=== PATIENT | male | born 1960 | race Caucasian/White ===

== ENCOUNTER 2024-01-04 16:54 | Inpatient (IN) | payer OTHER ==
--- OUTSIDE RECORDS SUMMARY | 2024-01-04 17:09 | XMS REPORT | Continuity of Care Document ---
Author Name Unknown Address [address] [place] [address] [facility] Address [address] [place] [address] Care Team Providers Care Internet Application Developer Name Role Phone Sunday Mccormick MD Primary Care Physician FRANCISCA BARROS Attending Clinician Unavailable MARTIN WYATT JR Attending Clinician UnavailMIRIAM Last Attending Clinician Unavailable ROLAND FANG Attending Clinician Unavailable SUNDAY MCCORMICK Attending Clinician ELSA Alston K.HMoris Attending Clinician UnavailRADHA Tee Attending Clinician Unavailable RADHA LOPEZ Attending Clinician Unavailable Sunday Mccormick MD Attending Clinician + [phone] Alfred Rachele Jha Attending Clinician Unavailable TRACY LOPEZ Attending Clinician Unavailable TRACY LOPEZ Attending Clinician Unavailable Elsa Corrales MD K.HMoris Attending Clinician + [phone] CAYDEN ESTRELLA Attending Clinician Unavailable CAYDEN ESTRELLA Attending Clinician Unavailable Radha Lopez DO Attending Clinician [phone] Doctor Unassigned, [place] Attending Clinician U navailable SHAINA, AFAQ Attending Clinician Unavailable Shaina SENA, Wesley Attending Clinician [phone] ALIYAH JARAMILLO Attending Clinician Unavailable Sarah SUERO, Aliyah G Attending Clinician [phone] AMANDA LOPEZ Attending Clinician Unavailable Jessica SENA, Amanda Shrestha Attending Clinician [phone] Rehab, [facility] Cardiac Attending Clinician Unavailab anastacio High MD, Oswald Attending Clinician [phone] Pob, [facility] Lab Main Attending Clinician Unavailishmael Fang MD, Roland Griffith Attending Clinician [phone] Marcelo Marte MD, Balwinder Santacruz Attending Clinicia n JENI LEVINE Attending Clinician Unavailab Jeni Curry DO Attending Clinician [phone] JOSHUA WORLEY Attending Clinician Unavailishmael Worley MD, Joshua Attending Clinician + [phone] DTOTY DENNIS Attending Clinician Unavailable DOTTY DENNIS Attending Clinician Unavailable 1, [facility] Lab Attending Clinician Unavailable Amy Cool MD Attending Clinician [phone] AMY COOL Attending Clinician UnavailYael Morocho Attending Clinician Unavaila erin POON, IMER Attending Clinician Unavailable Cleve SENA, Imer Attending Clinician [phone] Vaccine, Ang Db Cbc Fam Attending Clinician Unav layo Luu MD, Elena Shrestha Attending Clinician + [phone], [facility] Lab Attending Clinician Unavailable Zach SENA, Emmanuel Mazariegos Attendin g Clinician EMMANUEL SERRANO Attending C linician Unavailable Bernardino ALEJO, Bobbi Dubois Attending Clinician Unavailishmael Heart MD, Kiel Attending Clinician + [phone] Only, Adc Test Attending Clinician Unavailable Saurabh Marcum Attending Clinician + [phone] Papo SENA, Francisca Attending Clinician [phone] Scar SENA, Daphnie Attending Clinician [phone] Gramm BROWNFIELD PROGRAM COORDINATORIvteh Attending Clinician [phone] Nurse, [facility] Pob Immunization Attending Clinician Unavailable Raymundo Lafleur DO Attending Clinician [phone] RAYMUNDO LAFLEUR Attending Clinician Unavail able Gerard Barakat DO Attending Clinician [phone] ELENA LUU Attending Clinician Unavaila erin Parkinson RN, Zohra Jimenez Attending Clinician Unavailab le Only, Ang Db Test Attending Clinician Unavailabl e Unknown, Attending Attending Clinician Unavailab le UNKNOWN, ATTENDING Attending Clinician Unavailab anastacio Blair RNLenora Attending Clinician Unavailab RUFINA Iniguez Attending Clinician Unavailable Yane Couch MD Attending Clinician [phone] Visit, [facility] Dermatology Nurse Attending Clinician Unavailable Isaak SENA, Delmi Valencia Attending Clinician [phone] Mehul Ragsdale MD Attending Clinician [phone] MEHUL RAGSDALE Attending Clinician Unavailable Joycelyn Walker MD Attending Clinician [phone] Miriam Mayes MD Attending Clinician Unavailable JUDITH MCCARTHY Attending Clinician Unavailable Call, [facility] Phone Attending Clinician Unavail able FOUZIA LOBATO Attending Clinician Unavailable MARCIA BALDWIN Attending Clinician Unavailable Lab, [facility] Fam Pob I Attending Clinician Unavailab Krystina Pagan PA-C Attending Clinician +- [phone] KRYSTINA MARTINEZ Attending Clinician Unavailable Morales Alicia MD Attending Clinician [phone] FRANCISCA BARROS Admitting Clinician Unavailable MARTIN WYATT JR Admitting Clinician Unavaila MIRIAM Chua Admitting Clinician Unavailable RADHA LOPEZ Admitting Clinician Unavailable Radha Lopez DO Admitting Clinician [phone] ALIYAH JARAMILLO Admitting Clinician Unavailable AMANDA LOPEZ Admitting Clinician Unavailable DOTTY DENNIS Admitting Clinician Unavailable ROLAND FANG Admitting Clinician Unavailable Roland Fang MD Admitting Clinician [phone] IMER POON Admitting Clinician Unavailable Imer Poon MD Admitting Clinician [phone] Francisca Barros MD Admitting Clinician ELSA CORRALES Admitting Clinician JUDITH Mitchell Admitting Clinician Unavailable Payers Payer Name Policy Type Policy Number Effective Date Expirati on Date Source RAMBO CORRALES DIST [id number] 2021 00:00:00 2022 00:00:00 [employer]AGE [id number] 2023 00:00:00 Problems Condition Name Condition Details Condition Category Status Onset Date Resolution Date Last Treatment Date Treating Clinician Comments Source 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 Added automatic ally from request for surgery [id number] [facility] PACHECO (dyspnea on exertion) PACHECO (dyspnea on exertion) Disease Active 10-28 00:00: 00 Overview: Formattin g of this note might be different from the original. Added automatic ally from request for surgery [id number] [facility] Pulmonary hypertensi on Pulmonary hypertensi on Disease Active 10-28 00:00: 00 Overview: Formattin g of this note might be different from the original. Added automatic ally from request for surgery [id number] [facility] Chronic bilateral low back pain with right-side d sciatica Chronic bilateral low back pain with right-side d sciatica Disease Active 2020-09 0-11 00:00: 00 [facility] Obesity (BMI 30-39.9) Obesity (BMI 30-39.9) Disease Active 3- 00:00: 00 [facility] S/P CABG x 2 S/P CABG x 2 Disease Active 3-29 00:00: 00 [facility] Preop testing Preop testing Disease Active 2-11 00:00: 00 [facility] CKD (chronic kidney disease), stage III CKD (chronic kidney disease), stage III Disease Active 1-24 00:00: 00 [facility] Prediabete s Prediabete s Disease Active 10-10 00:00: 00 [facility] Hyperchole sterolemia Hyperchole sterolemia Disease Active 10-10 00:00: 00 [facility] Vitamin D deficiency Vitamin D deficiency Disease Active 10-10 00:00: 00 [facility] Renal dysfunctio n Renal dysfunctio n Disease Active 10-10 00:00: 00 [facility] Coronary artery disease involving [place] coronary artery of [place] heart with unstable angina pectoris Coronary artery disease involving [place] coronary artery of [place] heart with unstable angina pectoris Disease Active 2016-09 00:00: 00 [facility] Chronic systolic congestive heart failure Chronic systolic congestive heart failure Disease Active 2016-09 00:00: 00 [facility] Ischemic cardiomyop athy Ischemic cardiomyop athy Disease Active 2016-09 00:00: 00 [facility] History of PTCA History of PTCA Disease Active 2016-09 00:00: 00 [facility] Coronary artery disease involving [place] coronary artery of [place] heart with unstable angina pectoris Coronary artery disease involving [place] coronary artery of [place] heart with unstable angina pectoris Disease Active 2016-09 00:00: 00 [facility] Atrial fibrillati on Atrial fibrillati on Disease Active 06-24 00:00: 00 [facility] AMI (acute myocardial infarction ) AMI (acute myocardial infarction ) Disease Active 09-28 00:00: 00 [facility] History of FL (myocardia l infarction ) History of FL (myocardia l infarction ) Disease Active 09-28 00:00: 00 [facility] S/p tibial fracture S/p tibial fracture Disease Active 2010-09 00:00: 00 [facility] Knee stiffness Knee stiffness Disease Active 2010-09 00:00: 00 [facility] Gait abnormalit y Gait abnormalit y Disease Active 2010-09 00:00: 00 [facility] Knee pain Knee pain Disease Active 2010-09 00:00: 00 [facility] History of Hodgkin's lymphoma History of Hodgkin's lymphoma Disease Active 09-28 00:00: 00 Overview: Formattin g of this note might be different from the original. s/p chemother apy/radia tion, treatment @ [facility] and [facility] History of CVA (cerebrova scular accident) History of CVA (cerebrova scular accident) Disease Active [facility] History of hypothyroi dism History of hypothyroi dism Disease Active [facility] HTN (hypertens ion) HTN (hypertens ion) Disease Active [facility] Allergies, Adverse Reactions, Alerts Allergy Name Allergy Type Status Severity Reaction(s) Onset Date Inactive Date Treating Clinician Comments Source NO KNOWN ALLERGIE S Drug Class Active [facility] Social History Social Habit Start Date Stop Date Quantity Comments Source Gender identity [facility] Sexual orientation U [facility] Alcohol intake 2023-12-23 00:00:00 2023-12-23 00:00:00 Current drinker of alcohol (finding) [facility] History of Social function 2023-12-09 00:00:00 2023-12-09 00:00:00 [facility] Exposure to SARS-CoV-2 (event) 2022-12-15 00:00:00 2022-12-25 09:47:00 Not sure [facility] History SDOH Alcohol Frequency 2020-11-08 00:00:00 2020-11-08 00:00:00 3 [facility] History SDOH Alcohol Std Drinks 2020-11-08 00:00:00 2020-11-08 00:00:00 1 [facility] History SDOH Alcohol Binge 2020-11-08 00:00:00 2020-11-08 00:00:00 99 [facility] Alcohol Comment 2020-11-08 00:00:00 2020-11-08 00:00:00 occasional - maybe 2 drinks/month [facility] Tobacco use and exposure 2020-09-27 00:00:00 2020-09-27 00:00:00 Smokeless tobacco non-user [facility] Sex Assigned At 1960 00:00:00 1960 00:00:00 [facility] Smoking Status Start Date Stop Date Source Never smoked tobacco [facility] Medications Ordered Medication Name Filled Medication Name Start Date Stop Date Current Medication? Ordering Clinician Indication Dosage Frequency Signature (SIG) Comments Components Source cholecalcif jessica, vitamin D3, (VITAMIN D3 ORAL) 12-24 12:39: 38 Yes Take by mouth daily. [facility] clopidogreL (PLAVIX) 75 mg tablet 12-24 00:00: 00 Yes [id number] 75mg Take 1 tablet by mouth in the morning. [facility] evolocumab (REPATHA SURECLICK) 140 mg/mL subcutaneou s injection 12-15 00:00: 00 Yes [id number] 140mg inject 1 mL under the skin every 2 (two) weeks. [facility] atorvastati n 40 mg tablet 12-13 00:00: 00 Yes [id number] 40mg TAKE 1 TABLET BY MOUTH AT BEDTIME [facility] gabapentin 300 mg capsule 12-09 00:00: 00 Yes 300mg Take 1 capsule by mouth in the morning and 1 capsule at noon and 1 capsule in the evening. [facility] HYDROcodone -acetaminop hen (NORCO 5) 5-325 mg tablet 1 tablet 12-08 21:45: 00 12-08 22:00 :00 No 1{tbl} 1 tablet, Oral, ONCE, 1 dose, On Thu12/09/23 at 1645, Routine, PACU [facility] ondansetron (ZOFRAN (PF)) injection 4 mg 12-08 21:35: 16 12-09 00:57 :06 No 4mg 4 mg, Slow IV Push, PRN, 1 dose, Starting on Thu12/09/23 at 1635, Until Thu12/09/23 at 195, Routine, Nausea and Vomiting (N/V), N/V unresponsi ve to Rosemary baker, DSU Recovery [facility] FENTanyl PF (SUBLIMAZE (PF)) injection 25 mcg 12-08 21:35: 12 12-09 00:57 :06 No 25ug 25 mcg, Slow IV Push, Q5MIN PRN, 4 doses, Starting on Thu12/09/23 at 1635, Until Thu12/09/23 at 195, Routine, Pain (scale 4-6), PACU [facility] ondansetron (ZOFRAN (PF)) injection 4 mg 12-08 21:35: 12 12-09 00:57 :06 No 4mg 4 mg, Slow IV Push, PRN, 1 dose, Starting on Thu12/09/23 at 1635, Until Thu12/09/23 at 1956, Routine, Nausea and Vomiting (N/V), PACU [facility] cholecalcif jessica, vitamin D3, (VITAMIN D3 ORAL) 12-08 17:57: 06 Yes Take by mouth daily. [facility] omeprazole (PRILOSEC OTC) 20 mg tablet 12-08 16:35: 58 12-08 00:00 :00 No 20mg Take 1 tablet by mouth in the morning. [facility] etodolac (LODINE) 400 mg tablet 00:00: 00 12-24 00:00 :00 No [id number] 400mg Take 1 tablet by mouth in the morning and 1 tablet in the evening. [facility] HYDROcodone -acetaminop hen 5-325 mg tablet 2- 00:00: 00 12-24 04:59 :00 Yes [id number] 1{tbl} Take 1 tablet by mouth in the morning and 1 tablet at noon and 1 tablet in the evening. Do all this for 30 days. Indication s: chronic pain [facility] gabapentin 300 mg capsule 11-24 00:00: 00 12-08 00:00 :00 No [id number] 300mg Take 1 capsule by mouth in the morning and 1 capsule at noon and 1 capsule in the evening. [facility] ketorolac 10 mg tablet 11-24 00:00: 00 00:00 :00 No [id number] 10mg Take 1 tablet by mouth in the morning and 1 tablet at noon and 1 tablet in the evening. [facility] ketorolac (TORADOL) tablet 10 mg 11-20 21:00: 00 11-20 20:17 :00 No 10mg 10 mg, Oral, ONCE, 1 dose, On Thu11/20/23 at 1500, Routine [facility] ketorolac (TORADOL) injection 30 mg 11-20 19:00: 11-20 18:09 :00 No 30mg 30 mg, Slow IV Push, ONCE, 1 dose, On Thu11/20/23 at 1300, Routine [facility] iopamidol (ISOVUE 370-500 mL) injection 90 mL 11-20 18:45: 00 11-20 19:00 :00 No [id number] 90mL 90 mL, Intravenou s, ONCE, 1 dose, On Thu11/20/23 at 1300, Routine [facility] NaCl 0.9% (NS) bolus infusion 1,000 mL 11-20 18:45: 00 11-20 20:05 :00 No 1000mL at 999 mL/hr, 1,000 mL, IV Infusion, ONCE, 1 dose, On Thu11/20/23 at 1245, MARCO [facility] ketorolac 10 mg tablet 11-20 00:00: 00 11-24 00:00 :00 No [id number] 10mg Take 1 tablet by mouth every 6 (six) hours as needed for Pain (scale 1-3), Pain (scale 4-6) or Pain (scale 7-10). [facility] gabapentin 300 mg capsule 2-23 00:00: 00 11-24 00:00 :00 No [id number] 300mg Take 1 capsule by mouth 3 (three) times daily as needed for Pain (scale 4-6) or Pain (scale 7-10). [facility] lisinopriL 10 mg tablet - 00:00: 00 Yes [id number] 10mg TAKE 1 TABLET BY MOUTH IN THE MORNING [facility] HYDROcodone -acetaminop hen 5-325 mg tablet 11-16 00:00: 00 11-24 05:59 :00 Yes [id number] 1{tbl} Take 1 tablet by mouth every 6 (six) hours as needed for Pain (scale 7-10) for up to 7 days. Indication s: acute pain [facility] atorvastati n (LIPITOR) 40 mg tablet 11-12 00:00: 00 12-13 00:00 :00 No [id number] 40mg Take 1 tablet by mouth at bedtime. [facility] amoxicillin -clavulanat e 875-125 mg per tablet - 00:00: 00 11-29 00:00 :00 No [id number] 1{tbl} Take 1 tablet by mouth every 12 (twelve) hours. [facility] HYDROcodone -acetaminop hen (NORCO) 5-325 mg tablet 1-25 00:00: 00 11-07 05:59 :00 Yes [id number] 1{tbl} Take 1 tablet by mouth every 6 (six) hours as needed (lung pain) for up to 15 days. Indication s: chronic pain [facility] LISINOPRIL 10 mg tablet 1- 00:00: 00 11-16 00:00 :00 No [id number] 10mg TAKE 1 TABLET BY MOUTH IN THE MORNING [facility] iopamidol (ISOVUE 370-500 mL) injection 90 mL - 21:15: 00 10-18 21:30 :00 No [id number] 90mL 90 mL, Intravenou s, ONCE, 1 dose, On 10/18/23 at 1530, Routine [facility] HYDROcodone -acetaminop hen (NORCO 5) 5-325 mg tablet 1 tablet 10-18 18:15: 00 10-18 18:58 :00 No 1{tbl} 1 tablet, Oral, ONCE NOW, 1 dose, On Thu10/18/23 at 1215, MARCO [facility] methocarbam oL (ROBAXIN-75 0) 750 mg tablet 10-18 00:00: 00 12-08 00:00 :00 No [id number] 750mg Take 1 tablet by mouth in the morning and 1 tablet at noon and 1 tablet in the evening. [facility] HYDROcodone -acetaminop hen 5-325 mg tablet 10-18 00:00: 00 10-26 05:59 :00 Yes [id number] 1{tbl} Take 1 tablet by mouth every 4 (four) hours as needed for Pain (scale 4-6) or Pain (scale 7-10) for up to 7 days. Indication s: acute pain [facility] amoxicillin -clavulanat e 875-125 mg per tablet 10-18 00:00: 00 10-23 00:00 :00 No [id number] 1{tbl} Take 1 tablet by mouth every 12 (twelve) hours. [facility] omeprazole (PRILOSEC OTC) 20 mg tablet 2022-09 14:06: 18 Yes 20mg Take 1 tablet by mouth in the morning. [facility] isosorbide mononitrate 30 mg 24 hr tablet 2022-09 00:00: 00 09-15 00:00 :00 No [id number] 30mg Take 1 tablet by mouth in the morning. [facility] furosemide 40 mg tablet 2022-09 00:00: 00 09-15 00:00 :00 No [id number] 40mg Take 1 tablet by mouth in the morning. [facility] KCL 20 mEq tablet 2023-1 1-06 00:00: 00 09-15 00:00 :00 No [id number] 20meq Take 1 tablet by mouth every morning. [facility] atorvastati n (LIPITOR) 40 mg tablet 2022-09 1- 00:00: 00 11-12 00:00 :00 No [id number] 40mg Take 1 tablet by mouth at bedtime. [facility] cholecalcif jessica, vitamin D3, (VITAMIN D3 ORAL) 2022-09 0-25 11:31: 18 Yes Take by mouth daily. [facility] atorvastati n (LIPITOR) 80 mg tablet 2022-09 0-16 00:00: 00 07-31 00:00 :00 No [id number] 80mg Take 1 tablet by mouth at bedtime. [facility] metoprolol tartrate 100 mg tablet 2022-09 0- 00:00: 00 Yes [id number] 50mg Take 0.5 tablets by mouth in the morning and 0.5 tablets in the evening. [facility] ezetimibe 10 mg tablet 2022-09 0 00:00: 00 07-31 00:00 :00 No [id number] 10mg Take 1 tablet by mouth in the morning. [facility] cholecalcif jessica, vitamin D3, (VITAMIN D3 ORAL) 18 14:42: 00 Yes Take by mouth daily. [facility] LISINOPRIL 10 mg tablet 9-14 00:00: 00 10-19 00:00 :00 No [id number] 10mg TAKE 1 TABLET BY MOUTH IN THE MORNING [facility] silver nitrate applicator 1 Applicator -18 15:15: 00 05-15 14:24 :00 No 1{appli cator} 1 Applicator , Topical, ONCE, 1 dose, On Thu05/15/23 at 1015, Routine [facility] METOPROLOL TARTRATE 100 mg tablet -18 00:00: 00 07-09 00:00 :00 No [id number] 100mg Take 1 tablet by mouth twice daily [facility] KCL 20 mEq tablet 04-20 00:00: 00 08-03 00:00 :00 No TAKE 1 TABLET BY MOUTH IN THE MORNING [facility] LISINOPRIL 10 mg tablet 04-20 00:00: 00 06-11 00:00 :00 No [id number] 10mg TAKE 1 TABLET BY MOUTH IN THE MORNING [facility] metoprolol tartrate (LOPRESSOR) tablet 50 mg 04-05 01:00: 00 04-04 21:04 :59 No 50mg 50 mg, Oral, BID, First dose (after last modificati on) on [facility] 04/04/23 at 1999, Until Discontinu ed, Routine [facility] cholecalcif jessica, vitamin D3, (VITAMIN D3 ORAL) 04-04 14:04: 57 Yes Take by mouth daily. [facility] lisinopriL (PRINIVIL,Z ESTRIL) tablet 10 mg 04-04 14:00: 00 04-04 21:04 :59 No 10mg 10 mg, Oral, DAILY, First dose on [facility] 04/04/23 at 0900, Until Discontinu ed, Routine [facility] ezetimibe (ZETIA) tablet 10 mg 04-04 14:00: 00 04-04 21:04 :59 No 10mg 10 mg, Oral, DAILY, First dose on [facility] 04/04/23 at 0900, Until Discontinu ed, Routine [facility] aspirin chewable tablet 81 mg 04-04 14:00: 00 04-04 21:04 :59 No 81mg 81 mg, Oral, DAILY, First dose on [facility] 04/04/23 at 0900, Until Discontinu ed, Routine, CV Recovery to Floor [facility] clopidogreL (PLAVIX) 75 mg tablet 75 mg 04-04 14:00: 00 04-04 21:04 :59 No 75mg 75 mg, Oral, DAILY, First dose on [facility] 04/04/23 at 0900, Until Discontinu ed, Routine, CV Recovery to Floor
F aculty member approving Restricted medication : ROLAND FANG [facility] atorvastati n (LIPITOR) tablet 80 mg 04-04 02:00: 00 04-04 21:04 :59 No 80mg 80 mg, Oral, QHS, First dose on Thu04/03/23 at 2100, Until Discontinu ed, Routine [facility] metoprolol tartrate (LOPRESSOR) tablet 50 mg 04-04 01:00: 00 04-04 14:07 :17 No 50mg 50 mg, Oral, BID, First dose on Thu04/03/23 at 1999, Until Discontinu ed, Routine [facility] apixaban (ELIQUIS) tablet 5 mg 04-04 01:00: 00 04-04 21:04 :59 No [id number] 5mg 5 mg, Oral, BID, First dose on Thu04/03/23 at 1999, Until Discontinu ed, Routine
Indicatio ns: Non-Valvul ar Atrial Fibrillati on [facility] apixaban 5 mg tablet 04-04 00:00: 00 Yes [id number] 5mg Take 1 tablet by mouth in the morning and 1 tablet in the evening. Indication s: atrial fibrillati on [facility] clopidogreL (PLAVIX) 75 mg tablet 04-04 00:00: 00 12-24 21:16 :58 No [id number] 75mg Take 1 tablet by mouth in the morning. [facility] pantoprazol e 40 mg EC tablet 04-04 00:00: 00 09-07 00:00 :00 No [id number] 40mg Take 1 tablet by mouth in the morning. [facility] atorvastati n (LIPITOR) 80 mg tablet 04-04 00:00: 00 07-13 00:00 :00 No [id number] 80mg Take 1 tablet by mouth at bedtime. [facility] aspirin 81 mg EC tablet 04-04 00:00: 00 06-15 00:00 :00 No [id number] 81mg Take 1 tablet by mouth in the morning. [facility] metoprolol tartrate 100 mg tablet 04-04 00:00: 00 05-15 00:00 :00 No [id number] 50mg Take 0.5 tablets by mouth in the morning and 0.5 tablets in the evening. [facility] acetaminoph en (TYLENOL) tablet 650 mg 04-03 21:56: 53 04-04 21:04 :59 No 650mg 650 mg, Oral, Q6HPRN, Starting on Thu04/03/23 at 1656, Until Thu04/04/23 at 1604, Routine, Pain (scale 1-3) [facility] clopidogreL (PLAVIX) 300 mg tablet 04-03 17:04: 23 04-03 17:30 :51 No ONCE INTRA PROCEDURE, Starting on Thu04/03/23 at 1204, Until Thu04/03/23 at 1230, Routine, CV Intraproce dure [facility] iodixanol (VISIPAQUE 320-100 mL) injection 04-03 16:58: 50 04-03 17:30 :51 No ONCE INTRA PROCEDURE, Starting on Thu04/03/23 at 1158, Until Thu04/03/23 at 1230, Routine, CV Intraproce dure [facility] adenosine 6 mg/1000 mL INTRACORONA RY injection for [employer] INSTRUCTOR 04-03 16:30: 40 04-03 17:30 :51 No ONCE INTRA PROCEDURE, Starting on Thu04/03/23 at 1130, Until Thu04/03/23 at 1230, Routine, CV Intraproce dure [facility] nitroglycer in (TRIDIL) 2 mg in 10 mL D5W for Cardiac Cath 04-03 16:30: 32 04-03 17:30 :51 No ONCE INTRA PROCEDURE, Starting on Thu04/03/23 at 1130, Until Thu04/03/23 at 1230, Routine, CV Intraproce dure [facility] adenosine diagnostic (ADENOSCAN) injection 04-03 15:45: 48 04-03 17:30 :51 No CONTINUOUS PRN, Starting on Thu04/03/23 at 1045, Until Thu04/03/23 at 1230, Routine, CV Intraproce dure [facility] NaCl 0.9% (NS) bolus infusion 04-03 15:40: 14 04-03 15:40 :14 No CONTINUOUS PRN, Starting on Thu04/03/23 at 1040, Until Discontinu ed, STAT, CV Intraproce dure [facility] heparin 1,000 unit/mL injection 04-03 15:30: 40 04-03 17:30 :51 No ONCE INTRA PROCEDURE, Starting on Thu04/03/23 at 1030, Until Thu04/03/23 at 1230, Routine, CV Intraproce dure [facility] lidocaine 1% (PF) (XYLOCAINE) injection 04-03 15:19: 09 04-03 17:30 :51 No ONCE INTRA PROCEDURE, Starting on Thu04/03/23 at 1019, Until Thu04/03/23 at 1230, Routine, CV Intraproce dure [facility] FENTanyl PF (SUBLIMAZE (PF)) injection 04-03 15:16: 57 04-03 17:30 :51 No ONCE INTRA PROCEDURE, Starting on Thu04/03/23 at 1016, Until Thu04/03/23 at 1230, Routine, CV Intraproce dure [facility] midazolam (VERSED) injection 04-03 15:16: 50 04-03 17:30 :51 No ONCE INTRA PROCEDURE, Starting on Thu04/03/23 at 1016, Until Thu04/03/23 at 1230, Routine, CV Intraproce dure [facility] cholecalcif jessica, vitamin D3, (VITAMIN D3 ORAL) 04-03 06:14: 47 Yes Take by mouth daily. [facility] LISINOPRIL 10 mg tablet 04-01 00:00: 00 04-20 00:00 :00 No [id number] 10mg TAKE 1 TABLET BY MOUTH IN THE MORNING [facility] KCL 20 mEq tablet 7-05 00:00: 00 04-20 00:00 :00 No TAKE 1 BY MOUTH IN THE MORNING [facility] atorvastati n (LIPITOR) 80 mg tablet 30 00:00: 00 04-04 00:00 :00 No [id number] 80mg Take 1 tablet by mouth at bedtime. [facility] cholecalcif jessica, vitamin D3, (VITAMIN D3 ORAL) 03-12 14:50: 28 Yes Take by mouth daily. [facility] clopidogreL (PLAVIX) 75 mg tablet 03-12 00:00: 00 04-04 00:00 :00 No [id number] 75mg Take 1 tablet by mouth in the morning. [facility] AMLODIPINE 5 mg tablet 5 00:00: 00 04-04 00:00 :00 No [id number] Take 1 tablet by mouth once daily [facility] evolocumab (REPATHA SURECLICK) 140 mg/mL PnIj 12-25 00:00: 00 12-15 00:00 :00 No [id number] 140mg inject 1 mL under the skin every 2 (two) weeks. [facility] tc 99m-tetrofo smin (MYOVIEW) injection 22.1 millicurie 12-09 16:15: 00 12-09 16:14 :00 No [id number] 22.1mCi 22.1 millicurie , Intravenou s, ONCE, 1 dose, On Thu12/09/22 at 1115, Routine [facility] regadenoson (LEXISCAN) injection 0.4 mg 12-09 15:45: 00 12-09 16:03 :00 No [id number] .4mg 0.4 mg, IV Push, ONCE, 1 dose, On Thu12/09/22 at 1045, Routine
bakery team member approving Restricted medication : GENEVA LOBATOJUN [facility] tc 99m-tetrofo smin (MYOVIEW) injection 7.9 millicurie 12-09 14:30: 00 12-09 14:28 :00 No [id number] 7.9mCi 7.9 millicurie , Intravenou s, ONCE, 1 dose, On Thu12/09/22 at 0930, Routine [facility] furosemide 40 mg tablet 11-26 00:00: 00 08-03 00:00 :00 No [id number] Take 1 tablet by mouth once daily [facility] lisinopriL 10 mg tablet 11-26 00:00: 00 04-01 00:00 :00 No [id number] 10mg TAKE 1 TABLET BY MOUTH IN THE MORNING [facility] cholecalcif jessica, vitamin D3, (VITAMIN D3 ORAL) 11-19 15:15: 16 Yes Take by mouth daily. [facility] iopamidol (ISOVUE 300-500 mL) injection 11-19 15:07: 37 11-19 15:19 :43 No ONCE INTRA PROCEDURE, Starting on Thu11/19/22 at 0907, Until Thu11/19/22 at 0919, Routine, CV Intraproce dure [facility] aspirin chewable tablet 81 mg 11-19 15:00: 00 11-19 23:15 :19 No [id number] 81mg 81 mg, Oral, DAILY, First dose on Thu11/19/22 at 0900, Until Discontinu ed, Routine [facility] lidocaine 1% (PF) (XYLOCAINE) injection 11-19 14:13: 44 11-19 15:19 :43 No ONCE INTRA PROCEDURE, Starting on Thu11/19/22 at 0813, Until Thu11/19/22 at 09, Routine, CV Intraproce dure [facility] midazolam (VERSED) injection 11-19 14:05: 24 11-19 15:19 :43 No ONCE INTRA PROCEDURE, Starting on Thu11/19/22 at 0805, Until Thu11/19/22 at 09, Routine, CV Intraproce dure [facility] FENTanyl PF (SUBLIMAZE (PF)) injection 11-19 14:05: 09 11-19 15:19 :43 No ONCE INTRA PROCEDURE, Starting on Thu11/19/22 at 0805, Until Thu11/19/22 at 09, Routine, CV Intraproce dure [facility] KCL 20 mEq tablet 11-17 00:00: 00 04-01 00:00 :00 No TAKE 1 BY MOUTH IN THE MORNING [facility] ezetimibe 10 mg tablet 11-13 00:00: 00 07-09 00:00 :00 No [id number] 10mg Take 1 tablet by mouth in the morning. [facility] apixaban 5 mg tablet 11-13 00:00: 00 04-04 00:00 :00 No [id number] 5mg Take 1 tablet by mouth in the morning and 1 tablet in the evening. Indication s: atrial fibrillati on [facility] FUROSEMIDE 40 mg tablet 10-14 00:00: 00 11-26 00:00 :00 No Take 1 tablet by mouth once daily [facility] LISINOPRIL 10 mg tablet 10-14 00:00: 00 11-26 00:00 :00 No [id number] 10mg TAKE 1 TABLET BY MOUTH IN THE MORNING [facility] KCL 20 mEq tablet 10-14 00:00: 00 11-17 00:00 :00 No 20meq TAKE 1 TABLET BY MOUTH IN THE MORNING [facility] FUROSEMIDE 40 mg tablet 2021-09 00:00: 00 10-14 00:00 :00 No Take 1 tablet by mouth once daily [facility] metoprolol tartrate 100 mg tablet 2021-09- 00:00: 00 04-04 00:00 :00 No Take 1 tablet by mouth twice daily [facility] apixaban 5 mg tablet 2021-09 1-07 00:00: 00 11-13 00:00 :00 No [id number] 5mg Take 1 tablet by mouth in the morning and 1 tablet in the evening. Indication s: atrial fibrillati on [facility] lisinopriL 10 mg tablet 06-06 00:00: 00 10-14 00:00 :00 No [id number] 10mg Take 1 tablet by mouth in the morning. [facility] KCL 20 mEq tablet 06-06 00:00: 00 10-14 00:00 :00 No 20meq Take 1 tablet by mouth in the morning. [facility] cholecalcif jessica, vitamin D3, (VITAMIN D3 ORAL) 05-19 10:58: 19 Yes Take by mouth daily. [facility] atorvastati n (LIPITOR) 80 mg tablet 6-28 00:00: 00 03-27 00:00 :00 No [id number] 80mg Take 1 tablet by mouth at bedtime. [facility] LISINOPRIL 10 mg tablet 5-31 00:00: 00 06-06 00:00 :00 No [id number] Take 1 tablet by mouth once daily [facility] atorvastati n (LIPITOR) 80 mg tablet 427 13:24: 55 01-22 00:00 :00 No 80mg Take 80 mg by mouth at bedtime. [facility] furosemide 40 mg tablet 4-27 00:00: 00 09-08 00:00 :00 No 40mg Take 1 tablet by mouth daily. [facility] KCL 20 mEq tablet 4-27 00:00: 00 06-06 00:00 :00 No 20meq Take 1 tablet by mouth daily. [facility] ezetimibe (ZETIA) 10 mg tablet 4-24 16:51: 56 01-19 00:00 :00 No 10mg Take 10 mg by mouth daily. [facility] ezetimibe 10 mg tablet 4-24 00:00: 00 11-13 00:00 :00 No [id number] 10mg Take 1 tablet by mouth daily. [facility] amLODIPine 5 mg tablet 4-21 00:00: 00 01-26 00:00 :00 No [id number] 5mg Take 1 tablet by mouth daily. [facility] metoprolol tartrate 100 mg tablet 4-06 00:00: 00 08-04 00:00 :00 No 100mg Take 100 mg by mouth 2 (two) times daily. [facility] amiodarone 100 mg tablet 3-21 00:00: 00 10-16 00:00 :00 No [id number] 100mg Take 1 tablet by mouth daily. [facility] apixaban (ELIQUIS) 2.5 mg tablet 2-15 11:15: 25 11-12 00:00 :00 No 2.5mg Take 2.5 mg by mouth 2 (two) times daily. [facility] apixaban 5 mg tablet 2-15 00:00: 00 08-04 00:00 :00 No [id number] 5mg Take 1 tablet by mouth 2 (two) times daily. Indication s: atrial fibrillati on [facility] lisinopriL 10 mg tablet 1-18 00:00: 00 02-25 00:00 :00 No [id number] 10mg Take 1 tablet by mouth daily. [facility] metoprolol tartrate 100 mg tablet 2020-09 2-16 00:00: 00 12-12 04:59 :00 No [id number] 100mg Take 1 tablet by mouth 2 (two) times daily for 90 days. [facility] methylPREDN ISolone (MEDROL, MARIO,) 4 mg tablets 2020-09 0-04 00:00: 00 11-19 00:00 :00 No [id number] Take by mouth SEE-INSTRU CTIONS. follow package directions [facility] hydrocortis one 1 % cream 9-03 00:00: 00 11-19 00:00 :00 No Apply to affected area(s) 2 (two) times daily. [facility] apixaban (ELIQUIS) 5 mg tablet 7-15 00:00: 00 07-19 00:00 :00 No 5mg Take 1 tablet by mouth 2 (two) times daily. Indication s: PAF [facility] LISINOPRIL 10 mg tablet 7-14 00:00: 00 06-13 00:00 :00 No [id number] TAKE 1 TABLET BY MOUTH EVERY DAY [facility] metoprolol tartrate 100 mg tablet 6-24 00:00: 00 07-19 00:00 :00 No [id number] 100mg Take 1 tablet by mouth 2 (two) times daily. [facility] amLODIPine 5 mg tablet 4-26 00:00: 00 01-16 00:00 :00 No [id number] 5mg Take 1 tablet by mouth daily. [facility] metoprolol tartrate 50 mg tablet 4-02 00:00: 00 03-21 00:00 :00 No [id number] 75mg Take 1.5 tablets by mouth 2 (two) times daily. [facility] atorvastati n 80 mg tablet 3-03 00:00: 00 02-27 04:59 :00 No [id number] 80mg Take 1 tablet by mouth every evening for 90 days. [facility] ezetimibe 10 mg tablet 2-23 00:00: 00 02-19 04:59 :00 No [id number] 9100 10mg Take 1 tablet by mouth daily for 90 days. [facility] apixaban (ELIQUIS) 5 mg tablet 2-23 00:00: 00 01-22 00:00 :00 No 5mg Take 1 tablet by mouth 2 (two) times daily for 90 days. Indication s: afib [facility] amLODIPine 5 mg tablet 2-12 00:00: 00 12-28 00:00 :00 No [id number] 5mg Take 1 tablet by mouth daily. [facility] metoprolol tartrate 50 mg tablet 2-12 00:00: 00 12-28 00:00 :00 No [id number] 50mg Take 1 tablet by mouth 2 (two) times daily. [facility] atorvastati n 80 mg tablet 2- 00:00: 00 11-28 00:00 :00 No [id number] 80mg Take 1 tablet by mouth every evening. [facility] lisinopriL 10 mg tablet - 00:00: 00 04-10 00:00 :00 No [id number] 10mg Take 1 tablet by mouth daily. [facility] aspirin 81 mg EC tablet 30 00:00: 00 04-04 00:00 :00 No [id number] 81mg Take 1 Tab by mouth daily. [facility] Immunizations Ordered Immunization Name Filled Immunization Name Date Status Comments Source Influenza Virus Vaccine Quad IM, Preserv and ABX Free 6 MO-64 YRS 2022-10-16 00:00:00 Completed [facility] Influenza Virus Vaccine Quad IM, Preserv and ABX Free 6 MO-64 YRS 2022-10-16 00:00:00 Completed [facility] Influenza Virus Vaccine Quad IM, Preserv and ABX Free 6 MO-64 YRS 2022-10-16 00:00:00 Completed [facility] Influenza Virus Vaccine Quad IM, Preserv and ABX Free 6 MO-64 YRS 2022-10-16 00:00:00 Completed [facility] Influenza Virus Vaccine Quad IM, Preserv and ABX Free 6 MO-64 YRS 2022-10-16 00:00:00 Completed [facility] Influenza Virus Vaccine Quad IM, Preserv and ABX Free 6 MO-64 YRS 2022-10-16 00:00:00 Completed [facility] Influenza Virus Vaccine Quad IM, Preserv and ABX Free 6 MO-64 YRS 2022-10-16 00:00:00 Completed [facility] Influenza Virus Vaccine Quad IM, Preserv and ABX Free 6 MO-64 YRS 2022-10-16 00:00:00 Completed [facility] Influenza Virus Vaccine Quad IM, Preserv and ABX Free 6 MO-64 YRS 2022-10-16 00:00:00 Completed [facility] Influenza Virus Vaccine Quad IM, Preserv and ABX Free 6 MO-64 YRS 2022-10-16 00:00:00 Completed [facility] Influenza Virus Vaccine Quad IM, Preserv and ABX Free 6 MO-64 YRS 2022-10-16 00:00:00 Completed [facility] Influenza Virus Vaccine Quad IM, Preserv and ABX Free 6 MO-64 YRS 2022-10-16 00:00:00 Completed [facility] Influenza Virus Vaccine Quad IM, Preserv and ABX Free 6 MO-64 YRS 2022-10-16 00:00:00 Completed [facility] Influenza Virus Vaccine Quad IM, Preserv and ABX Free 6 MO-64 YRS 2022-10-16 00:00:00 Completed [facility] Influenza Virus Vaccine Quad IM, Preserv and ABX Free 6 MO-64 YRS 2022-10-16 00:00:00 Completed [facility] Influenza Virus Vaccine Quad IM, Preserv and ABX Free 6 MO-64 YRS 2022-10-16 00:00:00 Completed [facility] Influenza Virus Vaccine Quad IM, Preserv and ABX Free 6 MO-64 YRS 2022-10-16 00:00:00 Completed [facility] Influenza Virus Vaccine Quad IM, Preserv and ABX Free 6 MO-64 YRS 2022-10-16 00:00:00 Completed [facility] Influenza Virus Vaccine Quad IM, Preserv and ABX Free 6 MO-64 YRS 2022-10-16 00:00:00 Completed [facility] Influenza Virus Vaccine Quad IM, Preserv and ABX Free 6 MO-64 YRS 2022-10-16 00:00:00 Completed [facility] Influenza Virus Vaccine Quad IM, Preserv and ABX Free 6 MO-64 YRS 2022-10-16 00:00:00 Completed [facility] Influenza Virus Vaccine Quad IM, Preserv and ABX Free 6 MO-64 YRS 2022-10-16 00:00:00 Completed [facility] Influenza Virus Vaccine Quad IM, Preserv and ABX Free 6 MO-64 YRS 2022-10-16 00:00:00 Completed [facility] Influenza Virus Vaccine Quad IM, Preserv and ABX Free 6 MO-64 YRS 2022-10-16 00:00:00 Completed [facility] Influenza Virus Vaccine Quad IM, Preserv and ABX Free 6 MO-64 YRS 2022-10-16 00:00:00 Completed [facility] Influenza Virus Vaccine Quad IM, Preserv and ABX Free 6 MO-64 YRS 2022-10-16 00:00:00 Completed [facility] Influenza Virus Vaccine Quad IM, Preserv and ABX Free 6 MO-64 YRS 2022-10-16 00:00:00 Completed [facility] Influenza Virus Vaccine Quad IM, Preserv and ABX Free 6 MO-64 YRS 2022-10-16 00:00:00 Completed [facility] Influenza Virus Vaccine Quad IM, Preserv and ABX Free 6 MO-64 YRS 2022-10-16 00:00:00 Completed [facility] Influenza Virus Vaccine Quad IM, Preserv and ABX Free 6 MO-64 YRS 2022-10-16 00:00:00 Completed [facility] Influenza Virus Vaccine Quad IM, Preserv and ABX Free 6 MO-64 YRS 2022-10-16 00:00:00 Completed [facility] Influenza Virus Vaccine Quad IM, Preserv and ABX Free 6 MO-64 YRS 2022-10-16 00:00:00 Completed [facility] Influenza Virus Vaccine Quad IM, Preserv and ABX Free 6 MO-64 YRS 2022-10-16 00:00:00 Completed [facility] Influenza Virus Vaccine Quad IM, Preserv and ABX Free 6 MO-64 YRS 2022-10-16 00:00:00 Completed [facility] Influenza Virus Vaccine Quad IM, Preserv and ABX Free 6 MO-64 YRS 2022-10-16 00:00:00 Completed [facility] Influenza Virus Vaccine Quad IM, Preserv and ABX Free 6 MO-64 YRS 2022-10-16 00:00:00 Completed [facility] Influenza Virus Vaccine Quad IM, Preserv and ABX Free 6 MO-64 YRS 2022-10-16 00:00:00 Completed [facility] Influenza Virus Vaccine Quad IM, Preserv and ABX Free 6 MO-64 YRS 2022-10-16 00:00:00 Completed [facility] Influenza Virus Vaccine Quad IM, Preserv and ABX Free 6 MO-64 YRS 2022-10-16 00:00:00 Completed [facility] Influenza Virus Vaccine Quad IM, Preserv and ABX Free 6 MO-64 YRS 2022-10-16 00:00:00 Completed [facility] Influenza Virus Vaccine Quad IM, Preserv and ABX Free 6 MO-64 YRS 2022-10-16 00:00:00 Completed [facility] Influenza Virus Vaccine Quad IM, Preserv and ABX Free 6 MO-64 YRS 2022-10-16 00:00:00 Completed [facility] Influenza Virus Vaccine Quad IM, Preserv and ABX Free 6 MO-64 YRS 2022-10-16 00:00:00 Completed [facility] Influenza Virus Vaccine Quad IM, Preserv and ABX Free 6 MO-64 YRS 2022-10-16 00:00:00 Completed [facility] Influenza Virus Vaccine Quad IM, Preserv and ABX Free 6 MO-64 YRS 2022-10-16 00:00:00 Completed [facility] Influenza Virus Vaccine Quad IM, Preserv and ABX Free 6 MO-64 YRS 2022-10-16 00:00:00 Completed [facility] Influenza Virus Vaccine Quad IM, Preserv and ABX Free 6 MO-64 YRS 2022-10-16 00:00:00 Completed [facility] Influenza Virus Vaccine Quad IM, Preserv and ABX Free 6 MO-64 YRS (FLUCELVAX) 2022-10-16 00:00:00 Completed [facility] Influenza Virus Vaccine Quad IM, Preserv and ABX Free 6 MO-64 YRS (FLUCELVAX) 2022-10-16 00:00:00 Completed [facility] Influenza Virus Vaccine Quad IM, Preserv and ABX Free 6 MO-64 YRS (FLUCELVAX) 2022-10-16 00:00:00 Completed [facility] Influenza Virus Vaccine Quad IM, Preserv and ABX Free 6 MO-64 YRS (FLUCELVAX) 2022-10-16 00:00:00 Completed [facility] Influenza Virus Vaccine Quad IM, Preserv and ABX Free 6 MO-64 YRS (FLUCELVAX) 2022-10-16 00:00:00 Completed [facility] Influenza Virus Vaccine Quad IM, Preserv and ABX Free 6 MO-64 YRS (FLUCELVAX) 2022-10-16 00:00:00 Completed [facility] Influenza Virus Vaccine Quad IM, Preserv and ABX Free 6 MO-64 YRS (FLUCELVAX) 2022-10-16 00:00:00 Completed [facility] SARS-COV-2 COVID-19 MODERNA 0.25ML BOOSTER VACCINE 2022-04-28 00:00:00 Completed [facility] SARS-COV-2 COVID-19 MODERNA 0.25ML BOOSTER VACCINE 2022-04-28 00:00:00 Completed [facility] SARS-COV-2 COVID-19 MODERNA 0.25ML BOOSTER VACCINE 2022-04-28 00:00:00 Completed [facility] SARS-COV-2 COVID-19 MODERNA 0.25ML BOOSTER VACCINE 2022-04-28 00:00:00 Completed [facility] SARS-COV-2 COVID-19 MODERNA 0.25ML BOOSTER VACCINE 2022-04-28 00:00:00 Completed [facility] SARS-COV-2 COVID-19 MODERNA 0.25ML BOOSTER VACCINE 2022-04-28 00:00:00 Completed [facility] SARS-COV-2 COVID-19 MODERNA 0.25ML BOOSTER VACCINE 2022-04-28 00:00:00 Completed [facility] SARS-COV-2 COVID-19 MODERNA 0.25ML BOOSTER VACCINE 2022-04-28 00:00:00 Completed [facility] SARS-COV-2 COVID-19 MODERNA 0.25ML BOOSTER VACCINE 2022-04-28 00:00:00 Completed [facility] SARS-COV-2 COVID-19 MODERNA 0.25ML BOOSTER VACCINE 2022-04-28 00:00:00 Completed [facility] SARS-COV-2 COVID-19 MODERNA 0.25ML BOOSTER VACCINE 2022-04-28 00:00:00 Completed [facility] SARS-COV-2 COVID-19 MODERNA 0.25ML BOOSTER VACCINE 2022-04-28 00:00:00 Completed [facility] SARS-COV-2 COVID-19 MODERNA 0.25ML BOOSTER VACCINE 2022-04-28 00:00:00 Completed [facility] SARS-COV-2 COVID-19 MODERNA 0.25ML BOOSTER VACCINE 2022-04-28 00:00:00 Completed [facility] SARS-COV-2 COVID-19 MODERNA 0.25ML BOOSTER VACCINE 2022-04-28 00:00:00 Completed [facility] SARS-COV-2 COVID-19 MODERNA 0.25ML BOOSTER VACCINE 2022-04-28 00:00:00 Completed [facility] SARS-COV-2 COVID-19 MODERNA 0.25ML BOOSTER VACCINE 2022-04-28 00:00:00 Completed [facility] SARS-COV-2 COVID-19 MODERNA 0.25ML BOOSTER VACCINE 2022-04-28 00:00:00 Completed [facility] SARS-COV-2 COVID-19 MODERNA 0.25ML BOOSTER VACCINE 2022-04-28 00:00:00 Completed [facility] SARS-COV-2 COVID-19 MODERNA 0.25ML BOOSTER VACCINE 2022-04-28 00:00:00 Completed [facility] SARS-COV-2 COVID-19 MODERNA 0.25ML BOOSTER VACCINE 2022-04-28 00:00:00 Completed [facility] SARS-COV-2 COVID-19 MODERNA 0.25ML BOOSTER VACCINE 2022-04-28 00:00:00 Completed [facility] SARS-COV-2 COVID-19 MODERNA 0.25ML BOOSTER VACCINE 2022-04-28 00:00:00 Completed [facility] SARS-COV-2 COVID-19 MODERNA 0.25ML BOOSTER VACCINE 2022-04-28 00:00:00 Completed [facility] SARS-COV-2 COVID-19 MODERNA 0.25ML BOOSTER VACCINE 2022-04-28 00:00:00 Completed [facility] SARS-COV-2 COVID-19 MODERNA 0.25ML BOOSTER VACCINE 2022-04-28 00:00:00 Completed [facility] SARS-COV-2 COVID-19 MODERNA 0.25ML BOOSTER VACCINE 2022-04-28 00:00:00 Completed [facility] SARS-COV-2 COVID-19 MODERNA 0.25ML BOOSTER VACCINE 2022-04-28 00:00:00 Completed [facility] SARS-COV-2 COVID-19 MODERNA 0.25ML BOOSTER VACCINE 2022-04-28 00:00:00 Completed [facility] SARS-COV-2 COVID-19 MODERNA 0.25ML BOOSTER VACCINE 2022-04-28 00:00:00 Completed [facility] SARS-COV-2 COVID-19 MODERNA 0.25ML BOOSTER VACCINE 2022-04-28 00:00:00 Completed [facility] SARS-COV-2 COVID-19 MODERNA 0.25ML BOOSTER VACCINE 2022-04-28 00:00:00 Completed [facility] SARS-COV-2 COVID-19 MODERNA 0.25ML BOOSTER VACCINE 2022-04-28 00:00:00 Completed [facility] SARS-COV-2 COVID-19 MODERNA 0.25ML BOOSTER VACCINE 2022-04-28 00:00:00 Completed [facility] SARS-COV-2 COVID-19 MODERNA 0.25ML BOOSTER VACCINE 2022-04-28 00:00:00 Completed [facility] SARS-COV-2 COVID-19 MODERNA 0.25ML BOOSTER VACCINE 2022-04-28 00:00:00 Completed [facility] SARS-COV-2 COVID-19 MODERNA 0.25ML BOOSTER VACCINE 2022-04-28 00:00:00 Completed [facility] SARS-COV-2 COVID-19 MODERNA 0.25ML BOOSTER VACCINE 2022-04-28 00:00:00 Completed [facility] SARS-COV-2 COVID-19 MODERNA 0.25ML BOOSTER VACCINE 2022-04-28 00:00:00 Completed [facility] SARS-COV-2 COVID-19 MODERNA 0.25ML BOOSTER VACCINE 2022-04-28 00:00:00 Completed [facility] SARS-COV-2 COVID-19 MODERNA 0.25ML BOOSTER VACCINE 2022-04-28 00:00:00 Completed [facility] SARS-COV-2 COVID-19 MODERNA 0.25ML BOOSTER VACCINE 2022-04-28 00:00:00 Completed [facility] SARS-COV-2 COVID-19 MODERNA 0.25ML BOOSTER VACCINE 2022-04-28 00:00:00 Completed [facility] SARS-COV-2 COVID-19 MODERNA 0.25ML BOOSTER VACCINE 2022-04-28 00:00:00 Completed [facility] SARS-COV-2 COVID-19 MODERNA 0.25ML BOOSTER VACCINE 2022-04-28 00:00:00 Completed [facility] SARS-COV-2 COVID-19 MODERNA 0.25ML BOOSTER VACCINE 2022-04-28 00:00:00 Completed [facility] SARS-COV-2 COVID-19 MODERNA 0.25ML BOOSTER VACCINE 2022-04-28 00:00:00 Completed [facility] SARS-COV-2 COVID-19 MODERNA 0.25ML BOOSTER VACCINE 2022-04-28 00:00:00 Completed [facility] SARS-COV-2 COVID-19 MODERNA 0.25ML BOOSTER VACCINE 2022-04-28 00:00:00 Completed [facility] SARS-COV-2 COVID-19 MODERNA 0.25ML BOOSTER VACCINE 2022-04-28 00:00:00 Completed [facility] SARS-COV-2 COVID-19 MODERNA 0.25ML BOOSTER VACCINE 2022-04-28 00:00:00 Completed [facility] SARS-COV-2 COVID-19 MODERNA 0.25ML BOOSTER VACCINE 2022-04-28 00:00:00 Completed [facility] SARS-COV-2 COVID-19 MODERNA 0.25ML BOOSTER VACCINE 2022-04-28 00:00:00 Completed [facility] SARS-COV-2 COVID-19 MODERNA 0.25ML BOOSTER VACCINE 2022-04-28 00:00:00 Completed [facility] SARS-COV-2 COVID-19 MODERNA 0.25ML BOOSTER VACCINE 2022-04-28 00:00:00 Completed [facility] SARS-COV-2 COVID-19 MODERNA 0.25ML BOOSTER VACCINE 2022-04-28 00:00:00 Completed [facility] SARS-COV-2 COVID-19 MODERNA 0.25ML BOOSTER VACCINE 2022-04-28 00:00:00 Completed [facility] SARS-COV-2 COVID-19 MODERNA 0.25ML BOOSTER VACCINE 2022-04-28 00:00:00 Completed [facility] SARS-COV-2 COVID-19 MODERNA 0.25ML BOOSTER VACCINE 2022-04-28 00:00:00 Completed [facility] SARS-COV-2 COVID-19 MODERNA 0.25ML BOOSTER VACCINE 2022-04-28 00:00:00 Completed [facility] SARS-COV-2 COVID-19 MODERNA 0.25ML BOOSTER VACCINE 2022-04-28 00:00:00 Completed [facility] SARS-COV-2 COVID-19 MODERNA 0.25ML BOOSTER VACCINE 2022-04-28 00:00:00 Completed [facility] SARS-COV-2 COVID-19 MODERNA 0.25ML BOOSTER VACCINE 2022-04-28 00:00:00 Completed [facility] Pneumococcal Polysaccharide, PPSV23 (PNEUMOVAX) 2021-11-19 00:00:00 Completed [facility] Pneumococcal Polysaccharide, PPSV23 (PNEUMOVAX) 2021-11-19 00:00:00 Completed [facility] Pneumococcal Polysaccharide, PPSV23 (PNEUMOVAX) 2021-11-19 00:00:00 Completed [facility] Pneumococcal Polysaccharide, PPSV23 (PNEUMOVAX) 2021-11-19 00:00:00 Completed [facility] Pneumococcal Polysaccharide, PPSV23 (PNEUMOVAX) 2021-11-19 00:00:00 Completed [facility] Pneumococcal Polysaccharide, PPSV23 (PNEUMOVAX) 2021-11-19 00:00:00 Completed [facility] Pneumococcal Polysaccharide, PPSV23 (PNEUMOVAX) 2021-11-19 00:00:00 Completed [facility] Pneumococcal Polysaccharide, PPSV23 (PNEUMOVAX) 2021-11-19 00:00:00 Completed [facility] Pneumococcal Polysaccharide, PPSV23 (PNEUMOVAX) 2021-11-19 00:00:00 Completed [facility] Pneumococcal Polysaccharide, PPSV23 (PNEUMOVAX) 2021-11-19 00:00:00 Completed [facility] Pneumococcal Polysaccharide, PPSV23 (PNEUMOVAX) 2021-11-19 00:00:00 Completed [facility] Pneumococcal Polysaccharide, PPSV23 (PNEUMOVAX) 2021-11-19 00:00:00 Completed [facility] Pneumococcal Polysaccharide, PPSV23 (PNEUMOVAX) 2021-11-19 00:00:00 Completed [facility] Pneumococcal Polysaccharide, PPSV23 (PNEUMOVAX) 2021-11-19 00:00:00 Completed [facility] Pneumococcal Polysaccharide, PPSV23 (PNEUMOVAX) 2021-11-19 00:00:00 Completed [facility] Pneumococcal Polysaccharide, PPSV23 (PNEUMOVAX) 2021-11-19 00:00:00 Completed [facility] Pneumococcal Polysaccharide, PPSV23 (PNEUMOVAX) 2021-11-19 00:00:00 Completed [facility] Pneumococcal Polysaccharide, PPSV23 (PNEUMOVAX) 2021-11-19 00:00:00 Completed [facility] Pneumococcal Polysaccharide, PPSV23 (PNEUMOVAX) 2021-11-19 00:00:00 Completed [facility] Pneumococcal Polysaccharide, PPSV23 (PNEUMOVAX) 2021-11-19 00:00:00 Completed [facility] Pneumococcal Polysaccharide, PPSV23 (PNEUMOVAX) 2021-11-19 00:00:00 Completed [facility] Pneumococcal Polysaccharide, PPSV23 (PNEUMOVAX) 2021-11-19 00:00:00 Completed [facility] Pneumococcal Polysaccharide, PPSV23 (PNEUMOVAX) 2021-11-19 00:00:00 Completed [facility] Pneumococcal Polysaccharide, PPSV23 (PNEUMOVAX) 2021-11-19 00:00:00 Completed [facility] Pneumococcal Polysaccharide, PPSV23 (PNEUMOVAX) 2021-11-19 00:00:00 Completed [facility] Pneumococcal Polysaccharide, PPSV23 (PNEUMOVAX) 2021-11-19 00:00:00 Completed [facility] Pneumococcal Polysaccharide, PPSV23 (PNEUMOVAX) 2021-11-19 00:00:00 Completed [facility] Pneumococcal Polysaccharide, PPSV23 (PNEUMOVAX) 2021-11-19 00:00:00 Completed [facility] Pneumococcal Polysaccharide, PPSV23 (PNEUMOVAX) 2021-11-19 00:00:00 Completed [facility] Pneumococcal Polysaccharide, PPSV23 (PNEUMOVAX) 2021-11-19 00:00:00 Completed [facility] Pneumococcal Polysaccharide, PPSV23 (PNEUMOVAX) 2021-11-19 00:00:00 Completed [facility] Pneumococcal Polysaccharide, PPSV23 (PNEUMOVAX) 2021-11-19 00:00:00 Completed [facility] Pneumococcal Polysaccharide, PPSV23 (PNEUMOVAX) 2021-11-19 00:00:00 Completed [facility] Pneumococcal Polysaccharide, PPSV23 (PNEUMOVAX) 2021-11-19 00:00:00 Completed [facility] Pneumococcal Polysaccharide, PPSV23 (PNEUMOVAX) 2021-11-19 00:00:00 Completed [facility] Pneumococcal Polysaccharide, PPSV23 (PNEUMOVAX) 2021-11-19 00:00:00 Completed [facility] Pneumococcal Polysaccharide, PPSV23 (PNEUMOVAX) 2021-11-19 00:00:00 Completed [facility] Pneumococcal Polysaccharide, PPSV23 (PNEUMOVAX) 2021-11-19 00:00:00 Completed [facility] Pneumococcal Polysaccharide, PPSV23 (PNEUMOVAX) 2021-11-19 00:00:00 Completed [facility] Pneumococcal Polysaccharide, PPSV23 (PNEUMOVAX) 2021-11-19 00:00:00 Completed [facility] Pneumococcal Polysaccharide, PPSV23 (PNEUMOVAX) 2021-11-19 00:00:00 Completed [facility] Pneumococcal Polysaccharide, PPSV23 (PNEUMOVAX) 2021-11-19 00:00:00 Completed [facility] Pneumococcal Polysaccharide, PPSV23 (PNEUMOVAX) 2021-11-19 00:00:00 Completed [facility] Pneumococcal Polysaccharide, PPSV23 (PNEUMOVAX) 2021-11-19 00:00:00 Completed [facility] Pneumococcal Polysaccharide, PPSV23 (PNEUMOVAX) 2021-11-19 00:00:00 Completed [facility] Pneumococcal Polysaccharide, PPSV23 (PNEUMOVAX) 2021-11-19 00:00:00 Completed [facility] Pneumococcal Polysaccharide, PPSV23 (PNEUMOVAX) 2021-11-19 00:00:00 Completed [facility] Pneumococcal Polysaccharide, PPSV23 (PNEUMOVAX) 2021-11-19 00:00:00 Completed [facility] Pneumococcal Polysaccharide, PPSV23 (PNEUMOVAX) 2021-11-19 00:00:00 Completed [facility] Pneumococcal Polysaccharide, PPSV23 (PNEUMOVAX) 2021-11-19 00:00:00 Completed [facility] Pneumococcal Polysaccharide, PPSV23 (PNEUMOVAX) 2021-11-19 00:00:00 Completed [facility] Pneumococcal Polysaccharide, PPSV23 (PNEUMOVAX) 2021-11-19 00:00:00 Completed [facility] Pneumococcal Polysaccharide, PPSV23 (PNEUMOVAX) 2021-11-19 00:00:00 Completed [facility] Pneumococcal Polysaccharide, PPSV23 (PNEUMOVAX) 2021-11-19 00:00:00 Completed [facility] Pneumococcal Polysaccharide, PPSV23 (PNEUMOVAX) 2021-11-19 00:00:00 Completed [facility] Pneumococcal Polysaccharide, PPSV23 (PNEUMOVAX) 2021-11-19 00:00:00 Completed [facility] Pneumococcal Polysaccharide, PPSV23 (PNEUMOVAX) 2021-11-19 00:00:00 Completed [facility] Pneumococcal Polysaccharide, PPSV23 (PNEUMOVAX) 2021-11-19 00:00:00 Completed [facility] Pneumococcal Polysaccharide, PPSV23 (PNEUMOVAX) 2021-11-19 00:00:00 Completed [facility] Pneumococcal Polysaccharide, PPSV23 (PNEUMOVAX) 2021-11-19 00:00:00 Completed [facility] Pneumococcal Polysaccharide, PPSV23 (PNEUMOVAX) 2021-11-19 00:00:00 Completed [facility] Pneumococcal Polysaccharide, PPSV23 (PNEUMOVAX) 2021-11-19 00:00:00 Completed [facility] Pneumococcal Polysaccharide, PPSV23 (PNEUMOVAX) 2021-11-19 00:00:00 Completed [facility] SARS-COV-2 COVID-19 MODERNA 0.25ML BOOSTER VACCINE 2021-09-10 00:00:00 Completed [facility] SARS-COV-2 COVID-19 MODERNA 0.25ML BOOSTER VACCINE 2021-09-10 00:00:00 Completed [facility] SARS-COV-2 COVID-19 MODERNA 0.25ML BOOSTER VACCINE 2021-09-10 00:00:00 Completed [facility] SARS-COV-2 COVID-19 MODERNA 0.25ML BOOSTER VACCINE 2021-09-10 00:00:00 Completed [facility] SARS-COV-2 COVID-19 MODERNA 0.25ML BOOSTER VACCINE 2021-09-10 00:00:00 Completed [facility] SARS-COV-2 COVID-19 MODERNA 0.25ML BOOSTER VACCINE 2021-09-10 00:00:00 Completed [facility] SARS-COV-2 COVID-19 MODERNA 0.25ML BOOSTER VACCINE 2021-09-10 00:00:00 Completed [facility] SARS-COV-2 COVID-19 MODERNA 0.25ML BOOSTER VACCINE 2021-09-10 00:00:00 Completed [facility] SARS-COV-2 COVID-19 MODERNA 0.25ML BOOSTER VACCINE 2021-09-10 00:00:00 Completed [facility] SARS-COV-2 COVID-19 MODERNA 0.25ML BOOSTER VACCINE 2021-09-10 00:00:00 Completed [facility] SARS-COV-2 COVID-19 MODERNA 0.25ML BOOSTER VACCINE 2021-09-10 00:00:00 Completed [facility] SARS-COV-2 COVID-19 MODERNA 0.25ML BOOSTER VACCINE 2021-09-10 00:00:00 Completed [facility] SARS-COV-2 COVID-19 MODERNA 0.25ML BOOSTER VACCINE 2021-09-10 00:00:00 Completed [facility] SARS-COV-2 COVID-19 MODERNA 0.25ML BOOSTER VACCINE 2021-09-10 00:00:00 Completed [facility] SARS-COV-2 COVID-19 MODERNA 0.25ML BOOSTER VACCINE 2021-09-10 00:00:00 Completed [facility] SARS-COV-2 COVID-19 MODERNA 0.25ML BOOSTER VACCINE 2021-09-10 00:00:00 Completed [facility] SARS-COV-2 COVID-19 MODERNA 0.25ML BOOSTER VACCINE 2021-09-10 00:00:00 Completed [facility] SARS-COV-2 COVID-19 MODERNA 0.25ML BOOSTER VACCINE 2021-09-10 00:00:00 Completed [facility] SARS-COV-2 COVID-19 MODERNA 0.25ML BOOSTER VACCINE 2021-09-10 00:00:00 Completed [facility] SARS-COV-2 COVID-19 MODERNA 0.25ML BOOSTER VACCINE 2021-09-10 00:00:00 Completed [facility] SARS-COV-2 COVID-19 MODERNA 0.25ML BOOSTER VACCINE 2021-09-10 00:00:00 Completed [facility] SARS-COV-2 COVID-19 MODERNA 0.25ML BOOSTER VACCINE 2021-09-10 00:00:00 Completed [facility] SARS-COV-2 COVID-19 MODERNA 0.25ML BOOSTER VACCINE 2021-09-10 00:00:00 Completed [facility] SARS-COV-2 COVID-19 MODERNA 0.25ML BOOSTER VACCINE 2021-09-10 00:00:00 Completed [facility] SARS-COV-2 COVID-19 MODERNA 0.25ML BOOSTER VACCINE 2021-09-10 00:00:00 Completed [facility] SARS-COV-2 COVID-19 MODERNA 0.25ML BOOSTER VACCINE 2021-09-10 00:00:00 Completed [facility] SARS-COV-2 COVID-19 MODERNA 0.25ML BOOSTER VACCINE 2021-09-10 00:00:00 Completed [facility] SARS-COV-2 COVID-19 MODERNA 0.25ML BOOSTER VACCINE 2021-09-10 00:00:00 Completed [facility] SARS-COV-2 COVID-19 MODERNA 0.25ML BOOSTER VACCINE 2021-09-10 00:00:00 Completed [facility] SARS-COV-2 COVID-19 MODERNA 0.25ML BOOSTER VACCINE 2021-09-10 00:00:00 Completed [facility] SARS-COV-2 COVID-19 MODERNA 0.25ML BOOSTER VACCINE 2021-09-10 00:00:00 Completed [facility] SARS-COV-2 COVID-19 MODERNA 0.25ML BOOSTER VACCINE 2021-09-10 00:00:00 Completed [facility] SARS-COV-2 COVID-19 MODERNA 0.25ML BOOSTER VACCINE 2021-09-10 00:00:00 Completed [facility] SARS-COV-2 COVID-19 MODERNA 0.25ML BOOSTER VACCINE 2021-09-10 00:00:00 Completed [facility] SARS-COV-2 COVID-19 MODERNA 0.25ML BOOSTER VACCINE 2021-09-10 00:00:00 Completed [facility] SARS-COV-2 COVID-19 MODERNA 0.25ML BOOSTER VACCINE 2021-09-10 00:00:00 Completed [facility] SARS-COV-2 COVID-19 MODERNA 0.25ML BOOSTER VACCINE 2021-09-10 00:00:00 Completed [facility] SARS-COV-2 COVID-19 MODERNA 0.25ML BOOSTER VACCINE 2021-09-10 00:00:00 Completed [facility] SARS-COV-2 COVID-19 MODERNA 0.25ML BOOSTER VACCINE 2021-09-10 00:00:00 Completed [facility] SARS-COV-2 COVID-19 MODERNA 0.25ML BOOSTER VACCINE 2021-09-10 00:00:00 Completed [facility] SARS-COV-2 COVID-19 MODERNA 0.25ML BOOSTER VACCINE 2021-09-10 00:00:00 Completed [facility] SARS-COV-2 COVID-19 MODERNA 0.25ML BOOSTER VACCINE 2021-09-10 00:00:00 Completed [facility] SARS-COV-2 COVID-19 MODERNA 0.25ML BOOSTER VACCINE 2021-09-10 00:00:00 Completed [facility] SARS-COV-2 COVID-19 MODERNA 0.25ML BOOSTER VACCINE 2021-09-10 00:00:00 Completed [facility] SARS-COV-2 COVID-19 MODERNA 0.25ML BOOSTER VACCINE 2021-09-10 00:00:00 Completed [facility] SARS-COV-2 COVID-19 MODERNA 0.25ML BOOSTER VACCINE 2021-09-10 00:00:00 Completed [facility] SARS-COV-2 COVID-19 MODERNA 0.25ML BOOSTER VACCINE 2021-09-10 00:00:00 Completed [facility] SARS-COV-2 COVID-19 MODERNA 0.25ML BOOSTER VACCINE 2021-09-10 00:00:00 Completed [facility] SARS-COV-2 COVID-19 MODERNA 0.25ML BOOSTER VACCINE 2021-09-10 00:00:00 Completed [facility] SARS-COV-2 COVID-19 MODERNA 0.25ML BOOSTER VACCINE 2021-09-10 00:00:00 Completed [facility] SARS-COV-2 COVID-19 MODERNA 0.25ML BOOSTER VACCINE 2021-09-10 00:00:00 Completed [facility] SARS-COV-2 COVID-19 MODERNA 0.25ML BOOSTER VACCINE 2021-09-10 00:00:00 Completed [facility] SARS-COV-2 COVID-19 MODERNA 0.25ML BOOSTER VACCINE 2021-09-10 00:00:00 Completed [facility] SARS-COV-2 COVID-19 MODERNA 0.25ML BOOSTER VACCINE 2021-09-10 00:00:00 Completed [facility] SARS-COV-2 COVID-19 MODERNA 0.25ML BOOSTER VACCINE 2021-09-10 00:00:00 Completed [facility] SARS-COV-2 COVID-19 MODERNA 0.25ML BOOSTER VACCINE 2021-09-10 00:00:00 Completed [facility] SARS-COV-2 COVID-19 MODERNA 0.25ML BOOSTER VACCINE 2021-09-10 00:00:00 Completed [facility] SARS-COV-2 COVID-19 MODERNA 0.25ML BOOSTER VACCINE 2021-09-10 00:00:00 Completed [facility] SARS-COV-2 COVID-19 MODERNA 0.25ML BOOSTER VACCINE 2021-09-10 00:00:00 Completed [facility] SARS-COV-2 COVID-19 MODERNA 0.25ML BOOSTER VACCINE 2021-09-10 00:00:00 Completed [facility] SARS-COV-2 COVID-19 MODERNA 0.25ML BOOSTER VACCINE 2021-09-10 00:00:00 Completed [facility] SARS-COV-2 COVID-19 MODERNA 0.25ML BOOSTER VACCINE 2021-09-10 00:00:00 Completed [facility] SARS-COV-2 COVID-19 MODERNA 0.25ML BOOSTER VACCINE 2021-09-10 00:00:00 Completed [facility] Influenza Virus Vaccine Quad .5 mL IM 6+ MO 2020-12-28 00:00:00 Completed [facility] Influenza Virus Vaccine Quad .5 mL IM 6+ MO 2020-12-28 00:00:00 Completed [facility] Influenza Virus Vaccine Quad .5 mL IM 6+ MO 2020-12-28 00:00:00 Completed [facility] Influenza Virus Vaccine Quad .5 mL IM 6+ MO 2020-12-28 00:00:00 Completed [facility] Influenza Virus Vaccine Quad .5 mL IM 6+ MO 2020-12-28 00:00:00 Completed [facility] Influenza Virus Vaccine Quad .5 mL IM 6+ MO 2020-12-28 00:00:00 Completed [facility] Influenza Virus Vaccine Quad .5 mL IM 6+ MO 2020-12-28 00:00:00 Completed [facility] Influenza Virus Vaccine Quad .5 mL IM 6+ MO 2020-12-28 00:00:00 Completed [facility] Influenza Virus Vaccine Quad .5 mL IM 6+ MO 2020-12-28 00:00:00 Completed [facility] Influenza Virus Vaccine Quad .5 mL IM 6+ MO 2020-12-28 00:00:00 Completed [facility] Influenza Virus Vaccine Quad .5 mL IM 6+ MO 2020-12-28 00:00:00 Completed [facility] Influenza Virus Vaccine Quad .5 mL IM 6+ MO 2020-12-28 00:00:00 Completed [facility] Influenza Virus Vaccine Quad .5 mL IM 6+ MO 2020-12-28 00:00:00 Completed [facility] Influenza Virus Vaccine Quad .5 mL IM 6+ MO 2020-12-28 00:00:00 Completed [facility] Influenza Virus Vaccine Quad .5 mL IM 6+ MO 2020-12-28 00:00:00 Completed [facility] Influenza Virus Vaccine Quad .5 mL IM 6+ MO 2020-12-28 00:00:00 Completed [facility] Influenza Virus Vaccine Quad .5 mL IM 6+ MO 2020-12-28 00:00:00 Completed [facility] Influenza Virus Vaccine Quad .5 mL IM 6+ MO 2020-12-28 00:00:00 Completed [facility] Influenza Virus Vaccine Quad .5 mL IM 6+ MO 2020-12-28 00:00:00 Completed [facility] Influenza Virus Vaccine Quad .5 mL IM 6+ MO 2020-12-28 00:00:00 Completed [facility] Influenza Virus Vaccine Quad .5 mL IM 6+ MO 2020-12-28 00:00:00 Completed [facility] Influenza Virus Vaccine Quad .5 mL IM 6+ MO 2020-12-28 00:00:00 Completed [facility] Influenza Virus Vaccine Quad .5 mL IM 6+ MO 2020-12-28 00:00:00 Completed [facility] Influenza Virus Vaccine Quad .5 mL IM 6+ MO 2020-12-28 00:00:00 Completed [facility] Influenza Virus Vaccine Quad .5 mL IM 6+ MO 2020-12-28 00:00:00 Completed [facility] Influenza Virus Vaccine Quad .5 mL IM 6+ MO 2020-12-28 00:00:00 Completed [facility] Influenza Virus Vaccine Quad .5 mL IM 6+ MO 2020-12-28 00:00:00 Completed [facility] Influenza Virus Vaccine Quad .5 mL IM 6+ MO 2020-12-28 00:00:00 Completed [facility] Influenza Virus Vaccine Quad .5 mL IM 6+ MO 2020-12-28 00:00:00 Completed [facility] Influenza Virus Vaccine Quad .5 mL IM 6+ MO 2020-12-28 00:00:00 Completed [facility] Influenza Virus Vaccine Quad .5 mL IM 6+ MO 2020-12-28 00:00:00 Completed [facility] Influenza Virus Vaccine Quad .5 mL IM 6+ MO 2020-12-28 00:00:00 Completed [facility] Influenza Virus Vaccine Quad .5 mL IM 6+ MO 2020-12-28 00:00:00 Completed [facility] Influenza Virus Vaccine Quad .5 mL IM 6+ MO 2020-12-28 00:00:00 Completed [facility] Influenza Virus Vaccine Quad .5 mL IM 6+ MO 2020-12-28 00:00:00 Completed [facility] Influenza Virus Vaccine Quad .5 mL IM 6+ MO 2020-12-28 00:00:00 Completed [facility] Influenza Virus Vaccine Quad .5 mL IM 6+ MO 2020-12-28 00:00:00 Completed [facility] Influenza Virus Vaccine Quad .5 mL IM 6+ MO 2020-12-28 00:00:00 Completed [facility] Influenza Virus Vaccine Quad .5 mL IM 6+ MO 2020-12-28 00:00:00 Completed [facility] Influenza Virus Vaccine Quad .5 mL IM 6+ MO 2020-12-28 00:00:00 Completed [facility] Influenza Virus Vaccine Quad .5 mL IM 6+ MO 2020-12-28 00:00:00 Completed [facility] Influenza Virus Vaccine Quad .5 mL IM 6+ MO 2020-12-28 00:00:00 Completed [facility] Influenza Virus Vaccine Quad .5 mL IM 6+ MO 2020-12-28 00:00:00 Completed [facility] Influenza Virus Vaccine Quad .5 mL IM 6+ MO 2020-12-28 00:00:00 Completed [facility] Influenza Virus Vaccine Quad .5 mL IM 6+ MO 2020-12-28 00:00:00 Completed [facility] Influenza Virus Vaccine Quad .5 mL IM 6+ MO 2020-12-28 00:00:00 Completed [facility] Influenza Virus Vaccine Quad .5 mL IM 6+ MO 2020-12-28 00:00:00 Completed [facility] Influenza Virus Vaccine Quad .5 mL IM 6+ MO 2020-12-28 00:00:00 Completed [facility] Influenza Virus Vaccine Quad .5 mL IM 6+ MO 2020-12-28 00:00:00 Completed [facility] Influenza Virus Vaccine Quad .5 mL IM 6+ MO 2020-12-28 00:00:00 Completed [facility] Influenza Virus Vaccine Quad .5 mL IM 6+ MO 2020-12-28 00:00:00 Completed [facility] Influenza Virus Vaccine Quad .5 mL IM 6+ MO 2020-12-28 00:00:00 Completed [facility] Influenza Virus Vaccine Quad .5 mL IM 6+ MO 2020-12-28 00:00:00 Completed [facility] Influenza Virus Vaccine Quad .5 mL IM 6+ MO 2020-12-28 00:00:00 Completed [facility] Influenza Virus Vaccine Quad .5 mL IM 6+ MO 2020-12-28 00:00:00 Completed [facility] Influenza Virus Vaccine Quad .5 mL IM 6+ MO 2020-12-28 00:00:00 Completed [facility] Influenza Virus Vaccine Quad .5 mL IM 6+ MO (FLUZONE/FLULAVAL/F LUARIX) 2020-12-28 00:00:00 Completed [facility] Influenza Virus Vaccine Quad .5 mL IM 6+ MO (FLUZONE/FLULAVAL/F LUARIX) 2020-12-28 00:00:00 Completed [facility] Influenza Virus Vaccine Quad .5 mL IM 6+ MO (FLUZONE/FLULAVAL/F LUARIX) 2020-12-28 00:00:00 Completed [facility] Influenza Virus Vaccine Quad .5 mL IM 6+ MO (FLUZONE/FLULAVAL/F LUARIX) 2020-12-28 00:00:00 Completed [facility] Influenza Virus Vaccine Quad .5 mL IM 6+ MO (FLUZONE/FLULAVAL/F LUARIX) 2020-12-28 00:00:00 Completed [facility] Influenza Virus Vaccine Quad .5 mL IM 6+ MO (FLUZONE/FLULAVAL/F LUARIX) 2020-12-28 00:00:00 Completed [facility] Influenza Virus Vaccine Quad .5 mL IM 6+ MO (FLUZONE/FLULAVAL/F LUARIX) 2020-12-28 00:00:00 Completed [facility] SARS-COV-2 COVID-19 MODERNA VACCINE 2020-11-06 00:00:00 Completed [facility] SARS-COV-2 COVID-19 MODERNA VACCINE 2020-11-06 00:00:00 Completed [facility] SARS-COV-2 COVID-19 MODERNA 12+ YRS VACCINE 2020-11-06 00:00:00 Completed [facility] SARS-COV-2 COVID-19 MODERNA 12+ YRS VACCINE 2020-11-06 00:00:00 Completed [facility] SARS-COV-2 COVID-19 MODERNA 12+ YRS VACCINE 2020-11-06 00:00:00 Completed [facility] SARS-COV-2 COVID-19 MODERNA 12+ YRS VACCINE 2020-11-06 00:00:00 Completed [facility] SARS-COV-2 COVID-19 MODERNA 12+ YRS VACCINE 2020-11-06 00:00:00 Completed [facility] SARS-COV-2 COVID-19 MODERNA 12+ YRS VACCINE 2020-11-06 00:00:00 Completed [facility] SARS-COV-2 COVID-19 MODERNA 12+ YRS VACCINE 2020-11-06 00:00:00 Completed [facility] SARS-COV-2 COVID-19 MODERNA 12+ YRS VACCINE 2020-11-06 00:00:00 Completed [facility] SARS-COV-2 COVID-19 MODERNA 12+ YRS VACCINE 2020-11-06 00:00:00 Completed [facility] SARS-COV-2 COVID-19 MODERNA 12+ YRS VACCINE 2020-11-06 00:00:00 Completed [facility] SARS-COV-2 COVID-19 MODERNA 12+ YRS VACCINE 2020-11-06 00:00:00 Completed [facility] SARS-COV-2 COVID-19 MODERNA 12+ YRS VACCINE 2020-11-06 00:00:00 Completed [facility] SARS-COV-2 COVID-19 MODERNA 12+ YRS VACCINE 2020-11-06 00:00:00 Completed [facility] SARS-COV-2 COVID-19 MODERNA 12+ YRS VACCINE 2020-11-06 00:00:00 Completed [facility] SARS-COV-2 COVID-19 MODERNA 12+ YRS VACCINE 2020-11-06 00:00:00 Completed [facility] SARS-COV-2 COVID-19 MODERNA 12+ YRS VACCINE 2020-11-06 00:00:00 Completed [facility] SARS-COV-2 COVID-19 MODERNA 12+ YRS VACCINE 2020-11-06 00:00:00 Completed [facility] SARS-COV-2 COVID-19 MODERNA 12+ YRS VACCINE 2020-11-06 00:00:00 Completed [facility] SARS-COV-2 COVID-19 MODERNA 12+ YRS VACCINE 2020-11-06 00:00:00 Completed [facility] SARS-COV-2 COVID-19 MODERNA 12+ YRS VACCINE 2020-11-06 00:00:00 Completed [facility] SARS-COV-2 COVID-19 MODERNA 12+ YRS VACCINE 2020-11-06 00:00:00 Completed [facility] SARS-COV-2 COVID-19 MODERNA 12+ YRS VACCINE 2020-11-06 00:00:00 Completed [facility] SARS-COV-2 COVID-19 MODERNA 12+ YRS VACCINE 2020-11-06 00:00:00 Completed [facility] SARS-COV-2 COVID-19 MODERNA 12+ YRS VACCINE 2020-11-06 00:00:00 Completed [facility] SARS-COV-2 COVID-19 MODERNA 12+ YRS VACCINE 2020-11-06 00:00:00 Completed [facility] SARS-COV-2 COVID-19 MODERNA 12+ YRS VACCINE 2020-11-06 00:00:00 Completed [facility] SARS-COV-2 COVID-19 MODERNA 12+ YRS VACCINE 2020-11-06 00:00:00 Completed [facility] SARS-COV-2 COVID-19 MODERNA 12+ YRS VACCINE 2020-11-06 00:00:00 Completed [facility] SARS-COV-2 COVID-19 MODERNA 12+ YRS VACCINE 2020-11-06 00:00:00 Completed [facility] SARS-COV-2 COVID-19 MODERNA 12+ YRS VACCINE 2020-11-06 00:00:00 Completed [facility] SARS-COV-2 COVID-19 MODERNA 12+ YRS VACCINE 2020-11-06 00:00:00 Completed [facility] SARS-COV-2 COVID-19 MODERNA 12+ YRS VACCINE 2020-11-06 00:00:00 Completed [facility] SARS-COV-2 COVID-19 MODERNA 12+ YRS VACCINE 2020-11-06 00:00:00 Completed [facility] SARS-COV-2 COVID-19 MODERNA 12+ YRS VACCINE 2020-11-06 00:00:00 Completed [facility] SARS-COV-2 COVID-19 MODERNA 12+ YRS VACCINE 2020-11-06 00:00:00 Completed [facility] SARS-COV-2 COVID-19 MODERNA 12+ YRS VACCINE 2020-11-06 00:00:00 Completed [facility] SARS-COV-2 COVID-19 MODERNA 12+ YRS VACCINE 2020-11-06 00:00:00 Completed [facility] SARS-COV-2 COVID-19 MODERNA 12+ YRS VACCINE 2020-11-06 00:00:00 Completed [facility] SARS-COV-2 COVID-19 MODERNA 12+ YRS VACCINE 2020-11-06 00:00:00 Completed [facility] SARS-COV-2 COVID-19 MODERNA 12+ YRS VACCINE 2020-11-06 00:00:00 Completed [facility] SARS-COV-2 COVID-19 MODERNA 12+ YRS VACCINE 2020-11-06 00:00:00 Completed [facility] SARS-COV-2 COVID-19 MODERNA 12+ YRS VACCINE 2020-11-06 00:00:00 Completed [facility] SARS-COV-2 COVID-19 MODERNA 12+ YRS VACCINE 2020-11-06 00:00:00 Completed [facility] SARS-COV-2 COVID-19 MODERNA 12+ YRS VACCINE 2020-11-06 00:00:00 Completed [facility] SARS-COV-2 COVID-19 MODERNA 12+ YRS VACCINE 2020-11-06 00:00:00 Completed [facility] SARS-COV-2 COVID-19 MODERNA 12+ YRS VACCINE 2020-11-06 00:00:00 Completed [facility] SARS-COV-2 COVID-19 MODERNA 12+ YRS VACCINE 2020-11-06 00:00:00 Completed [facility] SARS-COV-2 COVID-19 MODERNA 12+ YRS VACCINE 2020-11-06 00:00:00 Completed [facility] SARS-COV-2 COVID-19 MODERNA 12+ YRS VACCINE 2020-11-06 00:00:00 Completed [facility] SARS-COV-2 COVID-19 MODERNA 12+ YRS VACCINE 2020-11-06 00:00:00 Completed [facility] SARS-COV-2 COVID-19 MODERNA 12+ YRS VACCINE 2020-11-06 00:00:00 Completed [facility] SARS-COV-2 COVID-19 MODERNA 12+ YRS VACCINE 2020-11-06 00:00:00 Completed [facility] SARS-COV-2 COVID-19 MODERNA 12+ YRS VACCINE 2020-11-06 00:00:00 Completed [facility] SARS-COV-2 COVID-19 MODERNA 12+ YRS VACCINE 2020-11-06 00:00:00 Completed [facility] SARS-COV-2 COVID-19 MODERNA 12+ YRS VACCINE 2020-11-06 00:00:00 Completed [facility] SARS-COV-2 COVID-19 MODERNA 12+ YRS VACCINE 2020-11-06 00:00:00 Completed [facility] SARS-COV-2 COVID-19 MODERNA 12+ YRS VACCINE 2020-11-06 00:00:00 Completed [facility] SARS-COV-2 COVID-19 MODERNA 12+ YRS VACCINE 2020-11-06 00:00:00 Completed [facility] SARS-COV-2 COVID-19 MODERNA 12+ YRS VACCINE 2020-11-06 00:00:00 Completed [facility] SARS-COV-2 COVID-19 MODERNA 12+ YRS VACCINE 2020-11-06 00:00:00 Completed [facility] SARS-COV-2 COVID-19 MODERNA 12+ YRS VACCINE 2020-11-06 00:00:00 Completed [facility] SARS-COV-2 COVID-19 MODERNA 12+ YRS VACCINE 2020-11-06 00:00:00 Completed [facility] SARS-COV-2 COVID-19 MODERNA 12+ YRS VACCINE 2020-11-06 00:00:00 Completed [facility] SARS-COV-2 COVID-19 MODERNA VACCINE 2020-10-09 00:00:00 Completed [facility] SARS-COV-2 COVID-19 MODERNA VACCINE 2020-10-09 00:00:00 Completed [facility] SARS-COV-2 COVID-19 MODERNA 12+ YRS VACCINE 2020-10-09 00:00:00 Completed [facility] SARS-COV-2 COVID-19 MODERNA 12+ YRS VACCINE 2020-10-09 00:00:00 Completed [facility] SARS-COV-2 COVID-19 MODERNA 12+ YRS VACCINE 2020-10-09 00:00:00 Completed [facility] SARS-COV-2 COVID-19 MODERNA 12+ YRS VACCINE 2020-10-09 00:00:00 Completed [facility] SARS-COV-2 COVID-19 MODERNA 12+ YRS VACCINE 2020-10-09 00:00:00 Completed [facility] SARS-COV-2 COVID-19 MODERNA 12+ YRS VACCINE 2020-10-09 00:00:00 Completed [facility] SARS-COV-2 COVID-19 MODERNA 12+ YRS VACCINE 2020-10-09 00:00:00 Completed [facility] SARS-COV-2 COVID-19 MODERNA 12+ YRS VACCINE 2020-10-09 00:00:00 Completed [facility] SARS-COV-2 COVID-19 MODERNA 12+ YRS VACCINE 2020-10-09 00:00:00 Completed [facility] SARS-COV-2 COVID-19 MODERNA 12+ YRS VACCINE 2020-10-09 00:00:00 Completed [facility] SARS-COV-2 COVID-19 MODERNA 12+ YRS VACCINE 2020-10-09 00:00:00 Completed [facility] SARS-COV-2 COVID-19 MODERNA 12+ YRS VACCINE 2020-10-09 00:00:00 Completed [facility] SARS-COV-2 COVID-19 MODERNA 12+ YRS VACCINE 2020-10-09 00:00:00 Completed [facility] SARS-COV-2 COVID-19 MODERNA 12+ YRS VACCINE 2020-10-09 00:00:00 Completed [facility] SARS-COV-2 COVID-19 MODERNA 12+ YRS VACCINE 2020-10-09 00:00:00 Completed [facility] SARS-COV-2 COVID-19 MODERNA 12+ YRS VACCINE 2020-10-09 00:00:00 Completed [facility] SARS-COV-2 COVID-19 MODERNA 12+ YRS VACCINE 2020-10-09 00:00:00 Completed [facility] SARS-COV-2 COVID-19 MODERNA 12+ YRS VACCINE 2020-10-09 00:00:00 Completed [facility] SARS-COV-2 COVID-19 MODERNA 12+ YRS VACCINE 2020-10-09 00:00:00 Completed [facility] SARS-COV-2 COVID-19 MODERNA 12+ YRS VACCINE 2020-10-09 00:00:00 Completed [facility] SARS-COV-2 COVID-19 MODERNA 12+ YRS VACCINE 2020-10-09 00:00:00 Completed [facility] SARS-COV-2 COVID-19 MODERNA 12+ YRS VACCINE 2020-10-09 00:00:00 Completed [facility] SARS-COV-2 COVID-19 MODERNA 12+ YRS VACCINE 2020-10-09 00:00:00 Completed [facility] SARS-COV-2 COVID-19 MODERNA 12+ YRS VACCINE 2020-10-09 00:00:00 Completed [facility] SARS-COV-2 COVID-19 MODERNA 12+ YRS VACCINE 2020-10-09 00:00:00 Completed [facility] SARS-COV-2 COVID-19 MODERNA 12+ YRS VACCINE 2020-10-09 00:00:00 Completed [facility] SARS-COV-2 COVID-19 MODERNA 12+ YRS VACCINE 2020-10-09 00:00:00 Completed [facility] SARS-COV-2 COVID-19 MODERNA 12+ YRS VACCINE 2020-10-09 00:00:00 Completed [facility] SARS-COV-2 COVID-19 MODERNA 12+ YRS VACCINE 2020-10-09 00:00:00 Completed [facility] SARS-COV-2 COVID-19 MODERNA 12+ YRS VACCINE 2020-10-09 00:00:00 Completed [facility] SARS-COV-2 COVID-19 MODERNA 12+ YRS VACCINE 2020-10-09 00:00:00 Completed [facility] SARS-COV-2 COVID-19 MODERNA 12+ YRS VACCINE 2020-10-09 00:00:00 Completed [facility] SARS-COV-2 COVID-19 MODERNA 12+ YRS VACCINE 2020-10-09 00:00:00 Completed [facility] SARS-COV-2 COVID-19 MODERNA 12+ YRS VACCINE 2020-10-09 00:00:00 Completed [facility] SARS-COV-2 COVID-19 MODERNA 12+ YRS VACCINE 2020-10-09 00:00:00 Completed [facility] SARS-COV-2 COVID-19 MODERNA 12+ YRS VACCINE 2020-10-09 00:00:00 Completed [facility] SARS-COV-2 COVID-19 MODERNA 12+ YRS VACCINE 2020-10-09 00:00:00 Completed [facility] SARS-COV-2 COVID-19 MODERNA 12+ YRS VACCINE 2020-10-09 00:00:00 Completed [facility] SARS-COV-2 COVID-19 MODERNA 12+ YRS VACCINE 2020-10-09 00:00:00 Completed [facility] SARS-COV-2 COVID-19 MODERNA 12+ YRS VACCINE 2020-10-09 00:00:00 Completed [facility] SARS-COV-2 COVID-19 MODERNA 12+ YRS VACCINE 2020-10-09 00:00:00 Completed [facility] SARS-COV-2 COVID-19 MODERNA 12+ YRS VACCINE 2020-10-09 00:00:00 Completed [facility] SARS-COV-2 COVID-19 MODERNA 12+ YRS VACCINE 2020-10-09 00:00:00 Completed [facility] SARS-COV-2 COVID-19 MODERNA 12+ YRS VACCINE 2020-10-09 00:00:00 Completed [facility] SARS-COV-2 COVID-19 MODERNA 12+ YRS VACCINE 2020-10-09 00:00:00 Completed [facility] SARS-COV-2 COVID-19 MODERNA 12+ YRS VACCINE 2020-10-09 00:00:00 Completed [facility] SARS-COV-2 COVID-19 MODERNA 12+ YRS VACCINE 2020-10-09 00:00:00 Completed [facility] SARS-COV-2 COVID-19 MODERNA 12+ YRS VACCINE 2020-10-09 00:00:00 Completed [facility] SARS-COV-2 COVID-19 MODERNA 12+ YRS VACCINE 2020-10-09 00:00:00 Completed [facility] SARS-COV-2 COVID-19 MODERNA 12+ YRS VACCINE 2020-10-09 00:00:00 Completed [facility] SARS-COV-2 COVID-19 MODERNA 12+ YRS VACCINE 2020-10-09 00:00:00 Completed [facility] SARS-COV-2 COVID-19 MODERNA 12+ YRS VACCINE 2020-10-09 00:00:00 Completed [facility] SARS-COV-2 COVID-19 MODERNA 12+ YRS VACCINE 2020-10-09 00:00:00 Completed [facility] SARS-COV-2 COVID-19 MODERNA 12+ YRS VACCINE 2020-10-09 00:00:00 Completed [facility] SARS-COV-2 COVID-19 MODERNA 12+ YRS VACCINE 2020-10-09 00:00:00 Completed [facility] SARS-COV-2 COVID-19 MODERNA 12+ YRS VACCINE 2020-10-09 00:00:00 Completed [facility] SARS-COV-2 COVID-19 MODERNA 12+ YRS VACCINE 2020-10-09 00:00:00 Completed [facility] SARS-COV-2 COVID-19 MODERNA 12+ YRS VACCINE 2020-10-09 00:00:00 Completed [facility] SARS-COV-2 COVID-19 MODERNA 12+ YRS VACCINE 2020-10-09 00:00:00 Completed [facility] SARS-COV-2 COVID-19 MODERNA 12+ YRS VACCINE 2020-10-09 00:00:00 Completed [facility] SARS-COV-2 COVID-19 MODERNA 12+ YRS VACCINE 2020-10-09 00:00:00 Completed [facility] SARS-COV-2 COVID-19 MODERNA 12+ YRS VACCINE 2020-10-09 00:00:00 Completed [facility] SARS-COV-2 COVID-19 MODERNA 12+ YRS VACCINE 2020-10-09 00:00:00 Completed [facility] SARS-COV-2 COVID-19 MODERNA 12+ YRS VACCINE Unknown Completed [facility] SARS-COV-2 COVID-19 MODERNA 12+ YRS VACCINE Unknown Completed [facility] Influenza Virus Vaccine Quad .5 mL IM 6+ MO (FLUZONE/FLULAVAL/F LUARIX) Unknown Completed [facility] SARS-COV-2 COVID-19 MODERNA 0.25ML BOOSTER VACCINE Unknown Completed [facility] Pneumococcal Polysaccharide, PPSV23 (PNEUMOVAX) Unknown Completed [facility] SARS-COV-2 COVID-19 MODERNA 0.25ML BOOSTER VACCINE Unknown Completed [facility] Influenza Virus Vaccine Quad IM, Preserv and ABX Free 6 MO-64 YRS (FLUCELVAX) Unknown Completed [facility] SARS-COV-2 COVID-19 MODERNA 12+ YRS VACCINE Unknown Completed [facility] SARS-COV-2 COVID-19 MODERNA 12+ YRS VACCINE Unknown Completed [facility] Influenza Virus Vaccine Quad .5 mL IM 6+ MO (FLUZONE/FLULAVAL/F LUARIX) Unknown Completed [facility] SARS-COV-2 COVID-19 MODERNA 0.25ML BOOSTER VACCINE Unknown Completed [facility] Pneumococcal Polysaccharide, PPSV23 (PNEUMOVAX) Unknown Completed [facility] SARS-COV-2 COVID-19 MODERNA 0.25ML BOOSTER VACCINE Unknown Completed [facility] Influenza Virus Vaccine Quad IM, Preserv and ABX Free 6 MO-64 YRS (FLUCELVAX) Unknown Completed [facility] SARS-COV-2 COVID-19 MODERNA 12+ YRS VACCINE Unknown Completed [facility] SARS-COV-2 COVID-19 MODERNA 12+ YRS VACCINE Unknown Completed [facility] Influenza Virus Vaccine Quad .5 mL IM 6+ MO (FLUZONE/FLULAVAL/F LUARIX) Unknown Completed [facility] SARS-COV-2 COVID-19 MODERNA 0.25ML BOOSTER VACCINE Unknown Completed [facility] Pneumococcal Polysaccharide, PPSV23 (PNEUMOVAX) Unknown Completed [facility] SARS-COV-2 COVID-19 MODERNA 0.25ML BOOSTER VACCINE Unknown Completed [facility] Influenza Virus Vaccine Quad IM, Preserv and ABX Free 6 MO-64 YRS (FLUCELVAX) Unknown Completed [facility] SARS-COV-2 COVID-19 MODERNA 12+ YRS VACCINE Unknown Completed [facility] SARS-COV-2 COVID-19 MODERNA 12+ YRS VACCINE Unknown Completed [facility] Influenza Virus Vaccine Quad .5 mL IM 6+ MO (FLUZONE/FLULAVAL/F LUARIX) Unknown Completed [facility] SARS-COV-2 COVID-19 MODERNA 0.25ML BOOSTER VACCINE Unknown Completed [facility] Pneumococcal Polysaccharide, PPSV23 (PNEUMOVAX) Unknown Completed [facility] SARS-COV-2 COVID-19 MODERNA 0.25ML BOOSTER VACCINE Unknown Completed [facility] Influenza Virus Vaccine Quad IM, Preserv and ABX Free 6 MO-64 YRS (FLUCELVAX) Unknown Completed [facility] SARS-COV-2 COVID-19 MODERNA 12+ YRS VACCINE Unknown Completed [facility] SARS-COV-2 COVID-19 MODERNA 12+ YRS VACCINE Unknown Completed [facility] Influenza Virus Vaccine Quad .5 mL IM 6+ MO (FLUZONE/FLULAVAL/F LUARIX) Unknown Completed [facility] SARS-COV-2 COVID-19 MODERNA 0.25ML BOOSTER VACCINE Unknown Completed [facility] Pneumococcal Polysaccharide, PPSV23 (PNEUMOVAX) Unknown Completed [facility] SARS-COV-2 COVID-19 MODERNA 0.25ML BOOSTER VACCINE Unknown Completed [facility] Influenza Virus Vaccine Quad IM, Preserv and ABX Free 6 MO-64 YRS (FLUCELVAX) Unknown Completed [facility] SARS-COV-2 COVID-19 MODERNA 12+ YRS VACCINE Unknown Completed [facility] SARS-COV-2 COVID-19 MODERNA 12+ YRS VACCINE Unknown Completed [facility] Influenza Virus Vaccine Quad .5 mL IM 6+ MO (FLUZONE/FLULAVAL/F LUARIX) Unknown Completed [facility] SARS-COV-2 COVID-19 MODERNA 0.25ML BOOSTER VACCINE Unknown Completed [facility] Pneumococcal Polysaccharide, PPSV23 (PNEUMOVAX) Unknown Completed [facility] SARS-COV-2 COVID-19 MODERNA 0.25ML BOOSTER VACCINE Unknown Completed [facility] Influenza Virus Vaccine Quad IM, Preserv and ABX Free 6 MO-64 YRS (FLUCELVAX) Unknown Completed [facility] SARS-COV-2 COVID-19 MODERNA 12+ YRS VACCINE Unknown Completed [facility] SARS-COV-2 COVID-19 MODERNA 12+ YRS VACCINE Unknown Completed [facility] Influenza Virus Vaccine Quad .5 mL IM 6+ MO (FLUZONE/FLULAVAL/F LUARIX) Unknown Completed [facility] SARS-COV-2 COVID-19 MODERNA 0.25ML BOOSTER VACCINE Unknown Completed [facility] Pneumococcal Polysaccharide, PPSV23 (PNEUMOVAX) Unknown Completed [facility] SARS-COV-2 COVID-19 MODERNA 0.25ML BOOSTER VACCINE Unknown Completed [facility] Influenza Virus Vaccine Quad IM, Preserv and ABX Free 6 MO-64 YRS (FLUCELVAX) Unknown Completed [facility] SARS-COV-2 COVID-19 MODERNA 12+ YRS VACCINE Unknown Completed [facility] SARS-COV-2 COVID-19 MODERNA 12+ YRS VACCINE Unknown Completed [facility] Influenza Virus Vaccine Quad .5 mL IM 6+ MO (FLUZONE/FLULAVAL/F LUARIX) Unknown Completed [facility] SARS-COV-2 COVID-19 MODERNA 0.25ML BOOSTER VACCINE Unknown Completed [facility] Pneumococcal Polysaccharide, PPSV23 (PNEUMOVAX) Unknown Completed [facility] SARS-COV-2 COVID-19 MODERNA 0.25ML BOOSTER VACCINE Unknown Completed [facility] Influenza Virus Vaccine Quad IM, Preserv and ABX Free 6 MO-64 YRS (FLUCELVAX) Unknown Completed [facility] SARS-COV-2 COVID-19 MODERNA 12+ YRS VACCINE Unknown Completed [facility] SARS-COV-2 COVID-19 MODERNA 12+ YRS VACCINE Unknown Completed [facility] Influenza Virus Vaccine Quad .5 mL IM 6+ MO (FLUZONE/FLULAVAL/F LUARIX) Unknown Completed [facility] SARS-COV-2 COVID-19 MODERNA 0.25ML BOOSTER VACCINE Unknown Completed [facility] Pneumococcal Polysaccharide, PPSV23 (PNEUMOVAX) Unknown Completed [facility] SARS-COV-2 COVID-19 MODERNA 0.25ML BOOSTER VACCINE Unknown Completed [facility] Influenza Virus Vaccine Quad IM, Preserv and ABX Free 6 MO-64 YRS (FLUCELVAX) Unknown Completed [facility] SARS-COV-2 COVID-19 MODERNA 12+ YRS VACCINE Unknown Completed [facility] SARS-COV-2 COVID-19 MODERNA 12+ YRS VACCINE Unknown Completed [facility] Influenza Virus Vaccine Quad .5 mL IM 6+ MO (FLUZONE/FLULAVAL/F LUARIX) Unknown Completed [facility] SARS-COV-2 COVID-19 MODERNA 0.25ML BOOSTER VACCINE Unknown Completed [facility] Pneumococcal Polysaccharide, PPSV23 (PNEUMOVAX) Unknown Completed [facility] SARS-COV-2 COVID-19 MODERNA 0.25ML BOOSTER VACCINE Unknown Completed [facility] Influenza Virus Vaccine Quad IM, Preserv and ABX Free 6 MO-64 YRS (FLUCELVAX) Unknown Completed [facility] SARS-COV-2 COVID-19 MODERNA 12+ YRS VACCINE Unknown Completed [facility] SARS-COV-2 COVID-19 MODERNA 12+ YRS VACCINE Unknown Completed [facility] Influenza Virus Vaccine Quad .5 mL IM 6+ MO (FLUZONE/FLULAVAL/F LUARIX) Unknown Completed [facility] SARS-COV-2 COVID-19 MODERNA 0.25ML BOOSTER VACCINE Unknown Completed [facility] Pneumococcal Polysaccharide, PPSV23 (PNEUMOVAX) Unknown Completed [facility] SARS-COV-2 COVID-19 MODERNA 0.25ML BOOSTER VACCINE Unknown Completed [facility] Influenza Virus Vaccine Quad IM, Preserv and ABX Free 6 MO-64 YRS (FLUCELVAX) Unknown Completed [facility] SARS-COV-2 COVID-19 MODERNA 12+ YRS VACCINE Unknown Completed [facility] SARS-COV-2 COVID-19 MODERNA 12+ YRS VACCINE Unknown Completed [facility] Influenza Virus Vaccine Quad .5 mL IM 6+ MO (FLUZONE/FLULAVAL/F LUARIX) Unknown Completed [facility] SARS-COV-2 COVID-19 MODERNA 0.25ML BOOSTER VACCINE Unknown Completed [facility] Pneumococcal Polysaccharide, PPSV23 (PNEUMOVAX) Unknown Completed [facility] SARS-COV-2 COVID-19 MODERNA 0.25ML BOOSTER VACCINE Unknown Completed [facility] Influenza Virus Vaccine Quad IM, Preserv and ABX Free 6 MO-64 YRS (FLUCELVAX) Unknown Completed [facility] SARS-COV-2 COVID-19 MODERNA 12+ YRS VACCINE Unknown Completed [facility] SARS-COV-2 COVID-19 MODERNA 12+ YRS VACCINE Unknown Completed [facility] Influenza Virus Vaccine Quad .5 mL IM 6+ MO (FLUZONE/FLULAVAL/F LUARIX) Unknown Completed [facility] SARS-COV-2 COVID-19 MODERNA 0.25ML BOOSTER VACCINE Unknown Completed [facility] Pneumococcal Polysaccharide, PPSV23 (PNEUMOVAX) Unknown Completed [facility] SARS-COV-2 COVID-19 MODERNA 0.25ML BOOSTER VACCINE Unknown Completed [facility] Influenza Virus Vaccine Quad IM, Preserv and ABX Free 6 MO-64 YRS (FLUCELVAX) Unknown Completed [facility] SARS-COV-2 COVID-19 MODERNA 12+ YRS VACCINE Unknown Completed [facility] SARS-COV-2 COVID-19 MODERNA 12+ YRS VACCINE Unknown Completed [facility] Influenza Virus Vaccine Quad .5 mL IM 6+ MO (FLUZONE/FLULAVAL/F LUARIX) Unknown Completed [facility] SARS-COV-2 COVID-19 MODERNA 0.25ML BOOSTER VACCINE Unknown Completed [facility] Pneumococcal Polysaccharide, PPSV23 (PNEUMOVAX) Unknown Completed [facility] SARS-COV-2 COVID-19 MODERNA 12+ YRS VACCINE Unknown Completed [facility] SARS-COV-2 COVID-19 MODERNA 12+ YRS VACCINE Unknown Completed [facility] Influenza Virus Vaccine Quad .5 mL IM 6+ MO (FLUZONE/FLULAVAL/F LUARIX) Unknown Completed [facility] SARS-COV-2 COVID-19 MODERNA 0.25ML BOOSTER VACCINE Unknown Completed [facility] SARS-COV-2 COVID-19 MODERNA 12+ YRS VACCINE Unknown Completed [facility] SARS-COV-2 COVID-19 MODERNA 12+ YRS VACCINE Unknown Completed [facility] Influenza Virus Vaccine Quad .5 mL IM 6+ MO (FLUZONE/FLULAVAL/F LUARIX) Unknown Completed [facility] SARS-COV-2 COVID-19 MODERNA 12+ YRS VACCINE Unknown Completed [facility] SARS-COV-2 COVID-19 MODERNA 12+ YRS VACCINE Unknown Completed [facility] Influenza Virus Vaccine Quad .5 mL IM 6+ MO (FLUZONE/FLULAVAL/F LUARIX) Unknown Completed [facility] SARS-COV-2 COVID-19 MODERNA 12+ YRS VACCINE Unknown Completed [facility] SARS-COV-2 COVID-19 MODERNA 12+ YRS VACCINE Unknown Completed [facility] Influenza Virus Vaccine Quad .5 mL IM 6+ MO (FLUZONE/FLULAVAL/F LUARIX) Unknown Completed [facility] SARS-COV-2 COVID-19 MODERNA 12+ YRS VACCINE Unknown Completed [facility] SARS-COV-2 COVID-19 MODERNA 12+ YRS VACCINE Unknown Completed [facility] Influenza Virus Vaccine Quad .5 mL IM 6+ MO (FLUZONE/FLULAVAL/F LUARIX) Unknown Completed [facility] SARS-COV-2 COVID-19 MODERNA 12+ YRS VACCINE Unknown Completed [facility] SARS-COV-2 COVID-19 MODERNA 12+ YRS VACCINE Unknown Completed [facility] SARS-COV-2 COVID-19 MODERNA 12+ YRS VACCINE Unknown Completed [facility] SARS-COV-2 COVID-19 MODERNA 12+ YRS VACCINE Unknown Completed [facility] SARS-COV-2 COVID-19 MODERNA 12+ YRS VACCINE Unknown Completed [facility] SARS-COV-2 COVID-19 MODERNA 12+ YRS VACCINE Unknown Completed [facility] SARS-COV-2 COVID-19 MODERNA 12+ YRS VACCINE Unknown Completed [facility] SARS-COV-2 COVID-19 MODERNA 12+ YRS VACCINE Unknown Completed [facility] Influenza Virus Vaccine Quad .5 mL IM 6+ MO (FLUZONE/FLULAVAL/F LUARIX) Unknown Completed [facility] SARS-COV-2 COVID-19 MODERNA 0.25ML BOOSTER VACCINE Unknown Completed [facility] Pneumococcal Polysaccharide, PPSV23 (PNEUMOVAX) Unknown Completed [facility] SARS-COV-2 COVID-19 MODERNA 0.25ML BOOSTER VACCINE Unknown Completed [facility] Influenza Virus Vaccine Quad IM, Preserv and ABX Free 6 MO-64 YRS (FLUCELVAX) Unknown Completed [facility] SARS-COV-2 COVID-19 MODERNA 12+ YRS VACCINE Unknown Completed [facility] SARS-COV-2 COVID-19 MODERNA 12+ YRS VACCINE Unknown Completed [facility] Influenza Virus Vaccine Quad .5 mL IM 6+ MO (FLUZONE/FLULAVAL/F LUARIX) Unknown Completed [facility] SARS-COV-2 COVID-19 MODERNA 0.25ML BOOSTER VACCINE Unknown Completed [facility] Pneumococcal Polysaccharide, PPSV23 (PNEUMOVAX) Unknown Completed [facility] SARS-COV-2 COVID-19 MODERNA 0.25ML BOOSTER VACCINE Unknown Completed [facility] Influenza Virus Vaccine Quad IM, Preserv and ABX Free 6 MO-64 YRS (FLUCELVAX) Unknown Completed [facility] SARS-COV-2 COVID-19 MODERNA 12+ YRS VACCINE Unknown Completed [facility] SARS-COV-2 COVID-19 MODERNA 12+ YRS VACCINE Unknown Completed [facility] Influenza Virus Vaccine Quad .5 mL IM 6+ MO (FLUZONE/FLULAVAL/F LUARIX) Unknown Completed [facility] SARS-COV-2 COVID-19 MODERNA 0.25ML BOOSTER VACCINE Unknown Completed [facility] Pneumococcal Polysaccharide, PPSV23 (PNEUMOVAX) Unknown Completed [facility] SARS-COV-2 COVID-19 MODERNA 0.25ML BOOSTER VACCINE Unknown Completed [facility] Influenza Virus Vaccine Quad IM, Preserv and ABX Free 6 MO-64 YRS (FLUCELVAX) Unknown Completed [facility] SARS-COV-2 COVID-19 MODERNA 12+ YRS VACCINE Unknown Completed [facility] SARS-COV-2 COVID-19 MODERNA 12+ YRS VACCINE Unknown Completed [facility] Influenza Virus Vaccine Quad .5 mL IM 6+ MO (FLUZONE/FLULAVAL/F LUARIX) Unknown Completed [facility] SARS-COV-2 COVID-19 MODERNA 0.25ML BOOSTER VACCINE Unknown Completed [facility] Pneumococcal Polysaccharide, PPSV23 (PNEUMOVAX) Unknown Completed [facility] SARS-COV-2 COVID-19 MODERNA 0.25ML BOOSTER VACCINE Unknown Completed [facility] Influenza Virus Vaccine Quad IM, Preserv and ABX Free 6 MO-64 YRS (FLUCELVAX) Unknown Completed [facility] SARS-COV-2 COVID-19 MODERNA 12+ YRS VACCINE Unknown Completed [facility] SARS-COV-2 COVID-19 MODERNA 12+ YRS VACCINE Unknown Completed [facility] Influenza Virus Vaccine Quad .5 mL IM 6+ MO (FLUZONE/FLULAVAL/F LUARIX) Unknown Completed [facility] SARS-COV-2 COVID-19 MODERNA 0.25ML BOOSTER VACCINE Unknown Completed [facility] Pneumococcal Polysaccharide, PPSV23 (PNEUMOVAX) Unknown Completed [facility] SARS-COV-2 COVID-19 MODERNA 0.25ML BOOSTER VACCINE Unknown Completed [facility] Influenza Virus Vaccine Quad IM, Preserv and ABX Free 6 MO-64 YRS (FLUCELVAX) Unknown Completed [facility] SARS-COV-2 COVID-19 MODERNA 12+ YRS VACCINE Unknown Completed [facility] SARS-COV-2 COVID-19 MODERNA 12+ YRS VACCINE Unknown Completed [facility] Influenza Virus Vaccine Quad .5 mL IM 6+ MO (FLUZONE/FLULAVAL/F LUARIX) Unknown Completed [facility] SARS-COV-2 COVID-19 MODERNA 0.25ML BOOSTER VACCINE Unknown Completed [facility] Pneumococcal Polysaccharide, PPSV23 (PNEUMOVAX) Unknown Completed [facility] SARS-COV-2 COVID-19 MODERNA 0.25ML BOOSTER VACCINE Unknown Completed [facility] Influenza Virus Vaccine Quad IM, Preserv and ABX Free 6 MO-64 YRS (FLUCELVAX) Unknown Completed [facility] SARS-COV-2 COVID-19 MODERNA 12+ YRS VACCINE Unknown Completed [facility] SARS-COV-2 COVID-19 MODERNA 12+ YRS VACCINE Unknown Completed [facility] Influenza Virus Vaccine Quad .5 mL IM 6+ MO (FLUZONE/FLULAVAL/F LUARIX) Unknown Completed [facility] SARS-COV-2 COVID-19 MODERNA 0.25ML BOOSTER VACCINE Unknown Completed [facility] Pneumococcal Polysaccharide, PPSV23 (PNEUMOVAX) Unknown Completed [facility] SARS-COV-2 COVID-19 MODERNA 0.25ML BOOSTER VACCINE Unknown Completed [facility] Influenza Virus Vaccine Quad IM, Preserv and ABX Free 6 MO-64 YRS (FLUCELVAX) Unknown Completed [facility] SARS-COV-2 COVID-19 MODERNA 12+ YRS VACCINE Unknown Completed [facility] SARS-COV-2 COVID-19 MODERNA 12+ YRS VACCINE Unknown Completed [facility] Influenza Virus Vaccine Quad .5 mL IM 6+ MO (FLUZONE/FLULAVAL/F LUARIX) Unknown Completed [facility] SARS-COV-2 COVID-19 MODERNA 0.25ML BOOSTER VACCINE Unknown Completed [facility] Pneumococcal Polysaccharide, PPSV23 (PNEUMOVAX) Unknown Completed [facility] SARS-COV-2 COVID-19 MODERNA 0.25ML BOOSTER VACCINE Unknown Completed [facility] Influenza Virus Vaccine Quad IM, Preserv and ABX Free 6 MO-64 YRS (FLUCELVAX) Unknown Completed [facility] SARS-COV-2 COVID-19 MODERNA 12+ YRS VACCINE Unknown Completed [facility] SARS-COV-2 COVID-19 MODERNA 12+ YRS VACCINE Unknown Completed [facility] Influenza Virus Vaccine Quad .5 mL IM 6+ MO (FLUZONE/FLULAVAL/F LUARIX) Unknown Completed [facility] SARS-COV-2 COVID-19 MODERNA 0.25ML BOOSTER VACCINE Unknown Completed [facility] Pneumococcal Polysaccharide, PPSV23 (PNEUMOVAX) Unknown Completed [facility] SARS-COV-2 COVID-19 MODERNA 0.25ML BOOSTER VACCINE Unknown Completed [facility] Influenza Virus Vaccine Quad IM, Preserv and ABX Free 6 MO-64 YRS (FLUCELVAX) Unknown Completed [facility] SARS-COV-2 COVID-19 MODERNA 12+ YRS VACCINE Unknown Completed [facility] SARS-COV-2 COVID-19 MODERNA 12+ YRS VACCINE Unknown Completed [facility] Influenza Virus Vaccine Quad .5 mL IM 6+ MO (FLUZONE/FLULAVAL/F LUARIX) Unknown Completed [facility] SARS-COV-2 COVID-19 MODERNA 0.25ML BOOSTER VACCINE Unknown Completed [facility] Pneumococcal Polysaccharide, PPSV23 (PNEUMOVAX) Unknown Completed [facility] SARS-COV-2 COVID-19 MODERNA 0.25ML BOOSTER VACCINE Unknown Completed [facility] Influenza Virus Vaccine Quad IM, Preserv and ABX Free 6 MO-64 YRS (FLUCELVAX) Unknown Completed [facility] SARS-COV-2 COVID-19 MODERNA 12+ YRS VACCINE Unknown Completed [facility] SARS-COV-2 COVID-19 MODERNA 12+ YRS VACCINE Unknown Completed [facility] Influenza Virus Vaccine Quad .5 mL IM 6+ MO (FLUZONE/FLULAVAL/F LUARIX) Unknown Completed [facility] SARS-COV-2 COVID-19 MODERNA 0.25ML BOOSTER VACCINE Unknown Completed [facility] Pneumococcal Polysaccharide, PPSV23 (PNEUMOVAX) Unknown Completed [facility] SARS-COV-2 COVID-19 MODERNA 0.25ML BOOSTER VACCINE Unknown Completed [facility] Influenza Virus Vaccine Quad IM, Preserv and ABX Free 6 MO-64 YRS (FLUCELVAX) Unknown Completed [facility] SARS-COV-2 COVID-19 MODERNA 12+ YRS VACCINE Unknown Completed [facility] SARS-COV-2 COVID-19 MODERNA 12+ YRS VACCINE Unknown Completed [facility] Influenza Virus Vaccine Quad .5 mL IM 6+ MO (FLUZONE/FLULAVAL/F LUARIX) Unknown Completed [facility] SARS-COV-2 COVID-19 MODERNA 0.25ML BOOSTER VACCINE Unknown Completed [facility] Pneumococcal Polysaccharide, PPSV23 (PNEUMOVAX) Unknown Completed [facility] SARS-COV-2 COVID-19 MODERNA 0.25ML BOOSTER VACCINE Unknown Completed [facility] Influenza Virus Vaccine Quad IM, Preserv and ABX Free 6 MO-64 YRS (FLUCELVAX) Unknown Completed [facility] SARS-COV-2 COVID-19 MODERNA 12+ YRS VACCINE Unknown Completed [facility] SARS-COV-2 COVID-19 MODERNA 12+ YRS VACCINE Unknown Completed [facility] Influenza Virus Vaccine Quad .5 mL IM 6+ MO (FLUZONE/FLULAVAL/F LUARIX) Unknown Completed [facility] SARS-COV-2 COVID-19 MODERNA 0.25ML BOOSTER VACCINE Unknown Completed [facility] Pneumococcal Polysaccharide, PPSV23 (PNEUMOVAX) Unknown Completed [facility] SARS-COV-2 COVID-19 MODERNA 0.25ML BOOSTER VACCINE Unknown Completed [facility] Influenza Virus Vaccine Quad IM, Preserv and ABX Free 6 MO-64 YRS (FLUCELVAX) Unknown Completed [facility] SARS-COV-2 COVID-19 MODERNA 12+ YRS VACCINE Unknown Completed [facility] SARS-COV-2 COVID-19 MODERNA 12+ YRS VACCINE Unknown Completed [facility] Influenza Virus Vaccine Quad .5 mL IM 6+ MO (FLUZONE/FLULAVAL/F LUARIX) Unknown Completed [facility] SARS-COV-2 COVID-19 MODERNA 0.25ML BOOSTER VACCINE Unknown Completed [facility] Pneumococcal Polysaccharide, PPSV23 (PNEUMOVAX) Unknown Completed [facility] SARS-COV-2 COVID-19 MODERNA 0.25ML BOOSTER VACCINE Unknown Completed [facility] Influenza Virus Vaccine Quad IM, Preserv and ABX Free 6 MO-64 YRS (FLUCELVAX) Unknown Completed [facility] SARS-COV-2 COVID-19 MODERNA 12+ YRS VACCINE Unknown Completed [facility] SARS-COV-2 COVID-19 MODERNA 12+ YRS VACCINE Unknown Completed [facility] Influenza Virus Vaccine Quad .5 mL IM 6+ MO (FLUZONE/FLULAVAL/F LUARIX) Unknown Completed [facility] SARS-COV-2 COVID-19 MODERNA 0.25ML BOOSTER VACCINE Unknown Completed [facility] Pneumococcal Polysaccharide, PPSV23 (PNEUMOVAX) Unknown Completed [facility] SARS-COV-2 COVID-19 MODERNA 0.25ML BOOSTER VACCINE Unknown Completed [facility] Influenza Virus Vaccine Quad IM, Preserv and ABX Free 6 MO-64 YRS (FLUCELVAX) Unknown Completed [facility] SARS-COV-2 COVID-19 MODERNA 12+ YRS VACCINE Unknown Completed [facility] SARS-COV-2 COVID-19 MODERNA 12+ YRS VACCINE Unknown Completed [facility] Influenza Virus Vaccine Quad .5 mL IM 6+ MO (FLUZONE/FLULAVAL/F LUARIX) Unknown Completed [facility] SARS-COV-2 COVID-19 MODERNA 0.25ML BOOSTER VACCINE Unknown Completed [facility] Pneumococcal Polysaccharide, PPSV23 (PNEUMOVAX) Unknown Completed [facility] SARS-COV-2 COVID-19 MODERNA 0.25ML BOOSTER VACCINE Unknown Completed [facility] Influenza Virus Vaccine Quad IM, Preserv and ABX Free 6 MO-64 YRS (FLUCELVAX) Unknown Completed [facility] SARS-COV-2 COVID-19 MODERNA 12+ YRS VACCINE Unknown Completed [facility] SARS-COV-2 COVID-19 MODERNA 12+ YRS VACCINE Unknown Completed [facility] Influenza Virus Vaccine Quad .5 mL IM 6+ MO (FLUZONE/FLULAVAL/F LUARIX) Unknown Completed [facility] SARS-COV-2 COVID-19 MODERNA 0.25ML BOOSTER VACCINE Unknown Completed [facility] Pneumococcal Polysaccharide, PPSV23 (PNEUMOVAX) Unknown Completed [facility] SARS-COV-2 COVID-19 MODERNA 0.25ML BOOSTER VACCINE Unknown Completed [facility] Influenza Virus Vaccine Quad IM, Preserv and ABX Free 6 MO-64 YRS (FLUCELVAX) Unknown Completed [facility] SARS-COV-2 COVID-19 MODERNA 12+ YRS VACCINE Unknown Completed [facility] SARS-COV-2 COVID-19 MODERNA 12+ YRS VACCINE Unknown Completed [facility] Influenza Virus Vaccine Quad .5 mL IM 6+ MO (FLUZONE/FLULAVAL/F LUARIX) Unknown Completed [facility] SARS-COV-2 COVID-19 MODERNA 0.25ML BOOSTER VACCINE Unknown Completed [facility] Pneumococcal Polysaccharide, PPSV23 (PNEUMOVAX) Unknown Completed [facility] SARS-COV-2 COVID-19 MODERNA 0.25ML BOOSTER VACCINE Unknown Completed [facility] Influenza Virus Vaccine Quad IM, Preserv and ABX Free 6 MO-64 YRS (FLUCELVAX) Unknown Completed [facility] SARS-COV-2 COVID-19 MODERNA 12+ YRS VACCINE Unknown Completed [facility] SARS-COV-2 COVID-19 MODERNA 12+ YRS VACCINE Unknown Completed [facility] Influenza Virus Vaccine Quad .5 mL IM 6+ MO (FLUZONE/FLULAVAL/F LUARIX) Unknown Completed [facility] SARS-COV-2 COVID-19 MODERNA 0.25ML BOOSTER VACCINE Unknown Completed [facility] Pneumococcal Polysaccharide, PPSV23 (PNEUMOVAX) Unknown Completed [facility] SARS-COV-2 COVID-19 MODERNA 0.25ML BOOSTER VACCINE Unknown Completed [facility] Influenza Virus Vaccine Quad IM, Preserv and ABX Free 6 MO-64 YRS (FLUCELVAX) Unknown Completed [facility] SARS-COV-2 COVID-19 MODERNA 12+ YRS VACCINE Unknown Completed [facility] SARS-COV-2 COVID-19 MODERNA 12+ YRS VACCINE Unknown Completed [facility] Influenza Virus Vaccine Quad .5 mL IM 6+ MO (FLUZONE/FLULAVAL/F LUARIX) Unknown Completed [facility] SARS-COV-2 COVID-19 MODERNA 0.25ML BOOSTER VACCINE Unknown Completed [facility] Pneumococcal Polysaccharide, PPSV23 (PNEUMOVAX) Unknown Completed [facility] SARS-COV-2 COVID-19 MODERNA 0.25ML BOOSTER VACCINE Unknown Completed [facility] Influenza Virus Vaccine Quad IM, Preserv and ABX Free 6 MO-64 YRS (FLUCELVAX) Unknown Completed [facility] SARS-COV-2 COVID-19 MODERNA 12+ YRS VACCINE Unknown Completed [facility] SARS-COV-2 COVID-19 MODERNA 12+ YRS VACCINE Unknown Completed [facility] Influenza Virus Vaccine Quad .5 mL IM 6+ MO (FLUZONE/FLULAVAL/F LUARIX) Unknown Completed [facility] SARS-COV-2 COVID-19 MODERNA 0.25ML BOOSTER VACCINE Unknown Completed [facility] Pneumococcal Polysaccharide, PPSV23 (PNEUMOVAX) Unknown Completed [facility] SARS-COV-2 COVID-19 MODERNA 0.25ML BOOSTER VACCINE Unknown Completed [facility] Influenza Virus Vaccine Quad IM, Preserv and ABX Free 6 MO-64 YRS (FLUCELVAX) Unknown Completed [facility] SARS-COV-2 COVID-19 MODERNA 12+ YRS VACCINE Unknown Completed [facility] SARS-COV-2 COVID-19 MODERNA 12+ YRS VACCINE Unknown Completed [facility] Influenza Virus Vaccine Quad .5 mL IM 6+ MO (FLUZONE/FLULAVAL/F LUARIX) Unknown Completed [facility] SARS-COV-2 COVID-19 MODERNA 0.25ML BOOSTER VACCINE Unknown Completed [facility] Pneumococcal Polysaccharide, PPSV23 (PNEUMOVAX) Unknown [facility] [facility] SARS[facility]OV[facility]2 COVID-19 MODERNA 0.25ML BOOSTER VACCINE Unknown Completed [facility] Influenza Virus Vaccine Quad IM, Preserv and ABX Free 6 MO-64 YRS (FLUCELVAX) Unknown Completed [facility] SARS-COV-2 COVID-19 MODERNA 12+ YRS VACCINE Unknown Completed [facility] SARS-COV-2 COVID-19 MODERNA 12+ YRS VACCINE Unknown Completed [facility] Influenza Virus Vaccine Quad .5 mL IM 6+ MO (FLUZONE/FLULAVAL/F LUARIX) Unknown Completed [facility] SARS-COV-2 COVID-19 MODERNA 0.25ML BOOSTER VACCINE Unknown Completed [facility] Pneumococcal Polysaccharide, PPSV23 (PNEUMOVAX) Unknown Completed [facility] SARS-COV-2 COVID-19 MODERNA 0.25ML BOOSTER VACCINE Unknown Completed [facility] Influenza Virus Vaccine Quad IM, Preserv and ABX Free 6 MO-64 YRS (FLUCELVAX) Unknown Completed [facility] SARS-COV-2 COVID-19 MODERNA 12+ YRS VACCINE Unknown Completed [facility] SARS-COV-2 COVID-19 MODERNA 12+ YRS VACCINE Unknown Completed [facility] Influenza Virus Vaccine Quad .5 mL IM 6+ MO (FLUZONE/FLULAVAL/F LUARIX) Unknown Completed [facility] SARS-COV-2 COVID-19 MODERNA 0.25ML BOOSTER VACCINE Unknown Completed [facility] Pneumococcal Polysaccharide, PPSV23 (PNEUMOVAX) Unknown Completed [facility] SARS-COV-2 COVID-19 MODERNA 0.25ML BOOSTER VACCINE Unknown Completed [facility] Influenza Virus Vaccine Quad IM, Preserv and ABX Free 6 MO-64 YRS (FLUCELVAX) Unknown Completed [facility] SARS-COV-2 COVID-19 MODERNA 12+ YRS VACCINE Unknown Completed [facility] SARS-COV-2 COVID-19 MODERNA 12+ YRS VACCINE Unknown Completed [facility] Influenza Virus Vaccine Quad .5 mL IM 6+ MO (FLUZONE/FLULAVAL/F LUARIX) Unknown Completed [facility] SARS-COV-2 COVID-19 MODERNA 0.25ML BOOSTER VACCINE Unknown Completed [facility] Pneumococcal Polysaccharide, PPSV23 (PNEUMOVAX) Unknown Completed [facility] SARS-COV-2 COVID-19 MODERNA 0.25ML BOOSTER VACCINE Unknown Completed [facility] Influenza Virus Vaccine Quad IM, Preserv and ABX Free 6 MO-64 YRS (FLUCELVAX) Unknown Completed [facility] SARS-COV-2 COVID-19 MODERNA 12+ YRS VACCINE Unknown Completed [facility] SARS-COV-2 COVID-19 MODERNA 12+ YRS VACCINE Unknown Completed [facility] Influenza Virus Vaccine Quad .5 mL IM 6+ MO (FLUZONE/FLULAVAL/F LUARIX) Unknown Completed [facility] SARS-COV-2 COVID-19 MODERNA 0.25ML BOOSTER VACCINE Unknown Completed [facility] Pneumococcal Polysaccharide, PPSV23 (PNEUMOVAX) Unknown Completed [facility] SARS-COV-2 COVID-19 MODERNA 0.25ML BOOSTER VACCINE Unknown Completed [facility] Influenza Virus Vaccine Quad IM, Preserv and ABX Free 6 MO-64 YRS (FLUCELVAX) Unknown Completed [facility] SARS-COV-2 COVID-19 MODERNA 12+ YRS VACCINE Unknown Completed [facility] SARS-COV-2 COVID-19 MODERNA 12+ YRS VACCINE Unknown Completed [facility] Influenza Virus Vaccine Quad .5 mL IM 6+ MO (FLUZONE/FLULAVAL/F LUARIX) Unknown Completed [facility] SARS-COV-2 COVID-19 MODERNA 0.25ML BOOSTER VACCINE Unknown Completed [facility] Pneumococcal Polysaccharide, PPSV23 (PNEUMOVAX) Unknown Completed [facility] SARS-COV-2 COVID-19 MODERNA 0.25ML BOOSTER VACCINE Unknown Completed [facility] Influenza Virus Vaccine Quad IM, Preserv and ABX Free 6 MO-64 YRS (FLUCELVAX) Unknown Completed [facility] SARS-COV-2 COVID-19 MODERNA 12+ YRS VACCINE Unknown Completed [facility] SARS-COV-2 COVID-19 MODERNA 12+ YRS VACCINE Unknown Completed [facility] Influenza Virus Vaccine Quad .5 mL IM 6+ MO (FLUZONE/FLULAVAL/F LUARIX) Unknown Completed [facility] SARS-COV-2 COVID-19 MODERNA 0.25ML BOOSTER VACCINE Unknown Completed [facility] Pneumococcal Polysaccharide, PPSV23 (PNEUMOVAX) Unknown Completed [facility] SARS-COV-2 COVID-19 MODERNA 0.25ML BOOSTER VACCINE Unknown Completed [facility] Influenza Virus Vaccine Quad IM, Preserv and ABX Free 6 MO-64 YRS (FLUCELVAX) Unknown Completed [facility] SARS-COV-2 COVID-19 MODERNA 12+ YRS VACCINE Unknown Completed [facility] SARS-COV-2 COVID-19 MODERNA 12+ YRS VACCINE Unknown Completed [facility] Influenza Virus Vaccine Quad .5 mL IM 6+ MO (FLUZONE/FLULAVAL/F LUARIX) Unknown Completed [facility] SARS-COV-2 COVID-19 MODERNA 0.25ML BOOSTER VACCINE Unknown Completed [facility] Pneumococcal Polysaccharide, PPSV23 (PNEUMOVAX) Unknown Completed [facility] SARS-COV-2 COVID-19 MODERNA 0.25ML BOOSTER VACCINE Unknown Completed [facility] Influenza Virus Vaccine Quad IM, Preserv and ABX Free 6 MO-64 YRS (FLUCELVAX) Unknown Completed [facility] SARS-COV-2 COVID-19 MODERNA 12+ YRS VACCINE Unknown Completed [facility] SARS-COV-2 COVID-19 MODERNA 12+ YRS VACCINE Unknown Completed [facility] Influenza Virus Vaccine Quad .5 mL IM 6+ MO (FLUZONE/FLULAVAL/F LUARIX) Unknown Completed [facility] SARS-COV-2 COVID-19 MODERNA 0.25ML BOOSTER VACCINE Unknown Completed [facility] Pneumococcal Polysaccharide, PPSV23 (PNEUMOVAX) Unknown Completed [facility] SARS-COV-2 COVID-19 MODERNA 0.25ML BOOSTER VACCINE Unknown Completed [facility] Influenza Virus Vaccine Quad IM, Preserv and ABX Free 6 MO-64 YRS (FLUCELVAX) Unknown Completed [facility] Influenza Virus Vaccine Unknown Completed [facility] SARS-COV-2 COVID-19 MODERNA 12+ YRS VACCINE Unknown Completed [facility] SARS-COV-2 COVID-19 MODERNA 12+ YRS VACCINE Unknown Completed [facility] SARS-COV-2 COVID-19 MODERNA 12+ YRS VACCINE Unknown Completed [facility] Influenza Virus Vaccine Quad .5 mL IM 6+ MO (FLUZONE/FLULAVAL/F LUARIX) Unknown Completed [facility] SARS-COV-2 COVID-19 MODERNA 0.25ML BOOSTER VACCINE Unknown Completed [facility] Pneumococcal Polysaccharide, PPSV23 (PNEUMOVAX) Unknown Completed [facility] SARS-COV-2 COVID-19 MODERNA 0.25ML BOOSTER VACCINE Unknown Completed [facility] Influenza Virus Vaccine Quad IM, Preserv and ABX Free 6 MO-64 YRS (FLUCELVAX) Unknown Completed [facility] Influenza Virus Vaccine Unknown Completed [facility] SARS-COV-2 COVID-19 MODERNA 12+ YRS VACCINE Unknown Completed [facility] SARS-COV-2 COVID-19 MODERNA 12+ YRS VACCINE Unknown Completed [facility] SARS-COV-2 COVID-19 MODERNA 12+ YRS VACCINE Unknown Completed [facility] Influenza Virus Vaccine Quad .5 mL IM 6+ MO (FLUZONE/FLULAVAL/F LUARIX) Unknown Completed [facility] SARS-COV-2 COVID-19 MODERNA 0.25ML BOOSTER VACCINE Unknown Completed [facility] Pneumococcal Polysaccharide, PPSV23 (PNEUMOVAX) Unknown Completed [facility] SARS-COV-2 COVID-19 MODERNA 0.25ML BOOSTER VACCINE Unknown Completed [facility] Influenza Virus Vaccine Quad IM, Preserv and ABX Free 6 MO-64 YRS (FLUCELVAX) Unknown Completed [facility] Influenza Virus Vaccine Unknown Completed [facility] SARS-COV-2 COVID-19 MODERNA 12+ YRS VACCINE Unknown Completed [facility] SARS-COV-2 COVID-19 MODERNA 12+ YRS VACCINE Unknown Completed [facility] SARS-COV-2 COVID-19 MODERNA 12+ YRS VACCINE Unknown Completed [facility] Influenza Virus Vaccine Quad .5 mL IM 6+ MO (FLUZONE/FLULAVAL/F LUARIX) Unknown Completed [facility] SARS-COV-2 COVID-19 MODERNA 0.25ML BOOSTER VACCINE Unknown Completed [facility] Pneumococcal Polysaccharide, PPSV23 (PNEUMOVAX) Unknown Completed [facility] SARS-COV-2 COVID-19 MODERNA 0.25ML BOOSTER VACCINE Unknown Completed [facility] Influenza Virus Vaccine Quad IM, Preserv and ABX Free 6 MO-64 YRS (FLUCELVAX) Unknown Completed [facility] Influenza Virus Vaccine Unknown Completed [facility] SARS-COV-2 COVID-19 MODERNA 12+ YRS VACCINE Unknown Completed [facility] SARS-COV-2 COVID-19 MODERNA 12+ YRS VACCINE Unknown Completed [facility] SARS-COV-2 COVID-19 MODERNA 12+ YRS VACCINE Unknown Completed [facility] Influenza Virus Vaccine Quad .5 mL IM 6+ MO (FLUZONE/FLULAVAL/F LUARIX) Unknown Completed [facility] SARS-COV-2 COVID-19 MODERNA 0.25ML BOOSTER VACCINE Unknown Completed [facility] Pneumococcal Polysaccharide, PPSV23 (PNEUMOVAX) Unknown Completed [facility] SARS-COV-2 COVID-19 MODERNA 0.25ML BOOSTER VACCINE Unknown Completed [facility] Influenza Virus Vaccine Quad IM, Preserv and ABX Free 6 MO-64 YRS (FLUCELVAX) Unknown Completed [facility] Influenza Virus Vaccine Unknown Completed [facility] SARS-COV-2 COVID-19 MODERNA 12+ YRS VACCINE Unknown Completed [facility] SARS-COV-2 COVID-19 MODERNA 12+ YRS VACCINE Unknown Completed [facility] SARS-COV-2 COVID-19 MODERNA 12+ YRS VACCINE Unknown Completed [facility] Influenza Virus Vaccine Quad .5 mL IM 6+ MO (FLUZONE/FLULAVAL/F LUARIX) Unknown Completed [facility] SARS-COV-2 COVID-19 MODERNA 0.25ML BOOSTER VACCINE Unknown Completed [facility] Pneumococcal Polysaccharide, PPSV23 (PNEUMOVAX) Unknown Completed [facility] SARS-COV-2 COVID-19 MODERNA 0.25ML BOOSTER VACCINE Unknown Completed [facility] Influenza Virus Vaccine Quad IM, Preserv and ABX Free 6 MO-64 YRS (FLUCELVAX) Unknown Completed [facility] Influenza Virus Vaccine Unknown Completed [facility] SARS-COV-2 COVID-19 MODERNA 12+ YRS VACCINE Unknown Completed [facility] SARS-COV-2 COVID-19 MODERNA 12+ YRS VACCINE Unknown Completed [facility] SARS-COV-2 COVID-19 MODERNA 12+ YRS VACCINE Unknown Completed [facility] Influenza Virus Vaccine Quad .5 mL IM 6+ MO (FLUZONE/FLULAVAL/F LUARIX) Unknown Completed [facility] SARS-COV-2 COVID-19 MODERNA 0.25ML BOOSTER VACCINE Unknown Completed [facility] Pneumococcal Polysaccharide, PPSV23 (PNEUMOVAX) Unknown Completed [facility] SARS-COV-2 COVID-19 MODERNA 0.25ML BOOSTER VACCINE Unknown Completed [facility] Influenza Virus Vaccine Quad IM, Preserv and ABX Free 6 MO-64 YRS (FLUCELVAX) Unknown Completed [facility] Influenza Virus Vaccine Unknown Completed [facility] SARS-COV-2 COVID-19 MODERNA 12+ YRS VACCINE Unknown Completed [facility] SARS-COV-2 COVID-19 MODERNA 12+ YRS VACCINE Unknown Completed [facility] SARS-COV-2 COVID-19 MODERNA 12+ YRS VACCINE Unknown Completed [facility] Influenza Virus Vaccine Quad .5 mL IM 6+ MO (FLUZONE/FLULAVAL/F LUARIX) Unknown Completed [facility] SARS-COV-2 COVID-19 MODERNA 0.25ML BOOSTER VACCINE Unknown Completed [facility] Pneumococcal Polysaccharide, PPSV23 (PNEUMOVAX) Unknown Completed [facility] SARS-COV-2 COVID-19 MODERNA 0.25ML BOOSTER VACCINE Unknown Completed [facility] Influenza Virus Vaccine Quad IM, Preserv and ABX Free 6 MO-64 YRS (FLUCELVAX) Unknown Completed [facility] Influenza Virus Vaccine Unknown Completed [facility] SARS-COV-2 COVID-19 MODERNA 12+ YRS VACCINE Unknown Completed [facility] SARS-COV-2 COVID-19 MODERNA 12+ YRS VACCINE Unknown Completed [facility] SARS-COV-2 COVID-19 MODERNA 12+ YRS VACCINE Unknown Completed [facility] Influenza Virus Vaccine Quad .5 mL IM 6+ MO (FLUZONE/FLULAVAL/F LUARIX) Unknown Completed [facility] SARS-COV-2 COVID-19 MODERNA 0.25ML BOOSTER VACCINE Unknown Completed [facility] Pneumococcal Polysaccharide, PPSV23 (PNEUMOVAX) Unknown Completed [facility] SARS-COV-2 COVID-19 MODERNA 0.25ML BOOSTER VACCINE Unknown Completed [facility] Influenza Virus Vaccine Quad IM, Preserv and ABX Free 6 MO-64 YRS (FLUCELVAX) Unknown Completed [facility] Influenza Virus Vaccine Unknown Completed [facility] SARS-COV-2 COVID-19 MODERNA 12+ YRS VACCINE Unknown Completed [facility] SARS-COV-2 COVID-19 MODERNA 12+ YRS VACCINE Unknown Completed [facility] SARS-COV-2 COVID-19 MODERNA 12+ YRS VACCINE Unknown Completed [facility] Influenza Virus Vaccine Quad .5 mL IM 6+ MO (FLUZONE/FLULAVAL/F LUARIX) Unknown Completed [facility] SARS-COV-2 COVID-19 MODERNA 0.25ML BOOSTER VACCINE Unknown Completed [facility] Pneumococcal Polysaccharide, PPSV23 (PNEUMOVAX) Unknown Completed [facility] SARS-COV-2 COVID-19 MODERNA 0.25ML BOOSTER VACCINE Unknown Completed [facility] Influenza Virus Vaccine Quad IM, Preserv and ABX Free 6 MO-64 YRS (FLUCELVAX) Unknown Completed [facility] Influenza Virus Vaccine Unknown Completed [facility] SARS-COV-2 COVID-19 MODERNA 12+ YRS VACCINE Unknown Completed [facility] SARS-COV-2 COVID-19 MODERNA 12+ YRS VACCINE Unknown Completed [facility] SARS-COV-2 COVID-19 MODERNA 12+ YRS VACCINE Unknown Completed [facility] Influenza Virus Vaccine Quad .5 mL IM 6+ MO (FLUZONE/FLULAVAL/F LUARIX) Unknown Completed [facility] SARS-COV-2 COVID-19 MODERNA 0.25ML BOOSTER VACCINE Unknown Completed [facility] Pneumococcal Polysaccharide, PPSV23 (PNEUMOVAX) Unknown Completed [facility] SARS-COV-2 COVID-19 MODERNA 0.25ML BOOSTER VACCINE Unknown Completed [facility] Influenza Virus Vaccine Quad IM, Preserv and ABX Free 6 MO-64 YRS (FLUCELVAX) Unknown Completed [facility] Influenza Virus Vaccine Unknown Completed [facility] SARS-COV-2 COVID-19 MODERNA 12+ YRS VACCINE Unknown Completed [facility] SARS-COV-2 COVID-19 MODERNA 12+ YRS VACCINE Unknown Completed [facility] SARS-COV-2 COVID-19 MODERNA 12+ YRS VACCINE Unknown Completed [facility] Influenza Virus Vaccine Quad .5 mL IM 6+ MO (FLUZONE/FLULAVAL/F LUARIX) Unknown Completed [facility] SARS-COV-2 COVID-19 MODERNA 0.25ML BOOSTER VACCINE Unknown Completed [facility] Pneumococcal Polysaccharide, PPSV23 (PNEUMOVAX) Unknown Completed [facility] SARS-COV-2 COVID-19 MODERNA 0.25ML BOOSTER VACCINE Unknown Completed [facility] Influenza Virus Vaccine Quad IM, Preserv and ABX Free 6 MO-64 YRS (FLUCELVAX) Unknown Completed [facility] Influenza Virus Vaccine Unknown Completed [facility] SARS-COV-2 COVID-19 MODERNA 12+ YRS VACCINE Unknown Completed [facility] SARS-COV-2 COVID-19 MODERNA 12+ YRS VACCINE Unknown Completed [facility] SARS-COV-2 COVID-19 MODERNA 12+ YRS VACCINE Unknown Completed [facility] Influenza Virus Vaccine Quad .5 mL IM 6+ MO (FLUZONE/FLULAVAL/F LUARIX) Unknown Completed [facility] SARS-COV-2 COVID-19 MODERNA 0.25ML BOOSTER VACCINE Unknown Completed [facility] Pneumococcal Polysaccharide, PPSV23 (PNEUMOVAX) Unknown Completed [facility] SARS-COV-2 COVID-19 MODERNA 0.25ML BOOSTER VACCINE Unknown Completed [facility] Influenza Virus Vaccine Quad IM, Preserv and ABX Free 6 MO-64 YRS (FLUCELVAX) Unknown Completed [facility] Influenza Virus Vaccine Unknown Completed [facility] SARS-COV-2 COVID-19 MODERNA 12+ YRS VACCINE Unknown Completed [facility] SARS-COV-2 COVID-19 MODERNA 12+ YRS VACCINE Unknown Completed [facility] SARS-COV-2 COVID-19 MODERNA 12+ YRS VACCINE Unknown Completed [facility] Influenza Virus Vaccine Quad .5 mL IM 6+ MO (FLUZONE/FLULAVAL/F LUARIX) Unknown Completed [facility] SARS-COV-2 COVID-19 MODERNA 0.25ML BOOSTER VACCINE Unknown Completed [facility] Pneumococcal Polysaccharide, PPSV23 (PNEUMOVAX) Unknown Completed [facility] SARS-COV-2 COVID-19 MODERNA 0.25ML BOOSTER VACCINE Unknown Completed [facility] Influenza Virus Vaccine Quad IM, Preserv and ABX Free 6 MO-64 YRS (FLUCELVAX) Unknown Completed [facility] Influenza Virus Vaccine Unknown Completed [facility] SARS-COV-2 COVID-19 MODERNA 12+ YRS VACCINE Unknown Completed [facility] SARS-COV-2 COVID-19 MODERNA 12+ YRS VACCINE Unknown Completed [facility] SARS-COV-2 COVID-19 MODERNA 12+ YRS VACCINE Unknown Completed [facility] Influenza Virus Vaccine Quad .5 mL IM 6+ MO (FLUZONE/FLULAVAL/F LUARIX) Unknown Completed [facility] SARS-COV-2 COVID-19 MODERNA 0.25ML BOOSTER VACCINE Unknown Completed [facility] Pneumococcal Polysaccharide, PPSV23 (PNEUMOVAX) Unknown Completed [facility] SARS-COV-2 COVID-19 MODERNA 0.25ML BOOSTER VACCINE Unknown Completed [facility] Influenza Virus Vaccine Quad IM, Preserv and ABX Free 6 MO-64 YRS (FLUCELVAX) Unknown Completed [facility] Influenza Virus Vaccine Unknown Completed [facility] SARS-COV-2 COVID-19 MODERNA 12+ YRS VACCINE Unknown Completed [facility] SARS-COV-2 COVID-19 MODERNA 12+ YRS VACCINE Unknown Completed [facility] SARS-COV-2 COVID-19 MODERNA 12+ YRS VACCINE Unknown Completed [facility] Influenza Virus Vaccine Quad .5 mL IM 6+ MO (FLUZONE/FLULAVAL/F LUARIX) Unknown Completed [facility] SARS-COV-2 COVID-19 MODERNA 0.25ML BOOSTER VACCINE Unknown Completed [facility] Pneumococcal Polysaccharide, PPSV23 (PNEUMOVAX) Unknown Completed [facility] SARS-COV-2 COVID-19 MODERNA 0.25ML BOOSTER VACCINE Unknown Completed [facility] Influenza Virus Vaccine Quad IM, Preserv and ABX Free 6 MO-64 YRS (FLUCELVAX) Unknown Completed [facility] SARS-COV-2 COVID-19 MODERNA 12+ YRS VACCINE Unknown Completed [facility] SARS-COV-2 COVID-19 MODERNA 12+ YRS VACCINE Unknown Completed [facility] Influenza Virus Vaccine Quad .5 mL IM 6+ MO (FLUZONE/FLULAVAL/F LUARIX) Unknown Completed [facility] SARS-COV-2 COVID-19 MODERNA 0.25ML BOOSTER VACCINE Unknown Completed [facility] Pneumococcal Polysaccharide, PPSV23 (PNEUMOVAX) Unknown Completed [facility] SARS-COV-2 COVID-19 MODERNA 0.25ML BOOSTER VACCINE Unknown Completed [facility] Influenza Virus Vaccine Quad IM, Preserv and ABX Free 6 MO-64 YRS (FLUCELVAX) Unknown Completed [facility] Influenza Virus Vaccine Unknown Completed [facility] SARS-COV-2 COVID-19 MODERNA 12+ YRS VACCINE Unknown Completed [facility] SARS-COV-2 COVID-19 MODERNA 12+ YRS VACCINE Unknown Completed [facility] SARS-COV-2 COVID-19 MODERNA 12+ YRS VACCINE Unknown Completed [facility] Influenza Virus Vaccine Quad .5 mL IM 6+ MO (FLUZONE/FLULAVAL/F LUARIX) Unknown Completed [facility] SARS-COV-2 COVID-19 MODERNA 0.25ML BOOSTER VACCINE Unknown Completed [facility] Pneumococcal Polysaccharide, PPSV23 (PNEUMOVAX) Unknown Completed [facility] SARS-COV-2 COVID-19 MODERNA 0.25ML BOOSTER VACCINE Unknown Completed [facility] Influenza Virus Vaccine Quad IM, Preserv and ABX Free 6 MO-64 YRS (FLUCELVAX) Unknown Completed [facility] Influenza Virus Vaccine Unknown Completed [facility] SARS-COV-2 COVID-19 MODERNA 12+ YRS VACCINE Unknown Completed [facility] SARS-COV-2 COVID-19 MODERNA 12+ YRS VACCINE Unknown Completed [facility] SARS-COV-2 COVID-19 MODERNA 12+ YRS VACCINE Unknown Completed [facility] Influenza Virus Vaccine Quad .5 mL IM 6+ MO (FLUZONE/FLULAVAL/F LUARIX) Unknown Completed [facility] SARS-COV-2 COVID-19 MODERNA 0.25ML BOOSTER VACCINE Unknown Completed [facility] Pneumococcal Polysaccharide, PPSV23 (PNEUMOVAX) Unknown Completed [facility] SARS-COV-2 COVID-19 MODERNA 0.25ML BOOSTER VACCINE Unknown Completed [facility] Influenza Virus Vaccine Quad IM, Preserv and ABX Free 6 MO-64 YRS (FLUCELVAX) Unknown Completed [facility] Influenza Virus Vaccine Unknown Completed [facility] SARS-COV-2 COVID-19 MODERNA 12+ YRS VACCINE Unknown Completed [facility] SARS-COV-2 COVID-19 MODERNA 12+ YRS VACCINE Unknown [facility] [facility] SARS-COV-2 COVID-19 MODERNA 12+ YRS VACCINE Unknown Completed [facility] Influenza Virus Vaccine Quad .5 mL IM 6+ MO (FLUZONE/FLULAVAL/F LUARIX) Unknown Completed [facility] SARS-COV-2 COVID-19 MODERNA 0.25ML BOOSTER VACCINE Unknown Completed [facility] Pneumococcal Polysaccharide, PPSV23 (PNEUMOVAX) Unknown Completed [facility] SARS-COV-2 COVID-19 MODERNA 0.25ML BOOSTER VACCINE Unknown Completed [facility] Influenza Virus Vaccine Quad IM, Preserv and ABX Free 6 MO-64 YRS (FLUCELVAX) Unknown Completed [facility] Influenza Virus Vaccine Unknown Completed [facility] SARS-COV-2 COVID-19 MODERNA 12+ YRS VACCINE Unknown Completed [facility] SARS-COV-2 COVID-19 MODERNA 12+ YRS VACCINE Unknown Completed [facility] SARS-COV-2 COVID-19 MODERNA 12+ YRS VACCINE Unknown Completed [facility] Influenza Virus Vaccine Quad .5 mL IM 6+ MO (FLUZONE/FLULAVAL/F LUARIX) Unknown Completed [facility] SARS-COV-2 COVID-19 MODERNA 0.25ML BOOSTER VACCINE Unknown Completed [facility] Pneumococcal Polysaccharide, PPSV23 (PNEUMOVAX) Unknown Completed [facility] SARS-COV-2 COVID-19 MODERNA 0.25ML BOOSTER VACCINE Unknown Completed [facility] Influenza Virus Vaccine Quad IM, Preserv and ABX Free 6 MO-64 YRS (FLUCELVAX) Unknown Completed [facility] Influenza Virus Vaccine Unknown Completed [facility] SARS-COV-2 COVID-19 MODERNA 12+ YRS VACCINE Unknown Completed [facility] SARS-COV-2 COVID-19 MODERNA 12+ YRS VACCINE Unknown Completed [facility] SARS-COV-2 COVID-19 MODERNA 12+ YRS VACCINE Unknown Completed [facility] Influenza Virus Vaccine Quad .5 mL IM 6+ MO (FLUZONE/FLULAVAL/F LUARIX) Unknown Completed [facility] SARS-COV-2 COVID-19 MODERNA 0.25ML BOOSTER VACCINE Unknown Completed [facility] Pneumococcal Polysaccharide, PPSV23 (PNEUMOVAX) Unknown Completed [facility] SARS-COV-2 COVID-19 MODERNA 0.25ML BOOSTER VACCINE Unknown Completed [facility] Influenza Virus Vaccine Quad IM, Preserv and ABX Free 6 MO-64 YRS (FLUCELVAX) Unknown Completed [facility] Influenza Virus Vaccine Unknown Completed [facility] SARS-COV-2 COVID-19 MODERNA 12+ YRS VACCINE Unknown Completed [facility] SARS-COV-2 COVID-19 MODERNA 12+ YRS VACCINE Unknown Completed [facility] SARS-COV-2 COVID-19 MODERNA 12+ YRS VACCINE Unknown Completed [facility] Influenza Virus Vaccine Quad .5 mL IM 6+ MO (FLUZONE/FLULAVAL/F LUARIX) Unknown Completed [facility] SARS-COV-2 COVID-19 MODERNA 0.25ML BOOSTER VACCINE Unknown Completed [facility] Pneumococcal Polysaccharide, PPSV23 (PNEUMOVAX) Unknown Completed [facility] SARS-COV-2 COVID-19 MODERNA 0.25ML BOOSTER VACCINE Unknown Completed [facility] Influenza Virus Vaccine Quad IM, Preserv and ABX Free 6 MO-64 YRS (FLUCELVAX) Unknown Completed [facility] Influenza Virus Vaccine Unknown Completed [facility] SARS-COV-2 COVID-19 MODERNA 12+ YRS VACCINE Unknown Completed [facility] SARS-COV-2 COVID-19 MODERNA 12+ YRS VACCINE Unknown Completed [facility] SARS-COV-2 COVID-19 MODERNA 12+ YRS VACCINE Unknown Completed [facility] Influenza Virus Vaccine Quad .5 mL IM 6+ MO (FLUZONE/FLULAVAL/F LUARIX) Unknown Completed [facility] SARS-COV-2 COVID-19 MODERNA 0.25ML BOOSTER VACCINE Unknown Completed [facility] Pneumococcal Polysaccharide, PPSV23 (PNEUMOVAX) Unknown Completed [facility] SARS-COV-2 COVID-19 MODERNA 0.25ML BOOSTER VACCINE Unknown Completed [facility] Influenza Virus Vaccine Quad IM, Preserv and ABX Free 6 MO-64 YRS (FLUCELVAX) Unknown Completed [facility] Influenza Virus Vaccine Unknown Completed [facility] SARS-COV-2 COVID-19 MODERNA 12+ YRS VACCINE Unknown Completed [facility] SARS-COV-2 COVID-19 MODERNA 12+ YRS VACCINE Unknown Completed [facility] SARS-COV-2 COVID-19 MODERNA 12+ YRS VACCINE Unknown Completed [facility] Influenza Virus Vaccine Quad .5 mL IM 6+ MO (FLUZONE/FLULAVAL/F LUARIX) Unknown Completed [facility] SARS-COV-2 COVID-19 MODERNA 0.25ML BOOSTER VACCINE Unknown Completed [facility] Pneumococcal Polysaccharide, PPSV23 (PNEUMOVAX) Unknown Completed [facility] SARS-COV-2 COVID-19 MODERNA 0.25ML BOOSTER VACCINE Unknown Completed [facility] Influenza Virus Vaccine Quad IM, Preserv and ABX Free 6 MO-64 YRS (FLUCELVAX) Unknown Completed [facility] Influenza Virus Vaccine Unknown Completed [facility] SARS-COV-2 COVID-19 MODERNA 12+ YRS VACCINE Unknown Completed [facility] SARS-COV-2 COVID-19 MODERNA 12+ YRS VACCINE Unknown Completed [facility] SARS-COV-2 COVID-19 MODERNA 12+ YRS VACCINE Unknown Completed [facility] Influenza Virus Vaccine Quad .5 mL IM 6+ MO (FLUZONE/FLULAVAL/F LUARIX) Unknown Completed [facility] SARS-COV-2 COVID-19 MODERNA 0.25ML BOOSTER VACCINE Unknown Completed [facility] Pneumococcal Polysaccharide, PPSV23 (PNEUMOVAX) Unknown Completed [facility] SARS-COV-2 COVID-19 MODERNA 0.25ML BOOSTER VACCINE Unknown Completed [facility] Influenza Virus Vaccine Quad IM, Preserv and ABX Free 6 MO-64 YRS (FLUCELVAX) Unknown Completed [facility] Influenza Virus Vaccine Unknown Completed [facility] SARS-COV-2 COVID-19 MODERNA 12+ YRS VACCINE Unknown Completed [facility] SARS-COV-2 COVID-19 MODERNA 12+ YRS VACCINE Unknown Completed [facility] SARS-COV-2 COVID-19 MODERNA 12+ YRS VACCINE Unknown Completed [facility] Influenza Virus Vaccine Quad .5 mL IM 6+ MO (FLUZONE/FLULAVAL/F LUARIX) Unknown Completed [facility] SARS-COV-2 COVID-19 MODERNA 0.25ML BOOSTER VACCINE Unknown Completed [facility] Pneumococcal Polysaccharide, PPSV23 (PNEUMOVAX) Unknown Completed [facility] SARS-COV-2 COVID-19 MODERNA 0.25ML BOOSTER VACCINE Unknown Completed [facility] Influenza Virus Vaccine Quad IM, Preserv and ABX Free 6 MO-64 YRS (FLUCELVAX) Unknown Completed [facility] Influenza Virus Vaccine Unknown Completed [facility] SARS-COV-2 COVID-19 MODERNA 12+ YRS VACCINE Unknown Completed [facility] SARS-COV-2 COVID-19 MODERNA 12+ YRS VACCINE Unknown Completed [facility] SARS-COV-2 COVID-19 MODERNA 12+ YRS VACCINE Unknown Completed [facility] Influenza Virus Vaccine Quad .5 mL IM 6+ MO (FLUZONE/FLULAVAL/F LUARIX) Unknown Completed [facility] SARS-COV-2 COVID-19 MODERNA 0.25ML BOOSTER VACCINE Unknown Completed [facility] Pneumococcal Polysaccharide, PPSV23 (PNEUMOVAX) Unknown Completed [facility] SARS-COV-2 COVID-19 MODERNA 0.25ML BOOSTER VACCINE Unknown Completed [facility] Influenza Virus Vaccine Quad IM, Preserv and ABX Free 6 MO-64 YRS (FLUCELVAX) Unknown Completed [facility] Influenza Virus Vaccine Unknown Completed [facility] SARS-COV-2 COVID-19 MODERNA 12+ YRS VACCINE Unknown Completed [facility] SARS-COV-2 COVID-19 MODERNA 12+ YRS VACCINE Unknown Completed [facility] SARS-COV-2 COVID-19 MODERNA 12+ YRS VACCINE Unknown Completed [facility] Influenza Virus Vaccine Quad .5 mL IM 6+ MO (FLUZONE/FLULAVAL/F LUARIX) Unknown Completed [facility] SARS-COV-2 COVID-19 MODERNA 0.25ML BOOSTER VACCINE Unknown Completed [facility] Pneumococcal Polysaccharide, PPSV23 (PNEUMOVAX) Unknown Completed [facility] SARS-COV-2 COVID-19 MODERNA 0.25ML BOOSTER VACCINE Unknown Completed [facility] Influenza Virus Vaccine Quad IM, Preserv and ABX Free 6 MO-64 YRS (FLUCELVAX) Unknown Completed [facility] Influenza Virus Vaccine Unknown Completed [facility] SARS-COV-2 COVID-19 MODERNA 12+ YRS VACCINE Unknown Completed [facility] SARS-COV-2 COVID-19 MODERNA 12+ YRS VACCINE Unknown Completed [facility] SARS-COV-2 COVID-19 MODERNA 12+ YRS VACCINE Unknown Completed [facility] Influenza Virus Vaccine Quad .5 mL IM 6+ MO (FLUZONE/FLULAVAL/F LUARIX) Unknown Completed [facility] SARS-COV-2 COVID-19 MODERNA 0.25ML BOOSTER VACCINE Unknown Completed [facility] Pneumococcal Polysaccharide, PPSV23 (PNEUMOVAX) Unknown Completed [facility] SARS-COV-2 COVID-19 MODERNA 0.25ML BOOSTER VACCINE Unknown Completed [facility] Influenza Virus Vaccine Quad IM, Preserv and ABX Free 6 MO-64 YRS (FLUCELVAX) Unknown Completed [facility] Influenza Virus Vaccine Unknown Completed [facility] SARS-COV-2 COVID-19 MODERNA 12+ YRS VACCINE Unknown Completed [facility] SARS-COV-2 COVID-19 MODERNA 12+ YRS VACCINE Unknown Completed [facility] SARS-COV-2 COVID-19 MODERNA 12+ YRS VACCINE Unknown Completed [facility] Influenza Virus Vaccine Quad .5 mL IM 6+ MO (FLUZONE/FLULAVAL/F LUARIX) Unknown Completed [facility] SARS-COV-2 COVID-19 MODERNA 0.25ML BOOSTER VACCINE Unknown Completed [facility] Pneumococcal Polysaccharide, PPSV23 (PNEUMOVAX) Unknown Completed [facility] SARS-COV-2 COVID-19 MODERNA 0.25ML BOOSTER VACCINE Unknown Completed [facility] Influenza Virus Vaccine Quad IM, Preserv and ABX Free 6 MO-64 YRS (FLUCELVAX) Unknown Completed [facility] Influenza Virus Vaccine Unknown Completed [facility] SARS-COV-2 COVID-19 MODERNA 12+ YRS VACCINE Unknown Completed [facility] SARS-COV-2 COVID-19 MODERNA 12+ YRS VACCINE Unknown Completed [facility] SARS-COV-2 COVID-19 MODERNA 12+ YRS VACCINE Unknown Completed [facility] Influenza Virus Vaccine Quad .5 mL IM 6+ MO (FLUZONE/FLULAVAL/F LUARIX) Unknown Completed [facility] SARS-COV-2 COVID-19 MODERNA 0.25ML BOOSTER VACCINE Unknown Completed [facility] Pneumococcal Polysaccharide, PPSV23 (PNEUMOVAX) Unknown Completed [facility] SARS-COV-2 COVID-19 MODERNA 0.25ML BOOSTER VACCINE Unknown Completed [facility] Influenza Virus Vaccine Quad IM, Preserv and ABX Free 6 MO-64 YRS (FLUCELVAX) Unknown Completed [facility] Influenza Virus Vaccine Unknown Completed [facility] SARS-COV-2 COVID-19 MODERNA 12+ YRS VACCINE Unknown Completed [facility] SARS-COV-2 COVID-19 MODERNA 12+ YRS VACCINE Unknown Completed [facility] SARS-COV-2 COVID-19 MODERNA 12+ YRS VACCINE Unknown Completed [facility] Influenza Virus Vaccine Quad .5 mL IM 6+ MO (FLUZONE/FLULAVAL/F LUARIX) Unknown Completed [facility] SARS-COV-2 COVID-19 MODERNA 0.25ML BOOSTER VACCINE Unknown Completed [facility] Pneumococcal Polysaccharide, PPSV23 (PNEUMOVAX) Unknown Completed [facility] SARS-COV-2 COVID-19 MODERNA 0.25ML BOOSTER VACCINE Unknown Completed [facility] Influenza Virus Vaccine Quad IM, Preserv and ABX Free 6 MO-64 YRS (FLUCELVAX) Unknown Completed [facility] Influenza Virus Vaccine Unknown Completed [facility] SARS-COV-2 COVID-19 MODERNA 12+ YRS VACCINE Unknown Completed [facility] SARS-COV-2 COVID-19 MODERNA 12+ YRS VACCINE Unknown Completed [facility] SARS-COV-2 COVID-19 MODERNA 12+ YRS VACCINE Unknown Completed [facility] Influenza Virus Vaccine Quad .5 mL IM 6+ MO (FLUZONE/FLULAVAL/F LUARIX) Unknown Completed [facility] SARS-COV-2 COVID-19 MODERNA 0.25ML BOOSTER VACCINE Unknown Completed [facility] Pneumococcal Polysaccharide, PPSV23 (PNEUMOVAX) Unknown Completed [facility] SARS-COV-2 COVID-19 MODERNA 0.25ML BOOSTER VACCINE Unknown Completed [facility] Influenza Virus Vaccine Quad IM, Preserv and ABX Free 6 MO-64 YRS (FLUCELVAX) Unknown Completed [facility] Influenza Virus Vaccine Unknown Completed [facility] SARS-COV-2 COVID-19 MODERNA 12+ YRS VACCINE Unknown Completed [facility] SARS-COV-2 COVID-19 MODERNA 12+ YRS VACCINE Unknown Completed [facility] SARS-COV-2 COVID-19 MODERNA 12+ YRS VACCINE Unknown Completed [facility] Influenza Virus Vaccine Quad .5 mL IM 6+ MO (FLUZONE/FLULAVAL/F LUARIX) Unknown Completed [facility] SARS-COV-2 COVID-19 MODERNA 0.25ML BOOSTER VACCINE Unknown Completed [facility] Pneumococcal Polysaccharide, PPSV23 (PNEUMOVAX) Unknown Completed [facility] SARS-COV-2 COVID-19 MODERNA 0.25ML BOOSTER VACCINE Unknown Completed [facility] Influenza Virus Vaccine Quad IM, Preserv and ABX Free 6 MO-64 YRS (FLUCELVAX) Unknown Completed [facility] Influenza Virus Vaccine Unknown Completed [facility] SARS-COV-2 COVID-19 MODERNA 12+ YRS VACCINE Unknown Completed [facility] SARS-COV-2 COVID-19 MODERNA 12+ YRS VACCINE Unknown Completed [facility] SARS-COV-2 COVID-19 MODERNA 12+ YRS VACCINE Unknown Completed [facility] Influenza Virus Vaccine Quad .5 mL IM 6+ MO (FLUZONE/FLULAVAL/F LUARIX) Unknown Completed [facility] SARS-COV-2 COVID-19 MODERNA 0.25ML BOOSTER VACCINE Unknown Completed [facility] Pneumococcal Polysaccharide, PPSV23 (PNEUMOVAX) Unknown Completed [facility] SARS-COV-2 COVID-19 MODERNA 0.25ML BOOSTER VACCINE Unknown Completed [facility] Influenza Virus Vaccine Quad IM, Preserv and ABX Free 6 MO-64 YRS (FLUCELVAX) Unknown Completed [facility] Influenza Virus Vaccine Unknown Completed [facility] SARS-COV-2 COVID-19 MODERNA 12+ YRS VACCINE Unknown Completed [facility] SARS-COV-2 COVID-19 MODERNA 12+ YRS VACCINE Unknown Completed [facility] SARS-COV-2 COVID-19 MODERNA 12+ YRS VACCINE Unknown Completed [facility] Influenza Virus Vaccine Quad .5 mL IM 6+ MO (FLUZONE/FLULAVAL/F LUARIX) Unknown Completed [facility] SARS-COV-2 COVID-19 MODERNA 0.25ML BOOSTER VACCINE Unknown Completed [facility] Pneumococcal Polysaccharide, PPSV23 (PNEUMOVAX) Unknown Completed [facility] SARS-COV-2 COVID-19 MODERNA 0.25ML BOOSTER VACCINE Unknown Completed [facility] Influenza Virus Vaccine Quad IM, Preserv and ABX Free 6 MO-64 YRS (FLUCELVAX) Unknown Completed [facility] Influenza Virus Vaccine Unknown Completed [facility] SARS-COV-2 COVID-19 MODERNA 12+ YRS VACCINE Unknown Completed [facility] SARS-COV-2 COVID-19 MODERNA 12+ YRS VACCINE Unknown Completed [facility] SARS-COV-2 COVID-19 MODERNA 12+ YRS VACCINE Unknown Completed [facility] Influenza Virus Vaccine Quad .5 mL IM 6+ MO (FLUZONE/FLULAVAL/F LUARIX) Unknown Completed [facility] SARS-COV-2 COVID-19 MODERNA 0.25ML BOOSTER VACCINE Unknown Completed [facility] Pneumococcal Polysaccharide, PPSV23 (PNEUMOVAX) Unknown Completed [facility] SARS-COV-2 COVID-19 MODERNA 0.25ML BOOSTER VACCINE Unknown Completed [facility] Influenza Virus Vaccine Quad IM, Preserv and ABX Free 6 MO-64 YRS (FLUCELVAX) Unknown Completed [facility] Influenza Virus Vaccine Unknown Completed [facility] SARS-COV-2 COVID-19 MODERNA 12+ YRS VACCINE Unknown Completed [facility] SARS-COV-2 COVID-19 MODERNA 12+ YRS VACCINE Unknown Completed [facility] SARS-COV-2 COVID-19 MODERNA 12+ YRS VACCINE Unknown Completed [facility] Influenza Virus Vaccine Quad .5 mL IM 6+ MO (FLUZONE/FLULAVAL/F LUARIX) Unknown Completed [facility] SARS-COV-2 COVID-19 MODERNA 0.25ML BOOSTER VACCINE Unknown Completed [facility] Pneumococcal Polysaccharide, PPSV23 (PNEUMOVAX) Unknown Completed [facility] SARS-COV-2 COVID-19 MODERNA 0.25ML BOOSTER VACCINE Unknown Completed [facility] Influenza Virus Vaccine Quad IM, Preserv and ABX Free 6 MO-64 YRS (FLUCELVAX) Unknown Completed [facility] Influenza Virus Vaccine Unknown Completed [facility] SARS-COV-2 COVID-19 MODERNA 12+ YRS VACCINE Unknown Completed [facility] SARS-COV-2 COVID-19 MODERNA 12+ YRS VACCINE Unknown Completed [facility] SARS-COV-2 COVID-19 MODERNA 12+ YRS VACCINE Unknown Completed [facility] Influenza Virus Vaccine Quad .5 mL IM 6+ MO (FLUZONE/FLULAVAL/F LUARIX) Unknown Completed [facility] SARS-COV-2 COVID-19 MODERNA 0.25ML BOOSTER VACCINE Unknown Completed [facility] Pneumococcal Polysaccharide, PPSV23 (PNEUMOVAX) Unknown Completed [facility] SARS-COV-2 COVID-19 MODERNA 0.25ML BOOSTER VACCINE Unknown Completed [facility] Influenza Virus Vaccine Quad IM, Preserv and ABX Free 6 MO-64 YRS (FLUCELVAX) Unknown Completed [facility] Influenza Virus Vaccine Unknown Completed [facility] SARS-COV-2 COVID-19 MODERNA 12+ YRS VACCINE Unknown Completed [facility] SARS-COV-2 COVID-19 MODERNA 12+ YRS VACCINE Unknown Completed [facility] SARS-COV-2 COVID-19 MODERNA 12+ YRS VACCINE Unknown Completed [facility] Influenza Virus Vaccine Quad .5 mL IM 6+ MO (FLUZONE/FLULAVAL/F LUARIX) Unknown Completed [facility] SARS-COV-2 COVID-19 MODERNA 0.25ML BOOSTER VACCINE Unknown Completed [facility] Pneumococcal Polysaccharide, PPSV23 (PNEUMOVAX) Unknown Completed [facility] SARS-COV-2 COVID-19 MODERNA 0.25ML BOOSTER VACCINE Unknown Completed [facility] Influenza Virus Vaccine Quad IM, Preserv and ABX Free 6 MO-64 YRS (FLUCELVAX) Unknown Completed [facility] Influenza Virus Vaccine Unknown Completed [facility] SARS-COV-2 COVID-19 MODERNA 12+ YRS VACCINE Unknown Completed [facility] SARS-COV-2 COVID-19 MODERNA 12+ YRS VACCINE Unknown Completed [facility] SARS-COV-2 COVID-19 MODERNA 12+ YRS VACCINE Unknown Completed [facility] Influenza Virus Vaccine Quad .5 mL IM 6+ MO (FLUZONE/FLULAVAL/F LUARIX) Unknown Completed [facility] SARS-COV-2 COVID-19 MODERNA 0.25ML BOOSTER VACCINE Unknown Completed [facility] Pneumococcal Polysaccharide, PPSV23 (PNEUMOVAX) Unknown Completed [facility] SARS-COV-2 COVID-19 MODERNA 0.25ML BOOSTER VACCINE Unknown Completed [facility] Influenza Virus Vaccine Quad IM, Preserv and ABX Free 6 MO-64 YRS (FLUCELVAX) Unknown Completed [facility] Influenza Virus Vaccine Unknown Completed [facility] SARS-COV-2 COVID-19 MODERNA 12+ YRS VACCINE Unknown Completed [facility] SARS-COV-2 COVID-19 MODERNA 12+ YRS VACCINE Unknown Completed [facility] SARS-COV-2 COVID-19 MODERNA 12+ YRS VACCINE Unknown Completed [facility] Influenza Virus Vaccine Quad .5 mL IM 6+ MO (FLUZONE/FLULAVAL/F LUARIX) Unknown Completed [facility] SARS-COV-2 COVID-19 MODERNA 0.25ML BOOSTER VACCINE Unknown Completed [facility] Pneumococcal Polysaccharide, PPSV23 (PNEUMOVAX) Unknown Completed [facility] SARS-COV-2 COVID-19 MODERNA 0.25ML BOOSTER VACCINE Unknown Completed [facility] Influenza Virus Vaccine Quad IM, Preserv and ABX Free 6 MO-64 YRS (FLUCELVAX) Unknown Completed [facility] Influenza Virus Vaccine Unknown Completed [facility] SARS-COV-2 COVID-19 MODERNA 12+ YRS VACCINE Unknown Completed [facility] SARS-COV-2 COVID-19 MODERNA 12+ YRS VACCINE Unknown Completed [facility] SARS-COV-2 COVID-19 MODERNA 12+ YRS VACCINE Unknown Completed [facility] Influenza Virus Vaccine Quad .5 mL IM 6+ MO (FLUZONE/FLULAVAL/F LUARIX) Unknown Completed [facility] SARS-COV-2 COVID-19 MODERNA 0.25ML BOOSTER VACCINE Unknown Completed [facility] Pneumococcal Polysaccharide, PPSV23 (PNEUMOVAX) Unknown Completed [facility] SARS-COV-2 COVID-19 MODERNA 0.25ML BOOSTER VACCINE Unknown Completed [facility] Influenza Virus Vaccine Quad IM, Preserv and ABX Free 6 MO-64 YRS (FLUCELVAX) Unknown Completed [facility] Influenza Virus Vaccine Unknown Completed [facility] SARS-COV-2 COVID-19 MODERNA 12+ YRS VACCINE Unknown Completed [facility] SARS-COV-2 COVID-19 MODERNA 12+ YRS VACCINE Unknown Completed [facility] SARS-COV-2 COVID-19 MODERNA 12+ YRS VACCINE Unknown Completed [facility] Influenza Virus Vaccine Quad .5 mL IM 6+ MO (FLUZONE/FLULAVAL/F LUARIX) Unknown Completed [facility] SARS-COV-2 COVID-19 MODERNA 0.25ML BOOSTER VACCINE Unknown Completed [facility] Pneumococcal Polysaccharide, PPSV23 (PNEUMOVAX) Unknown Completed [facility] SARS-COV-2 COVID-19 MODERNA 0.25ML BOOSTER VACCINE Unknown Completed [facility] Influenza Virus Vaccine Quad IM, Preserv and ABX Free 6 MO-64 YRS (FLUCELVAX) Unknown Completed [facility] Influenza Virus Vaccine Unknown Completed [facility] SARS-COV-2 COVID-19 MODERNA 12+ YRS VACCINE Unknown Completed [facility] SARS-COV-2 COVID-19 MODERNA 12+ YRS VACCINE Unknown Completed [facility] SARS-COV-2 COVID-19 MODERNA 12+ YRS VACCINE Unknown Completed [facility] Influenza Virus Vaccine Quad .5 mL IM 6+ MO (FLUZONE/FLULAVAL/F LUARIX) Unknown Completed [facility] SARS-COV-2 COVID-19 MODERNA 0.25ML BOOSTER VACCINE Unknown Completed [facility] Pneumococcal Polysaccharide, PPSV23 (PNEUMOVAX) Unknown Completed [facility] SARS-COV-2 COVID-19 MODERNA 0.25ML BOOSTER VACCINE Unknown Completed [facility] Influenza Virus Vaccine Quad IM, Preserv and ABX Free 6 MO-64 YRS (FLUCELVAX) Unknown Completed [facility] Influenza Virus Vaccine Unknown Completed [facility] SARS-COV-2 COVID-19 MODERNA 12+ YRS VACCINE Unknown Completed [facility] SARS-COV-2 COVID-19 MODERNA 12+ YRS VACCINE Unknown Completed [facility] SARS-COV-2 COVID-19 MODERNA 12+ YRS VACCINE Unknown Completed [facility] Influenza Virus Vaccine Quad .5 mL IM 6+ MO (FLUZONE/FLULAVAL/F LUARIX) Unknown Completed [facility] SARS-COV-2 COVID-19 MODERNA 0.25ML BOOSTER VACCINE Unknown Completed [facility] Pneumococcal Polysaccharide, PPSV23 (PNEUMOVAX) Unknown Completed [facility] SARS-COV-2 COVID-19 MODERNA 0.25ML BOOSTER VACCINE Unknown Completed [facility] Influenza Virus Vaccine Quad IM, Preserv and ABX Free 6 MO-64 YRS (FLUCELVAX) Unknown Completed [facility] Influenza Virus Vaccine Unknown Completed [facility] SARS-COV-2 COVID-19 MODERNA 12+ YRS VACCINE Unknown Completed [facility] SARS-COV-2 COVID-19 MODERNA 12+ YRS VACCINE Unknown Completed [facility] SARS-COV-2 COVID-19 MODERNA 12+ YRS VACCINE Unknown Completed [facility] Influenza Virus Vaccine Quad .5 mL IM 6+ MO (FLUZONE/FLULAVAL/F LUARIX) Unknown Completed [facility] SARS-COV-2 COVID-19 MODERNA 0.25ML BOOSTER VACCINE Unknown Completed [facility] Pneumococcal Polysaccharide, PPSV23 (PNEUMOVAX) Unknown Completed [facility] SARS-COV-2 COVID-19 MODERNA 0.25ML BOOSTER VACCINE Unknown Completed [facility] Influenza Virus Vaccine Quad IM, Preserv and ABX Free 6 MO-64 YRS (FLUCELVAX) Unknown Completed [facility] Influenza Virus Vaccine Unknown Completed [facility] SARS-COV-2 COVID-19 MODERNA 12+ YRS VACCINE Unknown Completed [facility] SARS-COV-2 COVID-19 MODERNA 12+ YRS VACCINE Unknown Completed [facility] SARS-COV-2 COVID-19 MODERNA 12+ YRS VACCINE Unknown Completed [facility] Influenza Virus Vaccine Quad .5 mL IM 6+ MO (FLUZONE/FLULAVAL/F LUARIX) Unknown Completed [facility] SARS-COV-2 COVID-19 MODERNA 0.25ML BOOSTER VACCINE Unknown Completed [facility] Pneumococcal Polysaccharide, PPSV23 (PNEUMOVAX) Unknown Completed [facility] SARS-COV-2 COVID-19 MODERNA 0.25ML BOOSTER VACCINE Unknown Completed [facility] Influenza Virus Vaccine Quad IM, Preserv and ABX Free 6 MO-64 YRS (FLUCELVAX) Unknown Completed [facility] Influenza Virus Vaccine Unknown Completed [facility] SARS-COV-2 COVID-19 MODERNA 12+ YRS VACCINE Unknown Completed [facility] SARS-COV-2 COVID-19 MODERNA 12+ YRS VACCINE Unknown Completed [facility] SARS-COV-2 COVID-19 MODERNA 12+ YRS VACCINE Unknown Completed [facility] Influenza Virus Vaccine Quad .5 mL IM 6+ MO (FLUZONE/FLULAVAL/F LUARIX) Unknown Completed [facility] SARS-COV-2 COVID-19 MODERNA 0.25ML BOOSTER VACCINE Unknown Completed [facility] Pneumococcal Polysaccharide, PPSV23 (PNEUMOVAX) Unknown Completed [facility] SARS-COV-2 COVID-19 MODERNA 0.25ML BOOSTER VACCINE Unknown Completed [facility] Influenza Virus Vaccine Quad IM, Preserv and ABX Free 6 MO-64 YRS (FLUCELVAX) Unknown Completed [facility] Influenza Virus Vaccine Unknown Completed [facility] SARS-COV-2 COVID-19 MODERNA 12+ YRS VACCINE Unknown Completed [facility] SARS-COV-2 COVID-19 MODERNA 12+ YRS VACCINE Unknown Completed [facility] SARS-COV-2 COVID-19 MODERNA 12+ YRS VACCINE Unknown Completed [facility] Influenza Virus Vaccine Quad .5 mL IM 6+ MO (FLUZONE/FLULAVAL/F LUARIX) Unknown Completed [facility] SARS-COV-2 COVID-19 MODERNA 0.25ML BOOSTER VACCINE Unknown Completed [facility] Pneumococcal Polysaccharide, PPSV23 (PNEUMOVAX) Unknown Completed [facility] SARS-COV-2 COVID-19 MODERNA 0.25ML BOOSTER VACCINE Unknown Completed [facility] Influenza Virus Vaccine Quad IM, Preserv and ABX Free 6 MO-64 YRS (FLUCELVAX) Unknown Completed [facility] Influenza Virus Vaccine Unknown Completed [facility] SARS-COV-2 COVID-19 MODERNA 12+ YRS VACCINE Unknown Completed [facility] SARS-COV-2 COVID-19 MODERNA 12+ YRS VACCINE Unknown Completed [facility] SARS-COV-2 COVID-19 MODERNA 12+ YRS VACCINE Unknown Completed [facility] Influenza Virus Vaccine Quad .5 mL IM 6+ MO (FLUZONE/FLULAVAL/F LUARIX) Unknown Completed [facility] SARS-COV-2 COVID-19 MODERNA 0.25ML BOOSTER VACCINE Unknown Completed [facility] Pneumococcal Polysaccharide, PPSV23 (PNEUMOVAX) Unknown Completed [facility] SARS-COV-2 COVID-19 MODERNA 0.25ML BOOSTER VACCINE Unknown Completed [facility] Influenza Virus Vaccine Quad IM, Preserv and ABX Free 6 MO-64 YRS (FLUCELVAX) Unknown Completed [facility] Influenza Virus Vaccine Unknown Completed [facility] SARS-COV-2 COVID-19 MODERNA 12+ YRS VACCINE Unknown Completed [facility] SARS-COV-2 COVID-19 MODERNA 12+ YRS VACCINE Unknown Completed [facility] SARS-COV-2 COVID-19 MODERNA 12+ YRS VACCINE Unknown Completed [facility] Influenza Virus Vaccine Quad .5 mL IM 6+ MO (FLUZONE/FLULAVAL/F LUARIX) Unknown Completed [facility] SARS-COV-2 COVID-19 MODERNA 0.25ML BOOSTER VACCINE Unknown Completed [facility] Pneumococcal Polysaccharide, PPSV23 (PNEUMOVAX) Unknown Completed [facility] SARS-COV-2 COVID-19 MODERNA 0.25ML BOOSTER VACCINE Unknown Completed [facility] Influenza Virus Vaccine Quad IM, Preserv and ABX Free 6 MO-64 YRS (FLUCELVAX) Unknown Completed [facility] Influenza Virus Vaccine Unknown Completed [facility] SARS-COV-2 COVID-19 MODERNA 12+ YRS VACCINE Unknown Completed [facility] SARS-COV-2 COVID-19 MODERNA 12+ YRS VACCINE Unknown Completed [facility] SARS-COV-2 COVID-19 MODERNA 12+ YRS VACCINE Unknown Completed [facility] Influenza Virus Vaccine Quad .5 mL IM 6+ MO (FLUZONE/FLULAVAL/F LUARIX) Unknown Completed [facility] SARS-COV-2 COVID-19 MODERNA 0.25ML BOOSTER VACCINE Unknown Completed [facility] Pneumococcal Polysaccharide, PPSV23 (PNEUMOVAX) Unknown Completed [facility] SARS-COV-2 COVID-19 MODERNA 0.25ML BOOSTER VACCINE Unknown Completed [facility] Influenza Virus Vaccine Quad IM, Preserv and ABX Free 6 MO-64 YRS (FLUCELVAX) Unknown Completed [facility] Influenza Virus Vaccine Unknown Completed [facility] SARS-COV-2 COVID-19 MODERNA 12+ YRS VACCINE Unknown Completed [facility] SARS-COV-2 COVID-19 MODERNA 12+ YRS VACCINE Unknown Completed [facility] SARS-COV-2 COVID-19 MODERNA 12+ YRS VACCINE Unknown Completed [facility] Influenza Virus Vaccine Quad .5 mL IM 6+ MO (FLUZONE/FLULAVAL/F LUARIX) Unknown Completed [facility] SARS-COV-2 COVID-19 MODERNA 0.25ML BOOSTER VACCINE Unknown Completed [facility] Pneumococcal Polysaccharide, PPSV23 (PNEUMOVAX) Unknown Completed [facility] SARS-COV-2 COVID-19 MODERNA 0.25ML BOOSTER VACCINE Unknown Completed [facility] Influenza Virus Vaccine Quad IM, Preserv and ABX Free 6 MO-64 YRS (FLUCELVAX) Unknown Completed [facility] Influenza Virus Vaccine Unknown Completed [facility] SARS-COV-2 COVID-19 MODERNA 12+ YRS VACCINE Unknown Completed [facility] SARS-COV-2 COVID-19 MODERNA 12+ YRS VACCINE Unknown Completed [facility] SARS-COV-2 COVID-19 MODERNA 12+ YRS VACCINE Unknown Completed [facility] Influenza Virus Vaccine Quad .5 mL IM 6+ MO (FLUZONE/FLULAVAL/F LUARIX) Unknown Completed [facility] SARS-COV-2 COVID-19 MODERNA 0.25ML BOOSTER VACCINE Unknown Completed [facility] Pneumococcal Polysaccharide, PPSV23 (PNEUMOVAX) Unknown Completed [facility] SARS-COV-2 COVID-19 MODERNA 0.25ML BOOSTER VACCINE Unknown Completed [facility] Influenza Virus Vaccine Quad IM, Preserv and ABX Free 6 MO-64 YRS (FLUCELVAX) Unknown Completed [facility] Influenza Virus Vaccine Unknown Completed [facility] SARS-COV-2 COVID-19 MODERNA 12+ YRS VACCINE Unknown Completed [facility] SARS-COV-2 COVID-19 MODERNA 12+ YRS VACCINE Unknown Completed [facility] SARS-COV-2 COVID-19 MODERNA 12+ YRS VACCINE Unknown Completed [facility] Influenza Virus Vaccine Quad .5 mL IM 6+ MO (FLUZONE/FLULAVAL/F LUARIX) Unknown Completed [facility] SARS-COV-2 COVID-19 MODERNA 0.25ML BOOSTER VACCINE Unknown Completed [facility] Pneumococcal Polysaccharide, PPSV23 (PNEUMOVAX) Unknown Completed [facility] SARS-COV-2 COVID-19 MODERNA 0.25ML BOOSTER VACCINE Unknown Completed [facility] Influenza Virus Vaccine Quad IM, Preserv and ABX Free 6 MO-64 YRS (FLUCELVAX) Unknown Completed [facility] Influenza Virus Vaccine Unknown Completed [facility] SARS-COV-2 COVID-19 MODERNA 12+ YRS VACCINE Unknown Completed [facility] SARS-COV-2 COVID-19 MODERNA 12+ YRS VACCINE Unknown Completed [facility] SARS-COV-2 COVID-19 MODERNA 12+ YRS VACCINE Unknown Completed [facility] Influenza Virus Vaccine Quad .5 mL IM 6+ MO (FLUZONE/FLULAVAL/F LUARIX) Unknown Completed [facility] SARS-COV-2 COVID-19 MODERNA 0.25ML BOOSTER VACCINE Unknown Completed [facility] Pneumococcal Polysaccharide, PPSV23 (PNEUMOVAX) Unknown Completed [facility] SARS-COV-2 COVID-19 MODERNA 0.25ML BOOSTER VACCINE Unknown Completed [facility] Influenza Virus Vaccine Quad IM, Preserv and ABX Free 6 MO-64 YRS (FLUCELVAX) Unknown Completed [facility] Influenza Virus Vaccine Unknown Completed [facility] SARS-COV-2 COVID-19 MODERNA 12+ YRS VACCINE Unknown Completed [facility] SARS-COV-2 COVID-19 MODERNA 12+ YRS VACCINE Unknown Completed [facility] SARS-COV-2 COVID-19 MODERNA 12+ YRS VACCINE Unknown Completed [facility] Influenza Virus Vaccine Quad .5 mL IM 6+ MO (FLUZONE/FLULAVAL/F LUARIX) Unknown Completed [facility] SARS-COV-2 COVID-19 MODERNA 0.25ML BOOSTER VACCINE Unknown Completed [facility] Pneumococcal Polysaccharide, PPSV23 (PNEUMOVAX) Unknown Completed [facility] SARS-COV-2 COVID-19 MODERNA 0.25ML BOOSTER VACCINE Unknown Completed [facility] Influenza Virus Vaccine Quad IM, Preserv and ABX Free 6 MO-64 YRS (FLUCELVAX) Unknown Completed [facility] Influenza Virus Vaccine Unknown Completed [facility] SARS-COV-2 COVID-19 MODERNA 12+ YRS VACCINE Unknown Completed [facility] SARS-COV-2 COVID-19 MODERNA 12+ YRS VACCINE Unknown Completed [facility] SARS-COV-2 COVID-19 MODERNA 12+ YRS VACCINE Unknown Completed [facility] Influenza Virus Vaccine Quad .5 mL IM 6+ MO (FLUZONE/FLULAVAL/F LUARIX) Unknown Completed [facility] SARS-COV-2 COVID-19 MODERNA 0.25ML BOOSTER VACCINE Unknown Completed [facility] Pneumococcal Polysaccharide, PPSV23 (PNEUMOVAX) Unknown Completed [facility] SARS-COV-2 COVID-19 MODERNA 0.25ML BOOSTER VACCINE Unknown Completed [facility] Influenza Virus Vaccine Quad IM, Preserv and ABX Free 6 MO-64 YRS (FLUCELVAX) Unknown Completed [facility] Influenza Virus Vaccine Unknown Completed [facility] SARS-COV-2 COVID-19 MODERNA 12+ YRS VACCINE Unknown Completed [facility] SARS-COV-2 COVID-19 MODERNA 12+ YRS VACCINE Unknown Completed [facility] SARS-COV-2 COVID-19 MODERNA 12+ YRS VACCINE Unknown Completed [facility] Influenza Virus Vaccine Quad .5 mL IM 6+ MO (FLUZONE/FLULAVAL/F LUARIX) Unknown Completed [facility] SARS-COV-2 COVID-19 MODERNA 0.25ML BOOSTER VACCINE Unknown Completed [facility] Pneumococcal Polysaccharide, PPSV23 (PNEUMOVAX) Unknown Completed [facility] SARS-COV-2 COVID-19 MODERNA 0.25ML BOOSTER VACCINE Unknown Completed [facility] Influenza Virus Vaccine Quad IM, Preserv and ABX Free 6 MO-64 YRS (FLUCELVAX) Unknown Completed [facility] Influenza Virus Vaccine Unknown Completed [facility] SARS-COV-2 COVID-19 MODERNA 12+ YRS VACCINE Unknown Completed [facility] SARS-COV-2 COVID-19 MODERNA 12+ YRS VACCINE Unknown Completed [facility] SARS-COV-2 COVID-19 MODERNA 12+ YRS VACCINE Unknown Completed [facility] Influenza Virus Vaccine Quad .5 mL IM 6+ MO (FLUZONE/FLULAVAL/F LUARIX) Unknown Completed [facility] SARS-COV-2 COVID-19 MODERNA 0.25ML BOOSTER VACCINE Unknown Completed [facility] Pneumococcal Polysaccharide, PPSV23 (PNEUMOVAX) Unknown Completed [facility] SARS-COV-2 COVID-19 MODERNA 0.25ML BOOSTER VACCINE Unknown Completed [facility] Influenza Virus Vaccine Quad IM, Preserv and ABX Free 6 MO-64 YRS (FLUCELVAX) Unknown Completed [facility] Influenza Virus Vaccine Unknown Completed [facility] SARS-COV-2 COVID-19 MODERNA 12+ YRS VACCINE Unknown Completed [facility] SARS-COV-2 COVID-19 MODERNA 12+ YRS VACCINE Unknown Completed [facility] SARS-COV-2 COVID-19 MODERNA 12+ YRS VACCINE Unknown Completed [facility] Influenza Virus Vaccine Quad .5 mL IM 6+ MO (FLUZONE/FLULAVAL/F LUARIX) Unknown Completed [facility] SARS-COV-2 COVID-19 MODERNA 0.25ML BOOSTER VACCINE Unknown Completed [facility] Pneumococcal Polysaccharide, PPSV23 (PNEUMOVAX) Unknown Completed [facility] SARS-COV-2 COVID-19 MODERNA 0.25ML BOOSTER VACCINE Unknown Completed [facility] Influenza Virus Vaccine Quad IM, Preserv and ABX Free 6 MO-64 YRS (FLUCELVAX) Unknown Completed [facility] Influenza Virus Vaccine Unknown Completed [facility] SARS-COV-2 COVID-19 MODERNA 12+ YRS VACCINE Unknown Completed [facility] SARS-COV-2 COVID-19 MODERNA 12+ YRS VACCINE Unknown Completed [facility] SARS-COV-2 COVID-19 MODERNA 12+ YRS VACCINE Unknown Completed [facility] Influenza Virus Vaccine Quad .5 mL IM 6+ MO (FLUZONE/FLULAVAL/F LUARIX) Unknown Completed [facility] SARS-COV-2 COVID-19 MODERNA 0.25ML BOOSTER VACCINE Unknown Completed [facility] Pneumococcal Polysaccharide, PPSV23 (PNEUMOVAX) Unknown Completed [facility] SARS-COV-2 COVID-19 MODERNA 0.25ML BOOSTER VACCINE Unknown Completed [facility] Influenza Virus Vaccine Quad IM, Preserv and ABX Free 6 MO-64 YRS (FLUCELVAX) Unknown Completed [facility] Influenza Virus Vaccine Unknown Completed [facility] SARS-COV-2 COVID-19 MODERNA 12+ YRS VACCINE Unknown Completed [facility] SARS-COV-2 COVID-19 MODERNA 12+ YRS VACCINE Unknown Completed [facility] SARS-COV-2 COVID-19 MODERNA 12+ YRS VACCINE Unknown Completed [facility] Influenza Virus Vaccine Quad .5 mL IM 6+ MO (FLUZONE/FLULAVAL/F LUARIX) Unknown Completed [facility] SARS-COV-2 COVID-19 MODERNA 0.25ML BOOSTER VACCINE Unknown Completed [facility] Pneumococcal Polysaccharide, PPSV23 (PNEUMOVAX) Unknown Completed [facility] SARS-COV-2 COVID-19 MODERNA 0.25ML BOOSTER VACCINE Unknown Completed [facility] Influenza Virus Vaccine Quad IM, Preserv and ABX Free 6 MO-64 YRS (FLUCELVAX) Unknown Completed [facility] Influenza Virus Vaccine Unknown Completed [facility] SARS-COV-2 COVID-19 MODERNA 12+ YRS VACCINE Unknown Completed [facility] SARS-COV-2 COVID-19 MODERNA 12+ YRS VACCINE Unknown Completed [facility] SARS-COV-2 COVID-19 MODERNA 12+ YRS VACCINE Unknown Completed [facility] Influenza Virus Vaccine Quad .5 mL IM 6+ MO (FLUZONE/FLULAVAL/F LUARIX) Unknown Completed [facility] SARS-COV-2 COVID-19 MODERNA 0.25ML BOOSTER VACCINE Unknown Completed [facility] Pneumococcal Polysaccharide, PPSV23 (PNEUMOVAX) Unknown Completed [facility] SARS-COV-2 COVID-19 MODERNA 0.25ML BOOSTER VACCINE Unknown Completed [facility] Influenza Virus Vaccine Quad IM, Preserv and ABX Free 6 MO-64 YRS (FLUCELVAX) Unknown Completed [facility] Influenza Virus Vaccine Unknown Completed [facility] SARS-COV-2 COVID-19 MODERNA 12+ YRS VACCINE Unknown Completed [facility] SARS-COV-2 COVID-19 MODERNA 12+ YRS VACCINE Unknown Completed [facility] SARS-COV-2 COVID-19 MODERNA 12+ YRS VACCINE Unknown Completed [facility] Influenza Virus Vaccine Quad .5 mL IM 6+ MO (FLUZONE/FLULAVAL/F LUARIX) Unknown Completed [facility] SARS-COV-2 COVID-19 MODERNA 0.25ML BOOSTER VACCINE Unknown Completed [facility] Pneumococcal Polysaccharide, PPSV23 (PNEUMOVAX) Unknown Completed [facility] SARS-COV-2 COVID-19 MODERNA 0.25ML BOOSTER VACCINE Unknown Completed [facility] Influenza Virus Vaccine Quad IM, Preserv and ABX Free 6 MO-64 YRS (FLUCELVAX) Unknown Completed [facility] Influenza Virus Vaccine Unknown Completed [facility] SARS-COV-2 COVID-19 MODERNA 12+ YRS VACCINE Unknown Completed [facility] SARS-COV-2 COVID-19 MODERNA 12+ YRS VACCINE Unknown Completed [facility] SARS-COV-2 COVID-19 MODERNA 12+ YRS VACCINE Unknown Completed [facility] Influenza Virus Vaccine Quad .5 mL IM 6+ MO (FLUZONE/FLULAVAL/F LUARIX) Unknown Completed [facility] SARS-COV-2 COVID-19 MODERNA 0.25ML BOOSTER VACCINE Unknown Completed [facility] Pneumococcal Polysaccharide, PPSV23 (PNEUMOVAX) Unknown Completed [facility] SARS-COV-2 COVID-19 MODERNA 0.25ML BOOSTER VACCINE Unknown Completed [facility] Influenza Virus Vaccine Quad IM, Preserv and ABX Free 6 MO-64 YRS (FLUCELVAX) Unknown Completed [facility] Influenza Virus Vaccine Unknown Completed [facility] SARS-COV-2 COVID-19 MODERNA 12+ YRS VACCINE Unknown Completed [facility] SARS-COV-2 COVID-19 MODERNA 12+ YRS VACCINE Unknown Completed [facility] SARS-COV-2 COVID-19 MODERNA 12+ YRS VACCINE Unknown Completed [facility] Influenza Virus Vaccine Quad .5 mL IM 6+ MO (FLUZONE/FLULAVAL/F LUARIX) Unknown Completed [facility] SARS-COV-2 COVID-19 MODERNA 0.25ML BOOSTER VACCINE Unknown Completed [facility] Pneumococcal Polysaccharide, PPSV23 (PNEUMOVAX) Unknown Completed [facility] SARS-COV-2 COVID-19 MODERNA 0.25ML BOOSTER VACCINE Unknown Completed [facility] Influenza Virus Vaccine Quad IM, Preserv and ABX Free 6 MO-64 YRS (FLUCELVAX) Unknown Completed [facility] Influenza Virus Vaccine Unknown Completed [facility] SARS-COV-2 COVID-19 MODERNA 12+ YRS VACCINE Unknown Completed [facility] SARS-COV-2 COVID-19 MODERNA 12+ YRS VACCINE Unknown Completed [facility] SARS-COV-2 COVID-19 MODERNA 12+ YRS VACCINE Unknown Completed [facility] Influenza Virus Vaccine Quad .5 mL IM 6+ MO (FLUZONE/FLULAVAL/F LUARIX) Unknown Completed [facility] SARS-COV-2 COVID-19 MODERNA 0.25ML BOOSTER VACCINE Unknown Completed [facility] Pneumococcal Polysaccharide, PPSV23 (PNEUMOVAX) Unknown Completed [facility] SARS-COV-2 COVID-19 MODERNA 0.25ML BOOSTER VACCINE Unknown Completed [facility] Influenza Virus Vaccine Quad IM, Preserv and ABX Free 6 MO-64 YRS (FLUCELVAX) Unknown Completed [facility] Influenza Virus Vaccine Unknown Completed [facility] SARS-COV-2 COVID-19 MODERNA 12+ YRS VACCINE Unknown Completed [facility] SARS-COV-2 COVID-19 MODERNA 12+ YRS VACCINE Unknown Completed [facility] SARS-COV-2 COVID-19 MODERNA 12+ YRS VACCINE Unknown Completed [facility] Influenza Virus Vaccine Quad .5 mL IM 6+ MO (FLUZONE/FLULAVAL/F LUARIX) Unknown Completed [facility] SARS-COV-2 COVID-19 MODERNA 0.25ML BOOSTER VACCINE Unknown Completed [facility] Pneumococcal Polysaccharide, PPSV23 (PNEUMOVAX) Unknown Completed [facility] SARS-COV-2 COVID-19 MODERNA 0.25ML BOOSTER VACCINE Unknown Completed [facility] Influenza Virus Vaccine Quad IM, Preserv and ABX Free 6 MO-64 YRS (FLUCELVAX) Unknown Completed [facility] Influenza Virus Vaccine Unknown Completed [facility] SARS-COV-2 COVID-19 MODERNA 12+ YRS VACCINE Unknown Completed [facility] SARS-COV-2 COVID-19 MODERNA 12+ YRS VACCINE Unknown Completed [facility] SARS-COV-2 COVID-19 MODERNA 12+ YRS VACCINE Unknown Completed [facility] Influenza Virus Vaccine Quad .5 mL IM 6+ MO (FLUZONE/FLULAVAL/F LUARIX) Unknown Completed [facility] SARS-COV-2 COVID-19 MODERNA 0.25ML BOOSTER VACCINE Unknown Completed [facility] Pneumococcal Polysaccharide, PPSV23 (PNEUMOVAX) Unknown Completed [facility] SARS-COV-2 COVID-19 MODERNA 0.25ML BOOSTER VACCINE Unknown Completed [facility] Influenza Virus Vaccine Quad IM, Preserv and ABX Free 6 MO-64 YRS (FLUCELVAX) Unknown Completed [facility] Influenza Virus Vaccine Unknown Completed [facility] SARS-COV-2 COVID-19 MODERNA 12+ YRS VACCINE Unknown Completed [facility] SARS-COV-2 COVID-19 MODERNA 12+ YRS VACCINE Unknown Completed [facility] SARS-COV-2 COVID-19 MODERNA 12+ YRS VACCINE Unknown Completed [facility] Influenza Virus Vaccine Quad .5 mL IM 6+ MO (FLUZONE/FLULAVAL/F LUARIX) Unknown Completed [facility] SARS-COV-2 COVID-19 MODERNA 0.25ML BOOSTER VACCINE Unknown Completed [facility] Pneumococcal Polysaccharide, PPSV23 (PNEUMOVAX) Unknown Completed [facility] SARS-COV-2 COVID-19 MODERNA 0.25ML BOOSTER VACCINE Unknown Completed [facility] Influenza Virus Vaccine Quad IM, Preserv and ABX Free 6 MO-64 YRS (FLUCELVAX) Unknown Completed [facility] Influenza Virus Vaccine Unknown Completed [facility] SARS-COV-2 COVID-19 MODERNA 12+ YRS VACCINE Unknown Completed [facility] SARS-COV-2 COVID-19 MODERNA 12+ YRS VACCINE Unknown Completed [facility] SARS-COV-2 COVID-19 MODERNA 12+ YRS VACCINE Unknown Completed [facility] Influenza Virus Vaccine Quad .5 mL IM 6+ MO (FLUZONE/FLULAVAL/F LUARIX) Unknown Completed [facility] SARS-COV-2 COVID-19 MODERNA 0.25ML BOOSTER VACCINE Unknown Completed [facility] Pneumococcal Polysaccharide, PPSV23 (PNEUMOVAX) Unknown Completed [facility] SARS-COV-2 COVID-19 MODERNA 0.25ML BOOSTER VACCINE Unknown Completed [facility] Influenza Virus Vaccine Quad IM, Preserv and ABX Free 6 MO-64 YRS (FLUCELVAX) Unknown Completed [facility] Influenza Virus Vaccine Unknown Completed [facility] SARS-COV-2 COVID-19 MODERNA 12+ YRS VACCINE Unknown Completed [facility] SARS-COV-2 COVID-19 MODERNA 12+ YRS VACCINE Unknown Completed [facility] SARS-COV-2 COVID-19 MODERNA 12+ YRS VACCINE Unknown Completed [facility] Influenza Virus Vaccine Quad .5 mL IM 6+ MO (FLUZONE/FLULAVAL/F LUARIX) Unknown Completed [facility] SARS-COV-2 COVID-19 MODERNA 0.25ML BOOSTER VACCINE Unknown Completed [facility] Pneumococcal Polysaccharide, PPSV23 (PNEUMOVAX) Unknown Completed [facility] SARS-COV-2 COVID-19 MODERNA 0.25ML BOOSTER VACCINE Unknown Completed [facility] Influenza Virus Vaccine Quad IM, Preserv and ABX Free 6 MO-64 YRS (FLUCELVAX) Unknown Completed [facility] Influenza Virus Vaccine Unknown Completed [facility] SARS-COV-2 COVID-19 MODERNA 12+ YRS VACCINE Unknown Completed [facility] SARS-COV-2 COVID-19 MODERNA 12+ YRS VACCINE Unknown Completed [facility] SARS-COV-2 COVID-19 MODERNA 12+ YRS VACCINE Unknown Completed [facility] Influenza Virus Vaccine Quad .5 mL IM 6+ MO (FLUZONE/FLULAVAL/F LUARIX) Unknown Completed [facility] SARS-COV-2 COVID-19 MODERNA 0.25ML BOOSTER VACCINE Unknown Completed [facility] Pneumococcal Polysaccharide, PPSV23 (PNEUMOVAX) Unknown Completed [facility] SARS-COV-2 COVID-19 MODERNA 0.25ML BOOSTER VACCINE Unknown Completed [facility] Influenza Virus Vaccine Quad IM, Preserv and ABX Free 6 MO-64 YRS (FLUCELVAX) Unknown Completed [facility] Influenza Virus Vaccine Unknown Completed [facility] SARS-COV-2 COVID-19 MODERNA 12+ YRS VACCINE Unknown Completed [facility] SARS-COV-2 COVID-19 MODERNA 12+ YRS VACCINE Unknown Completed [facility] SARS-COV-2 COVID-19 MODERNA 12+ YRS VACCINE Unknown Completed [facility] Influenza Virus Vaccine Quad .5 mL IM 6+ MO (FLUZONE/FLULAVAL/F LUARIX) Unknown Completed [facility] SARS-COV-2 COVID-19 MODERNA 0.25ML BOOSTER VACCINE Unknown Completed [facility] Pneumococcal Polysaccharide, PPSV23 (PNEUMOVAX) Unknown Completed [facility] SARS-COV-2 COVID-19 MODERNA 0.25ML BOOSTER VACCINE Unknown Completed [facility] Influenza Virus Vaccine Quad IM, Preserv and ABX Free 6 MO-64 YRS (FLUCELVAX) Unknown Completed [facility] Influenza Virus Vaccine Unknown Completed [facility] SARS-COV-2 COVID-19 MODERNA 12+ YRS VACCINE Unknown Completed [facility] SARS-COV-2 COVID-19 MODERNA 12+ YRS VACCINE Unknown Completed [facility] SARS-COV-2 COVID-19 MODERNA 12+ YRS VACCINE Unknown Completed [facility] Influenza Virus Vaccine Quad .5 mL IM 6+ MO (FLUZONE/FLULAVAL/F LUARIX) Unknown Completed [facility] SARS-COV-2 COVID-19 MODERNA 0.25ML BOOSTER VACCINE Unknown Completed [facility] Pneumococcal Polysaccharide, PPSV23 (PNEUMOVAX) Unknown Completed [facility] SARS-COV-2 COVID-19 MODERNA 0.25ML BOOSTER VACCINE Unknown Completed [facility] Influenza Virus Vaccine Quad IM, Preserv and ABX Free 6 MO-64 YRS (FLUCELVAX) Unknown Completed [facility] Influenza Virus Vaccine Unknown Completed [facility] SARS-COV-2 COVID-19 MODERNA 12+ YRS VACCINE Unknown Completed [facility] SARS-COV-2 COVID-19 MODERNA 12+ YRS VACCINE Unknown Completed [facility] SARS-COV-2 COVID-19 MODERNA 12+ YRS VACCINE Unknown Completed [facility] Influenza Virus Vaccine Quad .5 mL IM 6+ MO (FLUZONE/FLULAVAL/F LUARIX) Unknown Completed [facility] SARS-COV-2 COVID-19 MODERNA 0.25ML BOOSTER VACCINE Unknown Completed [facility] Pneumococcal Polysaccharide, PPSV23 (PNEUMOVAX) Unknown Completed [facility] SARS-COV-2 COVID-19 MODERNA 0.25ML BOOSTER VACCINE Unknown Completed [facility] Influenza Virus Vaccine Quad IM, Preserv and ABX Free 6 MO-64 YRS (FLUCELVAX) Unknown Completed [facility] Influenza Virus Vaccine Unknown Completed [facility] SARS-COV-2 COVID-19 MODERNA 12+ YRS VACCINE Unknown Completed [facility] SARS-COV-2 COVID-19 MODERNA 12+ YRS VACCINE Unknown Completed [facility] SARS-COV-2 COVID-19 MODERNA 12+ YRS VACCINE Unknown Completed [facility] Influenza Virus Vaccine Quad .5 mL IM 6+ MO (FLUZONE/FLULAVAL/F LUARIX) Unknown Completed [facility] SARS-COV-2 COVID-19 MODERNA 0.25ML BOOSTER VACCINE Unknown Completed [facility] Pneumococcal Polysaccharide, PPSV23 (PNEUMOVAX) Unknown Completed [facility] SARS-COV-2 COVID-19 MODERNA 0.25ML BOOSTER VACCINE Unknown Completed [facility] Influenza Virus Vaccine Quad IM, Preserv and ABX Free 6 MO-64 YRS (FLUCELVAX) Unknown Completed [facility] Influenza Virus Vaccine Unknown Completed [facility] SARS-COV-2 COVID-19 MODERNA 12+ YRS VACCINE Unknown Completed [facility] SARS-COV-2 COVID-19 MODERNA 12+ YRS VACCINE Unknown Completed [facility] SARS-COV-2 COVID-19 MODERNA 12+ YRS VACCINE Unknown Completed [facility] Influenza Virus Vaccine Quad .5 mL IM 6+ MO (FLUZONE/FLULAVAL/F LUARIX) Unknown Completed [facility] SARS-COV-2 COVID-19 MODERNA 0.25ML BOOSTER VACCINE Unknown Completed [facility] Pneumococcal Polysaccharide, PPSV23 (PNEUMOVAX) Unknown Completed [facility] SARS-COV-2 COVID-19 MODERNA 0.25ML BOOSTER VACCINE Unknown Completed [facility] Influenza Virus Vaccine Quad IM, Preserv and ABX Free 6 MO-64 YRS (FLUCELVAX) Unknown Completed [facility] Influenza Virus Vaccine Unknown Completed [facility] SARS-COV-2 COVID-19 MODERNA 12+ YRS VACCINE Unknown Completed [facility] SARS-COV-2 COVID-19 MODERNA 12+ YRS VACCINE Unknown Completed [facility] SARS-COV-2 COVID-19 MODERNA 12+ YRS VACCINE Unknown Completed [facility] Influenza Virus Vaccine Quad .5 mL IM 6+ MO (FLUZONE/FLULAVAL/F LUARIX) Unknown Completed [facility] SARS-COV-2 COVID-19 MODERNA 0.25ML BOOSTER VACCINE Unknown Completed [facility] Pneumococcal Polysaccharide, PPSV23 (PNEUMOVAX) Unknown Completed [facility] SARS-COV-2 COVID-19 MODERNA 0.25ML BOOSTER VACCINE Unknown Completed [facility] Influenza Virus Vaccine Quad IM, Preserv and ABX Free 6 MO-64 YRS (FLUCELVAX) Unknown Completed [facility] Influenza Virus Vaccine Unknown Completed [facility] SARS-COV-2 COVID-19 MODERNA 12+ YRS VACCINE Unknown Completed [facility] SARS-COV-2 COVID-19 MODERNA 12+ YRS VACCINE Unknown Completed [facility] SARS-COV-2 COVID-19 MODERNA 12+ YRS VACCINE Unknown Completed [facility] Influenza Virus Vaccine Quad .5 mL IM 6+ MO (FLUZONE/FLULAVAL/F LUARIX) Unknown Completed [facility] SARS-COV-2 COVID-19 MODERNA 0.25ML BOOSTER VACCINE Unknown Completed [facility] Pneumococcal Polysaccharide, PPSV23 (PNEUMOVAX) Unknown Completed [facility] SARS-COV-2 COVID-19 MODERNA 0.25ML BOOSTER VACCINE Unknown Completed [facility] Influenza Virus Vaccine Quad IM, Preserv and ABX Free 6 MO-64 YRS (FLUCELVAX) Unknown Completed [facility] Influenza Virus Vaccine Unknown Completed [facility] SARS-COV-2 COVID-19 MODERNA 12+ YRS VACCINE Unknown Completed [facility] SARS-COV-2 COVID-19 MODERNA 12+ YRS VACCINE Unknown Completed [facility] SARS-COV-2 COVID-19 MODERNA 12+ YRS VACCINE Unknown Completed [facility] Influenza Virus Vaccine Quad .5 mL IM 6+ MO (FLUZONE/FLULAVAL/F LUARIX) Unknown Completed [facility] SARS-COV-2 COVID-19 MODERNA 0.25ML BOOSTER VACCINE Unknown Completed [facility] Pneumococcal Polysaccharide, PPSV23 (PNEUMOVAX) Unknown Completed [facility] SARS-COV-2 COVID-19 MODERNA 0.25ML BOOSTER VACCINE Unknown Completed [facility] Influenza Virus Vaccine Quad IM, Preserv and ABX Free 6 MO-64 YRS (FLUCELVAX) Unknown Completed [facility] Influenza Virus Vaccine Unknown Completed [facility] SARS-COV-2 COVID-19 MODERNA 12+ YRS VACCINE Unknown Completed [facility] SARS-COV-2 COVID-19 MODERNA 12+ YRS VACCINE Unknown Completed [facility] SARS-COV-2 COVID-19 MODERNA 12+ YRS VACCINE Unknown Completed [facility] Influenza Virus Vaccine Quad .5 mL IM 6+ MO (FLUZONE/FLULAVAL/F LUARIX) Unknown Completed [facility] SARS-COV-2 COVID-19 MODERNA 0.25ML BOOSTER VACCINE Unknown Completed [facility] Pneumococcal Polysaccharide, PPSV23 (PNEUMOVAX) Unknown Completed [facility] SARS-COV-2 COVID-19 MODERNA 0.25ML BOOSTER VACCINE Unknown Completed [facility] Influenza Virus Vaccine Quad IM, Preserv and ABX Free 6 MO-64 YRS (FLUCELVAX) Unknown Completed [facility] Influenza Virus Vaccine Unknown Completed [facility] SARS-COV-2 COVID-19 MODERNA 12+ YRS VACCINE Unknown Completed [facility] SARS-COV-2 COVID-19 MODERNA 12+ YRS VACCINE Unknown Completed [facility] SARS-COV-2 COVID-19 MODERNA 12+ YRS VACCINE Unknown Completed [facility] Influenza Virus Vaccine Quad .5 mL IM 6+ MO (FLUZONE/FLULAVAL/F LUARIX) Unknown Completed [facility] SARS-COV-2 COVID-19 MODERNA 0.25ML BOOSTER VACCINE Unknown Completed [facility] Pneumococcal Polysaccharide, PPSV23 (PNEUMOVAX) Unknown Completed [facility] SARS-COV-2 COVID-19 MODERNA 0.25ML BOOSTER VACCINE Unknown Completed [facility] Influenza Virus Vaccine Quad IM, Preserv and ABX Free 6 MO-64 YRS (FLUCELVAX) Unknown Completed [facility] Influenza Virus Vaccine Unknown Completed [facility] SARS-COV-2 COVID-19 MODERNA 12+ YRS VACCINE Unknown Completed [facility] SARS-COV-2 COVID-19 MODERNA 12+ YRS VACCINE Unknown Completed [facility] SARS-COV-2 COVID-19 MODERNA 12+ YRS VACCINE Unknown Completed [facility] Influenza Virus Vaccine Quad .5 mL IM 6+ MO (FLUZONE/FLULAVAL/F LUARIX) Unknown Completed [facility] SARS-COV-2 COVID-19 MODERNA 0.25ML BOOSTER VACCINE Unknown Completed [facility] Pneumococcal Polysaccharide, PPSV23 (PNEUMOVAX) Unknown Completed [facility] SARS-COV-2 COVID-19 MODERNA 0.25ML BOOSTER VACCINE Unknown Completed [facility] Influenza Virus Vaccine Quad IM, Preserv and ABX Free 6 MO-64 YRS (FLUCELVAX) Unknown Completed [facility] Influenza Virus Vaccine Unknown Completed [facility] SARS-COV-2 COVID-19 MODERNA 12+ YRS VACCINE Unknown Completed [facility] SARS-COV-2 COVID-19 MODERNA 12+ YRS VACCINE Unknown Completed [facility] SARS-COV-2 COVID-19 MODERNA 12+ YRS VACCINE Unknown Completed [facility] Influenza Virus Vaccine Quad .5 mL IM 6+ MO (FLUZONE/FLULAVAL/F LUARIX) Unknown Completed [facility] SARS-COV-2 COVID-19 MODERNA 0.25ML BOOSTER VACCINE Unknown Completed [facility] Pneumococcal Polysaccharide, PPSV23 (PNEUMOVAX) Unknown Completed [facility] SARS-COV-2 COVID-19 MODERNA 0.25ML BOOSTER VACCINE Unknown Completed [facility] Influenza Virus Vaccine Quad IM, Preserv and ABX Free 6 MO-64 YRS (FLUCELVAX) Unknown Completed [facility] Influenza Virus Vaccine Unknown Completed [facility] SARS-COV-2 COVID-19 MODERNA 12+ YRS VACCINE Unknown Completed [facility] SARS-COV-2 COVID-19 MODERNA 12+ YRS VACCINE Unknown Completed [facility] SARS-COV-2 COVID-19 MODERNA 12+ YRS VACCINE Unknown Completed [facility] Influenza Virus Vaccine Quad .5 mL IM 6+ MO (FLUZONE/FLULAVAL/F LUARIX) Unknown Completed [facility] SARS-COV-2 COVID-19 MODERNA 0.25ML BOOSTER VACCINE Unknown Completed [facility] Pneumococcal Polysaccharide, PPSV23 (PNEUMOVAX) Unknown Completed [facility] SARS-COV-2 COVID-19 MODERNA 0.25ML BOOSTER VACCINE Unknown Completed [facility] Influenza Virus Vaccine Quad IM, Preserv and ABX Free 6 MO-64 YRS (FLUCELVAX) Unknown Completed [facility] Influenza Virus Vaccine Unknown Completed [facility] SARS-COV-2 COVID-19 MODERNA 12+ YRS VACCINE Unknown Completed [facility] SARS-COV-2 COVID-19 MODERNA 12+ YRS VACCINE Unknown Completed [facility] SARS-COV-2 COVID-19 MODERNA 12+ YRS VACCINE Unknown Completed [facility] Influenza Virus Vaccine Quad .5 mL IM 6+ MO (FLUZONE/FLULAVAL/F LUARIX) Unknown Completed [facility] SARS-COV-2 COVID-19 MODERNA 0.25ML BOOSTER VACCINE Unknown Completed [facility] Pneumococcal Polysaccharide, PPSV23 (PNEUMOVAX) Unknown Completed [facility] SARS-COV-2 COVID-19 MODERNA 0.25ML BOOSTER VACCINE Unknown Completed [facility] Influenza Virus Vaccine Quad IM, Preserv and ABX Free 6 MO-64 YRS (FLUCELVAX) Unknown Completed [facility] Influenza Virus Vaccine Unknown Completed [facility] SARS-COV-2 COVID-19 MODERNA 12+ YRS VACCINE Unknown Completed [facility] SARS-COV-2 COVID-19 MODERNA 12+ YRS VACCINE Unknown Completed [facility] SARS-COV-2 COVID-19 MODERNA 12+ YRS VACCINE Unknown Completed [facility] Influenza Virus Vaccine Quad .5 mL IM 6+ MO (FLUZONE/FLULAVAL/F LUARIX) Unknown Completed [facility] SARS-COV-2 COVID-19 MODERNA 0.25ML BOOSTER VACCINE Unknown Completed [facility] Pneumococcal Polysaccharide, PPSV23 (PNEUMOVAX) Unknown Completed [facility] SARS-COV-2 COVID-19 MODERNA 0.25ML BOOSTER VACCINE Unknown Completed [facility] Influenza Virus Vaccine Quad IM, Preserv and ABX Free 6 MO-64 YRS (FLUCELVAX) Unknown Completed [facility] Influenza Virus Vaccine Unknown Completed [facility] SARS-COV-2 COVID-19 MODERNA 12+ YRS VACCINE Unknown Completed [facility] SARS-COV-2 COVID-19 MODERNA 12+ YRS VACCINE Unknown Completed [facility] SARS-COV-2 COVID-19 MODERNA 12+ YRS VACCINE Unknown Completed [facility] Influenza Virus Vaccine Quad .5 mL IM 6+ MO (FLUZONE/FLULAVAL/F LUARIX) Unknown Completed [facility] SARS-COV-2 COVID-19 MODERNA 0.25ML BOOSTER VACCINE Unknown Completed [facility] Pneumococcal Polysaccharide, PPSV23 (PNEUMOVAX) Unknown Completed [facility] SARS-COV-2 COVID-19 MODERNA 0.25ML BOOSTER VACCINE Unknown Completed [facility] Influenza Virus Vaccine Quad IM, Preserv and ABX Free 6 MO-64 YRS (FLUCELVAX) Unknown Completed [facility] Influenza Virus Vaccine Unknown Completed [facility] SARS-COV-2 COVID-19 MODERNA 12+ YRS VACCINE Unknown Completed [facility] SARS-COV-2 COVID-19 MODERNA 12+ YRS VACCINE Unknown Completed [facility] SARS-COV-2 COVID-19 MODERNA 12+ YRS VACCINE Unknown Completed [facility] Influenza Virus Vaccine Quad .5 mL IM 6+ MO (FLUZONE/FLULAVAL/F LUARIX) Unknown Completed [facility] SARS-COV-2 COVID-19 MODERNA 0.25ML BOOSTER VACCINE Unknown Completed [facility] Pneumococcal Polysaccharide, PPSV23 (PNEUMOVAX) Unknown Completed [facility] SARS-COV-2 COVID-19 MODERNA 0.25ML BOOSTER VACCINE Unknown Completed [facility] Influenza Virus Vaccine Quad IM, Preserv and ABX Free 6 MO-64 YRS (FLUCELVAX) Unknown Completed [facility] Influenza Virus Vaccine Unknown Completed [facility] SARS-COV-2 COVID-19 MODERNA 12+ YRS VACCINE Unknown Completed [facility] SARS-COV-2 COVID-19 MODERNA 12+ YRS VACCINE Unknown Completed [facility] SARS-COV-2 COVID-19 MODERNA 12+ YRS VACCINE Unknown Completed [facility] Influenza Virus Vaccine Quad .5 mL IM 6+ MO (FLUZONE/FLULAVAL/F LUARIX) Unknown Completed [facility] SARS-COV-2 COVID-19 MODERNA 0.25ML BOOSTER VACCINE Unknown Completed [facility] Pneumococcal Polysaccharide, PPSV23 (PNEUMOVAX) Unknown Completed [facility] SARS-COV-2 COVID-19 MODERNA 0.25ML BOOSTER VACCINE Unknown Completed [facility] Influenza Virus Vaccine Quad IM, Preserv and ABX Free 6 MO-64 YRS (FLUCELVAX) Unknown Completed [facility] Influenza Virus Vaccine Unknown Completed [facility] SARS-COV-2 COVID-19 MODERNA 12+ YRS VACCINE Unknown Completed [facility] SARS-COV-2 COVID-19 MODERNA 12+ YRS VACCINE Unknown Completed [facility] SARS-COV-2 COVID-19 MODERNA 12+ YRS VACCINE Unknown Completed [facility] Influenza Virus Vaccine Quad .5 mL IM 6+ MO (FLUZONE/FLULAVAL/F LUARIX) Unknown Completed [facility] SARS-COV-2 COVID-19 MODERNA 0.25ML BOOSTER VACCINE Unknown Completed [facility] Pneumococcal Polysaccharide, PPSV23 (PNEUMOVAX) Unknown Completed [facility] SARS-COV-2 COVID-19 MODERNA 0.25ML BOOSTER VACCINE Unknown Completed [facility] Influenza Virus Vaccine Quad IM, Preserv and ABX Free 6 MO-64 YRS (FLUCELVAX) Unknown Completed [facility] Influenza Virus Vaccine Unknown Completed [facility] SARS-COV-2 COVID-19 MODERNA 12+ YRS VACCINE Unknown Completed [facility] SARS-COV-2 COVID-19 MODERNA 12+ YRS VACCINE Unknown Completed [facility] SARS-COV-2 COVID-19 MODERNA 12+ YRS VACCINE Unknown Completed [facility] Influenza Virus Vaccine Quad .5 mL IM 6+ MO (FLUZONE/FLULAVAL/F LUARIX) Unknown Completed [facility] SARS-COV-2 COVID-19 MODERNA 0.25ML BOOSTER VACCINE Unknown Completed [facility] Pneumococcal Polysaccharide, PPSV23 (PNEUMOVAX) Unknown Completed [facility] SARS-COV-2 COVID-19 MODERNA 0.25ML BOOSTER VACCINE Unknown Completed [facility] Influenza Virus Vaccine Quad IM, Preserv and ABX Free 6 MO-64 YRS (FLUCELVAX) Unknown Completed [facility] Influenza Virus Vaccine Unknown Completed [facility] SARS-COV-2 COVID-19 MODERNA 12+ YRS VACCINE Unknown Completed [facility] SARS-COV-2 COVID-19 MODERNA 12+ YRS VACCINE Unknown Completed [facility] SARS-COV-2 COVID-19 MODERNA 12+ YRS VACCINE Unknown Completed [facility] Influenza Virus Vaccine Quad .5 mL IM 6+ MO (FLUZONE/FLULAVAL/F LUARIX) Unknown Completed [facility] SARS-COV-2 COVID-19 MODERNA 0.25ML BOOSTER VACCINE Unknown Completed [facility] Pneumococcal Polysaccharide, PPSV23 (PNEUMOVAX) Unknown Completed [facility] SARS-COV-2 COVID-19 MODERNA 0.25ML BOOSTER VACCINE Unknown Completed [facility] Influenza Virus Vaccine Quad IM, Preserv and ABX Free 6 MO-64 YRS (FLUCELVAX) Unknown Completed [facility] Influenza Virus Vaccine Unknown Completed [facility] SARS-COV-2 COVID-19 MODERNA 12+ YRS VACCINE Unknown Completed [facility] SARS-COV-2 COVID-19 MODERNA 12+ YRS VACCINE Unknown Completed [facility] SARS-COV-2 COVID-19 MODERNA 12+ YRS VACCINE Unknown Completed [facility] Influenza Virus Vaccine Quad .5 mL IM 6+ MO (FLUZONE/FLULAVAL/F LUARIX) Unknown Completed [facility] SARS-COV-2 COVID-19 MODERNA 0.25ML BOOSTER VACCINE Unknown Completed [facility] Pneumococcal Polysaccharide, PPSV23 (PNEUMOVAX) Unknown Completed [facility] SARS-COV-2 COVID-19 MODERNA 0.25ML BOOSTER VACCINE Unknown Completed [facility] Influenza Virus Vaccine Quad IM, Preserv and ABX Free 6 MO-64 YRS (FLUCELVAX) Unknown Completed [facility] Influenza Virus Vaccine Unknown Completed [facility] SARS-COV-2 COVID-19 MODERNA 12+ YRS VACCINE Unknown Completed [facility] SARS-COV-2 COVID-19 MODERNA 12+ YRS VACCINE Unknown Completed [facility] SARS-COV-2 COVID-19 MODERNA 12+ YRS VACCINE Unknown Completed [facility] Influenza Virus Vaccine Quad .5 mL IM 6+ MO (FLUZONE/FLULAVAL/F LUARIX) Unknown Completed [facility] SARS-COV-2 COVID-19 MODERNA 0.25ML BOOSTER VACCINE Unknown Completed [facility] Pneumococcal Polysaccharide, PPSV23 (PNEUMOVAX) Unknown Completed [facility] SARS-COV-2 COVID-19 MODERNA 0.25ML BOOSTER VACCINE Unknown Completed [facility] Influenza Virus Vaccine Quad IM, Preserv and ABX Free 6 MO-64 YRS (FLUCELVAX) Unknown Completed [facility] Influenza Virus Vaccine Unknown Completed [facility] SARS-COV-2 COVID-19 MODERNA 12+ YRS VACCINE Unknown Completed [facility] SARS-COV-2 COVID-19 MODERNA 12+ YRS VACCINE Unknown Completed [facility] SARS-COV-2 COVID-19 MODERNA 12+ YRS VACCINE Unknown Completed [facility] Influenza Virus Vaccine Quad .5 mL IM 6+ MO (FLUZONE/FLULAVAL/F LUARIX) Unknown Completed [facility] SARS-COV-2 COVID-19 MODERNA 0.25ML BOOSTER VACCINE Unknown Completed [facility] Pneumococcal Polysaccharide, PPSV23 (PNEUMOVAX) Unknown Completed [facility] SARS-COV-2 COVID-19 MODERNA 0.25ML BOOSTER VACCINE Unknown Completed [facility] Influenza Virus Vaccine Quad IM, Preserv and ABX Free 6 MO-64 YRS (FLUCELVAX) Unknown Completed [facility] Influenza Virus Vaccine Unknown Completed [facility] SARS-COV-2 COVID-19 MODERNA 12+ YRS VACCINE Unknown Completed [facility] SARS-COV-2 COVID-19 MODERNA 12+ YRS VACCINE Unknown Completed [facility] SARS-COV-2 COVID-19 MODERNA 12+ YRS VACCINE Unknown Completed [facility] Influenza Virus Vaccine Quad .5 mL IM 6+ MO (FLUZONE/FLULAVAL/F LUARIX) Unknown Completed [facility] SARS-COV-2 COVID-19 MODERNA 0.25ML BOOSTER VACCINE Unknown Completed [facility] Pneumococcal Polysaccharide, PPSV23 (PNEUMOVAX) Unknown Completed [facility] SARS-COV-2 COVID-19 MODERNA 0.25ML BOOSTER VACCINE Unknown Completed [facility] Influenza Virus Vaccine Quad IM, Preserv and ABX Free 6 MO-64 YRS (FLUCELVAX) Unknown Completed [facility] Influenza Virus Vaccine Unknown Completed [facility] SARS-COV-2 COVID-19 MODERNA 12+ YRS VACCINE Unknown Completed [facility] SARS-COV-2 COVID-19 MODERNA 12+ YRS VACCINE Unknown Completed [facility] SARS-COV-2 COVID-19 MODERNA 12+ YRS VACCINE Unknown Completed [facility] Influenza Virus Vaccine Quad .5 mL IM 6+ MO (FLUZONE/FLULAVAL/F LUARIX) Unknown Completed [facility] SARS-COV-2 COVID-19 MODERNA 0.25ML BOOSTER VACCINE Unknown Completed [facility] Pneumococcal Polysaccharide, PPSV23 (PNEUMOVAX) Unknown Completed [facility] SARS-COV-2 COVID-19 MODERNA 0.25ML BOOSTER VACCINE Unknown Completed [facility] Influenza Virus Vaccine Quad IM, Preserv and ABX Free 6 MO-64 YRS (FLUCELVAX) Unknown Completed [facility] Influenza Virus Vaccine Unknown Completed [facility] SARS-COV-2 COVID-19 MODERNA 12+ YRS VACCINE Unknown Completed [facility] SARS-COV-2 COVID-19 MODERNA 12+ YRS VACCINE Unknown Completed [facility] SARS-COV-2 COVID-19 MODERNA 12+ YRS VACCINE Unknown Completed [facility] Influenza Virus Vaccine Quad .5 mL IM 6+ MO (FLUZONE/FLULAVAL/F LUARIX) Unknown Completed [facility] SARS-COV-2 COVID-19 MODERNA 0.25ML BOOSTER VACCINE Unknown Completed [facility] Pneumococcal Polysaccharide, PPSV23 (PNEUMOVAX) Unknown Completed [facility] SARS-COV-2 COVID-19 MODERNA 0.25ML BOOSTER VACCINE Unknown Completed [facility] Influenza Virus Vaccine Quad IM, Preserv and ABX Free 6 MO-64 YRS (FLUCELVAX) Unknown Completed [facility] Influenza Virus Vaccine Unknown Completed [facility] SARS-COV-2 COVID-19 MODERNA 12+ YRS VACCINE Unknown Completed [facility] SARS-COV-2 COVID-19 MODERNA 12+ YRS VACCINE Unknown Completed [facility] SARS-COV-2 COVID-19 MODERNA 12+ YRS VACCINE Unknown Completed [facility] Influenza Virus Vaccine Quad .5 mL IM 6+ MO (FLUZONE/FLULAVAL/F LUARIX) Unknown Completed [facility] SARS-COV-2 COVID-19 MODERNA 0.25ML BOOSTER VACCINE Unknown Completed [facility] Pneumococcal Polysaccharide, PPSV23 (PNEUMOVAX) Unknown Completed [facility] SARS-COV-2 COVID-19 MODERNA 0.25ML BOOSTER VACCINE Unknown Completed [facility] Influenza Virus Vaccine Quad IM, Preserv and ABX Free 6 MO-64 YRS (FLUCELVAX) Unknown Completed [facility] Influenza Virus Vaccine Unknown Completed [facility] SARS-COV-2 COVID-19 MODERNA 12+ YRS VACCINE Unknown Completed [facility] SARS-COV-2 COVID-19 MODERNA 12+ YRS VACCINE Unknown Completed [facility] SARS-COV-2 COVID-19 MODERNA 12+ YRS VACCINE Unknown Completed [facility] Influenza Virus Vaccine Quad .5 mL IM 6+ MO (FLUZONE/FLULAVAL/F LUARIX) Unknown Completed [facility] SARS-COV-2 COVID-19 MODERNA 0.25ML BOOSTER VACCINE Unknown Completed [facility] Pneumococcal Polysaccharide, PPSV23 (PNEUMOVAX) Unknown Completed [facility] SARS-COV-2 COVID-19 MODERNA 0.25ML BOOSTER VACCINE Unknown Completed [facility] Influenza Virus Vaccine Quad IM, Preserv and ABX Free 6 MO-64 YRS (FLUCELVAX) Unknown Completed [facility] Influenza Virus Vaccine Unknown Completed [facility] SARS-COV-2 COVID-19 MODERNA 12+ YRS VACCINE Unknown Completed [facility] SARS-COV-2 COVID-19 MODERNA 12+ YRS VACCINE Unknown Completed [facility] SARS-COV-2 COVID-19 MODERNA 12+ YRS VACCINE Unknown Completed [facility] Influenza Virus Vaccine Quad .5 mL IM 6+ MO (FLUZONE/FLULAVAL/F LUARIX) Unknown Completed [facility] SARS-COV-2 COVID-19 MODERNA 0.25ML BOOSTER VACCINE Unknown Completed [facility] Pneumococcal Polysaccharide, PPSV23 (PNEUMOVAX) Unknown Completed [facility] SARS-COV-2 COVID-19 MODERNA 0.25ML BOOSTER VACCINE Unknown Completed [facility] Influenza Virus Vaccine Quad IM, Preserv and ABX Free 6 MO-64 YRS (FLUCELVAX) Unknown Completed [facility] Influenza Virus Vaccine Unknown Completed [facility] SARS-COV-2 COVID-19 MODERNA 12+ YRS VACCINE Unknown Completed [facility] SARS-COV-2 COVID-19 MODERNA 12+ YRS VACCINE Unknown Completed [facility] SARS-COV-2 COVID-19 MODERNA 12+ YRS VACCINE Unknown Completed [facility] Influenza Virus Vaccine Quad .5 mL IM 6+ MO (FLUZONE/FLULAVAL/F LUARIX) Unknown Completed [facility] SARS-COV-2 COVID-19 MODERNA 0.25ML BOOSTER VACCINE Unknown Completed [facility] Pneumococcal Polysaccharide, PPSV23 (PNEUMOVAX) Unknown Completed [facility] SARS-COV-2 COVID-19 MODERNA 0.25ML BOOSTER VACCINE Unknown Completed [facility] Influenza Virus Vaccine Quad IM, Preserv and ABX Free 6 MO-64 YRS (FLUCELVAX) Unknown Completed [facility] Influenza Virus Vaccine Unknown Completed [facility] SARS-COV-2 COVID-19 MODERNA 12+ YRS VACCINE Unknown Completed [facility] SARS-COV-2 COVID-19 MODERNA 12+ YRS VACCINE Unknown Completed [facility] SARS-COV-2 COVID-19 MODERNA 12+ YRS VACCINE Unknown Completed [facility] Influenza Virus Vaccine Quad .5 mL IM 6+ MO (FLUZONE/FLULAVAL/F LUARIX) Unknown Completed [facility] SARS-COV-2 COVID-19 MODERNA 0.25ML BOOSTER VACCINE Unknown Completed [facility] Pneumococcal Polysaccharide, PPSV23 (PNEUMOVAX) Unknown Completed [facility] SARS-COV-2 COVID-19 MODERNA 0.25ML BOOSTER VACCINE Unknown Completed [facility] Influenza Virus Vaccine Quad IM, Preserv and ABX Free 6 MO-64 YRS (FLUCELVAX) Unknown Completed [facility] Influenza Virus Vaccine Unknown Completed [facility] SARS-COV-2 COVID-19 MODERNA 12+ YRS VACCINE Unknown Completed [facility] SARS-COV-2 COVID-19 MODERNA 12+ YRS VACCINE Unknown Completed [facility] SARS-COV-2 COVID-19 MODERNA 12+ YRS VACCINE Unknown Completed [facility] Influenza Virus Vaccine Quad .5 mL IM 6+ MO (FLUZONE/FLULAVAL/F LUARIX) Unknown Completed [facility] SARS-COV-2 COVID-19 MODERNA 0.25ML BOOSTER VACCINE Unknown Completed [facility] Pneumococcal Polysaccharide, PPSV23 (PNEUMOVAX) Unknown Completed [facility] SARS-COV-2 COVID-19 MODERNA 0.25ML BOOSTER VACCINE Unknown Completed [facility] Influenza Virus Vaccine Quad IM, Preserv and ABX Free 6 MO-64 YRS (FLUCELVAX) Unknown Completed [facility] Influenza Virus Vaccine Unknown Completed [facility] SARS-COV-2 COVID-19 MODERNA 12+ YRS VACCINE Unknown Completed [facility] SARS-COV-2 COVID-19 MODERNA 12+ YRS VACCINE Unknown Completed [facility] SARS-COV-2 COVID-19 MODERNA 12+ YRS VACCINE Unknown Completed [facility] Influenza Virus Vaccine Quad .5 mL IM 6+ MO (FLUZONE/FLULAVAL/F LUARIX) Unknown Completed [facility] SARS-COV-2 COVID-19 MODERNA 0.25ML BOOSTER VACCINE Unknown Completed [facility] Pneumococcal Polysaccharide, PPSV23 (PNEUMOVAX) Unknown Completed [facility] SARS-COV-2 COVID-19 MODERNA 0.25ML BOOSTER VACCINE Unknown Completed [facility] Influenza Virus Vaccine Quad IM, Preserv and ABX Free 6 MO-64 YRS (FLUCELVAX) Unknown Completed [facility] Influenza Virus Vaccine Unknown Completed [facility] SARS-COV-2 COVID-19 MODERNA 12+ YRS VACCINE Unknown Completed [facility] SARS-COV-2 COVID-19 MODERNA 12+ YRS VACCINE Unknown Completed [facility] SARS-COV-2 COVID-19 MODERNA 12+ YRS VACCINE Unknown Completed [facility] Influenza Virus Vaccine Quad .5 mL IM 6+ MO (FLUZONE/FLULAVAL/F LUARIX) Unknown Completed [facility] SARS-COV-2 COVID-19 MODERNA 0.25ML BOOSTER VACCINE Unknown Completed [facility] Pneumococcal Polysaccharide, PPSV23 (PNEUMOVAX) Unknown Completed [facility] SARS-COV-2 COVID-19 MODERNA 0.25ML BOOSTER VACCINE Unknown Completed [facility] Influenza Virus Vaccine Quad IM, Preserv and ABX Free 6 MO-64 YRS (FLUCELVAX) Unknown Completed [facility] Influenza Virus Vaccine Unknown Completed [facility] SARS-COV-2 COVID-19 MODERNA 12+ YRS VACCINE Unknown Completed [facility] SARS-COV-2 COVID-19 MODERNA 12+ YRS VACCINE Unknown Completed [facility] SARS-COV-2 COVID-19 MODERNA 12+ YRS VACCINE Unknown Completed [facility] Influenza Virus Vaccine Quad .5 mL IM 6+ MO (FLUZONE/FLULAVAL/F LUARIX) Unknown Completed [facility] SARS-COV-2 COVID-19 MODERNA 0.25ML BOOSTER VACCINE Unknown Completed [facility] Pneumococcal Polysaccharide, PPSV23 (PNEUMOVAX) Unknown Completed [facility] SARS-COV-2 COVID-19 MODERNA 0.25ML BOOSTER VACCINE Unknown Completed [facility] Influenza Virus Vaccine Quad IM, Preserv and ABX Free 6 MO-64 YRS (FLUCELVAX) Unknown Completed [facility] Influenza Virus Vaccine Unknown Completed [facility] SARS-COV-2 COVID-19 MODERNA 12+ YRS VACCINE Unknown Completed [facility] SARS-COV-2 COVID-19 MODERNA 12+ YRS VACCINE Unknown Completed [facility] SARS-COV-2 COVID-19 MODERNA 12+ YRS VACCINE Unknown Completed [facility] Influenza Virus Vaccine Quad .5 mL IM 6+ MO (FLUZONE/FLULAVAL/F LUARIX) Unknown Completed [facility] SARS-COV-2 COVID-19 MODERNA 0.25ML BOOSTER VACCINE Unknown Completed [facility] Pneumococcal Polysaccharide, PPSV23 (PNEUMOVAX) Unknown Completed [facility] SARS-COV-2 COVID-19 MODERNA 0.25ML BOOSTER VACCINE Unknown Completed [facility] Influenza Virus Vaccine Quad IM, Preserv and ABX Free 6 MO-64 YRS (FLUCELVAX) Unknown Completed [facility] Influenza Virus Vaccine Unknown Completed [facility] SARS-COV-2 COVID-19 MODERNA 12+ YRS VACCINE Unknown Completed [facility] SARS-COV-2 COVID-19 MODERNA 12+ YRS VACCINE Unknown Completed [facility] SARS-COV-2 COVID-19 MODERNA 12+ YRS VACCINE Unknown Completed [facility] Influenza Virus Vaccine Quad .5 mL IM 6+ MO (FLUZONE/FLULAVAL/F LUARIX) Unknown Completed [facility] SARS-COV-2 COVID-19 MODERNA 0.25ML BOOSTER VACCINE Unknown Completed [facility] Pneumococcal Polysaccharide, PPSV23 (PNEUMOVAX) Unknown Completed [facility] SARS-COV-2 COVID-19 MODERNA 0.25ML BOOSTER VACCINE Unknown Completed [facility] Influenza Virus Vaccine Quad IM, Preserv and ABX Free 6 MO-64 YRS (FLUCELVAX) Unknown Completed [facility] Influenza Virus Vaccine Unknown Completed [facility] SARS-COV-2 COVID-19 MODERNA 12+ YRS VACCINE Unknown Completed [facility] SARS-COV-2 COVID-19 MODERNA 12+ YRS VACCINE Unknown Completed [facility] SARS-COV-2 COVID-19 MODERNA 12+ YRS VACCINE Unknown Completed [facility] Influenza Virus Vaccine Quad .5 mL IM 6+ MO (FLUZONE/FLULAVAL/F LUARIX) Unknown Completed [facility] SARS-COV-2 COVID-19 MODERNA 0.25ML BOOSTER VACCINE Unknown Completed [facility] Pneumococcal Polysaccharide, PPSV23 (PNEUMOVAX) Unknown Completed [facility] SARS-COV-2 COVID-19 MODERNA 0.25ML BOOSTER VACCINE Unknown Completed [facility] Influenza Virus Vaccine Quad IM, Preserv and ABX Free 6 MO-64 YRS (FLUCELVAX) Unknown Completed [facility] Influenza Virus Vaccine Unknown Completed [facility] SARS-COV-2 COVID-19 MODERNA 12+ YRS VACCINE Unknown Completed [facility] SARS-COV-2 COVID-19 MODERNA 12+ YRS VACCINE Unknown Completed [facility] SARS-COV-2 COVID-19 MODERNA 12+ YRS VACCINE Unknown Completed [facility] Influenza Virus Vaccine Quad .5 mL IM 6+ MO (FLUZONE/FLULAVAL/F LUARIX) Unknown Completed [facility] SARS-COV-2 COVID-19 MODERNA 0.25ML BOOSTER VACCINE Unknown Completed [facility] Pneumococcal Polysaccharide, PPSV23 (PNEUMOVAX) Unknown Completed [facility] SARS-COV-2 COVID-19 MODERNA 0.25ML BOOSTER VACCINE Unknown Completed [facility] Influenza Virus Vaccine Quad IM, Preserv and ABX Free 6 MO-64 YRS (FLUCELVAX) Unknown Completed [facility] Influenza Virus Vaccine Unknown Completed [facility] SARS-COV-2 COVID-19 MODERNA 12+ YRS VACCINE Unknown Completed [facility] SARS-COV-2 COVID-19 MODERNA 12+ YRS VACCINE Unknown Completed [facility] SARS-COV-2 COVID-19 MODERNA 12+ YRS VACCINE Unknown Completed [facility] Influenza Virus Vaccine Quad .5 mL IM 6+ MO (FLUZONE/FLULAVAL/F LUARIX) Unknown Completed [facility] SARS-COV-2 COVID-19 MODERNA 0.25ML BOOSTER VACCINE Unknown Completed [facility] Pneumococcal Polysaccharide, PPSV23 (PNEUMOVAX) Unknown Completed [facility] SARS-COV-2 COVID-19 MODERNA 0.25ML BOOSTER VACCINE Unknown Completed [facility] Influenza Virus Vaccine Quad IM, Preserv and ABX Free 6 MO-64 YRS (FLUCELVAX) Unknown Completed [facility] Influenza Virus Vaccine Unknown Completed [facility] SARS-COV-2 COVID-19 MODERNA 12+ YRS VACCINE Unknown Completed [facility] SARS-COV-2 COVID-19 MODERNA 12+ YRS VACCINE Unknown Completed [facility] SARS-COV-2 COVID-19 MODERNA 12+ YRS VACCINE Unknown Completed [facility] Influenza Virus Vaccine Quad .5 mL IM 6+ MO (FLUZONE/FLULAVAL/F LUARIX) Unknown Completed [facility] SARS-COV-2 COVID-19 MODERNA 0.25ML BOOSTER VACCINE Unknown Completed [facility] Pneumococcal Polysaccharide, PPSV23 (PNEUMOVAX) Unknown Completed [facility] SARS-COV-2 COVID-19 MODERNA 0.25ML BOOSTER VACCINE Unknown Completed [facility] Influenza Virus Vaccine Quad IM, Preserv and ABX Free 6 MO-64 YRS (FLUCELVAX) Unknown Completed [facility] Influenza Virus Vaccine Unknown Completed [facility] SARS-COV-2 COVID-19 MODERNA 12+ YRS VACCINE Unknown Completed [facility] SARS-COV-2 COVID-19 MODERNA 12+ YRS VACCINE Unknown Completed [facility] SARS-COV-2 COVID-19 MODERNA 12+ YRS VACCINE Unknown Completed [facility] Influenza Virus Vaccine Quad .5 mL IM 6+ MO (FLUZONE/FLULAVAL/F LUARIX) Unknown Completed [facility] SARS-COV-2 COVID-19 MODERNA 0.25ML BOOSTER VACCINE Unknown Completed [facility] Pneumococcal Polysaccharide, PPSV23 (PNEUMOVAX) Unknown Completed [facility] SARS-COV-2 COVID-19 MODERNA 0.25ML BOOSTER VACCINE Unknown Completed [facility] Influenza Virus Vaccine Quad IM, Preserv and ABX Free 6 MO-64 YRS (FLUCELVAX) Unknown Completed [facility] Influenza Virus Vaccine Unknown Completed [facility] SARS-COV-2 COVID-19 MODERNA 12+ YRS VACCINE Unknown Completed [facility] SARS-COV-2 COVID-19 MODERNA 12+ YRS VACCINE Unknown Completed [facility] SARS-COV-2 COVID-19 MODERNA 12+ YRS VACCINE Unknown Completed [facility] Influenza Virus Vaccine Quad .5 mL IM 6+ MO (FLUZONE/FLULAVAL/F LUARIX) Unknown Completed [facility] SARS-COV-2 COVID-19 MODERNA 0.25ML BOOSTER VACCINE Unknown Completed [facility] Pneumococcal Polysaccharide, PPSV23 (PNEUMOVAX) Unknown Completed [facility] SARS-COV-2 COVID-19 MODERNA 0.25ML BOOSTER VACCINE Unknown Completed [facility] Influenza Virus Vaccine Quad IM, Preserv and ABX Free 6 MO-64 YRS (FLUCELVAX) Unknown Completed [facility] Influenza Virus Vaccine Unknown Completed [facility] SARS-COV-2 COVID-19 MODERNA 12+ YRS VACCINE Unknown Completed [facility] SARS-COV-2 COVID-19 MODERNA 12+ YRS VACCINE Unknown Completed [facility] SARS-COV-2 COVID-19 MODERNA 12+ YRS VACCINE Unknown Completed [facility] Influenza Virus Vaccine Quad .5 mL IM 6+ MO (FLUZONE/FLULAVAL/F LUARIX) Unknown Completed [facility] SARS-COV-2 COVID-19 MODERNA 0.25ML BOOSTER VACCINE Unknown Completed [facility] Pneumococcal Polysaccharide, PPSV23 (PNEUMOVAX) Unknown Completed [facility] SARS-COV-2 COVID-19 MODERNA 0.25ML BOOSTER VACCINE Unknown Completed [facility] Influenza Virus Vaccine Quad IM, Preserv and ABX Free 6 MO-64 YRS (FLUCELVAX) Unknown Completed [facility] Influenza Virus Vaccine Unknown Completed [facility] SARS-COV-2 COVID-19 MODERNA 12+ YRS VACCINE Unknown Completed [facility] SARS-COV-2 COVID-19 MODERNA 12+ YRS VACCINE Unknown Completed [facility] SARS-COV-2 COVID-19 MODERNA 12+ YRS VACCINE Unknown Completed [facility] Influenza Virus Vaccine Quad .5 mL IM 6+ MO (FLUZONE/FLULAVAL/F LUARIX) Unknown Completed [facility] SARS-COV-2 COVID-19 MODERNA 0.25ML BOOSTER VACCINE Unknown Completed [facility] Pneumococcal Polysaccharide, PPSV23 (PNEUMOVAX) Unknown Completed [facility] SARS-COV-2 COVID-19 MODERNA 0.25ML BOOSTER VACCINE Unknown Completed [facility] Influenza Virus Vaccine Quad IM, Preserv and ABX Free 6 MO-64 YRS (FLUCELVAX) Unknown Completed [facility] Influenza Virus Vaccine Unknown Completed [facility] SARS-COV-2 COVID-19 MODERNA 12+ YRS VACCINE Unknown Completed [facility] SARS-COV-2 COVID-19 MODERNA 12+ YRS VACCINE Unknown Completed [facility] SARS-COV-2 COVID-19 MODERNA 12+ YRS VACCINE Unknown Completed [facility] Influenza Virus Vaccine Quad .5 mL IM 6+ MO (FLUZONE/FLULAVAL/F LUARIX) Unknown Completed [facility] SARS-COV-2 COVID-19 MODERNA 0.25ML BOOSTER VACCINE Unknown Completed [facility] Pneumococcal Polysaccharide, PPSV23 (PNEUMOVAX) Unknown Completed [facility] SARS-COV-2 COVID-19 MODERNA 0.25ML BOOSTER VACCINE Unknown Completed [facility] Influenza Virus Vaccine Quad IM, Preserv and ABX Free 6 MO-64 YRS (FLUCELVAX) Unknown Completed [facility] Influenza Virus Vaccine Unknown Completed [facility] SARS-COV-2 COVID-19 MODERNA 12+ YRS VACCINE Unknown Completed [facility] SARS-COV-2 COVID-19 MODERNA 12+ YRS VACCINE Unknown Completed [facility] SARS-COV-2 COVID-19 MODERNA 12+ YRS VACCINE Unknown Completed [facility] Influenza Virus Vaccine Quad .5 mL IM 6+ MO (FLUZONE/FLULAVAL/F LUARIX) Unknown Completed [facility] SARS-COV-2 COVID-19 MODERNA 0.25ML BOOSTER VACCINE Unknown Completed [facility] Pneumococcal Polysaccharide, PPSV23 (PNEUMOVAX) Unknown Completed [facility] SARS-COV-2 COVID-19 MODERNA 0.25ML BOOSTER VACCINE Unknown Completed [facility] Influenza Virus Vaccine Quad IM, Preserv and ABX Free 6 MO-64 YRS (FLUCELVAX) Unknown Completed [facility] Influenza Virus Vaccine Unknown Completed [facility] SARS-COV-2 COVID-19 MODERNA 12+ YRS VACCINE Unknown Completed [facility] Vital Signs Vital Name Observation Time Observation Value Comments S ource Systolic blood pressure 2023-12-23 15:08:00 110 mm[Hg] [facility] Diastolic blood pressure 2023-12-23 15:08:00 61 mm[Hg] [facility] Heart rate 2023-12-23 15:08:00 88 /min [facility] Body weight 2023-12-23 15:08:00 92.08 kg [facility] BMI 2023-12-23 15:08:00 29.13 kg/m2 [facility] Systolic blood pressure 2023-12-16 17:57:00 123 mm[Hg] [facility] Diastolic blood pressure 2023-12-16 17:57:00 65 mm[Hg] [facility] Heart rate 2023-12-16 17:57:00 77 /min [facility] Body temperature 2023-12-16 17:57:00 36.44 Laura [facility] Respiratory rate 2023-12-16 17:57:00 20 /min [facility] Body height 2023-12-16 17:57:00 177.8 cm [facility] Body weight 2023-12-16 17:57:00 94.212 kg [facility] BMI 2023-12-16 17:57:00 29.80 kg/m2 [facility] Oxygen saturation in Arterial blood by Pulse oximetry 2023-12-16 17:57:00 96 /min [facility] Heart rate 2023-12-09 22:30:00 73 /min [facility] Respiratory rate 2023-12-09 22:30:00 12 /min [facility] Oxygen saturation in Arterial blood by Pulse oximetry 2023-12-09 22:30:00 96 /min [facility] Systolic blood pressure 2023-12-09 22:15:00 136 mm[Hg] [facility] Diastolic blood pressure 2023-12-09 22:15:00 80 mm[Hg] [facility] Body temperature 2023-12-09 21:45:00 36 Laura [facility] Body height 2023-12-09 16:30:00 177.8 cm [facility] Body weight 2023-12-09 16:30:00 93.4 kg [facility] BMI 2023-12-09 16:30:00 29.54 kg/m2 [facility] Systolic blood pressure 2023-12-09 16:30:00 138 mm[Hg] [facility] Diastolic blood pressure 2023-12-09 16:30:00 70 mm[Hg] [facility] Heart rate 2023-12-09 16:30:00 69 /min [facility] Body temperature 2023-12-09 16:30:00 36.17 Laura [facility] Respiratory rate 2023-12-09 16:30:00 17 /min [facility] Body height 2023-12-09 16:30:00 177.8 cm [facility] Body weight 2023-12-09 16:30:00 93.4 kg [facility] BMI 2023-12-09 16:30:00 29.54 kg/m2 [facility] Oxygen saturation in Arterial blood by Pulse oximetry 2023-12-09 16:30:00 98 /min [facility] Systolic blood pressure 2023-11-30 14:16:00 144 mm[Hg] [facility] Diastolic blood pressure 2023-11-30 14:16:00 84 mm[Hg] [facility] Heart rate 2023-11-30 14:14:00 76 /min [facility] Respiratory rate 2023-11-30 14:14:00 18 /min [facility] Body height 2023-11-30 14:14:00 177.8 cm [facility] Body weight 2023-11-30 14:14:00 99.338 kg [facility] BMI 2023-11-30 14:14:00 31.42 kg/m2 [facility] Oxygen saturation in Arterial blood by Pulse oximetry 2023-11-30 14:14:00 94 /min [facility] Systolic blood pressure 2023-11-24 21:46:00 127 mm[Hg] [facility] Diastolic blood pressure 2023-11-24 21:46:00 83 mm[Hg] [facility] Heart rate 2023-11-24 21:46:00 67 /min [facility] Body temperature 2023-11-24 21:46:00 36.28 Laura [facility] Body height 2023-11-24 21:46:00 177.8 cm [facility] Body weight 2023-11-24 21:46:00 99.338 kg [facility] BMI 2023-11-24 21:46:00 31.42 kg/m2 [facility] Systolic blood pressure 2023-11-20 20:00:00 129 mm[Hg] [facility] Diastolic blood pressure 2023-11-20 20:00:00 81 mm[Hg] [facility] Heart rate 2023-11-20 20:00:00 75 /min [facility] Respiratory rate 2023-11-20 20:00:00 15 /min [facility] Oxygen saturation in Arterial blood by Pulse oximetry 2023-11-20 20:00:00 96 /min [facility] Body temperature 2023-11-20 16:47:00 36.5 Laura [facility] Body height 2023-11-20 16:47:00 177.8 cm [facility] Body weight 2023-11-20 16:47:00 99.791 kg [facility] BMI 2023-11-20 16:47:00 31.57 kg/m2 [facility] Systolic blood pressure 2023-10-23 16:36:00 157 mm[Hg] [facility] Diastolic blood pressure 2023-10-23 16:36:00 94 mm[Hg] [facility] Heart rate 2023-10-23 16:36:00 69 /min [facility] Oxygen saturation in Arterial blood by Pulse oximetry 2023-10-23 16:36:00 96 /min [facility] Respiratory rate 2023-10-23 16:34:00 20 /min [facility] Body height 2023-10-23 16:34:00 177.8 cm [facility] Body weight 2023-10-23 16:34:00 103.103 kg [facility] BMI 2023-10-23 16:34:00 32.61 kg/m2 [facility] Systolic blood pressure 2023-10-22 19:25:00 152 mm[Hg] [facility] Diastolic blood pressure 2023-10-22 19:25:00 91 mm[Hg] [facility] Heart rate 2023-10-22 19:23:00 63 /min [facility] Body temperature 2023-10-22 19:23:00 36.39 Laura [facility] Body height 2023-10-22 19:23:00 177.8 cm [facility] Body weight 2023-10-22 19:23:00 102.967 kg [facility] BMI 2023-10-22 19:23:00 32.57 kg/m2 [facility] Systolic blood pressure 2023-10-18 23:00:00 170 mm[Hg] [facility] Diastolic blood pressure 2023-10-18 23:00:00 105 mm[Hg] [facility] Heart rate 2023-10-18 23:00:00 72 /min [facility] Respiratory rate 2023-10-18 23:00:00 11 /min [facility] Oxygen saturation in Arterial blood by Pulse oximetry 2023-10-18 23:00:00 98 /min [facility] Body temperature 2023-10-18 18:59:37 36.72 Laura [facility] Body height 2023-10-18 17:45:00 177.8 cm [facility] Body weight 2023-10-18 17:45:00 102.059 kg [facility] BMI 2023-10-18 17:45:00 32.28 kg/m2 [facility] Systolic blood pressure 2023-09-15 15:13:00 153 mm[Hg] [facility] Diastolic blood pressure 2023-09-15 15:13:00 89 mm[Hg] [facility] Heart rate 2023-09-15 15:12:00 73 /min [facility] Body temperature 2023-09-15 15:12:00 36.94 Laura [facility] Body height 2023-09-15 15:12:00 177.8 cm [facility] Body weight 2023-09-15 15:12:00 102.967 kg [facility] BMI 2023-09-15 15:12:00 32.57 kg/m2 [facility] Systolic blood pressure 2023-09-07 19:30:00 127 mm[Hg] [facility] Diastolic blood pressure 2023-09-07 19:30:00 81 mm[Hg] [facility] Heart rate 2023-09-07 19:30:00 72 /min [facility] Respiratory rate 2023-09-07 19:30:00 16 /min [facility] Body height 2023-09-07 19:30:00 177.8 cm [facility] Body weight 2023-09-07 19:30:00 101.47 kg [facility] BMI 2023-09-07 19:30:00 32.10 kg/m2 [facility] Oxygen saturation in Arterial blood by Pulse oximetry 2023-09-07 19:30:00 97 /min [facility] Systolic blood pressure 2023-07-27 20:32:00 152 mm[Hg] [facility] Diastolic blood pressure 2023-07-27 20:32:00 94 mm[Hg] [facility] Heart rate 2023-07-27 20:32:00 70 /min [facility] Body height 2023-07-27 20:32:00 177.8 cm [facility] Body weight 2023-07-27 20:32:00 101.47 kg [facility] BMI 2023-07-27 20:32:00 32.10 kg/m2 [facility] Oxygen saturation in Arterial blood by Pulse oximetry 2023-07-27 20:32:00 95 /min [facility] Systolic blood pressure 2023-07-22 16:28:00 145 mm[Hg] [facility] Diastolic blood pressure 2023-07-22 16:28:00 91 mm[Hg] [facility] Heart rate 2023-07-22 16:27:00 83 /min [facility] Body temperature 2023-07-22 16:27:00 36.61 Laura [facility] Body height 2023-07-22 16:27:00 177.8 cm [facility] Body weight 2023-07-22 16:27:00 103.42 kg [facility] BMI 2023-07-22 16:27:00 32.71 kg/m2 [facility] Systolic blood pressure 2023-06-15 18:58:00 125 mm[Hg] [facility] Diastolic blood pressure 2023-06-15 18:58:00 84 mm[Hg] [facility] Heart rate 2023-06-15 18:58:00 79 /min [facility] Body height 2023-06-15 18:58:00 177.8 cm [facility] Body weight 2023-06-15 18:58:00 99.837 kg [facility] BMI 2023-06-15 18:58:00 31.58 kg/m2 [facility] Oxygen saturation in Arterial blood by Pulse oximetry 2023-06-15 18:58:00 95 /min [facility] Systolic blood pressure 2023-05-15 14:18:00 178 mm[Hg] [facility] Diastolic blood pressure 2023-05-15 14:18:00 101 mm[Hg] [facility] Heart rate 2023-05-15 14:18:00 92 /min [facility] Body temperature 2023-05-15 14:18:00 36.72 Laura [facility] Respiratory rate 2023-05-15 14:18:00 16 /min [facility] Body height 2023-05-15 14:18:00 177.8 cm [facility] Body weight 2023-05-15 14:18:00 99.791 kg [facility] BMI 2023-05-15 14:18:00 31.57 kg/m2 [facility] Oxygen saturation in Arterial blood by Pulse oximetry 2023-05-15 14:18:00 97 /min [facility] Body height 2023-05-14 16:10:00 177.8 cm [facility] Systolic blood pressure 2023-04-21 14:53:00 135 mm[Hg] [facility] Diastolic blood pressure 2023-04-21 14:53:00 86 mm[Hg] [facility] Heart rate 2023-04-21 14:53:00 68 /min [facility] Body temperature 2023-04-21 14:53:00 36.78 Laura [facility] Body height 2023-04-21 14:53:00 177.8 cm [facility] Body weight 2023-04-21 14:53:00 99.338 kg [facility] BMI 2023-04-21 14:53:00 31.42 kg/m2 [facility] Oxygen saturation in Arterial blood by Pulse oximetry 2023-04-21 14:53:00 97 /min [facility] Systolic blood pressure 2023-04-07 13:48:00 122 mm[Hg] [facility] Diastolic blood pressure 2023-04-07 13:48:00 73 mm[Hg] [facility] Heart rate 2023-04-07 13:48:00 61 /min [facility] Body temperature 2023-04-07 13:48:00 35.94 Laura [facility] Respiratory rate 2023-04-07 13:48:00 18 /min [facility] Body height 2023-04-07 13:48:00 177.8 cm [facility] Body weight 2023-04-07 13:48:00 99.973 kg [facility] BMI 2023-04-07 13:48:00 31.62 kg/m2 [facility] Oxygen saturation in Arterial blood by Pulse oximetry 2023-04-07 13:48:00 98 /min [facility] Systolic blood pressure 2023-04-04 16:23:00 99 mm[Hg] [facility] Diastolic blood pressure 2023-04-04 16:23:00 71 mm[Hg] [facility] Heart rate 2023-04-04 16:23:00 87 /min [facility] Body temperature 2023-04-04 16:23:00 36.33 Laura [facility] Respiratory rate 2023-04-04 16:23:00 18 /min [facility] Oxygen saturation in Arterial blood by Pulse oximetry 2023-04-04 16:23:00 97 /min [facility] Body weight 2023-04-04 09:17:00 97.977 kg [facility] BMI 2023-04-04 09:17:00 30.99 kg/m2 [facility] Body height 2023-04-03 21:52:00 177.8 cm [facility] Systolic blood pressure 2023-04-03 15:51:22 100 mm[Hg] [facility] Diastolic blood pressure 2023-04-03 15:51:22 65 mm[Hg] [facility] Respiratory rate 2023-04-03 15:51:22 25 /min [facility] Oxygen saturation in Arterial blood by Pulse oximetry 2023-04-03 15:51:22 97 /min [facility] Heart rate 2023-04-03 15:16:15 77 /min [facility] Body weight 2023-04-03 12:01:00 99.791 kg [facility] BMI 2023-04-03 12:01:00 30.99 kg/m2 [facility] Systolic blood pressure 2023-03-12 19:48:00 119 mm[Hg] [facility] Diastolic blood pressure 2023-03-12 19:48:00 78 mm[Hg] [facility] Heart rate 2023-03-12 19:48:00 78 /min [facility] Respiratory rate 2023-03-12 19:48:00 20 /min [facility] Body height 2023-03-12 19:48:00 177.8 cm [facility] Body weight 2023-03-12 19:48:00 100.426 kg [facility] BMI 2023-03-12 19:48:00 31.77 kg/m2 [facility] Oxygen saturation in Arterial blood by Pulse oximetry 2023-03-12 19:48:00 95 /min [facility] Systolic blood pressure 2022-12-25 15:13:00 123 mm[Hg] [facility] Diastolic blood pressure 2022-12-25 15:13:00 72 mm[Hg] [facility] Heart rate 2022-12-25 15:13:00 59 /min [facility] Respiratory rate 2022-12-25 15:13:00 19 /min [facility] Body height 2022-12-25 15:13:00 177.8 cm [facility] Body weight 2022-12-25 15:13:00 99.111 kg [facility] BMI 2022-12-25 15:13:00 31.35 kg/m2 [facility] Oxygen saturation in Arterial blood by Pulse oximetry 2022-12-25 15:13:00 96 /min [facility] Systolic blood pressure 2022-11-19 19:18:00 159 mm[Hg] Standing Orthostatic vS. [facility] Diastolic blood pressure 2022-11-19 19:18:00 98 mm[Hg] Standing Orthostatic vS. [facility] Heart rate 2022-11-19 19:18:00 102 /min [facility] Respiratory rate 2022-11-19 19:18:00 19 /min [facility] Oxygen saturation in Arterial blood by Pulse oximetry 2022-11-19 19:18:00 96 /min [facility] Body height 2022-11-19 14:00:12 177.8 cm [facility] Body weight 2022-11-19 14:00:12 99.8 kg [facility] BMI 2022-11-19 14:00:12 31.57 kg/m2 [facility] Body temperature 2022-11-19 12:49:00 36.56 Laura [facility] Systolic blood pressure 2022-11-19 14:04:36 147 mm[Hg] [facility] Diastolic blood pressure 2022-11-19 14:04:36 94 mm[Hg] [facility] Respiratory rate 2022-11-19 14:04:36 15 /min [facility] Oxygen saturation in Arterial blood by Pulse oximetry 2022-11-19 14:04:36 96 /min [facility] [facility] Body height 2022-11-19 14:00:12 177.8 cm [facility] Body weight 2022-11-19 14:00:12 99.8 kg [facility] BMI 2022-11-19 14:00:12 31.57 kg/m2 [facility] Body temperature 2022-11-19 12:49:00 36.56 Laura [facility] Systolic blood pressure 2022-10-27 18:50:00 123 mm[Hg] [facility] Diastolic blood pressure 2022-10-27 18:50:00 73 mm[Hg] [facility] Heart rate 2022-10-27 18:50:00 64 /min [facility] Body temperature 2022-10-27 18:50:00 36.44 Laura [facility] Respiratory rate 2022-10-27 18:50:00 18 /min [facility] Body height 2022-10-27 18:50:00 177.8 cm [facility] Body weight 2022-10-27 18:50:00 99.247 kg [facility] BMI 2022-10-27 18:50:00 31.39 kg/m2 [facility] Oxygen saturation in Arterial blood by Pulse oximetry 2022-10-27 18:50:00 97 /min [facility] Systolic blood pressure 2022-10-16 14:26:00 132 mm[Hg] [facility] Diastolic blood pressure 2022-10-16 14:26:00 79 mm[Hg] [facility] Heart rate 2022-10-16 14:26:00 62 /min [facility] Body temperature 2022-10-16 14:26:00 36.72 Laura [facility] Respiratory rate 2022-10-16 14:26:00 18 /min [facility] Body height 2022-10-16 14:26:00 177.8 cm [facility] Body weight 2022-10-16 14:26:00 99.655 kg [facility] BMI 2022-10-16 14:26:00 31.52 kg/m2 [facility] Oxygen saturation in Arterial blood by Pulse oximetry 2022-10-16 14:26:00 97 /min [facility] Systolic blood pressure 2022-05-19 16:01:00 121 mm[Hg] [facility] Diastolic blood pressure 2022-05-19 16:01:00 76 mm[Hg] [facility] Heart rate 2022-05-19 16:01:00 60 /min [facility] Respiratory rate 2022-05-19 16:01:00 19 /min [facility] Body height 2022-05-19 16:01:00 177.8 cm [facility] Body weight 2022-05-19 16:01:00 98.431 kg [facility] BMI 2022-05-19 16:01:00 31.14 kg/m2 [facility] Oxygen saturation in Arterial blood by Pulse oximetry 2022-05-19 16:01:00 95 /min [facility] Body weight 2020-12-20 13:57:00 91.3 kg [facility] BMI 2020-12-20 13:57:00 28.88 kg/m2 [facility] Procedures Procedure Date / Time Performed Performing Clinician Source XR CHEST 1 VW 2023-12-09 22:25:07 Amy Rosas [facility] ENDOBRONCHIAL ULTRASOUND-TRANSBRONCHIAL FNA 2023-12-09 19:49:00 Radha Lopez [facility] TRANSTHORACIC LUNG BIOPSY 2023-12-09 19:49:00 Cedrick Lopez [facility] ASSIGNMENT OF BENEFITS 2023-12-09 16:19:43 Docto r Unassigned, [place] [facility] ASSIGNMENT OF BENEFITS 2023-12-09 16:19:43 Docto r Unassigned, [place] [facility] DAY SURGERY [facility] 2023-12-09 05:01:00 Doct or Unassigned, [place] [facility] CT THORAX WO CONTRAST 2023-12-02 14:26:48 Radha Lopez [facility] COMP. METABOLIC PANEL (14558) 2023-11-20 18:06:00 Aliyah Jaramillo [facility] CBC WITH DIFF 2023-11-20 18:06:00 Aliyah Jaramillo [facility] ASSIGNMENT OF BENEFITS 2023-11-20 17:30:57 Docto r Unassigned, [place] [facility] URINALYSIS 2023-11-20 17:18:00 Aliyah Jaraimllo [facility] CONSENT/REFUSAL FOR DIAGNOSIS AND TREATMENT 2023-11-20 16:46:52 Doctor Unassigned, [place] [facility] XR CHEST 2 VW 2023-11-05 15:54:36 Radha Lopez [facility] CONSENT/REFUSAL FOR DIAGNOSIS AND TREATMENT 2023-11-05 15:27:01 Doctor Unassigned, [place] [facility] CT THORAX W CONTRAST 2023-10-18 21:41:12 Amanda Lopez [facility] CT ABDOMEN PELVIS W CONTRAST 2023-10-18 21:36:25 Amanda Lopez [facility] LIPASE 2023-10-18 19:51:00 Amanda Lopez [facility] COMP. METABOLIC PANEL ([id number]) 2023-10-18 19:51:00 Amanda Lopez [facility] CBC WITH DIFF 2023-10-18 18:59:00 Amanda Lopez [facility] URINALYSIS 2023-10-18 18:59:00 Amanda Lopez [facility] CONSENT/REFUSAL FOR DIAGNOSIS AND TREATMENT 2023-10-18 17:44:39 Doctor Unassigned, [place] [facility] OUTPATIENT CARDIAC REHAB INTAKE 2023-09-24 06:01:00 Doctor Unassigned, [place] [facility] OUTPATIENT CARDIAC REHAB INTAKE 2023-09-23 06:01:00 Doctor Unassigned, [place] [facility] CARDIAC REHAB SESSION REPORT 2023-09-18 06:00:00 Doctor Unassigned, [place] [facility] CARDIAC REHAB SESSION REPORT 2023-09-16 06:00:00 Doctor Unassigned, [place] [facility] CARDIAC REHAB SESSION REPORT 2023-09-14 06:00:00 Doctor Unassigned, [place] [facility] CARDIAC REHAB SESSION REPORT 2023-09-11 06:00:00 Doctor Unassigned, [place] [facility] CARDIAC REHAB SESSION REPORT 2023-09-09 06:00:00 Doctor Unassigned, [place] [facility] CARDIAC REHAB SESSION REPORT 2023-09-02 06:00:00 Doctor Unassigned, [place] [facility] CARDIAC REHAB SESSION REPORT 2023-09-01 06:00:00 Doctor Unassigned, [place] [facility] INDIVIDUAL CARDIAC TREATMENT PLAN 2023-08-29 18:39:00 Doctor Unassigned, [place] [facility] CARDIAC REHAB SESSION REPORT 2023-08-28 06:00:00 Doctor Unassigned, [place] [facility] REFERRAL- REQUEST/RESPONSE 2023-08-26 06:01:00 Jim pablo Unassigned, [place] [facility] CARDIAC REHAB SESSION REPORT 2023-08-24 06:00:00 Doctor Unassigned, [place] [facility] CARDIAC REHAB SESSION REPORT 2023-08-19 06:00:00 Doctor Unassigned, [place] [facility] CARDIAC REHAB SESSION REPORT 2023-08-14 06:00:00 Doctor Unassigned, [place] [facility] INDIVIDUAL CARDIAC TREATMENT PLAN 2023-08-04 13:02:00 Doctor Unassigned, [place] [facility] XR CHEST 2 VW 2023-07-27 21:41:07 Elsa Corrales [facility] HB ECG ROUTINE & RHYTHM STRIP 2023-07-27 20:24:21 Elsa Corrales [facility] CARDIAC REHAB SESSION REPORT 2023-07-20 05:00:00 Doctor Unassigned, [place] [facility] INDIVIDUAL CARDIAC TREATMENT PLAN 2023-07-10 12:18:00 Doctor Unassigned, [place] [facility] CARDIAC REHAB SESSION REPORT 2023-06-29 05:00:00 Doctor Unassigned, [place] [facility] NOTICE OF BILLING PRACTICES FOR MEDICARE PATIENTS 2023-06-19 19:15:01 Doctor Unassigned, [place] [facility] CONSENT/REFUSAL FOR DIAGNOSIS AND TREATMENT 2023-06-11 05:01:00 Doctor Unassigned, [place] [facility] HB ECG ROUTINE & RHYTHM STRIP 2023-04-04 18:32:18 Ludy Mazariegos [facility] MAGNESIUM 2023-04-04 10:52:00 Deborah Martinez [facility] BASIC METABOLIC PANEL (NA, K, CL, CO2, GLUCOSE, BUN, CREATININE, CA) 2023-04-04 10:52:00 Deborah Martinez [facility] CBC WITH DIFF 2023-04-04 10:52:00 Deborah Martinez [facility] MAGNESIUM 2023-04-04 10:52:00 Deborah Martinez [facility] BASIC METABOLIC PANEL (NA, K, CL, CO2, GLUCOSE, BUN, CREATININE, CA) 2023-04-04 10:52:00 Deborah Martinez [facility] CBC WITH DIFF 2023-04-04 10:52:00 Deborah Martinez [facility] CARDIAC CATHETERIZATION 2023-04-03 16:55:00 Rose Fang [facility] CARDIAC CATHETERIZATION 2023-04-03 16:55:00 Rose Fang [facility] CARDIAC CATHETERIZATION 2023-04-03 16:55:00 Rose Fang l N [facility] CARDIAC CATHETERIZATION 2023-04-03 16:55:00 Rose Fang l Charley [facility] CARDIAC CATHETERIZATION 2023-04-03 16:55:00 Rose Fang l N [facility] CARDIAC CATHETERIZATION 2023-04-03 16:55:00 Rose Fang [facility] POCT ACT LOW RANGE 2023-04-03 16:48:00 Roland Fang [facility] POCT ACT LOW RANGE 2023-04-03 16:48:00 Roland Fang [facility] POCT ACT LOW RANGE 2023-04-03 16:15:00 Roland Fang [facility] POCT ACT LOW RANGE 2023-04-03 16:15:00 Roland Fang [facility] POCT ACT LOW RANGE 2023-04-03 15:37:00 Roland Fang [facility] POCT ACT LOW RANGE 2023-04-03 15:37:00 Roland Fang [facility] CATH PROCEDURE LOG 2023-04-03 15:19:07 Roland Fang [facility] CATH PROCEDURE LOG 2023-04-03 15:19:07 [facility] (NA, K, CL, CO2, GLUCOSE, BUN, CREATININE, CA) 2023-04-03 11:55:00 Roland Fang [facility] BASIC METABOLIC PANEL (NA, K, CL, CO2, GLUCOSE, BUN, CREATININE, CA) 2023-04-03 11:55:00 Roland Fang [facility] OUTPATIENT CARDIAC CATHETERIZATION DOCUMENTS 2023-04-03 05:01:00 Doctor Unassigned, [place] [facility] MEDICATION CORRESPONDENCE 2023-01-01 05:01:00 Do ctor Unassigned, [place] [facility] MYOCARDIUM PERFUSION STRESS AND REST 2022-12-09 17:00:00 Corrales, Sendil [facility] NM MYOCARDIUM PERFUSION STRESS AND REST 2022-12-09 17:00:00 Corrales, Sendil [facility] MYOCARDIUM PERFUSION STRESS AND REST 2022-12-09 17:00:00 Corrales, Sendil [facility] MYOCARDIUM PERFUSION STRESS AND REST 2022-12-09 17:00:00 Corrales, Sendil [facility] CARDIAC CATHETERIZATION 2022-11-19 15:06:52 Corrales, Se ndil [facility] CARDIAC CATHETERIZATION 2022-11-19 15:06:52 Corrales, Se ndil [facility] CARDIAC CATHETERIZATION 2022-11-19 15:06:52 Corrales, Se ndil [facility] CARDIAC CATHETERIZATION 2022-11-19 15:06:52 Corrales, Se ndil [facility] CARDIAC CATHETERIZATION 2022-11-19 15:06:52 Corrales, Se ndil [facility] CARDIAC CATHETERIZATION 2022-11-19 15:06:52 Corrales, Se ndil [facility] CATH PROCEDURE LOG 2022-11-19 14:13:34 Corrales, Sendil [facility] CATH PROCEDURE LOG 2022-11-19 14:13:34 Corrales, Sendil [facility] OUTPATIENT CARDIAC CATHETERIZATION DOCUMENTS 2022-11-19 06:01:00 Doctor Unassigned, [place] [facility] ASSIGNMENT OF BENEFITS 2022-10-27 18:40:46 Docto r Unassigned, [place] [facility] FLU VACC ([id number]), 6 MO-64 YRS, .5ML, IM, QUAD (FLUCELVAX) 2022-10-16 15:29:40 KendallImer valadez [facility] AUTHORIZATION FOR RELEASE OF PHI 2022-06-04 05:01:00 Doctor Unassigned, [place] [facility] Encounters Start Date/Time End Date/Time Encounter Type Admission Type Attending [facility] Care Facility Care Department Encounter ID Source 2021-10-09 09:46:20 Outpatient FRANCISCA PHAM [facility] MORAIMA [id number] [facility] 2021-07-30 03:41:47 Emergency [facility] [id number] [facility] 2021-07-28 07:28:45 Inpatient MARTIN WYATT JR [facility] SCT [id number] [facility] 2021-07-28 01:23:43 Inpatient ARAMISMIRIAM [facility] SCT [id number] [facility] 2024-05-16 08:00:00 2024-05-16 08:00:00 Outpatient ROLAND ROJAS [facility] [id number] [facility] 2024-04-21 13:00:00 2024-04-21 13:00:00 Outpatient SUNDAY [place] [facility] [id number] [facility] 2024-04-14 10:00:00 2024-04-14 10:00:00 Outpatient ELSA BORGES [facility] [id number] [facility] 2024-03-24 10:00:00 2024-03-24 10:00:00 Outpatient [place] [facility] [id number] [facility] 2023-12-30 00:00:00 2023-12-30 00:00:00 Telephone Sunday Mccormick [facility] 1.2.840.114 350.1.13.10 4.2.7.2.686 [id number] [facility] 2023-12-25 00:00:00 2023-12-25 00:00:00 Telephone Rachele Simon [facility] 1.2.840.114 350.1.13.10 4.2.7.2.686 [id number] [facility] 2023-12-25 00:00:00 2023-12-25 00:00:00 Refill Sunday Mccormick [facility] 1.2.840.114 350.1.13.10 4.2.7.2.686 [id number] [facility] 2023-12-24 10:00:00 2023-12-24 10:00:00 Outpatient TRACY PETERSON CHINTAN [facility] [id number] [facility] 2023-12-24 00:00:00 2023-12-24 00:00:00 Telephone Elsa Corrales [facility] 1.2.840.114 350.1.13.10 4.2.7.2.686 [id number] [facility] 2023-12-23 10:15:00 2023-12-23 10:48:17 Outpatient [place] [facility] [id number] [facility] 2023-12-23 10:15:00 2023-12-23 10:30:00 Office Visit Anny [facility]HA [facility] 1.2.840.114 350.1.13.10 4.2.7.2.686 [id number] [facility] 2023-12-22 13:00:00 2023-12-22 13:00:00 Outpatient CAYDEN ANGUIANO ROMAN [facility] [id number] [facility] 2023-12-22 00:00:00 2023-12-22 00:00:00 Outpatient RADHA PETERSON SHIWAN [facility] [id number] [facility] 2023-12-17 00:00:00 2023-12-17 00:00:00 Telephone Elsa Corrales [facility] 1.2.840.114 350.1.13.10 4.2.7.2.686 [id number] [facility] 2023-12-16 09:38:18 2023-12-16 23:59:00 Hospital Encounter Radha Lopez [facility] 1.2.840.114 350.1.13.10 4.2.7.2.686 [id number] [facility] 2023-12-16 00:00:00 2023-12-16 23:59:00 [facility] [id number] [facility] 2023-12-16 13:00:00 2023-12-16 13:30:00 Office Visit Elsa Corrales [facility] 1.2.840.114 350.1.13.10 4.2.7.2.686 [id number] [facility] 2023-12-14 00:00:00 2023-12-14 00:00:00 Telephone Radha Lopez [facility] 1.2.840.114 350.1.13.10 4.2.7.2.686 [id number] [facility] 2023-12-14 00:00:00 2023-12-14 00:00:00 Refill Elsa Corrales [facility] 1.2.840.114 350.1.13.10 4.2.7.2.686 [id number] [facility] 2023-12-11 00:00:00 2023-12-11 00:00:00 Letter (Out) [facility] 1.2.840.114 350.1.13.10 4.2.7.2.686 [id number] [facility] 2023-12-11 00:00:00 2023-12-11 00:00:00 Telephone Radha Lopez [facility] 1.2.840.114 350.1.13.10 4.2.7.2.686 [id number] [facility] 2023-12-10 00:00:00 2023-12-10 00:00:00 [facility] 1.2840.114 350.1.13.10 4.2.7.2.686 [id number] [facility] 2023-12-10 00:00:00 2023-12-10 00:00:00 Telephone Sunday Mccormick [facility] 1.2840.114 350.1.13.10 4.2.7.2.686 [id number] [facility] 2023-12-10 00:00:00 2023-12-10 00:00:00 Telephone Cayden Estrella [facility] 1.2840.114 350.1.13.10 4.2.7.2.686 [id number] [facility] 2023-12-09 11:18:00 2023-12-09 17:57:00 Outpatient R RADHA LOPEZ SHINDCharley [facility] [id number] [facility] 2023-12-09 11:18:00 2023-12-09 17:57:00 Hospital Encounter Radha Lopez [facility] 1.2840.114 350.1.13.10 4.2.7.2.686 [id number] [facility] 2023-12-09 13:33:00 2023-12-09 15:27:00 Surgery Radha Lopez [facility] 1.2.840.114 350.1.13.10 4.2.7.2.686 [id number] [facility] 2023-12-09 00:00:00 2023-12-09 00:00:00 Orders Only Doctor Unassigned, [place] [facility] 1.2.840.114 350.1.13.10 4.2.7.2.686 [id number] [facility] 2023-12-04 00:00:00 2023-12-04 00:00:00 Case Management [facility] 1.2.840.114 350.1.13.10 4.2.7.2.686 [id number] [facility] 2023-12-04 00:00:00 2023-12-04 00:00:00 Telephone [facility] 1.2.840.114 350.1.13.10 4.2.7.2.686 [id number] [facility] 2023-12-02 08:03:30 2023-12-02 23:59:00 Outpatient R RADHA LOPEZ [facility] [id number] [facility] 2023-12-02 08:00:00 2023-12-02 23:59:00 Hospital Encounter Radha Lopez [facility] 1.2.840.114 350.1.13.10 4.2.7.2.686 [id number] [facility] 2023-11-30 08:00:00 2023-11-30 08:54:59 Outpatient R WESLEY MERRITT [facility] [id number] [facility] 2023-11-30 08:00:00 2023-11-30 08:54:59 Office Visit Wesley Merritt [facility] 1..840.114 350.1.13.10 4.2.7.2.686 [id number] [facility] 2023-11-25 00:00:00 2023-11-25 00:00:00 Telephone AngiSunday gotti [facility] 1.840.114 350.1.13.10 4.2.7.2.686 [id number] [facility] 2023-11-24 15:45:00 2023-11-24 16:01:30 Outpatient R [facility] [id number] [facility] 2023-11-24 15:45:00 2023-11-24 16:01:30 Office [facility] Sunday [facility] 1.840.114 350.1.13.10 4.2.7.2.686 [id number] [facility] 2023-11-20 10:49:00 2023-11-20 14:21:00 Emergency X ALIYAH JARAMILLO [facility] ERT [id number] [facility] 2023-11-20 10:49:00 2023-11-20 14:21:00 Emergency Jose Luislouis Aliyah G [facility] 1.840.114 350.1.13.10 4.2.7.2.686 [id number] [facility] 2023-11-16 00:00:00 2023-11-16 00:00:00 Telephone Anny Sunday [facility] 1..840.114 350.1.13.10 4.2.7.2.686 [id number] [facility] 2023-11-16 00:00:2023-11-16 00:00:00 Refill Elsa Corrales [facility] 1.2840.114 350.1.13.10 4.2.7.2.686 [id number] [facility] 2023-11-12 00:00:00 2023-11-12 00:00:00 Refill Elsa Corrales [facility] 1.2840.114 350.1.13.10 4.2.7.2.686 [id number] [facility] 2023-11-12 00:00:00 2023-11-12 00:00:00 Telephone Radha Lopez [facility] 1.2840.114 350.1.13.10 4.2.7.2.686 [id number] [facility] 2023-11-05 09:27:23 2023-11-05 23:59:00 Outpatient R RADHA LOPEZ [facility] [id number] [facility] 2023-11-05 09:27:23 2023-11-05 23:59:00 Hospital Encounter Radha Lopez [facility] 1.2840.114 350.1.13.10 4.2.7.2.686 [id number] [facility] 2023-11-05 00:00:00 2023-11-05 00:00:00 Orders Only Doctor Unassigned, [place] [facility] 1.2840.114 350.1.13.10 4.2.7.2.686 [id number] [facility] 2023-11-02 00:00:00 2023-11-02 00:00:00 Telephone Radha Lopez [facility] 1.2840.114 350.1.13.10 4.2.7.2.686 [id number] [facility] 2023-10-23 10:00:00 2023-10-23 10:58:50 Outpatient R DAMON LOPEZCharley [facility]LIMANDCharley [facility] [id number] [facility] 2023-10-23 10:00:00 2023-10-23 10:58:50 Office Visit Lopez Radha [facility] 1.2.840.114 350.1.13.10 4.2.7.2.686 [id number] [facility] 2023-10-22 13:30:00 2023-10-22 14:04:20 Outpatient R SUNDAY MCCORMICK [facility] [id number] [facility] 2023-10-22 13:30:00 2023-10-22 14:04:20 Office Visit Sunday Mccormick [facility] 1.2.840.114 350.1.13.10 4.2.7.2.686 [id number] [facility] 2023-10-18 12:07:00 2023-10-18 17:09:00 Emergency X SEUNAMANDA PADILLA [facility] ERT [id number] [facility] 2023-10-18 12:07:00 2023-10-18 17:09:00 Emergency Harkey, Amanda A [facility] 1.2.840.114 350.1.13.10 4.2.7.2.686 [id number] [facility] 2023-10-17 00:00:00 2023-10-17 00:00:00 [facility] 1.2.840.114 350.1.13.10 4.2.7.2.686 [id number] [facility] 2023-10-05 00:00:00 2023-10-05 00:00:00 Telephone Sunday Mccormick [facility] 1.2840.114 350.1.13.10 4.2.7.2.686 [id number] 044 [id number] [facility] 2023-09-24 00:00:00 2023-09-24 00:00:00 Orders Only Doctor Unassigned, [place] [facility] 1.2840.114 350.1.13.10 4.2.7.2.686 [id number] 009 [id number] [facility] 2023-09-23 14:30:00 2023-09-23 15:52:57 Tie Knitter Helper Visit Rehab, [facility] Cardiac Oswald High, Sendil [facility] 1.2840.114 350.1.13.10 4.2.7.2.686 [id number] 060 [id number] [facility] 2023-09-23 00:00:00 2023-09-23 00:00:00 Orders Only Doctor Unassigned, [place] [facility] 1.2840.114 350.1.13.10 4.2.7.2.686 [id number] 009 [id number] [facility] 2023-09-18 14:30:00 2023-09-18 15:03:28 Tie Knitter Helper Visit Rehab, [facility] Cardiac Oswald High, [place] [facility] 1.2840.114 350.1.13.10 4.2.7.2.686 [id number] 060 [id number] [facility] 2023-09-18 00:00:00 2023-09-18 00:00:00 Orders Only Doctor Unassigned, [place] [facility] 1.2840.114 350.1.13.10 4.2.7.2.686 [id number] 009 [id number] [facility] 2023-09-16 14:30:00 2023-09-16 15:58:03 Tie Knitter Helper Visit Rehab, [facility] Cardiac Oswald High, [place] [facility] 1.2.840.114 350.1.13.10 4.2.7.2.686 [id number] 060 [id number] [facility] 2023-09-16 00:00:00 2023-09-16 00:00:00 Orders Only Doctor Unassigned, [place] [facility] 1.20.114 350.1.13.10 4.2.7.2.686 [id number] 009 [id number] [facility] 2023-09-15 09:15:00 2023-09-15 09:30:00 [facility] 1.84.114 350.1.13.10 4.2.7.2.686 [id number] 044 [id number] [facility] 2023-09-15 09:15:00 2023-09-15 09:15:00 Outpatient R SUNDAY MCCORMICK [facility] [id number] [facility] 2023-09-14 14:30:00 2023-09-14 16:07:12 Tie Knitter Helper Visit Rehab, [facility] Cardiac Oswald High, [place] [facility] 1.2840.114 350.1.13.10 4.2.7.2.686 [id number] 060 [id number] [facility] 2023-09-14 00:00:00 2023-09-14 00:00:00 Orders Only Doctor Unassigned, [place] [facility] 1.2840.114 350.1.13.10 4.2.7.2.686 [id number] 009 [id number] [facility] 2023-09-11 14:30:00 2023-09-11 16:00:00 Tie Knitter Helper Visit Rehab, [facility] Cardiac Oswald High, [place] [facility] 1.2.840.114 350.1.13.10 4.2.7.2.686 [id number] 060 [id number] [facility] 2023-09-11 00:00:00 2023-09-11 00:00:00 Orders Only Doctor Unassigned, [place] [facility] 1.2.840.114 350.1.13.10 4.2.7.2.686 [id number] 009 [id number] [facility] 2023-09-09 14:30:00 2023-09-09 15:51:06 Tie Knitter Helper Visit Rehab, [facility] Cardiac Antoni, [place] [facility] 1.2.840.114 350.1.13.10 4.2.7.2.686 [id number] 060 [id number] [facility] 2023-09-09 00:00:00 2023-09-09 00:00:00 Orders Only Doctor Unassigned, [place] [facility] 1.2.840.114 350.1.13.10 4.2.7.2.686 [id number] 009 [id number] [facility] 2023-09-08 13:15:00 2023-09-08 13:15:00 Outpatient SUNDAY [place] [facility] [id number] [facility] 2023-09-07 14:30:00 2023-09-07 16:32:43 Tie Knitter Helper Visit Rehab, [facility] Cardiac Antoni, [place] [facility] 1.2.840.114 350.1.13.10 4.2.7.2.686 [id number] 060 [id number] [facility] 2023-09-07 13:30:00 2023-09-07 14:16:25 Outpatient R ELSA CORRALES [facility] [id number] [facility] 2023-09-07 13:30:00 2023-09-07 14:16:25 Office Visit Elsa CorralesYudelkaMoris [facility] 1.2.840.114 350.1.13.10 4.2.7.2.686 [id number] 059 [id number] [facility] 2023-09-02 00:00:00 2023-09-02 00:00:00 Orders Only Doctor Unassigned, [place] [facility] 1.2.840.114 350.1.13.10 4.2.7.2.686 [id number] 009 [id number] [facility] 2023-09-01 14:30:00 2023-09-01 15:44:30 Tie Knitter Helper Visit Rehab, [facility] Cardiac Elsa Corrales [facility] 1.2.840.114 350.1.13.10 4.2.7.2.686 [id number] 060 [id number] [facility] 2023-09-01 00:00:00 2023-09-01 00:00:00 Orders Only Doctor Unassigned, [place] [facility] 1.2.840.114 350.1.13.10 4.2.7.2.686 [id number] 009 [id number] [facility] 2023-08-29 00:00:00 2023-08-29 00:00:00 Orders Only Doctor Unassigned, [place] [facility] 1.2.840.114 350.1.13.10 4.2.7.2.686 [id number] 009 [id number] [facility] 2023-08-28 14:30:00 2023-08-28 15:45:01 Outpatient R ELSA CORRALES [facility] [id number] [facility] 2023-08-28 14:30:00 2023-08-28 15:45:01 Tie Knitter Helper Visit Rehab, [facility] Cardiac Corrales, Elsa Forrester [facility] 1.2.840.114 350.1.13.10 4.2.7.2.686 [id number] 060 [id number] [facility] 2023-08-28 00:00:00 2023-08-28 00:00:00 Orders Only Doctor Unassigned, [place] [facility] 1.2840.114 350.1.13.10 4.2.7.2.686 [id number] 009 [id number] [facility] 2023-08-26 14:30:00 2023-08-26 15:30:21 Tie Knitter Helper Visit Rehab, [facility] Cardiac Corrales, Elsa BetiMorisHMoris [facility] 1.2840.114 350.1.13.10 4.2.7.2.686 [id number] 060 [id number] [facility] 2023-08-26 00:00:00 2023-08-26 00:00:00 Orders Only Doctor Unassigned, [place] [facility] 1.2840.114 350.1.13.10 4.2.7.2.686 [id number] 009 [id number] [facility] 2023-08-24 14:30:00 2023-08-24 15:43:33 Outpatient ELSA BORGES [facility] [id number] [facility] 2023-08-24 14:30:00 2023-08-24 15:43:33 Tie Knitter Helper Visit Rehab, [facility] Cardiac Corrales, Elsa LorenzHMoris [facility] 1.2.840.114 350.1.13.10 4.2.7.2.686 [id number] 060 [id number] [facility] 2023-08-24 00:00:00 2023-08-24 00:00:00 Orders Only Doctor Unassigned, [place] [facility] 1.2.840.114 350.1.13.10 4.2.7.2.686 [id number] 009 [id number] [facility] 2023-08-19 14:30:00 2023-08-19 14:57:32 Tie Knitter Helper Visit Rehab, [facility] Cardiac Corrales, Sendil [facility] 1.2.840.114 350.1.13.10 4.2.7.2.686 [id number] 060 [id number] [facility] 2023-08-19 00:00:00 2023-08-19 00:00:00 Orders Only Doctor Unassigned, [place] [facility] 1.2.840.114 350.1.13.10 4.2.7.2.686 [id number] 009 [id number] [facility] 2023-08-14 14:30:00 2023-08-14 16:34:49 Tie Knitter Helper Visit Rehab, [facility] Cardiac Corrales, [place] [facility] 1.2.840.114 350.1.13.10 4.2.7.2.686 [id number] 060 [id number] [facility] 2023-08-14 00:00:00 2023-08-14 00:00:00 Orders Only Doctor Unassigned, [place] [facility] 1.2.840.114 350.1.13.10 4.2.7.2.686 [id number] 009 [id number] [facility] 2023-08-12 14:30:00 2023-08-12 15:44:37 Tie Knitter Helper Visit Rehab, [facility] Cardiac Corrales, [place] [facility] 1.2.840.114 350.1.13.10 4.2.7.2.686 [id number] 060 [id number] [facility] 2023-08-10 14:30:00 2023-08-10 16:36:19 Tie Knitter Helper Visit Rehab, [facility] Cardiac Corrales, Sendil [facility] 1.2.840.114 350.1.13.10 4.2.7.2.686 [id number] 060 [id number] [facility] 2023-08-07 14:30:00 2023-08-07 16:06:03 Tie Knitter Helper Visit Rehab, [facility] Cardiac Corrales, Sendil [facility] 1.2.840.114 350.1.13.10 4.2.7.2.686 [id number] 060 [id number] [facility] 2023-08-05 14:30:00 2023-08-05 16:15:11 Tie Knitter Helper Visit Rehab, [facility] Cardiac Corrales, Sendil [facility] 1.2.840.114 350.1.13.10 4.2.7.2.686 [id number] 060 [id number] [facility] 2023-08-04 00:00:00 2023-08-04 00:00:00 Orders Only Doctor Unassigned, [place] [facility] 1.2.840.114 350.1.13.10 4.2.7.2.686 [id number] 009 [id number] [facility] 2023-08-03 14:30:00 2023-08-03 16:09:51 Tie Knitter Helper Visit Rehab, [facility] Cardiac Corrales, Sendil [facility] 1.2.840.114 350.1.13.10 4.2.7.2.686 [id number] 060 [id number] [facility] 2023-07-31 14:30:00 2023-07-31 16:05:27 Tie Knitter Helper Visit Rehab, [facility] Cardiac Corrales, Sendil [facility] 1.2.840.114 350.1.13.10 4.2.7.2.686 [id number] 060 [id number] [facility] 2023-07-31 00:00:00 2023-07-31 00:00:00 Telephone Elsa Corrales [facility] 1.2.840.114 350.1.13.10 4.2.7.2.686 [id number] 059 [id number] [facility] 2023-07-29 14:30:00 2023-07-29 15:21:14 Tie Knitter Helper Visit Rehab, [facility] Cardiac Elsa Corrales [facility] 1.2.840.114 350.1.13.10 4.2.7.2.686 [id number] 060 [id number] [facility] 2023-07-29 13:45:00 2023-07-29 14:00:00 Tie Knitter Helper Visit Pob, [facility] Lab Main Elsa Corrales [facility] 1.2.840.114 350.1.13.10 4.2.7.2.686 [id number] 353 [id number] [facility] 2023-07-29 13:45:00 2023-07-29 13:45:00 Outpatient R ELSA CORRALES [facility] [id number] [facility] 2023-07-28 00:00:00 2023-07-28 00:00:00 Telephone Elsa Corrales [facility] 1.2.840.114 350.1.13.10 4.2.7.2.686 [id number] 059 [id number] [facility] 2023-07-27 16:21:17 2023-07-27 23:59:00 Hospital Encounter Elsa Corrales [facility] 1.2.840.114 350.1.13.10 4.2.7.2.686 [id number] 807 [id number] [facility] 2023-07-27 16:30:00 2023-07-27 16:45:00 Tie Knitter Helper Visit Pob, [facility] Lab Main Elsa Corrales [facility] 1.2.840.114 350.1.13.10 4.2.7.2.686 [id number] [facility] 2023-07-27 15:00:00 2023-07-27 15:58:36 Outpatient R ELSA CORRALES [facility] [id number] [facility] 2023-07-27 15:00:00 2023-07-27 15:58:36 Office Visit Elsa Corrales [facility] 1.2.840.114 350.1.13.10 4.2.7.2.686 [id number] 059 [id number] [facility] 2023-07-24 14:30:00 2023-07-24 16:08:47 Tie Knitter Helper Visit Reh, [facility] Cardiac Elsa Corral[facility] 1.2.840.114 350.1.13.10 4.2.7.2.686 [id number] 060 [id number] [facility] 2023-07-22 14:30:00 2023-07-22 15:37:48 Tie Knitter Helper Visit Rehab, [facility] Cardiac Elsa Corral[facility] 1.2840.114 350.1.13.10 4.2.7.2.686 [id number] 060 [id number] [facility] 2023-07-22 11:30:00 2023-07-22 11:44:45 Office Visit Sunday Mccormick [facility] 1.2.840.114 350.1.13.10 4.2.7.2.686 [id number] 044 [id number] [facility] 2023-07-22 11:30:00 2023-07-22 11:30:00 Outpatient Adam MALDONADONICOLESUNDAY [facility] [id number] [facility] 2023-07-20 14:30:00 2023-07-20 15:35:05 Tie Knitter Helper Visit Rehab, [facility] Cardiac Corrales, Sendil [facility] 1.2.840.114 350.1.13.10 4.2.7.2.686 [id number] 060 [id number] [facility] 2023-07-20 00:00:00 2023-07-20 00:00:00 Orders Only Doctor Unassigned, [place] [facility] 1.2.840.114 350.1.13.10 4.2.7.2.686 [id number] 009 [id number] [facility] 2023-07-17 14:30:00 2023-07-17 15:40:34 Tie Knitter Helper Visit Rehab, [facility] Cardiac Corrales, Sendil [facility] 1.2.840.114 350.1.13.10 4.2.7.2.686 [id number] 060 [id number] [facility] 2023-07-15 14:30:00 2023-07-15 15:57:04 Tie Knitter Helper Visit Rehab, [facility] Cardiac Corrales, Sendil [facility] 1.2.840.114 350.1.13.10 4.2.7.2.686 [id number] 060 [id number] [facility] 2023-07-13 14:30:00 2023-07-13 16:46:09 Tie Knitter Helper Visit Rehab, [facility] Cardiac Corrales, Sendil [facility] 1.2.840.114 350.1.13.10 4.2.7.2.686 [id number] 060 [id number] [facility] 2023-07-13 00:00:00 2023-07-13 00:00:00 Telephone Elsa Corrales [facility] 1.2.840.114 350.1.13.10 4.2.7.2.686 [id number] 059 [id number] [facility] 2023-07-10 14:30:00 2023-07-10 18:16:38 Tie Knitter Helper Visit Rehab, [facility] Cardiac Antoni, Elsa KMorisHMoris [facility] 1.2.840.114 350.1.13.10 4.2.7.2.686 [id number] 060 [id number] [facility] 2023-07-10 00:00:00 2023-07-10 00:00:00 Orders Only Doctor Unassigned, [place] [facility] 1.2.840.114 350.1.13.10 4.2.7.2.686 [id number] 009 [id number] [facility] 2023-07-09 00:00:00 2023-07-09 00:00:00 Telephone Elsa Corrales [facility] 1.2.840.114 350.1.13.10 4.2.7.2.686 [id number] 059 [id number] [facility] 2023-07-09 00:00:00 2023-07-09 00:00:00 Refill Elsa CorralesHMoris [facility] 1.2.840.114 350.1.13.10 4.2.7.2.686 [id number] 059 [id number] [facility] 2023-07-08 14:30:00 2023-07-08 16:04:08 Tie Knitter Helper Visit Reh, [facility] Cardiac Elsa CorralesHMoris [facility] 1.2.840.114 350.1.13.10 4.2.7.2.686 [id number] 060 [id number] [facility] 2023-07-06 14:30:00 2023-07-06 15:52:57 Tie Knitter Helper Visit Rehab, [facility] Cardiac Corrales, Sendade [facility] 1.2.840.114 350.1.13.10 4.2.7.2.686 [id number] 060 [id number] [facility] 2023-07-03 14:30:00 2023-07-03 16:00:00 Tie Knitter Helper Visit Rehab, [facility] Cardiac Corrales, Sendade [facility] 1.2.840.114 350.1.13.10 4.2.7.2.686 [id number] 060 [id number] [facility] 2023-07-01 14:30:00 2023-07-01 15:52:36 Outpatient R CORRALES, ELSA [facility] [id number] [facility] 2023-07-01 14:30:00 2023-07-01 15:52:36 Tie Knitter Helper Visit Rehab, [facility] Cardiac Corrales, Elsa [facility] 1.2840.114 350.1.13.10 4.2.7.2.686 [id number] 060 [id number] [facility] 2023-06-29 14:30:00 2023-06-29 17:09:36 Tie Knitter Helper Visit Rehab, [facility] Cardiac Corrales, Darenil [facility] 1.2.840.114 350.1.13.10 4.2.7.2.686 [id number] 060 [id number] [facility] 2023-06-29 00:00:00 2023-06-29 00:00:00 Orders Only Doctor Unassigned, [place] [facility] 1.2.840.114 350.1.13.10 4.2.7.2.686 [id number] 009 [id number] [facility] 2023-06-26 14:30:00 2023-06-26 16:00:00 Tie Knitter Helper Visit Rehab, Ad[facility] Cardiac Corrales, Sendil [facility] 1.2840.114 350.1.13.10 4.2.7.2.686 [id number] 060 [id number] [facility] 2023-06-24 14:30:00 2023-06-24 15:15:33 Tie Knitter Helper Visit Rehab, [facility] Cardiac Corrales, Sendil [facility] 1.2840.114 350.1.13.10 4.2.7.2.686 [id number] 060 [id number] [facility] 2023-06-22 14:30:00 2023-06-22 15:24:35 Tie Knitter Helper Visit Rehab, [facility] Cardiac Corrales, Sendade [facility] 1.2840.114 350.1.13.10 4.2.7.2.686 [id number] 060 [id number] [facility] 2023-06-19 14:30:00 2023-06-19 15:16:17 Outpatient R ANTONI, ELSA [facility] [id number] [facility] 2023-06-19 14:30:00 2023-06-19 15:16:17 Tie Knitter Helper Visit Rehab, [facility] Cardiac Corrales, Sendil [facility] 1.2840.114 350.1.13.10 4.2.7.2.686 [id number] 060 [id number] [facility] 2023-06-19 00:00:00 2023-06-19 00:00:00 Orders Only Doctor Unassigned, [place] [facility] 1.2.840.114 350.1.13.10 4.2.7.2.686 [id number] 009 [id number] [facility] 2023-06-15 14:00:00 2023-06-15 14:56:21 Outpatient R ROLAND FANG [facility] [id number] Univer s [facility] 2023-06-15 14:00:00 2023-06-15 14:56:21 Office Visit Roland Fang [facility] 1.2840.114 350.1.13.10 4.2.7.2.686 [id number] 059 [id number] [facility] 2023-06-11 14:30:00 2023-06-11 15:42:02 Tie Knitter Helper Visit Rehab, [facility] Cardiac [facility] 1.20.114 350.1.13.10 4.2.7.2.686 [id number] 060 [id number] [facility] 2023-06-11 00:00:00 2023-06-11 00:00:00 Refill Elsa CorralesHMoris [facility] 1.2840.114 350.1.13.10 4.2.7.2.686 [id number] 059 [id number] [facility] 2023-06-11 00:00:00 2023-06-11 00:00:00 Orders Only Doctor Unassigned, [place] [facility] 1.840.114 350.1.13.10 4.2.7.2.686 [id number] 009 [id number] [facility] 2023-05-20 00:00:00 2023-05-20 00:00:00 Patient Secure Msg Balwinder Appiah [facility] 1..114 350.1.13.10 4.2.7.2.686 [id number] 028 [id number] [facility] 2023-05-15 09:17:00 2023-05-15 11:20:00 Emergency X EJNI LEVINE [facility] ERT [id number] [facility] 2023-05-15 09:17:00 2023-05-15 11:20:00 Emergency Jeni Levine [facility] 1.2840.114 350.1.13.10 4.2.7.2.686 [id number] 084 [id number] [facility] 2023-05-15 00:00:00 2023-05-15 00:00:00 Elsa HodgesHMoris [facility] 1.20.114 350.1.13.10 4.2.7.2.686 [id number] 059 [id number] [facility] 2023-05-14 11:15:00 2023-05-14 11:41:57 [facility] [id number] [facility] 2023-05-14 11:15:00 2023-05-14 11:41:57 Office Visit Joshua Worley [facility] 1.20.114 350.1.13.10 4.2.7.2.686 [id number] 028 [id number] [facility] 2023-04-21 10:15:00 2023-04-21 10:30:00 Office Visit Sunday Mccormick [facility]?ELISHA [facility]SWINDERNESSA [facility] 1.284.114 350.1.13.10 4.2.7.2.686 [id number] 044 [id number] [facility] 2023-04-21 10:15:00 2023-04-21 10:15:00 Outpatient R SUNDAY MCCORMICK [facility] [id number] [facility] 2023-04-20 00:00:00 2023-04-20 00:00:00 Elsa Hodges KMorisHMoris [facility] 1.2840.114 350.1.13.10 4.2.7.2.686 [id number] 059 [id number] [facility] 2023-04-07 09:00:00 2023-04-07 09:25:54 Outpatient R ELSA CORRALES [facility] [id number] [facility] 2023-04-07 09:00:00 2023-04-07 09:25:54 Office Visit Elsa Corrales [facility] 1.0.114 350.1.13.10 4.2.7.2.686 [id number] 059 [id number] [facility] 2023-04-03 06:14:00 2023-04-04 14:04:00 Outpatient R DOTTY DENNIS [facility] [id number] [facility] 2023-04-03 06:14:00 2023-04-04 14:04:00 Hospital Encounter Roland Fang [facility] 1..114 350.1.13.10 4.2.7.2.686 [id number] [facility] 2023-04-03 08:55:00 2023-04-03 10:55:[facility] 1.0.114 350.1.13.10 4.2.7.2.686 [id number] [facility] 2023-04-03 00:00:00 2023-04-03 00:00:00 Telephone Roland Fang [facility] 1.840.114 350.1.13.10 4.2.7.2.686 [id number] [id number] [facility] 2023-04-03 00:00:00 2023-04-03 00:00:00 Orders Only Doctor Unassigned, [place] [facility] 1.0.114 350.1.13.10 4.2.7.2.686 [id number] [facility] 2023-03-30 00:00:00 2023-03-30 00:00:00 Telephone Elsa Corrales [facility] 1.2.840.114 350.1.13.10 4.2.7.2.686 [id number] [facility] 2023-03-30 00:00:00 2023-03-30 00:00:00 Telephone Elsa Corrales [facility] 1.2.840.114 350.1.13.10 4.2.7.2.686 [id number] 059 [id number] [facility] 2023-03-30 00:00:00 2023-03-30 00:00:00 Refill Elsa Corrales [facility] 1.2.840.114 350.1.13.10 4.2.7.2.686 [id number] [id number] [facility] 2023-03-27 09:30:00 2023-03-27 09:45:00 Tie Knitter Helper Visit 1, Adc Amy Sunshine [facility] 1.2.840.114 350.1.13.10 4.2.7.2.686 [id number] [facility] 2023-03-27 09:30:00 2023-03-27 09:30:00 Outpatient R AMY COOL [facility] [id number] [facility] 2023-03-27 00:00:00 2023-03-27 00:00:00 Telephone Roland Fang [facility] 1.2.840.114 350.1.13.10 4.2.7.2.686 [id number] 059 [id number] [facility] 2023-03-27 00:00:00 2023-03-27 00:00:00 Telephone Elsa Corrales [facility] 1.2.840.114 350.1.13.10 4.2.7.2.686 [id number] [id number] [facility] 2023-03-13 00:00:00 2023-03-13 00:00:00 Telephone Roland Fang [facility] 1.2.840.114 350.1.13.10 4.2.7.2.686 [id number] [facility] 2023-03-12 15:30:00 2023-03-12 15:55:25 Outpatient R ROLAND FANG [facility] [id number] [facility] 2023-03-12 15:30:00 2023-03-12 15:55:25 Office Visit Roland Fang [facility] 1.2.840.114 350.1.13.10 4.2.7.2.686 [id number] [id number] [facility] 2023-01-26 00:00:00 2023-01-26 00:00:00 Refill Elsa Corrales [facility] 1.2.840.114 350.1.13.10 4.2.7.2.686 [id number] 059 [id number] [facility] 2023-01-07 00:00:00 2023-01-07 00:00:00 Telephone Yael Munroe [facility] 1.2.840.114 350.1.13.10 4.2.7.2.686 [id number] [facility] 2023-01-06 00:00:00 2023-01-06 00:00:00 Telephone Elsa Corrales [facility] 1.2.840.114 350.1.13.10 4.2.7.2.686 [id number] [facility] 2023-01-01 00:00:00 2023-01-01 00:00:00 Orders Only Doctor Unassigned, [place] [facility] 1.2.840.114 350.1.13.10 4.2.7.2.686 [id number] [id number] [facility] 2022-12-26 00:00:00 2022-12-26 00:00:00 Telephone Elsa CorralesYudelkaMoris [facility] 1.2.840.114 350.1.13.10 4.2.7.2.686 [id number] 059 [id number] [facility] 2022-12-25 10:30:00 2022-12-25 10:45:21 Outpatient R ELSA CORRALES [facility] [id number] [facility] 2022-12-25 10:30:00 2022-12-25 10:45:21 Office Visit Antoni Darenade BetiMorisYudelkaMoris [facility] 1.2.840.114 350.1.13.10 4.2.7.2.686 [id number] 059 [id number] [facility] 2022-12-09 08:32:18 2022-12-09 23:59:00 Hospital Encounter Elsa Corrales BetiMorisYudelkaMoris [facility] 1.2.840.114 350.1.13.10 4.2.7.2.686 [id number] [facility] 2022-12-09 08:31:41 2022-12-09 08:31:41 Hospital Encounter AntoniDarenade BetiMorisYudelkaMoris [facility] 1.2.840.114 350.1.13.10 4.2.7.2.686 [id number] [facility] 2022-12-09 08:31:22 2022-12-09 08:31:22 Hospital Encounter Elsa Corrales [facility] 1.2.840.114 350.1.13.10 4.2.7.2.686 [id number] [facility] 2022-12-09 08:31:10 2022-12-09 08:31:10 Outpatient R ELSA CORRALES [facility] [id number] [facility] 2022-12-09 08:31:10 2022-12-09 08:31:10 Hospital Encounter Elsa Corrales [facility] 1.2840.114 350.1.13.10 4.2.7.2.686 [id number] [facility] 2022-11-19 06:33:00 2022-11-19 15:15:00 Outpatient R ROLAND FANG [facility] [id number] [facility] 2022-11-19 06:33:00 2022-11-19 15:15:00 Hospital Encounter [facility] 1.2840.114 350.1.13.10 4.2.7.2.686 [id number] [id number] [facility] 2022-11-19 08:00:00 2022-11-19 09:00:00 Surgery [facility] 1.2.840.114 350.1.13.10 4.2.7.2.686 [id number] [id number] [facility] 2022-11-19 00:00:00 2022-11-19 00:00:00 Orders Only Doctor Unassigned, [place] [facility] 1.2.840.114 350.1.13.10 4.2.7.2.686 [id number] [id number] [facility] 2022-11-14 00:00:00 2022-11-14 00:00:00 Refill Elsa Corrales [facility] 1.2.840.114 350.1.13.10 4.2.7.2.686 [id number] 059 [id number] [facility] 2022-11-14 00:00:00 2022-11-14 00:00:00 Patient Secure Msg Doctor Unassigned, [place] [facility] 1.2.840.114 350.1.13.10 4.2.7.2.686 [id number] 059 [id number] [facility] 2022-11-13 11:00:00 2022-11-13 11:15:00 Tie Knitter Helper Visit Pob, Adc Lab Main Elsa CorralesHMoris [facility] 1.2.840.114 350.1.13.10 4.2.7.2.686 [id number] [facility] 2022-11-13 11:00:00 2022-11-13 11:00:00 Outpatient R ELSA CORRALES [facility] [id number] [facility] 2022-11-13 00:00:00 2022-11-13 00:00:00 Refill Elsa CorralesHMoris [facility] 1.2.840.114 350.1.13.10 4.2.7.2.686 [id number] [id number] [facility] 2022-10-27 13:00:00 2022-10-27 13:27:05 Outpatient R ELSA CORRALES [facility] [id number] [facility] 2022-10-27 13:00:00 2022-10-27 13:27:05 Office Visit Elsa Corrales [facility] 1.2.840.114 350.1.13.10 4.2.7.2.686 [id number] 059 [id number] [facility] 2022-10-27 00:00:00 2022-10-27 00:00:00 Orders Only Doctor Unassigned, [place] [facility] 1.2.840.114 350.1.13.10 4.2.7.2.686 [id number] [facility] 2022-10-17 14:26:21 2022-10-17 23:59:00 Outpatient R CLEVE IMER [facility] [id number] [facility] 2022-10-16 09:00:00 2022-10-16 09:34:56 Outpatient R KENDALLMAR [facility] [id number] [facility] 2022-10-16 09:00:00 2022-10-16 09:34:56 Office Visit Cleve [facility] 1.2.840.114 350.1.13.10 4.2.7.2.686 [id number] 059 [id number] [facility] 2022-10-13 00:00:00 2022-10-13 00:00:00 RefElsa CoronelHMoris [facility] 1..840.114 350.1.13.10 4.2.7.2.686 [id number] [facility] 2022-10-07 10:00:00 2022-10-07 10:00:00 Outpatient R ELSA CORRALES [facility] [id number] [facility] 2022-09-19 09:00:00 2022-09-19 09:00:00 Outpatient R ELSA CORRALES [facility] [id number] [facility] 2022-09-06 00:00:00 2022-09-06 00:00:00 RefElsa CoronelHMoris [facility] 1..840.114 350.1.13.10 4.2.7.2.686 [id number] 059 [id number] [facility] 2022-08-04 00:00:00 2022-08-04 00:00:00 Refill Elsa Corrales [facility] 1.2.840.114 350.1.13.10 4.2.7.2.686 [id number] 059 [id number] [facility] 2022-06-04 00:00:00 2022-06-04 00:00:00 Telephone Elsa Corrales [facility] 1.2.840.114 350.1.13.10 4.2.7.2.686 [id number] 059 [id number] [facility] 2022-06-04 00:00:00 2022-06-04 00:00:00 Orders Only Doctor Unassigned, [place] [facility] 1.2.840.114 350.1.13.10 4.2.7.2.686 [id number] [facility] 2022-05-19 13:15:00 2022-05-19 13:30:00 Tie Knitter Helper Visit Pob, Adc Lab Main Elsa Corrales [facility] 1.2.840.114 350.1.13.10 4.2.7.2.686 [id number] [facility] 2022-05-19 11:00:00 2022-05-19 11:38:31 Outpatient R ELSA CORRALES [facility] [id number] [facility] 2022-05-19 11:00:00 2022-05-19 11:38:31 Outpatient R ELSA CORRALES [facility] [id number] [facility] 2022-05-19 11:00:00 2022-05-19 11:38:31 Office Visit Elsa Corrales [facility] 1.2.840.114 350.1.13.10 4.2.7.2.686 [id number] [facility] 2022-05-19 11:00:00 2022-05-19 11:00:00 Outpatient R ELSA CORRALES [facility] [id number] [facility] 2022-04-28 10:00:00 2022-04-28 10:10:00 Imm/Inj Visit Vaccine, Ang Db Cbc Sunday Bhat [facility] 1.2.840.114 350.1.13.10 4.2.7.2.686 [id number] [id number] [facility] 2022-04-28 10:00:00 2022-04-28 10:00:00 Outpatient SUNDAY [place] [facility] [id number] [facility] 2022-04-18 12:40:00 2022-04-18 13:00:00 Office Visit Imer Poon [facility] 1.2.840.114 350.1.13.10 4.2.7.2.686 [id number] [facility] 2022-04-18 12:40:00 2022-04-18 12:47:10 Outpatient R IMER POON [facility] [id number] [facility] 2022-04-18 12:40:00 2022-04-18 12:47:10 Outpatient R IMER POON [facility] [id number] [facility] 2022-04-18 09:20:00 2022-04-18 09:20:00 Outpatient R IMER POON [facility] [id number] [facility] 2022-04-18 09:20:00 2022-04-18 09:20:00 Outpatient R IMER POON [facility] [id number] [facility] 2022-03-20 00:00:00 2022-03-20 00:00:00 Telephone Elsa Corrales [facility] 1.2.840.114 350.1.13.10 4.2.7.2.686 [id number] [facility] 2022-02-28 11:20:00 2022-02-28 11:20:00 Outpatient R IMER POON [facility] [id number] [facility] 2022-02-28 11:20:00 2022-02-28 11:20:00 Outpatient R CLEVE [facility] [id number] [facility] 2022-02-22 00:00:00 2022-02-22 00:00:00 Elena Lewis [facility] 1.2.840.114 350.1.13.10 4.2.7.2.686 [id number] [facility] 2022-02-21 09:20:00 2022-02-21 10:05:59 Outpatient R IMER POON [facility] [id number] [facility] 2022-02-21 09:20:00 2022-02-21 10:05:59 Office Visit Cleve [facility] 1.2.840.114 350.1.13.10 4.2.7.2.686 [id number] [facility] 2022-02-21 09:20:00 2022-02-21 10:05:59 Outpatient R IMER POON [facility] [id number] [facility] 2022-01-22 00:00:00 2022-01-22 00:00:00 Telephone Elsa Corrales [facility] 1.2.840.114 350.1.13.10 4.2.7.2.686 [id number] [facility] 2022-01-17 09:00:00 2022-01-17 09:15:00 Office Visit Sunday Mccormick [facility] 1.840.114 350.1.13.10 4.2.7.2.686 [id number] [id number] [facility] 2022-01-17 09:00:00 2022-01-17 09:00:00 Outpatient R SUNDAY MCCORMICK [facility] [id number] [facility] 2022-01-17 09:00:00 2022-01-17 09:00:00 Outpatient R SUNDAY MCCORMICK [facility] [id number] [facility] 2022-01-17 09:00:00 2022-01-17 09:00:00 Outpatient R SUNDAY MCCORMICK [facility] [id number] [facility] 2022-01-17 00:00:00 2022-01-17 00:00:00 Telephone Sunday Mccormick [facility]?ELISHA [facility] 1.840.114 350.1.13.10 4.2.7.2.686 [id number] [id number] [facility] 2022-01-17 00:00:00 2022-01-17 00:00:00 Patient Secure Msg Doctor Unassigned, [place] [facility] 1..840.114 350.1.13.10 4.2.7.2.686 [id number] 044 [id number] [facility] 2022-01-16 11:45:00 2022-01-16 12:00:00 Tie Knitter Helper Visit 2, Elsa Lopez [facility] 1..840.114 350.1.13.10 4.2.7.2.686 [id number] [facility] 2022-01-16 11:45:00 2022-01-16 12:00:00 Tie Knitter Helper Visit 2, Adc Lab Elsa Corrales [facility] 1.2.840.114 350.1.13.10 4.2.7.2.686 [id number] [facility] 2022-01-16 11:45:00 2022-01-16 12:00:00 Tie Knitter Helper Visit 2, Adc Lab Elsa Corrales [facility] 1.2.840.114 350.1.13.10 4.2.7.2.686 [id number] [facility] 2022-01-16 10:00:00 2022-01-16 10:36:23 Outpatient R ELSA CORRALES [facility] [id number] [facility] 2022-01-16 10:00:00 2022-01-16 10:36:23 Office Visit Elsa Corrales [facility] 1.2.840.114 350.1.13.10 4.2.7.2.686 [id number] [facility] 2022-01-16 10:00:00 2022-01-16 10:36:23 Outpatient R ELSA CORRALES [facility] [id number] [facility] 2022-01-16 10:00:00 2022-01-16 10:36:23 Outpatient R ELSA CORRALES [facility] [id number] [facility] 2022-01-16 10:00:00 2022-01-16 10:36:23 Office Visit Elsa Corrales [facility] 1.2.840.114 350.1.13.10 4.2.7.2.686 [id number] [facility] 2022-01-16 10:00:00 2022-01-16 10:36:23 Outpatient ELSA BORGES [facility] [id number] [facility] 2022-01-10 09:00:00 2022-01-10 09:00:00 Outpatient [place] [facility] [id number] [facility] 2021-12-16 00:00:00 2021-12-16 00:00:00 Telephone Emmanuel Serrano [facility] 1.2.840.114 350.1.13.10 4.2.7.2.686 [id number] [facility] 2021-11-19 14:30:00 2021-11-19 14:47:37 Outpatient [place] [facility] [id number] [facility] 2021-11-14 00:00:00 2021-11-14 00:00:00 Telephone Emmanuel Serrano [facility] 1.2.840.114 350.1.13.10 4.2.7.2.686 [id number] 059 [id number] [facility] 2021-11-13 00:00:00 2021-11-13 00:00:00 Telephone Elsa Corrales [facility] 1.2.840.114 350.1.13.10 4.2.7.2.686 [id number] [id number] [facility] 2021-11-11 08:40:00 2021-11-12 15:26:00 Hospital Encounter Imer Poon Mostafa Helmy Ahmed [facility] 1.2840.114 350.1.13.10 4.2.7.2.686 [id number] [facility] 2021-11-11 08:40:00 2021-11-12 15:26:00 Outpatient EMMANUEL ABEL [facility] [id number] [facility] 2021-11-11 08:47:00 2021-11-11 13:24:00 [facility] 1.2.840.114 350.1.13.10 4.2.7.2.686 [id number] [facility] 2021-11-11 07:00:00 2021-11-11 11:00:00 Surgery [facility] 1.2.840.114 350.1.13.10 4.2.7.2.686 [id number] [facility] 2021-11-11 06:45:01 2021-11-11 08:39:00 [id number] 2021-11-11 06:45:01 2021-11-11 08:39:00 [facility] 1.2.840.114 350.1.13.10 4.2.7.2.686 [id number] [facility] 2021-11-11 08:00:00 2021-11-11 08:00:00 Outpatient R CLEVE [facility] [id number] [facility] 2021-11-08 09:45:00 2021-11-08 10:00:00 Laboratory Only Only, Adc Test Amy Cool [facility] 1.2.840.114 350.1.13.10 4.2.7.2.686 [id number] [facility] 2021-11-08 09:45:00 2021-11-08 09:45:00 Outpatient AMY HARDEN [facility] [id number] [facility] 2021-11-08 00:00:00 2021-11-08 00:00:[facility] 1.2.840.114 350.1.13.10 4.2.7.2.686 [id number] [facility] 2021-11-06 00:00:00 2021-11-06 00:00:00 Telephone Saurabh Belcher [facility] 1.2.840.114 350.1.13.10 4.2.7.2.686 [id number] [facility] 2021-11-06 00:00:00 2021-11-06 00:00:00 Patient Secure [facility]sg [facility] 1.2.840.114 350.1.13.10 4.2.7.2.686 [id number] [facility] 2021-10-21 08:42:00 2021-10-21 12:36:00 Outpatient R FRANCISCA BARROS [facility] [id number] [facility] 2021-10-21 08:42:00 2021-10-21 12:36:00 Hospital Encounter Francisca Barros [facility] 1.2.840.114 350.1.13.10 4.2.7.2.686 [id number] [facility] 2021-10-21 11:24:00 2021-10-21 12:28:00 Surgery Daphnie Abbott [facility] [place] 1.2.840.114 350.1.13.10 4.2.7.2.686 [id number] [facility] 2021-10-18 09:30:00 2021-10-18 09:45:00 Laboratory Only Only, Adc Test Francisca Barros [facility] 1.2.840.114 350.1.13.10 4.2.7.2.686 [id number] [facility] 2021-10-18 09:30:00 2021-10-18 09:30:00 Outpatient FRANCISCA PHAM [facility] [id number] [facility] 2021-10-18 09:30:00 2021-10-18 09:30:00 Outpatient FRANCISCA PHAM [facility] [id number] [facility] 2021-10-18 00:00:00 2021-10-18 00:00:00 Orders Only Doctor Unassigned, [place] [facility] 1.2840.114 350.1.13.10 4.2.7.2.686 [id number] [facility] 2021-10-15 00:00:00 2021-10-15 00:00:00 RefElena De La Rosa [facility]HA [facility] 1.2.840.114 350.1.13.10 4.2.7.2.686 [id number] [id number] [facility] 2021-10-10 00:00:00 2021-10-10 00:00:00 Telephone Iveth Whittington [facility] 1..840.114 350.1.13.10 4.2.7.2.686 [id number] [facility] 2021-10-09 00:00:00 2021-10-09 00:00:00 Telephone Elsa Corrales [facility] 1.2.840.114 350.1.13.10 4.2.7.2.686 [id number] 059 [id number] [facility] 2021-10-07 09:41:28 2021-10-07 23:59:00 Outpatient R IMER POON [facility] [id number] [facility] 2021-10-07 09:41:28 2021-10-07 23:59:00 Hospital Encounter Imer Poon [facility] 1.2840.114 350.1.13.10 4.2.7.2.686 [id number] [facility] 2021-10-07 09:41:28 2021-10-07 23:59:00 Outpatient R IMER POON [facility] [id number] [facility] 2021-10-01 00:00:00 2021-10-01 00:00:00 Telephone Imer Poon [facility] 1.2840.114 350.1.13.10 4.2.7.2.686 [id number] [facility] 2021-09-12 00:00:00 2021-09-12 00:00:00 Telephone Elsa Corrales [facility] 1.284.114 350.1.13.10 4.2.7.2.686 [id number] [id number] [facility] 2021-09-11 00:00:00 2021-09-11 00:00:00 Elena Lewis [facility] OFF[facility]ILD[facility] ONE 1..114 350.1.13.10 4.2.7.2.686 [id number] [id number] [facility] 2021-09-11 00:00:00 2021-09-11 00:00:00 Telephone Elsa Corrales [facility] 1.2840.114 350.1.13.10 4.2.7.2.686 [id number] 059 [id number] [facility] 2021-09-10 08:54:12 2021-09-10 08:54:53 Imm/Inj Visit Nurse, Mian Zheng ImmunizRaymundo Luna [facility] 1.284.114 350.1.13.10 4.2.7.2.686 [id number] [facility] 2021-09-10 08:20:00 2021-09-10 08:53:32 [id number] 2021-09-10 08:20:00 2021-09-10 08:53:32 [facility] [id number] [facility] 2021-09-10 08:20:00 2021-09-10 08:53:32 [facility] [id number] 2021-09-10 08:10:13 2021-09-10 08:53:32 Office Visit Cleve [facility] 1.2.840.114 350.1.13.10 4.2.7.2.686 [id number] [facility] 2021-09-10 08:50:00 2021-09-10 08:50:00 Outpatient R RAYMUNDO LAFLEUR [facility] [id number] [facility] 2021-08-12 14:49:42 2021-08-12 23:59:00 Outpatient R ELSA CORRALES [facility] [id number] [facility] 2021-08-12 14:49:42 2021-08-12 23:59:00 Hospital Encounter Elsa Corrales [facility] 1.2.840.114 350.1.13.10 4.2.7.2.686 [id number] [facility] 2021-08-12 15:00:00 2021-08-12 15:00:00 Outpatient R ELSA CORRALES [facility] [id number] [facility] 2021-08-05 00:00:00 2021-08-05 00:00:00 Telephone Francisca Barros [facility] 1.2.840.114 350.1.13.10 4.2.7.2.686 [id number] [facility] 2021-08-05 00:00:00 2021-08-05 00:00:00 Prep For Surgery Francisca Barros [facility] BU[facility] 1.2.840.114 350.1.13.10 4.2.7.2.686 [id number] [facility] 2021-08-01 14:30:00 2021-08-01 14:41:58 Outpatient R FRANCISCA BARROS [facility] [id number] [facility] 2021-08-01 14:12:16 2021-08-01 14:41:58 Office Visit Francisca Barros [facility] 1.2.840.114 350.1.13.10 4.2.7.2.686 [id number] [facility] 2021-07-19 10:00:00 2021-07-19 10:32:36 Office Visit Elsa Corrales [facility] 1.2.840.114 350.1.13.10 4.2.7.2.686 [id number] [facility] 2021-07-19 10:00:00 2021-07-19 10:32:36 Outpatient R ELSA CORRALES [facility] [id number] [facility] 2021-07-19 09:55:44 2021-07-19 10:32:36 Office Visit Elsa Corrales [facility] 1.2.840.114 350.1.13.10 4.2.7.2.686 [id number] [facility] 2021-07-19 10:00:00 2021-07-19 10:00:00 Outpatient R ELSA CORRALES [facility] [id number] [facility] 2021-07-10 00:00:00 2021-07-10 00:00:00 Telephone Elsa Corrales [facility] 1.2.840.114 350.1.13.10 4.2.7.2.686 [id number] [facility] 2021-07-01 13:20:00 2021-07-01 16:42:00 Emergency Gerard Barakat [facility] 1.2.840.114 350.1.13.10 4.2.7.2.686 [id number] [facility] 2021-07-01 12:35:00 2021-07-01 13:19:00 Hospital Encounter Elena Luu [facility] Sanket?Elisha [facility] 1.2.840.114 350.1.13.10 4.2.7.2.686 [id number] [facility] 2021-07-01 11:38:54 2021-07-01 12:39:37 Office Visit Elena Luu [facility]?Elisha [facility]ax[facility] 1.2.840.114 350.1.13.10 4.2.7.2.686 [id number] [facility] 2021-07-01 11:45:00 2021-07-01 11:45:00 Outpatient R ELENA LUU [facility] [id number] [facility] 2021-06-18 00:00:00 2021-06-18 00:00:00 Letter (Out) Zohra Parkinson [facility] 1.2.840.114 350.1.13.10 4.2.7.2.686 [id number] [facility] 2021-06-17 08:43:19 2021-06-17 09:14:38 Laboratory Only Only, Ang Db Test Unknown, Attending [facility] Sanket?Elisha gaxiola [facility] 1..840.114 350.1.13.10 4.2.7.2.686 [id number] [facility] 2021-06-17 09:00:00 2021-06-17 09:00:00 Outpatient R UNKNOWN, ATTENDING [facility] [id number] [facility] 2021-06-12 00:00:00 2021-06-12 00:00:00 Elena Lewis [facility] 1.840.114 350.1.13.10 4.2.7.2.686 [id number] [facility] 2021-06-10 00:00:00 2021-06-10 00:00:00 Letter (Out) Lenora Blair [facility] 1.84.114 350.1.13.10 4.2.7.2.686 [id number] [facility] [facility] 2021-06-09 13:15:00 2021-06-09 13:15:00 Outpatient R RUFINA ULLOA [facility] [id number] [facility] 2021-06-09 12:57:31 2021-06-09 13:07:31 Laboratory Only Only, Ang Db Test Isaak [facility]?Erinhenrietta [facility] Medical Office Building 1.840.114 350.1.13.10 4.2.7.2.686 [id number] [facility] 2021-06-07 00:00:00 2021-06-07 00:00:00 Letter (Out) Zohra Parkinson [facility] 1.84.114 350.1.13.10 4.2.7.2.686 [id number] [facility] 2021-06-05 14:29:54 2021-06-05 15:46:51 Urgent Care Yane Couch Unknown, Attending Formerly [facility]?Elisha gaxiola Medical Office Building 1.84.114 350.1.13.10 4.2.7.2.686 [id number] [facility] 2021-06-05 14:45:00 2021-06-05 14:45:00 Outpatient R [facility] [id number] [facility] 2021-06-05 00:00:00 2021-06-05 00:00:00 Orders Only Doctor Unassigned, [place] [facility] 1..114 350.1.13.10 4.2.7.2.686 [id number] [facility] 2021-05-31 14:21:48 2021-05-31 14:36:48 Nurse Visit Visit, [facility] Dermatology Nurse Delmi Ulloa [facility] 1.114 350.1.13.10 4.2.7.2.686 [id number] [facility] 2021-05-31 13:33:23 2021-05-31 14:03:23 Office Visit Mehul Ragsdale [facility] 1.114 350.1.13.10 4.2.7.2.686 [id number] [facility] 2021-05-31 09:15:00 2021-05-31 09:15:00 Outpatient R MEHUL RAGSDALE [facility] [id number] [facility] 2021-05-24 10:16:14 2021-05-24 11:16:14 Office Visit Joycelyn Walker, Attending Delmi Ulloa [facility] 1.114 350.1.13.10 4.2.7.2.686 [id number] [facility] 2021-05-24 10:30:00 2021-05-24 10:30:00 Outpatient R UNKNOWN, ATTENDING [facility] [id number] [facility] 2021-05-15 00:00:00 2021-05-15 00:00:00 Patient Secure Msg Doctor Unassigned, [place] [facility] 1.2.840.114 350.1.13.10 4.2.7.2.686 [id number] [facility] 2021-05-09 00:00:00 2021-05-09 00:00:00 Outpatient R ELSA CORRALES [facility] [id number] [facility] 2021-04-15 15:15:00 2021-04-15 15:15:00 Outpatient R [facility] [id number] [facility] 2021-04-10 09:00:00 2021-04-10 09:00:00 Outpatient R ELSA CORRALES [facility] [id number] [facility] 2021-03-21 00:00:00 2021-03-21 00:00:00 Patient Secure Msg Doctor Unassigned, [place] [facility] Medical Office Building 1.2.840.114 350.1.13.10 4.2.7.2.686 [id number] [facility] 2021-03-20 09:30:00 2021-03-20 09:30:00 Outpatient R ELSA CORRALES [facility] [id number] [facility] 2021-01-21 00:00:00 2021-01-21 00:00:00 Patient Secure Msg [place] A [facility] ONE 1.2.840.114 350.1.13.10 4.2.7.2.686 [id number] [facility] 2021-01-18 09:00:00 2021-01-18 09:00:00 Outpatient R ELSA CORRALES [facility] [id number] [facility] 2021-01-16 10:30:00 2021-01-16 10:30:00 Outpatient R MARTIN WYATT JR [facility] [id number] [facility] 2021-01-11 00:00:00 2021-01-11 00:00:00 Outpatient R JUS KERRYDINA [facility] [id number] [facility] 2021-01-11 00:00:00 2021-01-11 00:00:00 Patient Secure Elena Birch A [facility] ONE ..114 350.1.13.10 4.2.7.2.686 [id number] [facility] 2021-01-04 00:00:00 2021-01-04 00:00:00 Patient Secure Miriam Wells [facility] 1..114 350.1.13.10 4.2.7.2.686 [id number] [facility] 2020-12-24 06:36:00 2020-12-28 16:35:00 Inpatient R JUDITH MCCARTHY [facility] [id number] [facility] 2020-12-21 07:25:00 2020-12-21 07:30:00 Pre-Anesth esia Evaluation Call, [facility] [employer] Phone [facility] .84.114 350.1.13.10 4.2.7.2.686 [id number] [facility] 2020-12-21 00:00:00 2020-12-21 00:00:00 Outpatient MARTIN HINOJOSA JR [facility] [id number] [facility] 2020-12-20 08:50:00 2020-12-20 08:55:00 Pre-Anesth esia Evaluation Call, [facility] [employer] Phone [facility] .84.114 350.1.13.10 4.2.7.2.686 [id number] [facility] 2020-12-17 00:00:2020-12-17 00:00:00 Patient Secure Msg Doctor Unassigned, [place] [facility] 1..840.114 350.1.13.10 4.2.7.2.686 [id number] [facility] 2020-12-03 00:00:00 2020-12-03 00:00:00 Patient Secure Msg Doctor Unassigned, [place] [facility] 1..840.114 350.1.13.10 4.2.7.2.686 [id number] [facility] 2020-11-20 08:00:00 2020-11-20 08:00:00 Outpatient ELSA BORGES [facility] [id number] [facility] 2020-11-20 00:00:00 2020-11-20 00:00:00 Patient Secure Msg Doctor Unassigned, [place] [facility] 1..840.114 350.1.13.10 4.2.7.2.686 [id number] [facility] 2020-11-19 10:00:00 2020-11-19 10:00:00 Outpatient FOUZIA ROWELL [facility] [id number] [facility] 2020-11-09 15:30:00 2020-11-09 15:30:00 Outpatient ELENA MACKEY [facility] [id number] [facility] 2020-11-08 15:00:00 2020-11-08 15:00:00 Outpatient MIRIAM CONROY [facility] [id number] [facility] 2020-11-06 15:10:00 2020-11-06 15:10:00 Outpatient MARCIA JOSPEH [facility] [id number] [facility] 2020-11-01 08:00:00 2020-11-01 08:00:00 Outpatient R [facility] [id number] [facility] 2020-10-31 08:00:00 2020-10-31 08:00:00 Outpatient R ELSA CORRALES [facility] [id number] [facility] 2020-10-31 00:00:00 2020-10-31 00:00:00 Outpatient R ELSA CORRALES [facility] [id number] [facility] 2020-10-23 08:00:00 2020-10-23 08:00:00 Outpatient R CORRALESELSA [facility] [id number] [facility] 2020-10-16 09:20:00 2020-10-16 09:20:00 Outpatient R JUSKERRY DEVIESTELLARUCHI [facility] [id number] [facility] 2020-10-09 16:10:00 2020-10-09 16:10:00 Outpatient MARCIA JOSEPH [facility] [id number] [facility] 2020-10-05 11:46:49 2020-10-05 23:59:00 Hospital Encounter Jus Kerrydina Shrestha [facility] 1.114 350.1.13.10 4.2.7.2.686 [id number] [facility] 2020-10-05 10:06:46 2020-10-05 10:26:46 Tie Knitter Helper Visit Lab, [facility] 1.114 350.1.13.10 4.2.7.2.686 [id number] [facility] 2020-10-05 09:00:00 2020-10-05 09:00:00 Outpatient R JSU KERRYDINA [facility] [id number] [facility] 2020-09-27 10:38:06 2020-09-27 11:08:06 Office Visit [facility]ina [facility] 1.114 350.1.13.10 4.2.7.2.686 [id number] [facility] 2020-09-27 10:30:00 2020-09-27 10:30:00 Outpatient R KRYSTINA MARTINEZ [facility] [id number] Maggy brizuela [facility] 2020-09-27 00:00:00 2020-09-27 00:00:00 Orders Only Doctor Unassigned, [place] [facility] 1.2840.114 350.1.13.10 4.2.7.2.686 [id number] [facility] 2020-09-20 00:00:00 2020-09-20 00:00:00 Telephone MaralMorales [facility] 1.2840.114 350.1.13.10 4.2.7.2.686 [id number] [facility] Results Test Description Test Time Test Comments Results Result Comments Source AP Chest 1 View 23:54:04 EXAM: XR CHEST 1 VW COMPARISON: 12/02/2023 HISTORY: post ebus FINDINGS: Lungs: The lungs are adequately expanded. No focal opacities. Nopneumothorax. Heart/Mediastinum: Borderline heart size. Fullness of the right hilarregion is known to represent medial left lower lobe mass. Unfolded thoracicaorta. Bones and soft tissues: Intact sternotomy wires. [facility] CT THORAX WO CONTRAST 14:43:20 HISTORY: Dilated aorta. Rule out aneurysm. TECHNIQUE: 64-Multidetector noncontrast enhanced CT of the chest isobtained. FINDINGS: 4.1 x 3.7 cm size mass in the left lower lung adjacent to theascending thoracic aorta has increased in size from approximately 3.6 x 3.7cm size in the previous study. Central portion of the tumor continues toshow hypodensity. Slightly enlarged lymph nodes noted in the subcarinal space and anterior tothe right side of the trachea, unchanged. Advanced coronary atherosclerosis with CABG surgical changes noted.Interval improvement noted in these congestion left lower lung andsuspected small effusion. At this time, there is no appreciable pleuraleffusion. Some nodular pleural thickening and extrapleural fat accumulationnoted in the left lower chest. Right lung is clear. No right-sided pleural effusion. 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 Thyroid gland is very small in size. Focal 6 mm nodular density in theright lateral wall of the trachea (9:36) could be retained secretions. Mildgeneralized obstructive lung disease noted. No aggressive bone lesions or compression deformity seen in the thoracicvertebral bodies. Some fatty replaced lymph nodes are seen in both rightand left axillae/pectoral regions, unchanged. Visualized upper abdominal organs are unremarkable. CONCLUSIONS: 1. Posterior left perihilar region mass, abutting the adjacent descendingthoracic aorta wall, has increased in size from 3.7 cm to 4.1 cm sinceJanuary 2023 study. Central region of the mass remains hypodense whichcould be necrotic tissue. Infection is not strongly suspected. Additionalinvestigation warranted for this pathological diagnosis, if not alreadyperformed.2. Slightly enlarged lymph nodes in the subcarinal space and anterior tothe right trachea are unchanged. [facility] XR CHEST 2 VW 16:06:05 HISTORY: ?Chest pain. Rule out pleural effusion. TECHNIQUE: PA and lateral views of the chest are obtained. Comparison madewith 07/27/2023 study. FINDINGS: 3.5 cm size mass is visualized adjacent to proximal descendingthoracic aorta in the lateral view. Underlying bilateral upper lobeobstructive lung disease and minimal fibrosis in the left lower lung noted. No acute pneumonia detected. No pneumothorax or pleural effusion orpulmonary congestion. Cardiothoracic ratio of approximately 14.4/31.7 cm isconsistent with normal cardiac size. Changes of CABG surgery noted. CONCLUSIONS: No signs of acute cardiopulmonary disease. [facility] CT THORAX W CONTRAST 22:20:29 History: Abdominal pain, acute, nonlocalized , chest pain Technique: CT dose reduction by ALARA principles. ?Multiple contiguousaxial CT images of the chest, abdomen, and pelvis were obtained ?withcontrast. Sagittal and coronal reformatted images were constructed. Prior: None Findings: The tracheal air column is patent. ?The visualized thyroid gland is withinnormal limits. No axillary adenopathy. ? No mediastinal adenopathy. ? No hilar orsubcarinal adenopathy. ? The heart is mildly enlarged in size. Coronaryatherosclerosis is present. Aorta demonstrates no aneurysm or aorticdissection. At the left perihilar region there is a mass with fluid center at the upperlobe in the mid lung zone measuring 3.5 cm. This fluid center measures 1.7cm and may be secondary to malignancy with necrosis. Superinfection ofmalignancy cannot be excluded. There is some minimal effusion at the leftlung base with atelectasis. A small bubble of air is seen on axial seriesimage 18 that this fluid. Early empyema cannot completely be excluded.There is adjacent groundglass and minimal consolidation versus atelectasisat the left lower lobe. Adjacent developing pneumonia cannot be excluded. The right lung demonstrates no mass, consolidation, or groundglass. Noeffusion on the right. There is some minimal dependent atelectasis at theright lung base. The liver is enlarged measuring 18.1 cm in craniocaudal dimension. ?Nointrahepatic biliary dilatation. ?The gallbladder, pancreas, spleen, andadrenal glands are within normal limits. There is mild ?chronic perinephric stranding/scarring of the kidneys. Nohydronephrosis bilaterally. ?There is an 8 mm cortical cyst at the midpolethe right kidney. Mild cortical thinning of the kidneys is seen. There ismild calcified plaque of the aorta. ?The aorta demonstrates no aneurysm. ? The bladder is within normal limits. ?The prostate is normal in size. There is no free fluid in the abdomen or pelvis. There is a minimal hiatal hernia of the stomach. There is a mild thickenedappearance identified to the folds of the body of the stomach which may besecondary incomplete distention or from gastritis. ? ? The small bowel isnormal in appearance without bowel obstruction. ?The colon is normal inappearance. ? The appendix is normal in appearance. The included bones are intact. Sternotomy wires are present. There is amild left inguinal hernia containing fat. [facility] CT ABDOMEN PELVIS W CONTRAST 22:20:29 History: Abdominal pain, acute, nonlocalized , chest pain Technique: CT dose reduction by ALARA principles. ?Multiple contiguousaxial CT images of the chest, abdomen, and pelvis were obtained ?withcontrast. Sagittal and coronal reformatted images were constructed. Prior: None Findings: The tracheal air column is patent. ?The visualized thyroid gland is withinnormal limits. No axillary adenopathy. ? No mediastinal adenopathy. ? No hilar orsubcarinal adenopathy. ? The heart is mildly enlarged in size. Coronaryatherosclerosis is present. Aorta demonstrates no aneurysm or aorticdissection. At the left perihilar region there is a mass with fluid center at the upperlobe in the mid lung zone measuring 3.5 cm. This fluid center measures 1.7cm and may be secondary to malignancy with necrosis. Superinfection ofmalignancy cannot be excluded. There is some minimal effusion at the leftlung base with atelectasis. A small bubble of air is seen on axial seriesimage 18 that this fluid. Early empyema cannot completely be excluded.There is adjacent groundglass and minimal consolidation versus atelectasisat the left lower lobe. Adjacent developing pneumonia cannot be excluded. The right lung demonstrates no mass, consolidation, or groundglass. Noeffusion on the right. There is some minimal dependent atelectasis at theright lung base. The liver is enlarged measuring 18.1 cm in craniocaudal dimension. ?Nointrahepatic biliary dilatation. ?The gallbladder, pancreas, spleen, andadrenal glands are within normal limits. There is mild ?chronic perinephric stranding/scarring of the kidneys. Nohydronephrosis bilaterally. ?There is an 8 mm cortical cyst at the midpolethe right kidney. Mild cortical thinning of the kidneys is seen. There ismild calcified plaque of the aorta. ?The aorta demonstrates no aneurysm. ? The bladder is within normal limits. ?The prostate is normal in size. There is no free fluid in the abdomen or pelvis. There is a minimal hiatal hernia of the stomach. There is a mild thickenedappearance identified to the folds of the body of the stomach which may besecondary incomplete distention or from gastritis. ? ? The small bowel isnormal in appearance without bowel obstruction. ?The colon is normal inappearance. ? The appendix is normal in appearance. The included bones are intact. Sternotomy wires are present. There is amild left inguinal hernia containing fat. [facility]20* Test Item Value Reference Range Interpretation Comme nts LIPASE (test code = 3781508164) 101 U/L 0-220 Lab Interpretation (test cod e = 95115-7) Normal [facility] with [id number] 19:38:14* Test Item Value Reference Range Interpretation Comme nts WBC (test code = 6690-2) 9.45 See_Comment [Automated messa ge] The system which generated this result transmitted reference range: 4.20 - 10.70 10*3/?L. The reference range was not used to interpret this result as normal/abnormal. RBC (test code = 789-8) 4.89 See_Comment [Automated messa ge] The system which generated this result transmitted reference range: 4.26 - 5.52 10*6/?L. The reference range was not used to interpret this result as normal/abnormal. HGB (test code = 718-7) 14.5 g/dL 12.2-16.4 HCT (test code = 4544-3) 43.5 % 38.4-49.3 MCV (test code = 787-2) 89.0 fL 81.7-95.6 MCH (test code = 785-6) 29.7 pg 26.1-32.7 MCHC (test code = 786-4) 33.3 g/dL 31.2-35.0 RDW-SD (test code = 34822-7) 41.0 fL 38.5-51.6 RDW-CV (test code = 788-0) 12.6 % 12.1-15.4 PLT (test code = 777-3) 358 See_Comment H [Automated messa ge] The system which generated this result transmitted reference range: 150 - 328 10*3/?L. The reference range was not used to interpret this result as normal/abnormal. MPV (test code = 88690-7) 9.6 fL 9.8-13.0 L NRBC/100 WBC (test code = 8640143381) 0.0 See_Comment [Automated me ssage] The system which generated this result transmitted reference range: 0.0 - 10.0 /100 WBCs. The reference range was not used to interpret this result as normal/abnormal. NRBC x10^3 (test code = 2904112933) See_Comment [Automated messa ge] The system which generated this result transmitted reference range: 10*3/?L. The reference range was not used to interpret this result as normal/abnormal. GRAN MAT (NEUT) % (test code = 770-8) 75.8 % IMM GRAN % (test code = 1640013827) 0.30 % LYMPH % (test code = 736-9) 12.0 % MONO % (test code = 5905-5) 9.9 % EOS % (test code = 713-8) 1.4 % BASO % (test code = 706-2) 0.6 % GRAN MAT x10^3(ANC) (test code = 3880842899) 7.16 10*3/uL 1.99-6.95 H IMM GRAN x10^3 (test code = 8338586478) 0.03 10*3/uL 0.00-0.06 LYMPH x10^3 (test code = 731-0) 1.13 10*3/uL 1.09-3.23 MONO x10^3 (test code = 742-7) 0.94 10*3/uL 0.36-1.02 EOS x10^3 (test code = 711-2) 0.13 10*3/uL 0.06-0.53 BASO x10^3 (test code = 704-7) 0.06 10*3/uL 0.01-0.09 Lab Interpretation (test code = 47127-2) Abnormal [facility] ACT LOW [id number] 16:51:54* Test Item Value Reference Range Interpretation Comme nts ACTLR (test code = 6557840274) 326 See_Comment H [Automated messa ge] The system which generated this result transmitted reference range: 89 - 169 Seconds. The reference range was not used to interpret this result as normal/abnormal. Lab Interpretation (test code = 79875-7) Abnormal [facility] ACT LOW [id number] 16:51:54* Test Item Value Reference Range Interpretation Comme nts ACTLR (test code = 3678668992) 326 See_Comment H [Automated messa ge] The system which generated this result transmitted reference range: 89 - 169 Seconds. The reference range was not used to interpret this result as normal/abnormal. Lab Interpretation (test code = 88237-0) Abnormal [facility] ACT LOW [id number] 16:19:37* Test Item Value Reference Range Interpretation Comme nts ACTLR (test code = 2807369831) 307 See_Comment H [Automated messa ge] The system which generated this result transmitted reference range: 89 - 169 Seconds. The reference range was not used to interpret this result as normal/abnormal. Lab Interpretation (test code = 50825-7) Abnormal [facility] ACT LOW [id number] 16:19:37* Test Item Value Reference Range Interpretation Comme nts ACTLR (test code = 3055888312) 307 See_Comment H [Automated messa ge] The system which generated this result transmitted reference range: 89 - 169 Seconds. The reference range was not used to interpret this result as normal/abnormal. Lab Interpretation (test code = 72657-9) Abnormal [facility] ACT LOW [id number] 15:43:33* Test Item Value Reference Range Interpretation Comme nts ACTLR (test code = 6549943208) 334 See_Comment H [Automated messa ge] The system which generated this result transmitted reference range: 89 - 169 Seconds. The reference range was not used to interpret this result as normal/abnormal. Lab Interpretation (test code = 59737-5) Abnormal [facility] ACT LOW [id number] 15:43:33* Test Item Value Reference Range Interpretation Comme nts ACTLR (test code = 6458661850) 334 See_Comment H [Automated messa ge] The system which generated this result transmitted reference range: 89 - 169 Seconds. The reference range was not used to interpret this result as normal/abnormal. Lab Interpretation (test code = 28153-8) Abnormal [facility] History and Physical Notes Date/Time Note Provider Source 2023-12-09 08:03:37 [id number] [id number]:03:37F ormatting of this note is different from the original.PULMONARY & CRITICAL CARE MEDICINE H&PDate of Service: 12/09/2023 08:03CC: LLL Lung massHistory of Present IllnessAmy Solorzano is a 63 year old male with PMH CAD s/p CABG + PCI, A fib s/p ablation, CVA, HTN here for evaluation of LLL lung mass.Patient is currently at baseline level of health, denies any acute complaints. Complaining of chronic L. Flank pain last for the past months. Will speak w/ anesthesia about potential spinal block. Will proceed with the planned procedure as scheduled.PAST MEDICAL HISTORYPast Medical History:Diagnosis DateAtrial fibrillationChronic bilateral low back pain with right-sided sciatica 07/08/2021KD (chronic kidney disease), stage III 10/21/2020oronary artery disease involving [place] coronary artery of [place] heart without angina pectorisCVA (cerebral vascular accident) 2017History of Hodgkin's lymphoma 09/28/1998s/p [facility]/radiation[facility] of hypothyroidismHistory of FL (myocardial infarction) 2014History of PTCA/stent 2015HTN (hypertension)Hypercholesterolemia 10/10/2020HypertriglyceridemiaMotorcycle accident 2011w/ majors injuriesPrediabetes 10/10/2020Vitamin D deficiency 10/10/2020ast Surgical History:Procedure Laterality DateBIOPSY/EXCISION, LYMPH NODE(S) 1999from neckCOLONOSCOPY N/A 10/21/2021urgeon: Daphnie Abbott MD; [facility] GRAFT N/A 12/24/2020urgeon: Martin Wyatt Jr., MD; [facility]FX AID,UNICONDYLR 2010Family HistoryProblem Relation Age of OnsetMI (myocardial infarction) Brother 35Skin Cancer FatherStroke MotherDiabetes MotherMusculoskeletal Fatherright knee replacementHypertension FatherThyroid FatherHypothyroidHeart FatherAtrial FibrillationLipids FatherHLDOther - see comments FatherBPHHypertension MotherLipids MotherHLDHeart BrotherMISocial HistorySocioeconomic HistoryMarital status: SingleOccupational HistoryOccupation: retiredTobacco UseSmoking status: NeverSmokeless tobacco: NeverSubstance and Sexual ActivityAlcohol use: YesComment: occasional - maybe 2 drinks/monthDrug use: YesTypes: MarijuanaComment: occasionalSocial History NarrativeCaring for parents (mother had a major stroke and his father is legally blind).Social HistoryTobacco UseSmoking Status NeverSmokeless Tobacco NeverAllergies: Patient has no known allergies.Current Hospital Medications:No current facility-administered medications for this encounter.Current Outpatient MedicationsMedication Sig Dispense RefillHYDROcodone-acetaminophen 5-325 mg tablet Take 1 tablet by mouth in the morning and 1 tablet at noon and 1 tablet in the evening. Do all this for 30 days. Indications: chronic pain 90 tablet 0lisinopriL 10 mg tablet TAKE 1 TABLET BY MOUTH IN THE MORNING 30 tablet 5metoprolol tartrate 100 mg tablet Take 0.5 tablets by mouth in the morning and 0.5 tablets in the evening. 60 tablet 2evolocumab (REPATHA SURECLICK) 140 mg/mL PnIj inject 1 mL under the skin every 2 (two) weeks. 2 mL 3cholecalciferol, vitamin D3, (VITAMIN D3 ORAL) Take by mouth daily.etodolac (LODINE) 400 mg tablet Take 1 tablet by mouth in the morning and 1 tablet in the evening. 60 tablet 0gabapentin 300 mg capsule Take 1 capsule by mouth in the morning and 1 capsule at noon and 1 capsule in the evening. 90 capsule 5atorvastatin (LIPITOR) 40 mg tablet Take 1 tablet by mouth at bedtime. 30 tablet 0methocarbamoL (ROBAXIN-750) 750 mg tablet Take 1 tablet by mouth in the morning and 1 tablet at noon and 1 tablet in the evening. 15 tablet 0omeprazole (PRILOSEC OTC) 20 mg tablet Take 1 tablet by mouth in the morning.apixaban 5 mg tablet Take 1 tablet by mouth in the morning and 1 tablet in the evening. Indications: atrial fibrillation 60 tablet 2clopidogreL (PLAVIX) 75 mg tablet Take 1 tablet by mouth in the morning. 30 tablet 2Home Medications:No current facility-administered medications for this encounter.Current Outpatient MedicationsMedication Sig Dispense RefillHYDROcodone-acetaminophen 5-325 mg tablet Take 1 tablet by mouth in the morning and 1 tablet at noon and 1 tablet in the evening. Do all this for 30 days. Indications: chronic pain 90 tablet 0lisinopriL 10 mg tablet TAKE 1 TABLET BY MOUTH IN THE MORNING 30 tablet 5metoprolol tartrate 100 mg tablet Take 0.5 tablets by mouth in the morning and 0.5 tablets in the evening. 60 tablet 2evolocumab (REPATHA SURECLICK) 140 mg/mL PnIj inject 1 mL under the skin every 2 (two) weeks. 2 mL 3cholecalciferol, vitamin D3, (VITAMIN D3 ORAL) Take by mouth daily.etodolac (LODINE) 400 mg tablet Take 1 tablet by mouth in the morning and 1 tablet in the evening. 60 tablet 0gabapentin 300 mg capsule Take 1 capsule by mouth in the morning and 1 capsule at noon and 1 capsule in the evening. 90 capsule 5atorvastatin (LIPITOR) 40 mg tablet Take 1 tablet by mouth at bedtime. 30 tablet 0methocarbamoL (ROBAXIN-750) 750 mg tablet Take 1 tablet by mouth in the morning and 1 tablet at noon and 1 tablet in the evening. 15 tablet 0omeprazole (PRILOSEC OTC) 20 mg tablet Take 1 tablet by mouth in the morning.apixaban 5 mg tablet Take 1 tablet by mouth in the morning and 1 tablet in the evening. Indications: atrial fibrillation 60 tablet 2clopidogreL (PLAVIX) 75 mg tablet Take 1 tablet by mouth in the morning. 30 tablet 2Review of Systems:General: - fever, - chills, - weight loss/increase, - dizziness, - fatigue, - change in appetiteHEENT: - headache, - change in hearing, - change in vision, - sinus congestion, rhinorrhea, - post nasal drainage, - watery eyes, - sore throatHematologic: - bleeding disorderRespiratory: -cough, - shortness of breath, - dyspnea on exertion, - wheezing - orthopnea, - PNDCardiovascular: - chest pain, - palpitations, - syncope, -lower extremity swelling,Gastrointestinal: - abdominal pain, - nausea, - vomiting, - diarrhea, - constipation, - melena, - hematochezia, - hematemesisGenitourinary: - dysuria, - hematuria, - increased frequency, - difficulty urinating, - difficulty initiatingNeurologic: - weakness, - dizziness, - headacheEndocrine: - heat/cold intolerance, - polyuriaMusculoskeletal: - joint pain, - back pain, - muscle spasmsIntegument: - rash, - lesionPsych: - depression, - anxietyPhysical Exam and Objective DataThere were no vitals taken for this visit.Consitutional: patient alert and in no acute distressHead: normocephalic and atraumaticEyes: normal external eye, corneas clear, conjunctiva and sclera normal and pupils equal, round, reactive to light and accomodationENT: nasal passages clear, moist oral mucosa, no erythema or tonsillar enlargement, posterior pharynx clear; no cervical lymphadenopathyCardiovascular: regular rate and rhythm, no murmur, no JVD, no lower extremity pitting edema, symmetrical peripheral pulsesRespiratory: clear to auscultation bilaterally, without wheezes, rales or rhonchiGastrointestinal: soft, non-tender, non-distended obese abdomenMusculoskeletal: No clubbing or cyanosisNeurologic: normal gait and station, normal range, cranial nerves II - XII grossly intactIntegument: skin color, texture and turgor are normal; no bruising, rashes or lesions notedLymphatic: No appreciable supraclavicular, submandibular or axillary LAD appreciableNo intake or output data in the 24 hours ending 12/09/23 0803LABORATORYCBC BMP LFTsWBC x10^3 (/CMM)Date Value11/24/2011 7.1WBC (10*3/?L)Date Value11/20/2023 10.56NADate Value11/20/2023 137 mmol/L11/24/2011 144 MMOL/LALK PHOS (U/L)Date Value11/20/2023 9311/24/2011 96HGBDate Value11/20/2023 13.8 g/dL11/24/2011 14.9 G/DLKDate Value11/20/2023 4.2 mmol/L11/24/2011 4.9 MMOL/LALT(SGPT) (U/L)Date Value06/24/2017 15011/24/2011 13ALTv (U/L)Date Value11/20/2023 13HCT (%)Date Value11/20/2023 42. 44.9CALCIUMDate Value11/20/2023 9.7 mg/dL11/24/2011 9.7 MG/DLAST(SGOT) (U/L)Date Value11/20/2023 24011/24/2011 19PLT x10^3 (/CMM)Date Value11/24/2011 278PLT (10*3/?L)Date Value11/20/2023 392 (H)CLDate Value11/20/2023 104 mmol/L11/24/2011 107 MMOL/LRBC x10^6 (/CMM)Date Value11/24/2011 5.09RBC (10*6/?L)Date Value11/20/2023 4.87BUNDate Value11/20/2023 15 mg/dL11/24/2011 10 MG/DLCardioCREATININEDate Value11/20/2023 1.00 mg/dL11/24/2011 0.90 MG/DLNT-proBNP (pg/mL)Date Value07/29/2023 4202111/13/2022 365 (H)ThyroidTSHDate Value01/17/2022 5.64 mIU/L (H)11/24/2011 6.70 uIU/mL (H)No components found for: "GLUC"RESULTS REVIEWED: reviewedNo final results containing an impression from the past 2 days were found.Assessment & PlanMichael Rashad is a 63 year old male withASSESSMENT:#LLL Lung Mass#Mediastinal LymphadenopathyPLAN:- Will proceed w/ Bronchoscopy w/ EBUS, TT rib biopsy as discussed and consented w/ patient. Consent in chart.Plan was reviewed with faculty and discussed with the patient. All concerns were addressed and all questions answered.Amy Rosas M.D.Dept. Pulmonary Critical OgxsRTD7Oegvkuouososgu signed by Radha Lopez DO at 12/09/2023 2:31 PM CDTAssociated attestation - Radha Lopez DO - 12/09/2023 2:31 PM CDT 69627-4Iiriqcv and physical [id number], Shiwan1.2.840.699283.1.13.104.2.7.2.848857 KtcoAincgkTS4437-59-35I74:31:12History and physical noteTXT1.2.840.607637.1.13.104.2.7.2.07073 9|[id number] for patient cbwi19503-7Dbxdcay and physical noteLNNARRATIVEFormatted C-CDA narrative textUT89 Miller [id number] JUAREZCYXHERYDZOHNISVH0564-22-84M43:31:121.2.840 .658370.1.72.3.15|1.2.840.244783.1.13.104. 2.7.2.727879_[id number] [facility] Notes Date/Time Note Provider Source 2023-12-30 16:27:23 fwFzU5wFInfEWDhrkMA/ DECAOm36Ew6I/C M/CendTpcldVDYLbT64jgRx8A9VMU47013 -04-03T16:27:23 Dr. Rubi Footes 93950-6Cnfezzonx encounter FtkzKK6215-78-86Z08:27:53Telephone encounter NoteTXT1.2.840.807844.1.13.104.2.7 .2.683302|[id number] for patient bkuy04882-4FdmtPSDNFXIXFOWCcuyuubg d C-CDA narrative textUT89 Miller [id number] 31FZRZWLFYXEFJCFYIGOUCPL5706-05-71 T16:27:531.2.840.405193.1.72.3.15| 1.2.840.340039.1.13.104.2.7.2.7278 [id number] [facility] 2023-12-30 16:16:12 ZppJR7+x7SRWD5FMLFvQ TTyoO7i3R6Rwx3 n+Jkl4QVgHbRpIuwnldsT2DM+XNGKS9665 -04-03T16:16:12 I have to have a doctor to make the referral to. It cannot be to a facility 61347-7Nlctkblbd encounter WgtiIC7107-16-61P85:16:45Telephone encounter NoteTXT1.2.840.475622.1.13.104.2.7 .2.650313|[id number] for patient rlnh74881-4EndiVUBXBZNRJTKGrqxusge d C-CDA narrative text[address] LhydL[id number] 25EEZJGKYBMVFBDMWHSEMKCM8160-74-79 T16:16:451.2.840.436525.1.72.3.15| 1.2.840.130169.1.13.104.2.7.2.7278 [id number] [facility] 2023-12-30 15:16:38 CVKefzxz4BrD+oGH3XSa rwLKXa7SlXwulf lfSeSJHfyrCHOqib0wIwlmuDOF81qO7151 -04-03T15:16:38 Patient states he needs an outgoing referral for a chemo port to [facility]. Please advise. 90694-1Xuutqdrei encounter YvzpOY1777-72-74R17:17:28Telephone encounter NoteTXT1.2.840.953971.1.13.104.2.7 .2.708663|[id number] for patient kzls21223-8XqrkZCFHEBPHJTTGkmerknn d C-CDA narrative [id number] M Walts[address] Qu[id number] 67AADKQZYWDYRBSZJEIETTZO9543-04-05 T15:17:281.2.840.527883.1.72.3.15| 1.2.840.094007.1.13.104.2.7.2.7278 [id number] Peyton Bob [facility] 2023-12-25 13:05:30 g4GFqMI/5ni7kA4L/Z+P v5btg7miTVQhvd qUDuR7J+8GQLCNq8FkYF+gVlDh73dS5362 -03-29T13:05:30 Images from the original note were not included.Requested RenewalsclopidogreL (PLAVIX) 75 mg tabletSig: Take 1 tablet by mouth in the morning.Disp: 30 tablet Refills: 2Start: 4Class: eRXFor: Coronary artery disease of [place] artery of [place] heart with stable angina pectorisLast ordered: 8 months ago (04/04/2023) by Michael Musa-Platelets Exqqqu2812/25/2023 12:03 PMProtocol Details PLT in normal range and within 360 daysValid encounter within last 12 monthsHGB in normal range and within 360 daysHCT in normal range and within 360 daysRBC in normal range and within 360 daysTo be filled at: [address]11/20/179106YRH 392*Recent VisitsDate Type Provider Dept12/23/23 Office Visit Sunday Mccormick MD [facility]11/24/23 Office Visit Sunday Mccormick MD [facility]10/22/23 Office Visit Sunday Mccormick MD [facility]09/15/23 Office Visit Sunday Mccormick MD [facility]07/22/23 Office Visit Sunday Mccormick MD [facility]04/21/23 Office Visit Sunday Mccormick MD [facility] Fam MedShowing recent visits within past 540 days with a meds authorizing provider and meeting all other requirementsFuture AppointmentsDate Type Provider Dept03/24/24 Appointment Sunday Mccormick MD [facility] MedShowing future appointments within next 150 days with a meds authorizing provider and meeting all other requirements 64799-3Cuqnklukz encounter RgulRS4854-28-56I75:05:40Telephone encounter NoteTXT1.2.840.385184.1.13.104.2.7 .2.817738|[id number] for patient rjoc58426-5VndkARDDEVKKUAOInrqclni d C-CDA narrative textUT[address] WifxRirbkfiozCbeekoecyLNEJ14155721 48APHJKUWNCCYGTFVTQREGFX9762-97-56 T13:05:401.2.840.065094.1.72.3.15| 1.2.840.997241.1.13.104.2.7.2.7278 [id number] [facility] 2023-12-25 12:36:10 mVfpK+oLJ0u2jlqbbmPb K8O91fKdpp3rqb NSKc4Yu5Ur/A4TVaJiNFip3atuKw8H3103 -03-29T12:36:10Summary: [facility] Specialty PharmacyTherapy Alexsandra Solorzano is a 63 year old y/o /White male patient referred to the [facility] for management of Repatha and appropriateness of therapy which is being used to treat the diagnosis of Dyslipidemia, Hypercholesterolemia, hypertriglyceridemia, CAD, hx of FL, PTCA/stent, CVA.Amy Solorzano is Experienced to therapy . Patient was provided re-education and counseling on administering Repatha Sureclick. Patient reported doing well on Repatha and not experiencing any side effects.The stage of Amy Solorzano active disease is significantly controlled.The current specialty medication regimen is: Repatha Sureclick 140 mg SubQ Q2 weeks, next dose due on: 4Concurrent medications used to treat Hypercholesterolemia, hypertriglyceridemia, CAD, hx of FL, PTCA/stent, CVA:Atorvastatin 40 mg QHSWhile speaking with the patient, the Specialty Pharmacist has reviewed and updated the:medication list and allergy listPatient's most recent discharge from a hospital admission related to their specialty condition: The patient has not had a recent hospitalization related to their specialty condition.The [facility] Specialty Pharmacist has reviewed:The H&P, treatment recommendations, and all provider encounters relevant to the management of Hypercholesterolemia, hypertriglyceridemia, CAD, hx of FL, PTCA/stent, CVA: No contraindication to therapyComorbid conditions: No contraindication to therapyRisk factors identified related to specialty medication therapy and condition: None identifiedPertinent labs reviewed: CBC with differential, Complete metabolic panel, Liver function tests (LFTs), and TriglyceridesAfter review, the prescribed medication is clinically appropriate.Specific requirements for the management of Hypercholesterolemia, hypertriglyceridemia, CAD, hx of FL, PTCA/stent, CVA:Recommended vaccinations: COVID-19 and InfluenzaGoals of therapy based on therapy plan:Stabilize and Improve QOLPatient self-reported goals of therapy:Stabilize and Improve QOLBased on current therapy, patient progress towards established goals include:Goals being metRe-education and counseling performed during this encounter:Purpose: Explained that the medication blocks certain cells that play a role in the condition and reduce the risk of myocardial infarction, stroke, and coronary revascularization in adults with established cardiovascular disease.Expected benefit: Explained that the patient will continue seeing improvementStorage: The medication will be stored in its original container in the refrigerator. Advise the patient to take it out and leave it at room temperature for 30 to 45 minutes to prevent pain and discomfort with cold injections.Preparation: Injection site selection: outer arms, upper thighs, and stomach area. Stomach has the best absorption (1 thumb away from the belly button on the left, right, or top, but never below). Wash hands and clean the area with an alcohol swab. Discussed the product anatomy and instructions. Advised patient to check for clarity of drug concentration prior to injecting by assessing if CLEAR or CLOUDY.Disposal: Advised the patient to dispose pen and needles in a sharps container as they are not reusable. An alternate to the red sharps container is a hard-shell plastic that cannot be punctured through, such as an empty detergent bottle.Common side effects: Signs and symptoms of an infection (upper respiratory infection; cold, fever, chills); myalgias; If it does not improve, then reach out to HCP.Infection Prevention: Stay updated with vaccinationsAfter counseling and education, utilized teach-back method to ensure patient comprehension on injection technique.Home Delivery Process: If the patient chooses to have the medications delivered home, someone needs to be at home to receive the packaged medication. The medication can only sit in the ice box for 6 to 8 hours, and then it needs to be refrigerated.[facility] will dispense and mail out Alvaro roseick on 12/28/2023, patient will administer on 01/05/2024.The shipping address confirmed was [address] [place] [address].Thank you,Rachele Simon [facility] 57837-1Ctshviwja encounter LfuzSS5472-88-98N23:14:08Telephone encounter NoteTXT1.2.840.473341.1.13.104.2.7 .2.350399|[id number] for patient rees93555-9QsfdDMKWBKPMGSNOjlpjhpg d C-CDA narrative afeq816585949Nujgy Kumar [address] XxilKnwomwauiVqhwyjbruKEFB92301987 81FKNFQACDPGQFYENXLMQJOB0472-42-38 T13:14:081.2.840.292358.1.72.3.15| 1.2.840.982739.1.13.104.2.7.2.7278 [id number] Rachele Simon On license of [facility] 2023-12-24 10:17:39 pplnap7Dth0uyWyDlonf /kbPaaRg7aGHIH 0W+2nTqPFAsZ/OFskyn7oIyDMO5+6e51862023T10:17:39 Nicole,The prior authorization has been approved for the following medication:Drug: RepathaInsurance: Optum RXPA#: [id number] Expires: 06/22/2024We will be reaching out to the patient to schedule a strip picker or delivery of the medication and juvenile counselor the patient on use.Thank you 81317-4Rmpcfmkso encounter ZqveZT9140-42-94R64:19:07Telephone encounter NoteTXT1.2.840.427079.1.13.104.2.7 .2.196108|[id number] for patient vocp82061-0MgywNDHYXLTSILFJcfxjqbk d C-CDA narrative yohv970457396Scyc [address] PcisRrkdqxmebThuiuphvxHAWQ00450725 57HRITUAUEZVHMCWHNEFOGTW3555-00-76 T10:19:071.2.840.046836.1.72.3.15| 1.2.840.086631.1.13.104.2.7.2.7278 [id number] Jonathan Jara [facility] 2023-12-17 14:25:44 4XJK09LVZDKswxmjkdED EbmaLM2MgrvmhG NUWvWyDZbTRB2VfFmn58g+ya42lVqy6413 -03-21T14:25:44 [facility] max qty policy is 90tablets. 3mo supply at a time. [employer] is patients medicare insurance. We need pharmacy details if requesting from elsewhere then [facility]. 70351-4Nxresrfcq encounter DepoCE1893-45-68J93:28:09Telephone encounter NoteTXT1.2.840.339779.1.13.104.2.7 .2.333651|[id number] for patient vmxt99431-7XizkWMGZIRCLYYOMnyubzht d C-CDA narrative tgxv549100041Zyxeaz Castaneda [id number] 20IHZUPURHBSZMLIYETEMUBR7192-67-21 T14:28:091.2.840.988455.1.72.3.15| 1.2.840.794043.1.13.104.2.7.2.7278 [id number] Morales Garcia [facility] 2023-12-17 11:43:19 VsGcV9T/qNNbpzcqNTC6 l2e4qVHL8virDF HUOaqf8jQVs3/DylRpVRfoJbIvc/3y21072023T11:43:19 Ce with [facility] is calling in requesting refill for rx ALVARO MEDINA. Rep also stated pt would like a 100 day supply moving forward. atorvastatin 40 mg, lisinopriL 10 mg 87190-1Wkwyxylmk encounter XcmvVZ1025-87-59Z22:45:03Telephone encounter NoteTXT1.2.840.821686.1.13.104.2.7 .2.891502|[id number] for patient usyv78563-0ZhlhCJMBYITXKGSJhpxorpp d C-CDA narrative vywf905974540Lhehi C Briggs[address]TXTX[address]75 48ZFFYUFOFBRHGVFOFVNFTAE3598-65-93 T11:45:031.2.840.987632.1.72.3.15| 1.2.840.547424.1.13.104.2.7.2.7278 [id number] Nidhi Cabrlaes [facility] 2023-12-14 15:53:43 38Dq3/XiyneiU7ZMYhAE ck5zc5NdL8w+ut iCYF6PHigWXUhxQCdSUe310E699/Au92672023T15:53:43 Received refill request for:Requested PrescriptionsPending Prescriptions Disp RefillsATORVASTATIN 40 mg tablet [Pharmacy Med Name: Atorvastatin Calcium 40 MG Oral Tablet] 30 tablet 1Sig: TAKE 1 TABLET BY MOUTH AT BEDTIMELOV: 11/30/23 ([place])NOV : 12/16/2023 ([place])EK07/27/23Labs: 07/31/23 (Lipid Panel)Refill approved in compliance with cardiology guidelines.Pharmacy:[place] [id number]: Sbgjrypacjnrst signed by Tori Adrian at 12/14/2023 3:56 PM KUB31109-8Ipajfekhh encounter RvxkNY0551-84-07Y14:56:54Telephone encounter NoteTXT1.2.840.428727.1.13.104.2.7 .2.174927|[id number] for patient agkd65337-0FgzeNJHXZPYJTPRWykihjlz d C-CDA narrative cvrw868271714Bfnxkjj M. Russell[address] TzajBfzhludjtWkslfagadCSPY48314815 93DWAMBUFHXPGRNOLJCJHABM1621-59-14 T15:56:541.2.840.453259.1.72.3.15| 1.2.840.478069.1.13.104.2.7.2.7278 [id number] Tori Adrian [facility] 2023-12-14 14:10:53 hd4vxZ6GJ5TvX2rIoMJh 4rPT9mSD9L2Lyh oncrLvpGkpZgQz4yBnu08I4iHZyVOX4506 -03-18T14:10:53 Dr. Lopez requested info for pt to be sent to fax #[phone] -- sent on 12/14/23 at 12:03 PM. 80634-6Mbqljiras encounter IsmzOQ0055-53-28W06:14:21Telephone encounter NoteTXT1.2.840.963394.1.13.104.2.7 .2.772153|[id number] for patient cigg57519-3KefzOZXKDZQCSHGOzpaceen d C-CDA narrative yucs910830556Gcszwplq [address] GuynOfwxghurxLqtqkwvbdQIKT66120405 00HAUMPRGEZPYEXBRDVYIXKN5071-88-99 T14:14:211.2.840.473392.1.72.3.15| 1.2.840.229663.1.13.104.2.7.2.7278 [id number] Makenzie Brady [facility] 2023-12-11 13:35:03 6mdzd/hbAEIHLntOKvZ1 Ort64RrM9OIuro fAZVSI8DgbQpFeh1WlcUhHXRMi5vtb6510 -03-15T13:35:03 Phoned patient to follow-up s/p Flex bronch with EBUS and percutaneous posterior chest , mass/rib bx in OR under general anesthesia on 12/09/2023.Denies any new or worsening respiratory symptoms.Advised patient to contact Pulmonary Clinic for new or worsening respiratory symptoms at [phone] Thursday - Thursday 8-4:30 or by calling the [facility] after hours/holidays/weekends AT [phone].Informed final EBUS results generally take about 7-10 days to report. The physician will call the patient at that time.He is currently awaiting a call back to schedule pain management appt and PFTs.MRI and PET scheduled. Advised on PET prep.Questions asked and answered.Will continue to follow. 72012-4Kfyegvfum encounter VaovMM0685-87-80O83:53:22Telephone encounter NoteTXT1.2.840.827008.1.13.104.2.7 .2.786904|[id number] for patient fpme47527-1RhfzBQYBNREYKNSNrowvqga d C-CDA narrative xdtm778755701Yuqylb A [place] RN[address] NicwDsnxzumxbVvicqcdwoNBDQ02116686 02PWDFIDDIPQHDSJSDVYHLWI6415-52-76 T13:53:221.2.840.136969.1.72.3.15| 1.2.840.636768.1.13.104.2.7.2.7278 [id number] Rylee Hutson RN [facility] 2023-12-11 11:03:22 M4Jn+uOhiUsy0KLA9sz9 itARyPNOH/tHdY Ys12tG4LsB4cmfj6cjNn2JxCJOYr9A7365 -03-15T11:03:22 Spoke to Amy Solorzano and he is requesting a pain management appointment. Referral has been placed by PCP.Surgical planning, Ordered PFT'PATRICIA Barrios APRN-[facility] Healthothoracic Surgery Nurse PractitionerPager [phone] [phone] [phone] signed by Reena Hahn ACNP at 12/11/2023 11:04 AM QNL89923-3Smyexmxse encounter RoxcDW3644-77-79Z70:04:34Telephone encounter NoteTXT1.2.840.677894.1.13.104.2.7 .2.166222|[id number] for patient klbd59661-4FaseEHWYQZMPGHRYqypiwqb d C-CDA narrative text[address]TXTX[address] 75WVXQTHHEEMTBPBKZWMUYCQ7467-67-80 T11:04:341.2.840.034123.1.72.3.15| 1.2.840.854022.1.13.104.2.7.2.7278 [id number] [facility] 2023-12-10 14:28:13 mwFpVJgcNSTpiaNIhbjf F8qc2EJZX7lgBD qyzOeXNPTOidOjFI52HpgZ20XCaFur1521 -03-14T14:28:13 Referral for pain management placed in chartRx for Gabapentin sent 52621-5Ofalzmbaq encounter OlkvRP6505-92-32D85:50:58Telephone encounter NoteTXT1.2.840.721775.1.13.104.2.7 .2.065864|[id number] for patient awvs45568-5CgmaYLQVRJAYYIFLrdpjbue d C-CDA narrative [address] 52CVQOVYTDHBLBTVWRFHBWKV9699-67-99 T14:50:581.2.840.133661.1.72.3.15| 1.2.840.351226.1.13.104.2.7.2.7278 [id number] [facility] 2023-12-10 12:15:50 0ApKLf4HuDitcw+du0MM SdfKMYBpfMJWf7 F2EETv7SvJ054cj5SQ++e22cjRw6M13643 -03-14T12:15:50 Copied from [facility] #[id number]. Topic: Appointment - Schedule Appointment>> Dec 10, 2023 12:14 PM Patient Screen Printing Supervisor wrote:Patient calling to see if provider will approve a TH apt for 12/14/23. Please advise 36793-7Gnexdlkif encounter WiheEI3991-45-36Y41:16:16Telephone encounter NoteTXT1.2.840.014134.1.13.104.2.7 .2.648495|[id number] for patient uurs17247-5ArypGMJYPYOMGPCVzjkegkm d C-CDA narrative [id number] [id number] 15NKKFMTYRQEXQACDPMVJCXY4936-11-76 T12:16:161.2.840.649095.1.72.3.15| 1.2.840.341335.1.13.104.2.7.2.7278 [id number] Laura Matt [facility] 2023-12-10 11:01:51 s7ceH4ZxadhymFldC/Fr Ju4rsOOsvWx2tZ ApJRDeF1J2szVeSSPTNR6JLgku1QUZ0381 -03-14T11:01:51 Pt requesting call back from clinic, wants to know if provider can give him a referral for pain management, also would like to know if he can get his GABAPENTIN Rx refilled.Please F/u 32696-9Yflrzmbtb encounter PruvDD4219-29-24H86:03:16Telephone encounter NoteTXT1.2.840.747928.1.13.104.2.7 .2.893330|[id number] for patient jarw95048-7BylxHKYILCTEXTMIkjsxauv d C-CDA narrative [id number] [address] [id number] 18TZPKNSRFTDOKKZICCKVVWK5189-03-96 T11:03:161.2.840.217241.1.72.3.15| 1.2.840.468804.1.13.104.2.7.2.7278 79_[id number] Noam Zimmerman [facility] 2023-12-04 16:04:14 0Re1oVm8z4zKZpx7G9QH gEh+azeKWN6dVz buZ1W+MJr2cpw3LyLWmm4SgYaar3ZN2216 -03-08T16:04:[address] Henrietta Merritt:REMAIN on Plavix BUT HOLD ELIQUIS FOR 2-3 DAYS PRIOR TO PROCEDURE ON 12/08. RESUME ELIQUIS THE NEXT DAY.Patient notified of above. He verbalized understanding and agreement. 04665-2Cobtylwuv encounter XruuBE1196-77-07A02:11:41Telephone encounter NoteTXT1.2.840.613091.1.13.104.2.7 .2.731403|[id number] for patient ojoo27880-1GaqnOLCBKFSRMWCFzdxjcpa d C-CDA narrative sslc466821081Zuvjfg A [place] RNUT[id number] 67FWOJEPWVCXVFTLPVDZACQY5712-86-85 T16:11:411.2.840.266949.1.72.3.15| 1.2.840.280808.1.13.104.2.7.2.7278 79_[id number] Rylee Hutson RN [facility] 2023-12-04 13:19:00 8/mIDnEKsK92lCKzJcCx N6piuG0AQPTtdi wMK7mrqXwL8ZEMum2Nsz9w7exhCjb79477 -03-08T13:19:00 Phoned patient to review/discuss Flex bronch with EBUS and US guided Transthoracic FNA on 12/09/23 with general anesthesia at [facility] with Dr. Radha Lopez.Medications and Allergies reviewed.HOLD AC: Messages sent to patient founder ceo & president for clearance to HOLD both Eliquis and Plavix. Awaiting response.Consent: Needs to be consented.Reviewed the instructions below.Sent via [employer] per patient preference.Questions asked and answered.Pre and post bronch instructionsAnesthesia Medication/NPO guidelinesATS Patient Ed series on bronchoscopySan Diego [facility] of tupeloQuestions asked and answered. Patient verbalized understanding and agreement with above. 46373-6Vuwyfzais encounter SapdPW3119-00-81V79:42:11Telephone encounter NoteTXT1.2.840.960400.1.13.104.2.7 .2.592749|[id number] for patient skly75379-3VabdYTEKVMZQMESBkjmdmfa d C-CDA narrative aoxj735750326Zaawbp A [place] RN[address] CcxuQxjfbguzqUnlddadzkLWWY12718021 15VHNUMHWEFVFULLPUFQXTZL6492-18-26 T13:42:111.2.840.475176.1.72.3.15| 1.2.840.236993.1.13.104.2.7.2.7278 79_[id number] Rylee Hutson RN [facility] 2023-11-25 14:52:50 5MT7AahicXp5GhDWUP5q RBj8rPShzHmqiG f0HCG4AvuInyRWErnoQY4VyavydDEf2079 -02-28T14:52:50 Please review and advise 07480-6Soibjygxd encounter LdniNY0863-97-89Q16:52:57Telephone encounter NoteTXT1.2.840.217914.1.13.104.2.7 .2.713512|[id number] for patient ltgj74472-2MglpXLAAMBAFCDOHhkbqudh d C-CDA narrative text[id number] 49ZKABZKIXZMCKTHTILFFYGL6086-46-56 T14:52:571.2.840.411466.1.72.3.15| 1.2.840.768055.1.13.104.2.7.2.7278 79_[id number] [facility] 2023-11-25 14:19:30 oU1bWu4buplg4p09k7uF MxQNwASAEYIoSl 426hXOpWQH3WYZHnLR6x9p1DpGmQHe6775 -02-28T14:19:30 Savanna from [facility] pharmacy called stating ketorolac 10 mg tablet can only be prescribed for a 5 day supply no more. She is asking if the provider can change the Rx to another medication like naproxen or acetaminophen.You can reach Savanna at [phone]. 95322-6Tbclpopzg encounter KkkuRQ0857-37-27D69:26:15Telephone encounter NoteTXT1.2.840.346986.1.13.104.2.7 .2.634594|[id number] for patient coks74177-0DdktJNKKKSMCUDTDoddiktt d C-CDA narrative jrbf341251114Zxxrr K ZarateUT[id number] 20OMJREBXIZESDBRAWFMEBBP7441-70-43 T14:26:151.2.840.407097.1.72.3.15| 1.2.840.645972.1.13.104.2.7.2.7278 79_[id number] Vania Chambers [facility] 2023-11-20 14:18:16 fakLJm9JoO2/QhLZ3cnn +WwKXgDYHtTmyN ELZFDqLXT2dYFrxtO7C4GpUho2ufRa6024 -02-23T14:18:16 PT D/C home. GCS15, VS stable. Given D/C paperwork. Pt ambulatory at time of discharge. Pt educated on med usage, follow up care, s/s worsening condition, need for hydration. Pt verbalized understanding.Pt [place]ulated [place] 08040-3Yferxaonv department HdjiZK8966-32-23Y55:21:09[facility] NoteTXT1.2.840.321222.1.13.104.2.7 .2.321381|[id number] for patient tcid94512-0XwgsZVWXERSTXLMPumlonpw d C-CDA narrative [id number] E Linkes RN[address] Dimn[id number] 49XRNHSAIFWHMLREPEVKDKIN0798-97-04 T14:21:091.2.840.713309.1.72.3.15| 1.2.840.009272.1.13.104.2.7.2.7278 79_[id number] Neena Carter RN [facility] 2023-11-20 11:14:43 KDQELx/kY9jgnbLcKlsN cwccnz7PNRBag0 oAzcpdckxwBxNxq3IbgUTVO5rYdw5I1863 -02-23T11:14:43 Pt attempting to give UA sample. 64559-4Cnpcjvzgz department SbzvSD2870-51-81B28:14:54[facility] NoteTXT1.2.840.784672.1.13.104.2.7 .2.801425|[id number] for patient yobr37096-4OdytBAQKSKAQNGQBidjdhlx d C-CDA narrative text[address] [id number] 90EYCYEZCIWSDPKETRCIVZVU3783-64-73 T11:14:541.2.840.966817.1.72.3.15| 1.2.840.877466.1.13.104.2.7.2.7278 79_[id number] [facility] 2023-11-20 10:46:36 46P8/KKI2KOP5msAsOpT Q+/ZMI8QnwXKHR Kl+guMQBnsbKN7++FEv9lRXiqAyZmp0170 -02-23T10:46:36 Patient reports that he has been having pain in his left lower side "down to his balls". States that he was seen a month ago and told he had an abscess on his lungs. Took Hydrocodone 5mg at 9am and states that it has not helped. 63510-0Xdvjtfcge department Triage ikveEY7161-18-38W69:48:26[facility] Triage noteTXT1.2.840.207523.1.13.104.2.7 .2.878946|[id number] for patient gqus14469-4Vplkyjxrg department NoteLNNARRATIVEFormatted C-CDA narrative [id number] M Hayes RNUT[id number] 13INJNKPWNJWXRRBJKLSVCNE0596-89-85 T10:48:261.2.840.562216.1.72.3.15| 1.2.840.644298.1.13.104.2.7.2.7278 79_[id number] Sofia Whiteside RN [facility] 2023-11-16 12:48:59 h78nRfJ3eQwJZ10IgtH0 FEtFAY0Yp07cI3 Lo5kApolnNJW+HFkGyPTv6nPIgMR3X0157 -02-19T12:48:59 Images from the original note were not included.Refill request for lisinopril 10 mgCardiovascular: ALEXEI Inhibitors Ryinbd7311/16/2023 11:37 AMProtocol Details Valid encounter within last 12 monthsK in normal range and within 360 daysCr in normal range and within 360 daysLOV 09/07/2023"Continue with Plavix 75 daily, Eliquis 5 mg twice daily, Lipitor 40 mg daily, Repatha subcu 140 every 2 weeks, lisinopril 10 mg daily, Lopressor 50 twice daily. "Refill sent [address]Phone: Xnnhtvwvbteuzd signed by Dania Ramos RN at 11/16/2023 12:51 PM RLL95734-2Mrfytabbz encounter YqkzTZ1097-35-65G36:51:47Telephone encounter NoteTXT1.2.840.175873.1.13.104.2.7 .2.076179|[id number] for patient hjpb12810-0QhcuBDNJXUETWEYUenragww d C-CDA narrative lefb506959419Dwny Sheavly RN[address] SwbaHdpmlqsnoKwqijajfjUSVK73397952 38WJGHTOKNDXMBREFKTLSEWT7823-35-77 T12:51:471.2.840.873265.1.72.3.15| 1.2.840.808858.1.13.104.2.7.2.7278 79_[id number] Dania Ramos RN [facility] 2023-11-16 11:11:53 4l43TEdFTrGZZpoJpUMW NlqwjBo5Wr+1cW I938H//xu0CPNzcZl2cxUK23Q7Yfof0848 -02-19T11:11:53 Recent VisitsDate Type Provider Dept10/22/23 Office Visit Sunday Mccormick MD [facility]09/15/23 Office Visit Sunday Mccormick MD [facility]07/22/23 Office Visit Sunday Mccormick MD [facility]04/21/23 Office Visit Sunday Mccormick MD [facility] MedShowing recent visits within past 540 days with a meds authorizing provider and meeting all other requirementsFuture AppointmentsNo visits were found meeting these conditions.Showing future appointments within next 150 days with a meds authorizing provider and meeting all other requirementsLast refill wasDisp Refills Start End DAWHYDROcodone-acetaminophen (NORCO) 5-325 mg tablet 60 tablet 0 10/22/2023 11/06/2023 NoSig: Take 1 tablet by mouth every 6 (six) hours as needed (lung pain) for up to 15 days. Indications 66981-4Ergfoqfto encounter EuxhRW1532-46-17Y65:12:09Telephone encounter NoteTXT1.2.840.394972.1.13.104.2.7 .2.404790|[id number] for patient uwih68063-1XoifGOUSLFRDUKRTwbmwnkn d C-CDA narrative textUT[address] OknuMornhfklnAcmrarkkpDCXY41394940 62YXXUDUBLUTBAZXBOFOPAWI9509-09-52 T11:12:091.2.840.072126.1.72.3.15| 1.2.840.563942.1.13.104.2.7.2.7278 79_[id number] [facility] 2023-11-16 09:25:35 9vMcW2c12s49Lc5olHhU vNMN/Wz/tHFjHj D7NEvb2Y9hai327t3OmjBMVPlQzF3m4138 -02-19T09:25:35 Amy Solorzano is a 63 year old malePt states he is experiencing severe pain requesting refill for pain med,requesting call back to discussPt can be reached at [phone] you 92328-3Yvkimkqah encounter BuwwGL8262-59-33J41:28:46Telephone encounter NoteTXT1.2.840.418466.1.13.104.2.7 .2.276043|[id number] for patient otwo20023-1CripACAZCMNFDUTTuqrcfyb d C-CDA narrative yjsc253681595Lntfk [employer] FuwlZjkutdjivVreidkehaBFFG90553185 07FPPIXEPJQJVIHMIAGNENKY2404-45-75 T09:28:461.2.840.995303.1.72.3.15| 1.2.840.551456.1.13.104.2.7.2.7278 79_[id number] Trinity Shepherd [facility] 2023-11-13 16:49:45 hPU4ySnfkB0jjpB+tAcA cLRiRO3odH7Pd9 lTY+MHSrppiZ/t/bpwmQhOv4TVGZrL0269 -02-16T16:49:45 Patient notified of results. They verbalized understanding of results of CXR and recommendations via teach back. He has enough pain medication to get through the weekend. He will call his PCP on Thursday. Advised him to go to the ER if pain becomes severe/intolerable. No further questions or concerns at this time. 92714-8Arwqpuoau encounter RxdfRE7868-06-25G89:50:32Telephone encounter NoteTXT1.2.840.826951.1.13.104.2.7 .2.193148|[id number] for patient srbb89273-1PjeeYLRIDCEVZQYOltyzlil d C-CDA narrative sgip879092184Xsbi Sheavly RN[id number] 30GDSALGRIGDMZNVEOEGQRSS8915-47-76 T16:50:321.2.840.455388.1.72.3.15| 1.2.840.364939.1.13.104.2.7.2.7278 79_[id number] Dania Ramos RN [facility] 2023-11-13 13:05:06 f6wgSWuiJk3n/zj0U+rw 0TSWodzNDiQaqo 7r1zY/Nbj7py4FigoPsFlyAjExvt8o0954 -02-16T13:05:06 Pain may or may not be related to lung issues, last chest x-ray looked good. I am unable to prescribe most pain medications. Would recommend patient follow up with his primary care physician. Thank you. 14698-0Sagzyjvgh encounter QiofAU4132-41-86R90:06:22Telephone encounter NoteTXT1.2.840.064409.1.13.104.2.7 .2.458468|[id number] for patient qzpa39774-6EhvnMJVFPQCKHQALqhgrgvl d C-CDA narrative text[id number] 07NKNPGDJLTJTOFUDZPPGMPY2147-92-01 T13:06:221.2.840.784211.1.72.3.15| 1.2.840.049969.1.13.104.2.7.2.7278 79_[id number] [facility] 2023-11-12 17:05:20 KaBiJm5fDZHuMB84DsUu 15Zo5KxwbxyRMl tQ2/zwhKP7ClrIYnx3hyW9hx05COfV3625 -02-15T17:05:20 Patient states his whole left side is very painful, 7/10 on pain scale 0/10 at this time. Pain feels sharp/ stabbing. Patient is taking pain meds but will be out on Thursday and only relieves pain for 2 to 3 hours. The pain is becoming more intense in past 2 weeks. Patient is worried because he will be out of pain meds on Thursday. He is requesting enough meds for pain to help him sleep and manage the pain more effectively. 24112-4Gdyoojizu encounter IjjwLW2354-83-81Q55:16:16Telephone encounter NoteTXT1.2.840.674444.1.13.104.2.7 .2.560834|[id number] for patient bcgb56523-9ZtjcUAHZIJDFNJUJmeeidxt d C-CDA narrative kmxb748346468Eehxiyy L Allen RNUT[address] SftfHrwywutbeMfzbyymwdLHFH03279555 53XCXCHITUVICHSONLVFGVYH2407-58-96 T17:16:161.2.840.568412.1.72.3.15| 1.2.840.408943.1.13.104.2.7.2.7278 79_[id number] Amy Witt RN [facility] 2023-11-12 15:31:52 E+cZYn4DFjohmWzt+IYD tSHFuvIkEgthw5 ydgLigh8O0nAaw7s8VVTC5Df6qCnKR8603 -02-15T15:31:52 hard to sleep at night and can't find a side that is comfortable due to the pain in his side, pain scale right now 6/10. Patient stating pain is worsening.After he is finished with his antibiotics is that all he needs to takeHe is asking to speak with a nurse. Please advise 36972-0Izwnpyhgy encounter CqbuQZ6042-49-62I37:34:36Telephone encounter NoteTXT1.2.840.279130.1.13.104.2.7 .2.511063|[id number] for patient uyct77022-9JcvuGVJZBKQNMTOUzdfuluy d C-CDA narrative xtoh176061212Cpbzk Gonzales[address] NiquSlrasfnrfMncnhjttqXNVO27213098 79XIVPNNTGLJYXJYWJKLGXUX2364-61-42 T15:34:361.2.840.382831.1.72.3.15| 1.2.840.419550.1.13.104.2.7.2.7278 79_[id number] Laura Matt [facility] 2023-11-12 09:43:54 +cu/OXot1BrewaxE1dlU u5fOO+nIkvablA Dj0C8TY92pdysTgq+h7JMWwpsKt4DA1510 -02-15T09:43:54 Images from the original note were not included.Refill approved per cardiology protocol:Cardiovascular: Antilipid - HMG-CoA Reductase Inhibitors Dekomx7611/12/2023 09:21 AMProtocol Details Valid encounter within last 12 monthsTotal Cholesterol within 360 daysLDL within 360 daysHDL within 360 daysTriglycerides within 360 daysAST in normal range and within 360 daysALT in normal range and within 360 days 09254-3Htkjvvpck encounter PcveQV0437-21-94L71:43:54Telephone encounter NoteTXT1.2.840.134344.1.13.104.2.7 .2.726949|[id number] for patient lskb09812-0BqhgXSCIBAFXQCQGbuhqxaz d C-CDA narrative [id number] 43TDPTTGYBGYXNGBKYJXDELW1337-46-81 T09:43:541.2.840.111798.1.72.3.15| 1.2.840.070266.1.13.104.2.7.2.7278 79_[id number] [facility] 2023-11-12 09:20:01 SBlnQbmdlEl9AMsQQS0s DM+OGzWsB/Cmcq YeQ/EmO6LPSQF7Ps0GQw91mUsGR3qN1200 -02-15T09:20:01 [facility] 63 [facility] the pt.Artorvastatin [address] [address]Cckvp: [phone] Ieivdxmomustum signed by Yaima Alvarado at 11/12/2023 9:21 AM SHB59126-4Isgzbqjay encounter LoyhJW5033-99-87I72:21:48Telephone encounter NoteTXT1.2.840.521829.1.13.104.2.7 .2.291564|[id number] for patient slbd21146-5FjmiZOCWHUWKUECSlaixkkk d C-CDA narrative text[id number] 67ATGOGKBLFDQRQUVELBCHQJ1740-46-41 T09:21:481.2.840.512883.1.72.3.15| 1.2.840.184863.1.13.104.2.7.2.7278 79_[id number] [facility] 2023-11-03 15:26:31 6V7+xoTndxvLPf9XP2Mt 41Yvl7LtQ1/pXw SVRwNIkDCEHUcajAbY+jlKtNZg4kfF4044 -02-06T15:26:31 Patient notified that orders placed for CXR. He will call radiology to schedule. 38586-1Dlnkrdfja encounter BlkkJO2464-62-42A25:26:55Telephone encounter NoteTXT1.2.840.847698.1.13.104.2.7 .2.656083|[id number] for patient yevc58451-8SxksJQYTWTPZKALWbznodgq d C-CDA narrative afif052028081Ubcx Richard ALEJO[address] JgvsPgbspcvupQqnkuitnhFEVD07366183 85WLTNQNKPPBSQERHHOSMUVD0900-81-26 T15:26:551.2.840.483876.1.72.3.15| 1.2.840.703627.1.13.104.2.7.2.7278 79_[id number] Dania Ramos RN [facility] 2023-11-03 12:42:49 V3B5JPqqvMfncSgcO6tn qPdV+yS17qnrO4 jdtxEn9+cH7Jw5md4T1HW48jbqJsQo5666 -02-06T12:42:49 Please have patient get CXR to ensure no fluid around lungs in light of pain.Orders placed 78677-2Bkspqxyew encounter JzfsXJ3560-50-88Q34:43:33Telephone encounter NoteTXT1.2.840.019981.1.13.104.2.7 .2.426485|[id number] for patient tumr25456-9BgotGITDVRJDSNUSbcirjva d C-CDA narrative [id number] 30MGLMCXDYSJPUDLEUDSAFNA7224-89-73 T12:43:331.2.840.252872.1.72.3.15| 1.2.840.357745.1.13.104.2.7.2.7278 79_[id number] [facility] 2023-11-02 16:12:47 /xhsS6uBY4xd/75gUlae i5j8CBzZfS1Ilm qVpQZvGmtwX8iDgffdgIAbox6tDR7M1531 -02-05T16:12:47 Spoke with patient and pharmacy. Patient had already picked up his prescription. The pharmacy has misinformed him.While on the phone, patient states that the pain in his lung area is getting worse not better. He is not having any shortness of breath or cough. He denies other symptoms as well. He states the pain medication is helping.Patient was given contact information to schedule his CT scan which should be done around 11/27/23.Routing to Dr. Lopez to notify of increased pain. 60036-5Acmedyqea encounter TiltVX6765-59-23G05:23:37Telephone encounter NoteTXT1.2.840.617585.1.13.104.2.7 .2.879012|[id number] for patient vewc86707-7UddoFWAHVZNDZAODkixmbba d C-CDA narrative [id number] 46UOMQIRQUXJSTVIHISSCSFE8169-38-80 T16:23:371.2.840.396527.1.72.3.15| 1.2.840.877077.1.13.104.2.7.2.7278 79_[id number] [facility] 2023-11-02 08:12:54 Hnl/HnfWA1KESekz4/ti kHoXRJ3SBIgED1 N7oJXHf67k6hfyN91aRgGVpSXIwYjJ7523 -02-05T08:12:54 Amy Solorzano is a 63 year old malePatient called and stated the pharmacy did not receive the prescription for the amoxicillin-clavulanate 875-125 mg per tablet. Please resend, patient is out as of today. 15232-6Gtcxfpzzj encounter HyhgTE0378-72-21D46:13:49Telephone encounter NoteTXT1.2.840.938840.1.13.104.2.7 .2.009256|[id number] for patient eabz86069-6WaziELSJODJHMPQZskvfrcc d C-CDA narrative ofzb096269705Umec [address] ZksfWnbubystqPxjbaywddDQGF77378767 72NZCIIMTBPLNEXGZKNIUQLO9869-81-46 T08:13:491.2.840.187634.1.72.3.15| 1.2.840.515208.1.13.104.2.7.2.7278 79_[id number] Aide Ansari [facility] 2023-10-18 17:09:07 A2WBCh991skjPkVJn3Z1 T58pqWOnnuI55w E9PlLXECzEbqlN/2pV9CRp0fk/BmmB40542023T17:09:07 Patient discharged home with written and verbal instructions. Patient was educated on prescriptions and follow up appointment. Patient verbalized understanding. Patient is alert and oriented to name, time, place, and situation. GCS 15. Respiratory rate even and unlabored, skin warm and dry. Vital sings rechecked and documented. Patient denies pain at the moment. Questions about discharge instructions encouraged. Patient has a steady gait out of the ER.Escorted by RN.Mary Castañ[place] [address]-0Qqyxeykhi[address] TysrSC4128-07-13N20:09:11[facility] department NoteTXT1.2.840.933925.1.13.104.2.7 .2.776086|[id number] for patient ylst56813-9WfziWALCDZLETUNPtnwqisi d C-CDA narrative vvbd308926936Dqaydjqw [place] RNUT[address] NdfdOquxqygdsOkglmspmbVPVF87081550 28IAQPKMKCOWPZQNZVISVATB3341-47-40 T17:09:111.2.840.971342.1.72.3.15| 1.2.840.988455.1.13.104.2.7.2.7278 79_[id number] Mary Castañeda RN [facility] 2023-10-18 15:00:00 bFp/68QzO2sARvdw7qkG cHIldROaq+mhhN gdIGHoLJ8oFgr+Lx2DC8A0auttirAB5102 -01-21T15:00:00 Patient reassessed/rounding made.Patient denies complains at this time and verbalizes no needs.Remains in no acute distress, stable condition.Patient aware of plan of care.Mary Castañ[place] [address]-5Jkvmmmgcq[address] ZcvgCI0671-34-23S50:12:06[facility] NoteTXT1.2.840.215135.1.13.104.2.7 .2.599855|[id number] for patient skiy83353-8NwjrYHASPJRWWWWJaowwscu d C-CDA narrative text[address] 27YKSVPLNJCNZZAWKNDXFEMS1679-54-90 T15:12:061.2.840.619137.1.72.3.15| 1.2.840.499788.1.13.104.2.7.2.7278 79_[id number] [facility] 2023-10-18 14:34:06 O5wS0SZ2LBv+2occTbm5 ALMNEW8hrPprKZ jPlaHS3kiHzQ7gpJpTLuyWP+6SmUjz2438 -01-21T14:34:06 Called lab, blood hemolyzedNew lab drawn @ 1350Waiting for [place] 1434 [place] [address]-8Yeznummkl zjfvJT5557-57-82F88:34:56Procedure noteTXT1.2.840.977357.1.13.104.2.7 .2.663169|[id number] for patient fkix85115-7BmkoGXPWHEJTCQZNmpswuuu d C-CDA narrative vzov076605416Jxbeywu Irvin[address]TXTX[address] 16JFZMUARVCIUOGZZWTMEZTR7891-37-65 T14:34:561.2.840.774687.1.72.3.15| 1.2.840.214622.1.13.104.2.7.2.7278 79_[id number] Roro Eng [facility] 2023-10-18 14:06:23 PVmbZZ6DBWGpucXGacdB MPSZ51N7gW6egf dsMkcc9qt92DOw+Mp096A++3L4Hgv71687 -01-21T14:06:23Summary: need labs Need labs for CT exam 1406 [place] [address]-2Pwoxbjolp jhmrGS8476-40-93Y79:06:48Procedure noteTXT1.2.840.388402.1.13.104.2.7 .2.366804|[id number] for patient jzqk80201-7YwjbHHSTWGWKVBJYljaiyjg d C-CDA narrative text[address] G[id number] 35JGGKNVPVGHSUZJABYWLEEI6251-74-14 T14:06:481.2.840.582522.1.72.3.15| 1.2.840.733745.1.13.104.2.7.2.7278 [id number] [facility] 2023-10-18 12:15:00 FL8VRTcAsFxqbjffr5Cm 9/QAF8kOAyov +IGWkq5aqAMtHoZ+y5pXEHKK7KE/Nt51682023T12:15:00 Patient's name and verified with patient.Chief ComplaintPatient presents withAbdominal PainLeft lowerFlank PainleftPatient ambulatory with steady gait with EC arrival.Patient is conscious and alert, with normal/unlabored breathing, and normal color/tone for ethnicity -oriented to name, time, place, and situation. GCS 15.Patient reports he has been experiencing abdominal pain - points to left upper side- since ~1 month. Was seen at [facility] initially as pain radiated to chest. Patient mentions that [facility] president said that everything was normal and recommended patient to go to ER.Patient denies nausea, vomiting, shortness of breath, fever, chills and diarrhea.Patient mentions that pain worsened the last couple of days and it is not constant; worsens with eating.Past Medical History:Diagnosis DateAtrial fibrillationChronic bilateral low back pain with right-sided sciatica 10/11/2021CKD (chronic kidney disease), stage III 10/21/2020oronary artery disease involving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 deficiency 10/10/2020 Tetanus received in last 5 years: Unknown Allergies:No Known AllergiesPast Social History:Tobacco Use Never smoked or used smokeless tobacco. Alcohol Use Yes. Comments: occasional - maybe 2 drinks/month Drug Use Yes; Marijuana. Comments: occasional Past Surgical History:Past Surgical History: Procedure Laterality Date BIOPSY/EXCISION, LYMPH NODE(S) 1999 from neck COLONOSCOPY N/A 10/21/2021 Surgeon: Daphnie Abbott MD; Location: [facility] OR [facility] CORONARY ARTERY BYPASS GRAFT N/A 12/24/2020 Surgeon: Martin Wyatt Jr., MD; Location: [facility] OR Location TIBIAL SCOPE/SURG/FX AID,UNICONDYLR 2010 Review of Systems: Review of Systems Constitutional: Negative for chills and fever. Respiratory: Negative for cough and shortness of breath. Cardiovascular: Negative for chest pain. Gastrointestinal: Negative for abdominal pain and vomiting. Genitourinary: Negative for dysuria. Musculoskeletal: Negative for arthralgias, neck pain and neck stiffness. Skin: Positive for wound. Neurological: Negative for dizziness. Psychiatric/Behavioral: Negative for agitation. Endocrine: Negative for goiter. Physical Exam: ED Triage Vitals [05/15/23 0918] Weight 99.8 kg (220 lb) Actual or estimated Estimated by patient/family report Height 1.778 m (5' 10") BP (!) 178/101 Pulse 92 Resp 16 Temp 36.7 ?C (98.1 ?F) Temp source Oral SpO2 97 % Measured on Room air Physical ExamVitals and nursing note reviewed. Constitutional: Appearance: Normal appearance. He is obese. HENT: Head: Normocephalic and atraumatic. Nose: Nose normal. Cardiovascular: Rate and Rhythm: Normal rate. Pulmonary: Effort: Pulmonary effort is normal. No respiratory distress. Abdominal: General: There is no distension. Musculoskeletal: General: Normal range of motion. Cervical back: Neck supple. Neurological: General: No focal deficit present. Mental Status: He is alert and oriented to person, place, and time. Radiology:No orders to display Lab Results:Lab Results - No data to displayEKG:If EKG completed, see Procedure Note. Orders and Treatments:No orders of the defined types were placed in this encounter.Orders Placed This Encounter Medications silver nitrate applicator 1 Applicator First Provider Eval:ED Events Date/Time Event User Comments 05/15/23916 Medical Screening Begins JENI LEVINE DO -- 05/15/23916 First Provider Evaluation JENI LEVINE DO -- No notes of EC Admission Criteria type on file.ED COURSEDiagnosis/Impression as of 05/15/23 1041 Encounter for post surgical wound check Procedures: ProceduresMDM:Medical Decision MakingThe patient presents for eval for bleeding from the right side of his face after having a wart removed yesterday in [place]. He left around noon and has had bleeding since. He does take Eliquis, aspirin and Plavix. He tried pressure at home and it has not helped.Vital signs are stable here in the ER.There is a small amount of bleeding noted from a 1 cm cavitary lesion to the right side of his face.Surgicel and pressure was applied and the patient was watched here in the ER for 1 hour without recurrence of his bleeding.He remained stable here in the ER and is okay for discharge home with PCP follow-up.Problems Addressed:Encounter for post surgical wound check: acute illness or injuryRiskPrescription drug management. Flowsheet Documentation: Scoring Tools: No data recorded Disposition/Condition:ED Disposition ED Disposition Disch - Home Condition Stable Comment -- Discharge Medications:Patient's Medications START taking these medications No medications on file CONTINUE taking these medications which have NOT CHANGED APIXABAN 5 MG TABLET Take 1 tablet by mouth in the morning and 1 tablet in the evening. Indications: atrial fibrillation ASPIRIN 81 MG EC TABLET Take 1 tablet by mouth in the morning. ATORVASTATIN (LIPITOR) 80 MG TABLET Take 1 tablet by mouth at bedtime. CHOLECALCIFEROL, VITAMIN D3, (VITAMIN D3 ORAL) Take by mouth daily. CLOPIDOGREL (PLAVIX) 75 MG TABLET Take 1 tablet by mouth in the morning. EVOLOCUMAB (REPATHA SURECLICK) 140 MG/ML PNIJ inject 1 mL under the skin every 2 (two) weeks. EZETIMIBE 10 MG TABLET Take 1 tablet by mouth in the morning. FUROSEMIDE 40 MG TABLET Take 1 tablet by mouth once daily KCL 20 MEQ TABLET TAKE 1 TABLET BY MOUTH IN THE MORNING LISINOPRIL 10 MG TABLET TAKE 1 TABLET BY MOUTH IN THE MORNING METOPROLOL TARTRATE 100 MG TABLET Take 0.5 tablets by mouth in the morning and 0.5 tablets in the evening. PANTOPRAZOLE 40 MG EC TABLET Take 1 tablet by mouth in the morning. START taking Modified Medications as Prescribed No medications on file STOP taking these medications No medications on file Follow-up:Electronically signed by: Jeni Levine, 05/15/23 1041 [id number] Emergency department [id number]:41:56Physician Emergency department [id number] for patient [id number] department NoteLNUT[address] Z[id number] [id number] T10:41:[id number]| [id number] [facility] 2023-04-20 10:50:15 oNH/E6rIgIh/qJVjkRO5 PWfakTEfi1xmmL YNSMTdzptkaIDm2MViReRaVekKlcmh2571 -07-24T10:50:15 Images from the original note were not included.Refilled per cardiology protocol Name from pharmacy: Potassium Chloride [facility] ER 20 MEQ Oral Tablet Extended Release Will file in chart as: KCL 20 mEq tablet Possible duplicate: Hover to review recent actions on this medication Sig: TAKE 1 TABLET BY MOUTH IN THE MORNING Disp: 30 tablet ? Refills: 0 Start: 04/20/2023 Class: eRX Last ordered: 2 weeks ago (04/01/2023) by Elsa Corrales MD Last refill: 04/01/2023 Rx #: [id number] Endocrinology: ?Minerals - Potassium Supplementation Passed 04/20/2023 10:39 AM Protocol Details Valid encounter within last 12 months Name from pharmacy: Lisinopril 10 MG Oral Tablet Will file in chart as: LISINOPRIL 10 mg tablet Possible duplicate: Hover to review recent actions on this medication Sig: TAKE 1 TABLET BY MOUTH IN THE MORNING Disp: 30 tablet ? Refills: 0 Start: 04/20/2023 Class: eRX For: Uncontrolled hypertension Last ordered: 2 weeks ago (04/01/2023) by Elsa Corrales MD Last refill: 04/01/2023 Rx #: [id number] Cardiovascular: ?ALEXEI Inhibitors Passed 04/20/2023 10:39 AM Protocol Details Valid encounter within last 12 months K in normal range and within 360 days Cr in normal range and within 360 days 61860-0Hiqpywqwv encounter [id number]:50:15Telephone encounter [id number] for patient [id number] Castillo MA[address] L[id number]-89-86 T10:50:[id number]| [id number] Lilibeth Lester MA [facility]
[2024-01-04] MEDS ORDERED: NA CHLORIDE 0.9% 1,000 ML ONE ×2 (17:25→21:54)
--- NOTE | 2024-01-04 17:55 | RAD REPORT ---
EXAM DESCRIPTION: RAD - Chest Single View - 01/04/2024 5:46 pm CLINICAL HISTORY: hypotension Chest pain. COMPARISON: Ct Skull/Thigh dated 12/17/2023 FINDINGS: Portable technique limits examination quality. The lungs are emphysematous without acute infiltrate. Left hilar mass is present. The heart is mildly to moderately enlarged with sternotomy wires present. No displaced fractures. IMPRESSION: Left hilar mass. CT recommended.
[2024-01-04 18:11] LABS: Absolute Eosinophils 0.1 K/uL (0-0.5); Absolute Lymphocytes (CBC) 0.3 K/uL (0.7-4.9); Absolute Neutrophil 8.7 K/uL (1.8-8.0); Basophils % 0.2 % (0-1.3); Eosinophils % 1.4 % (0-4.4); Hematocrit 27.2 % (39.6-49.0); Hemoglobin 9.2 g/dL (13.6-17.9); MCH 27.9 pg (27.0-35.0); MCV 82.2 fL (80-100); MPV 7.4 fL (7.6-11.3); Monocytes % 0.4 % (3.3-12.3); Nucleated Red Blood Cells % 0.1 % (0-0); Platelets 342 thou/uL (152-406); RBC Red Blood Cell Count 3.31 M/uL (4.33-5.43); Red Cell Distribution Width 13.9 % (12.1-15.2)
[2024-01-04 18:23] LABS: PTT, Activated Partial Thromb 27.2 SECONDS (24.3-36.9); Protime INR 1.28
[2024-01-04 18:34] LABS: Albumin 2.2 g/dL (3.4-5.0); Albumin/Globulin Ratio 0.6 (1.1-1.8); Anion Gap 9.6 mEq/L (5.0-15.0); Bilirubin Total 0.5 mg/dL (0.2-1.0); Globulin 3.5 g/dL (2.3-3.5); Potassium 3.6 mEq/L (3.5-5.1); Protein, Total 5.7 g/dL (6.4-8.2)
[2024-01-04 19:46] LABS: Platelet Estimate ADEQ; White Blood Cell Scan OK (OK)
[2024-01-04 19:47] LABS: Blood Morphology Comment NOT SEEN (NOT SEEN)
[2024-01-04] MEDS ORDERED: FENTANYL CITR 100 MCG/2 ML ONE (19:58)
[2024-01-04 20:18] LABS: Specific Gravity 1.025 (1.005-1.030); Sqamous Epithelial <5 /HPF (None Seen); Urine Bacteria None Seen /HPF (<20); Urine Bilirubin NEGATIVE (Negative); Urine Blood 1+ (Negative); Urine Clarity Extremely Turbid (Clear); Urine Color Yellow (Yellow); Urine Culture Reflex Order NOT NEEDED; Urine Glucose TRACE (Negative); Urine Ketones NEGATIVE (Negative); Urine Microscopic Reflex YN ORDER UMIC; Urine Mucus 2+ /HPF (None Seen); Urine Nitrite NEGATIVE (Negative); Urine Protein TRACE (Negative); Urine Urobilinogen Normal (Normal); Urine Yeast with Hyphae Trace /HPF (None Seen); Urine pH 5.5 (5.0-7.0)
[2024-01-04] MEDS ORDERED: LIDOCAINE 1% 20 ML MDV ONE (21:35)
[2024-01-04] MEDS ORDERED: HYDROMORPHONE HCL 2 MG/ML inj ONE (21:54)
[2024-01-04] MEDS ORDERED: ONDANSETRON 4 MG/2 ML VIAL ONE (21:54)
--- NOTE | 2024-01-04 22:18 | RAD REPORT ---
EXAM DESCRIPTION: RAD - Chest Single View - 01/04/2024 10:09 pm CLINICAL HISTORY: CVL placement Right IJ Chest pain. COMPARISON: <Comparisons> FINDINGS: Portable technique limits examination quality. Right-sided central venous catheter its tip in the SVC. No pneumothorax. Left hilar mass again noted. The lungs are grossly clear. Sternotomy wires are present.
--- NOTE | 2024-01-05 00:15 | ER ---
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 Coronavirus screen: At this time, the client does not indicate any symptoms associated with coronavirus-19. Ebola Screen: Patient negative for fever greater than or equal to 101.5 degrees Fahrenheit, and additional compatible Ebola Virus Disease symptoms Patient denies exposure to infectious person. Patient denies travel to an Ebola-affected area in the 21 days before illness onset. No symptoms or risks identified at this time. Risk Assessment: Do you want to hurt yourself or someone else? Patient reports no desire to harm self or others. Onset of symptoms was January 04, 2024. 17:26 Method Of Arrival: Wheelchair iw 17:26 Acuity: LEYLA 3 iw 19:00 Initial Sepsis Screen: Does the patient meet any 2 criteria? No. Patient's initial km8 sepsis screen is negative. Does the patient have a suspected source of infection? No. Patient's initial sepsis screen is negative. Historical: - Allergies: 18:48 No Known Allergies; iw - PMHx: 01/04 01:55 lung cancer; km8 - Immunization history:: Adult Immunizations unknown. - Infectious Disease History:: Denies. - Family history:: not pertinent. - Hospitalizations: : No recent hospitalization is reported. - Social history:: Smoking status: Patient denies any tobacco usage or history of. Screenin/08 18:48 [facility] ED Fall Risk Assessment (Adult) History of falling in the last 3 months, iw including since admission No falls in past 3 months (0 pts) Confusion or Disorientation No (0 pts) Intoxicated or Sedated No (0 pts) Impaired Gait No (0 pts) Mobility Assist Device Used No (0 pt) Altered Elimination No (0 pt) Score/Fall Risk Level 0 - 2 = Low Risk Oriented to surroundings, Maintained a safe environment, Educated pt \T\ family on fall prevention, incl call for assistance when getting out of bed, Assessed \T\ reinforced patient's understanding of fall precautions, Provided non-skid footwear, Hourly rounding (assess needs \T\ fall precautionary measures) done, Used ambulatory aids as needed (educated on \T\ assisted with), Used gait belt as appropriate. Abuse screen: Denies threats or abuse. Denies injuries from another. Nutritional screening: No deficits noted. Tuberculosis screening: No symptoms or risk factors identified. Assessment: 17:40 General: Appears uncomfortable, ill, Behavior is cooperative, appropriate for age. iw Pain: Denies pain. Neuro: No deficits noted. Cardiovascular: No deficits noted. Respiratory: No deficits noted. GI: No deficits noted. : No deficits noted. EENT: No deficits noted. Derm: No deficits noted. Musculoskeletal: Reports weakness in generalized. 19:10 Reassessment: Patient appears in no apparent distress at this time. Patient and/or km8 family updated on plan of care and expected duration. Pain level reassessed. Patient is alert, oriented x 3, equal unlabored respirations, skin warm/dry/pink. General: Appears in no apparent distress. Behavior is calm, cooperative, appropriate for age. Pain: Complains of pain in back Pain currently is 8 out of 10 on a pain scale. level that patient reports is acceptable is 8 out of 10 on a pain scale. Pain began chronic Is continuous. Neuro: No deficits noted. Level of Consciousness is awake, alert, obeys commands, Oriented to person, place, time, situation. Cardiovascular: Denies chest pain, shortness of breath, Patient's skin is warm and dry. Respiratory: Airway is patent Respiratory effort is even, unlabored, Respiratory pattern is regular, symmetrical. GI:. Derm: Skin is intact, Skin is dry, Skin is normal, Skin temperature is warm. Musculoskeletal: Range of motion: intact in all extremities. 20:30 Reassessment: Patient appears in no apparent distress at this time. No changes from km8 previously documented assessment. Patient and/or family updated on plan of care and expected duration. Pain level reassessed. Patient is alert, oriented x 3, equal unlabored respirations, skin warm/dry/pink. 21:11 Reassessment: IV in RAC infiltrated in CT; Dr. Dietrich notified, at bedside talking [facility] about central line. 23:00 Reassessment: Patient appears in no apparent distress at this time. No changes from [facility] previously documented assessment. Patient and/or family updated on plan of care and expected duration. Pain level reassessed. Patient is alert, oriented x 3, equal unlabored respirations, skin warm/dry/pink. 01/04 00:00 Reassessment: Patient appears in no apparent distress at this time. Patient and/or [facility] family updated on plan of care and expected duration. Pain level reassessed. Patient is alert, oriented x 3, equal unlabored respirations, skin warm/dry/pink. 00:00 Pain: Pain currently is 7 out of 10 on a pain scale. [facility] 01:00 Reassessment: Patient appears in no apparent distress at this time. No changes from [facility] previously documented assessment. Patient and/or family updated on plan of care and expected duration. Pain level reassessed. Patient is alert, oriented x 3, equal unlabored respirations, skin warm/dry/pink. pain decreased. Vital Signs: 01/03 17:33 BP 101 / 57; Pulse 79; Resp 18; Temp 97.6(TE); Pulse Ox 100% on R/A; iw 18:00 BP 97 / 70; Pulse 74; Resp 16; Pulse Ox 99% ; iw 18:30 BP 123 / 74; Pulse 80; Resp 16; Pulse Ox 100% ; iw 19:00 BP 120 / 80; Pulse 83; Resp 16; Pulse Ox 100% on R/A; km8 19:15 BP 133 / 77; Pulse 83; Resp 16; Pulse Ox 100% on R/A; km8 19:30 BP 128 / 85; Pulse 87; Resp 16; Pulse Ox 100% on R/A; km8 21:45 BP 128 / 69; Pulse 80; Resp 18; Pulse Ox 100% on R/A; km8 22:00 BP 99 / 65; Pulse 83; Resp 18; Pulse Ox 100% on R/A; km8 22:15 BP 109 / 71; Pulse 83; Resp 18; Pulse Ox 100% on R/A; km8 23:30 BP 100 / 68; Pulse 89; Resp 17; Pulse Ox 93% ; rv1 01/04 00:00 BP 112 / 69; Pulse 87; Resp 16; Pulse Ox 98% on R/A; km8 00:30 BP 114 / 71; Pulse 86; Resp 16; Pulse Ox 99% on R/A; km8 01:00 BP 107 / 71; Pulse 86; Resp 16; Pulse Ox 99% on R/A; km8 01:30 BP 109 / 75; Pulse 87; Resp 16; Pulse Ox 100% on R/A; km8 02:00 BP 110 / 69; Pulse 85; Resp 20; Pulse Ox 100% on R/A; km8 02:30 BP 106 / 67; Pulse 91; Resp 16; Pulse Ox 98% on R/A; km8 02:45 BP 103 / 66; Pulse 92; Resp 18; Pulse Ox 96% on R/A; km8 04 23:30 Nurse and Provider notified of pt O2 sat. rv1 [place] Coma Score: 19:10 Eye Response: spontaneous(4). Motor Response: obeys commands(6). Verbal Response: km8 oriented(5). Total: 15. ED Course: 16:55 Patient arrived in ED. mg5 17:05 Huy Velázquez MD is Attending Physician. rn 17:15 Brittany Sweeney, SAPNA is Primary Nurse. ko1 17:28 Triage completed. iw 17:40 IV is patent, is intact, with fluids infusing freely, with good blood return, started iw at cancer center. 17:47 Troponin High Sensitivity Sent. ko1 17:48 Chest Single View XRAY In Process Unspecified. EDMS 17:48 Blood Culture Adult (2) Sent. ko1 17:48 CBC with Diff Sent. ko1 17:48 CMP Sent. ko1 17:48 Lactate w/ 2H reflex if indic. Sent. ko1 17:48 Protime (+inr) Sent. ko1 17:48 Ptt, Activated Sent. ko1 18:48 Patient has correct armband on for positive identification. Placed in gown. Bed in low iw position. Call light in reach. Side rails up X2. Client placed on continuous cardiac and pulse oximetry monitoring. NIBP monitoring applied. patient monitor on. Door closed. Noise minimized. Lights dimmed. Warm blanket given. 19:00 Arm band placed on right wrist. km8 20:43 Patient requests rest room assistance. km8 20:[address] km8 20:55 Primary Nurse role handed off by Brittany Sweeney, SAPNA as6 20:57 Attending Physician role handed off by Hyu Velázquez MD sp4 20:57 Zak Dietrich MD is Attending Physician. sp4 21:52 La Weeks, SAPNA is Primary Nurse. km8 22:11 Chest Single View XRAY In Process Unspecified. EDMS 22:45 CT Chest, Abdomen, Pelvis - W/Contrast In Process Unspecified. EDMS 22:45 Assisted provider with central line placement. Set up central line tray. Triple lumen km8 line placed in right internal jugular. Line placed by Zak Dietrich MD Placement verified by CXR, blood return, Dressed with Tegaderm, Patient tolerated well. Before procedure, did Practitioner(s) obtain informed consent? Yes. Patient \T\ family education about procedure, CLABSI prevention and S/S of infection? Yes. Time-out/Briefing performed prior to start of procedure? Yes. Was handwashing/sanitizing done immediately prior to procedure? Yes. Was patient positioned to in a way to prevent air embolism? Yes. Was procedure site sterilized? Yes, with chlorhexidine. Was the site allowed to dry? Yes. Was local anesthetic and/or sedation utilized? Yes. During the procedure, did the Practitioner(s) maintain a sterile field? Yes. Were unused ports clamped during insertion? Yes. Was a 2nd qualified MD obtained after 3 unsuccessful insertion attempts? No. Was blood aspirated from each lumen? Yes. After the procedure, did the Practitioner(s) clean the site and apply a sterile dressing? Yes. 01/04 00:12 Avani Wagner MD is Hospitalizing Provider. sp4 01:52 Patient admitted, IV remains in place. km8 01:52 Provided Education on: admission process. 8 Administered Medications: 01/03 17:47 Drug: NS 0.9% IV 1000 ml IV at 1000 ml once Route: IV; Rate: 1000 ml; Site: left ko1 antecubital; 19:15 Follow up: IV Status: Completed infusion; IV Intake: 1000ml km8 20:00 Drug: fentaNYL (PF) IVP 25 mcg IVP once Route: IVP; Site: left antecubital; km8 22:40 Follow up: Response: No adverse reaction km8 21:46 Drug: HYDROmorphone IVP 2 mg IVP once Route: IVP; Site: right jugular; km8 22:54 Follow up: Response: No adverse reaction; Pain is decreased km8 21:46 Drug: Ondansetron IVP 4 mg IVP once; over 2 minutes Route: IVP; Site: right jugular; km8 22:55 Follow up: Response: No adverse reaction km8 21:52 Not Given (Physician Discretion): morphine5 mg IM once sp4 21:52 Drug: Lidocaine Infiltration (1 %) 20 ml 20 ml Infiltration once; to bedside Volume: 20 mb9 ml; Route: Infiltration; 22:54 Drug: NS 0.9% IV 1000 ml IV at 125 ml/hr continuous Route: IV; Rate: 125 ml/hr; Site: km8 right jugular; 01/04 01:53 Follow up: IV Status: Infusion continued upon admission km8 02:21 Drug: HYDROmorphone IVP 1 mg IVP once Route: IVP; Site: right jugular; km8 03:06 Follow up: Response: No adverse reaction; Pain is decreased km8 Medication: 00:08 VIS not applicable for this client. km8 Intake: 01/03 19:15 IV: 1000ml; Total: 1000ml. km8 Output: 01/04 02:18 Urine: 550ml (Voided); Total: 550ml. km8 Outcome: 00:15 Decision to Hospitalize by Provider. sp4 03:06 Admitted to Med/surg accompanied by tech, via stretcher, room 410, with chart, Report km8 called to faxed to 4th floor 03:06 Condition: stable 03:06 Instructed on the need for admit, Demonstrated understanding of instructions, 03:06 Patient left the ED. km8 Signatures: Dispatcher [employer] EDMS Tabitha Mortensen RN RN iw Nieto, Roman, MD MD rn Slawson, Ashby, RN RN as6 Brittany Sweeney RN RN ko1 Breneman, Mary Beth RN RN purvi9 Katerina Arnold Sergey, MD MD sp4 Daily Willough[place] mg5 La Weeks RN RN km8 Corrections: (The following items were deleted from the chart) 01/03 18:29 17:33 BP 101 / 57; Pulse 79bpm; Resp 18bpm; Pulse Ox 100% RA; iw iw 18:50 18:48 IV is patent, is intact, with fluids infusing freely, with good blood return, iw started at [facility]. iw 01/04 00:05 0408 23:30 BP 100 / 68; Pulse 89bpm; Resp 17bpm; Pulse Ox 93%; rv1 rv1 01/04 02:07 01:52 No provider procedures requiring assistance completed. km8 km8
--- NOTE | 2024-01-05 00:15 | EDPHYS ---
Physician Documentation [facility] Name: Dwain Solorzano Age: 63 yrs Sex: Male : 1960 Arrival Date: 01/04/2024 Time: 16:54 Bed 8 Private MD: ED Physician Zak Dietrich HPI: 01/03 17:51 This 63 yrs old Male presents to ER via Wheelchair with complaints of Blood Pressure rn Problem - LOW. 17:51 Patient reports sent over from cancer center for low blood pressure. Last chemo was a rn week ago. Has primary lung cancer. Was there for radiation treatment when noted to be hypotensive. Given liter bolus with slight improvement. Patient reports mild chest pain, no dyspnea.. Onset: The symptoms/episode began/occurred today. Severity of symptoms: At their worst the symptoms were moderate in the emergency department the symptoms are unchanged. The patient has not experienced similar symptoms in the past. The patient has not recently seen a physician. Historical: - Allergies: 18:48 No Known Allergies; - PMHx: 01/04 01:55 lung cancer; km8 - Immunization history:: Adult Immunizations unknown. - Infectious Disease History:: Denies. - Family history:: not pertinent. - Hospitalizations: : No recent hospitalization is reported. - Social history:: Smoking status: Patient denies any tobacco usage or history of. ROS: 01/03 17:51 Constitutional: Negative for fever, chills, and weight loss, Eyes: Negative for injury, rn pain, redness, and discharge, ENT: Negative for injury, pain, and discharge, Neck: Negative for injury, pain, and swelling, Cardiovascular: Negative for palpitations, and edema, Respiratory: Negative for shortness of breath, cough, wheezing, and pleuritic chest pain, Abdomen/GI: Negative for abdominal pain, nausea, vomiting, diarrhea, and constipation, Back: Negative for injury and pain, MS/Extremity: Negative for injury and deformity, Skin: Negative for injury, rash, and discoloration, Neuro: Positive for generalized weakness Exam: 17:51 Constitutional: This is a well developed, well nourished patient who is awake, alert, rn and in no acute distress. Head/Face: Normocephalic, atraumatic. ENT: Dry mucous membranes Cardiovascular: Regular rate and rhythm. No pulse deficits. Respiratory: No increased work of breathing, no retractions or nasal flaring. Abdomen/GI: Soft, non-tender MS/ Extremity: Pulses equal, no cyanosis Neuro: Awake and alert, GCS 15 01/04 00:28 ECG was reviewed by the Attending Physician. EKG at 1826, sinus rhythm with a rate of sp4 71, normal EKG with PVC Vital Signs: 01/03 17:33 BP 101 / 57; Pulse 79; Resp 18; Temp 97.6(TE); Pulse Ox 100% on R/A; iw 18:00 BP 97 / 70; Pulse 74; Resp 16; Pulse Ox 99% ; iw 18:30 BP 123 / 74; Pulse 80; Resp 16; Pulse Ox 100% ; iw 19:00 BP 120 / 80; Pulse 83; Resp 16; Pulse Ox 100% on R/A; km8 19:15 BP 133 / 77; Pulse 83; Resp 16; Pulse Ox 100% on R/A; km8 19:30 BP 128 / 85; Pulse 87; Resp 16; Pulse Ox 100% on R/A; km8 21:45 BP 128 / 69; Pulse 80; Resp 18; Pulse Ox 100% on R/A; km8 22:00 BP 99 / 65; Pulse 83; Resp 18; Pulse Ox 100% on R/A; km8 22:15 BP 109 / 71; Pulse 83; Resp 18; Pulse Ox 100% on R/A; km8 23:30 BP 100 / 68; Pulse 89; Resp 17; Pulse Ox 93% ; rv1 01/04 00:00 BP 112 / 69; Pulse 87; Resp 16; Pulse Ox 98% on R/A; km8 00:30 BP 114 / 71; Pulse 86; Resp 16; Pulse Ox 99% on R/A; km8 01:00 BP 107 / 71; Pulse 86; Resp 16; Pulse Ox 99% on R/A; km8 01:30 BP 109 / 75; Pulse 87; Resp 16; Pulse Ox 100% on R/A; km8 02:00 BP 110 / 69; Pulse 85; Resp 20; Pulse Ox 100% on R/A; km8 02:30 BP 106 / 67; Pulse 91; Resp 16; Pulse Ox 98% on R/A; km8 02:45 BP 103 / 66; Pulse 92; Resp 18; Pulse Ox 96% on R/A; km8 01/03 23:30 Nurse and Provider notified of pt O2 sat. rv1 Drexel Coma Score: 19:10 Eye Response: spontaneous(4). Motor Response: obeys commands(6). Verbal Response: km8 oriented(5). Total: 15. Procedures: 22:15 Central Line: the site was prepped with in sterile fashion, Hexedine, a triple lumen sp4 catheter was inserted, in the right internal jugular vein, in 1 attempts. placement was verified, by CXR, by blood return, Ultrasound-guided central line, the site was dressed with 4X4s, Tegaderm, using sterile technique, the patient tolerated the procedure, well, Right internal jugular CVL placed, NO complication. MDM: 17:05 Patient medically screened. rn 22:51 ED course: Exam Date: 01/04/24 EXAM DESCRIPTION: RAD - Chest Single View - 01/04/2024 sp4 10:09 pm CLINICAL HISTORY: CVL placement Right IJ Chest pain. COMPARISON: FINDINGS: Portable technique limits examination quality. Right-sided central venous catheter its tip in the SVC. No pneumothorax. Left hilar mass again noted. The lungs are grossly clear. Sternotomy wires are present. Signed By: Neel Coles MD . 23:44 ED course: CLINICAL HISTORY: CHEST PAIN COMPARISON: None. TECHNIQUE: CT CHESTABDOMEN sp4 PELVIS WITH IV CONTRAST on 01/04/2024 9:53 PM CDT. MIPS reconstructions were generated. This exam was performed according to our departmental dose-optimization program, which includes automated exposure control, adjustment of the mA and/or kV according to patient size and/or use of iterative reconstruction technique. FINDINGS: Vascular: Thoracic aorta is normal in course and caliber without aneurysm or dissection. Pulmonary arteries are adequately opacified without acute or chronic filling defects. Abdominal aorta is normal in course and caliber without aneurysm. Pelvic arteries are patent without aneurysm or occlusion. Chest: The heart is normal in size following sternotomy. There is no pericardial effusion. Intrathoracic lymph nodes are not enlarged. There is a trace left pleural effusion. There is a small right pleural effusion. Central airways are patent. There is a lobulated mass within the medial aspect of the superior segment of the left lower lobe measuring 4.3 x 4.5 cm. There is likely invasion of the posterior mediastinum and partial encasement of the descending thoracic aorta. Abdomen: The liver is normal in appearance. There is no biliary dilatation. Gallbladder is normal in appearance. The pancreas and spleen are normal in appearance. The adrenal glands and kidneys are unremarkable. There is no free air. There is no retroperitoneal adenopathy.There is a tiny fat-containing umbilical hernia. Pelvis: There is no bowel obstruction. Urinary bladder is unremarkable. There is no free fluid. There is a small fat-containing left inguinal hernia. Appendix is normal. Skeleton: There is a large mass replacing the posterior lateral aspect of the left 11th rib, overall measuring 7.6 x 5.1 cm. IMPRESSION: Left lower lobe pulmonary mass with probable mediastinal involvement along with a metastatic lesion in the posterior lateral left 11th rib and adjacent chest wall. Recommend PET/CT and tissue sampling. Electronically signed by: Rafat Schroeder MD 01/04/2024 11:28 PM . 01/04 00:08 ED course: CLINICAL HISTORY: CHEST PAIN COMPARISON: None. TECHNIQUE: CT CHESTABDOMEN sp4 PELVIS WITH IV CONTRAST on 01/04/2024 9:53 PM CDT. MIPS reconstructions were generated. This exam was performed according to our departmental dose-optimization program, which includes automated exposure control, adjustment of the mA and/or kV according to patient size and/or use of iterative reconstruction technique. FINDINGS: Vascular: Thoracic aorta is normal in course and caliber without aneurysm or dissection. Pulmonary arteries are adequately opacified without acute or chronic filling defects. Abdominal aorta is normal in course and caliber without aneurysm. Pelvic arteries are patent without aneurysm or occlusion. Chest: The heart is normal in size following sternotomy. There is no pericardial effusion. Intrathoracic lymph nodes are not enlarged. There is a trace left pleural effusion. There is a small right pleural effusion. Central airways are patent. There is a lobulated mass within the medial aspect of the superior segment of the left lower lobe measuring 4.3 x 4.5 cm. There is likely invasion of the posterior mediastinum and partial encasement of the descending thoracic aorta. Abdomen: The liver is normal in appearance. There is no biliary dilatation. Gallbladder is normal in appearance. The pancreas and spleen are normal in appearance. The adrenal glands and kidneys are unremarkable. There is no free air. There is no retroperitoneal adenopathy.There is a tiny fat-containing umbilical hernia. Pelvis: There is no bowel obstruction. Urinary bladder is unremarkable. There is no free fluid. There is a small fat-containing left inguinal hernia. Appendix is normal. Skeleton: There is a large mass replacing the posterior lateral aspect of the left 11th rib, overall measuring 7.6 x 5.1 cm. IMPRESSION: Left lower lobe pulmonary mass with probable mediastinal involvement along with a metastatic lesion in the posterior lateral left 11th rib and adjacent chest wall. Recommend PET/CT and tissue sampling. . 00:15 Differential Diagnosis altered mental status, sepsis, flu. Data reviewed: vital signs, sp4 nurses notes, EMS record, lab test result(s), CBC, electrolytes, radiologic studies, CT scan. Consideration of Admission/Observation Patient was admitted/placed on observation. Escalation of care including admission/observation considered. Management of patient was discussed with the following: Hospitalist: Admit team . ED course: CT reveals no sign of aortic compression, left 11th rib metastatic lesion with small pleural effusion.. 00:15 Differential Diagnosis altered mental status. sp4 01/03 17:23 Order name: Blood Culture Adult (2) rn 01/03 17:23 Order name: CBC with Diff; Complete Time: 19:53 rn 01/03 17:23 Order name: CMP; Complete Time: 18:54 01/03 17:23 Order name: Lactate w/ 2H reflex if indic.; Complete Time: 18:54 01/03 17:23 Order name: Protime (+inr); Complete Time: 18:54 rn 01/03 17:23 Order name: Ptt, Activated; Complete Time: 18:54 01/03 17:23 Order name: Urinalysis w/ reflexes; Complete Time: 20:57 rn 01/03 17:24 Order name: Troponin High Sensitivity; Complete Time: 18:54 rn 01/03 19:47 Order name: CBC Smear Scan; Complete Time: 19:53 EDNM 01/04 01:02 Order name: CBC with Automated Diff EDMS 01/04 01:02 Order name: CBC with Automated Diff EDMS 01/04 01:02 Order name: Comprehensive Metabolic Panel EDMS 01/04 01:02 Order name: Comprehensive Metabolic Panel EDMS 01/04 01:02 Order name: Troponin High Sensitivity EDMS 01/04 01:02 Order name: Troponin High Sensitivity EDMS 01/04 01:02 Order name: Troponin High Sensitivity EDMS 01/04 01:02 Order name: Troponin High Sensitivity EDMS 01/03 17:23 Order name: Chest Single View XRAY; Complete Time: 18:54 rn 01/03 21:52 Order name: Chest Single View XRAY; Complete Time: 00:11 sp4 01/03 21:53 Order name: CT Chest, Abdomen, Pelvis - W/Contrast sp4 01/03 17:23 Order name: EKG; Complete Time: 17:24 rn 01/03 17:23 Order name: Accucheck; Complete Time: 17:47 rn 01/03 17:23 Order name: Cardiac monitoring; Complete Time: 17:24 rn 01/03 17:23 Order name: EKG - Nurse/Tech; Complete Time: 18:29 rn 01/03 17:23 Order name: IV Saline Lock - Large Bore; Complete Time: 17:47 rn 01/03 17:23 Order name: Labs collected and sent; Complete Time: 17:47 rn 01/03 17:23 Order name: O2 Per Protocol; Complete Time: 17:24 rn 01/03 17:23 Order name: O2 Sat Monitoring; Complete Time: 17:24 rn 01/03 17:23 Order name: Vital Signs; Complete Time: 17:24 rn 01/03 21:17 Order name: Central Line Kit; Complete Time: 21:51 sp4 01/03 21:51 Order name: NPO; Complete Time: 22:01 sp4 EC:28 Rate is 71 beats/min. Rhythm is irregular, Normal Sinus Rhythm with Occasional PVCs. sp4 QRS [place] is Normal. [place] interval is normal. QRS interval is normal. QT interval is normal. No Q waves. T waves are Normal. No ST changes noted. Clinical impression: Normal ECG. Interpreted by me. Reviewed by me. Administered Medications: 01/03 17:47 Drug: NS 0.9% IV 1000 ml IV at 1000 ml once Route: IV; Rate: 1000 ml; Site: left ko1 antecubital; 19:15 Follow up: IV Status: Completed infusion; IV Intake: 1000ml km8 20:00 Drug: fentaNYL (PF) IVP 25 mcg IVP once Route: IVP; Site: left antecubital; km8 22:40 Follow up: Response: No adverse reaction km8 21:46 Drug: HYDROmorphone IVP 2 mg IVP once Route: IVP; Site: right jugular; km8 22:54 Follow up: Response: No adverse reaction; Pain is decreased km8 21:46 Drug: Ondansetron IVP 4 mg IVP once; over 2 minutes Route: IVP; Site: right jugular; km8 22:55 Follow up: Response: No adverse reaction km8 21:52 Not Given (Physician Discretion): morphine5 mg IM once sp4 21:52 Drug: Lidocaine Infiltration (1 %) 20 ml 20 ml Infiltration once; to bedside Volume: 20 mb9 ml; Route: Infiltration; 22:54 Drug: NS 0.9% IV 1000 ml IV at 125 ml/hr continuous Route: IV; Rate: 125 ml/hr; Site: km right jugular; 01/04 01:53 Follow up: IV Status: Infusion continued upon admission km8 02:21 Drug: HYDROmorphone IVP 1 mg IVP once Route: IVP; Site: right jugular; km8 03:06 Follow up: Response: No adverse reaction; Pain is decreased km8 Disposition Summary: 01/05/24 00:15 Hospitalization Ordered Notes: Hospitalization Status: Observation sp4 Provider: Avani Wagner sp4 Location: Telemetry/MedSurg (observation) sp4 Condition: Stable sp4 Problem: new sp4 Symptoms: have improved sp4 Bed/Room Type: Standard sp4 Room Assignment: 410(01/05/24 01:42) [facility] Diagnosis - Hypotension, unspecified sp4 - Left lung mass, acute hypertensive episode, moderate dehydration, cancer associated sp4 pain, 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 EDMS EDMS 22:09 17:25 Chest For PE Angio+CT.RAD.BRZ ordered. EDMS EDMS 01/04 01:42 00:15 sp4 kmf
[2024-01-05] MEDS ORDERED: ACETAMINOPHEN 500 MG TAB PO PRN (00:55)
[2024-01-05] MEDS ORDERED: MORPHINE 2 MG/ML SYR IV PRN (00:55)
[2024-01-05] MEDS ORDERED: ALBUTEROL 2.5 MG/3 ML NEB SOL NEB PRN ×2 (00:55→16:35)
[2024-01-05] MEDS ORDERED: ONDANSETRON 4 MG/2 ML VIAL IV PRN (00:55)
--- NOTE | 2024-01-05 01:06 | P.HP ---
Certification for Inpatient Patient admitted to: Observation With expected LOS: <2 Midnights Patient will require the following post-hospital care: None Practitioner: I am a practitioner with admitting privileges, knowledge of patient current condition, hospital course, and medical plan of care. Services: Services provided to patient in accordance with Admission requirements found in Title 42 Section 412.3 of the Code of Federal Regulations Patient History Date of Service: 01/05/24 Reason for admission: Hypotension History of Present Illness: 63-year-old male with past medical history of HTN/A-fib status post cardioversion/CAD status post PCI in the past/chronic anticoagulation with Eliquis/lung cancer with rib metastasis, presented to the ED after being sent from the cancer center for low blood pressure. Patient was the receiving his radiation treatment was noted with low blood pressure. He states he is takes his lisinopril at home. Received 1 L normal saline with no significant improvement was sent to the emergency room. On arrival in the emergency room however his blood pressure was 101/57 with a pulse of 76. He received another liter and his blood pressure is improving. He had a central line placed due to difficulty finding peripheral veins. Patient is stable now he is complaining of some chest pain around the area of the left hilar region. He states chest pain has been increasing in size and intensity since the last 1 months. Pain is worsening despite his increasing doses of [place] at home. He is significantly worried about pain now and complaining of uncontrolled pain with morphine earlier given. Chest x-ray shows no acute infiltrates or effusions. CT scan pending he has been admitted for further observation Allergies No Known Allergies Allergy (Verified 12/29/23 11:08) - Past Medical/Surgical History Has patient received pneumonia vaccine in the past: No Diabetic: No -: Lung cancer with metastasis -: Atrial fibrillationstatus post cardioversion -: History of hypertension Review of Systems 10-point ROS is otherwise unremarkable Physical Examination - Physical Exam General: Alert, In no apparent distress, Oriented x3 HEENT: Normocephalic, PERRLA Neck: Supple, 2+ carotid pulse no bruit, JVD not distended Respiratory: Clear to auscultation bilaterally, Normal air movement, Other (Tenderness over the left rib margin area) Cardiovascular: No edema, Normal pulses, Regular rate/rhythm, Normal S1 S2 Gastrointestinal: Normal bowel sounds, Soft and benign, Non-distended Musculoskeletal: No clubbing, No swelling Integumentary: No rashes, No breakdown, No significant lesion Neurological: Normal gait, Normal speech, Normal strength at 5/5 x4 extr - Studies Laboratory Data (last 24 hrs) 01/04/24 01/04/24 01/04/24 17:30 17:30 17:30 WBC 9.10 Hgb 9.2 L Hct 27.2 L Plt Count 342 PT 14.0 H INR 1.28 APTT 27.2 Sodium 134 L Potassium 3.6 BUN 31 H Creatinine 0.81 Glucose 104 Total Bilirubin 0.5 AST 16 ALT 26 Alkaline Phosphatase 61 Assessment and Plan - Problems (Diagnosis) (1) UTI (urinary tract infection) with pyuria Current Visit: Yes Status: Acute (2) Metastatic lung cancer (metastasis from lung to other site) Current Visit: Yes Status: Acute - Plan Impression Hypotensionresolving Presumed dehydration UTI Metastatic lung canceron radiation treatment Anemia of chronic disease History of atrial fibrillationon Eliquis History of CAD Plan Continue aggressive IV fluid lactated Ringer's Start empirical antibiotics for UTI with Rocephin Follow urine culture Follow blood culture x [address] chest reading Consult oncologyDr. Admission Sanket H&H low but stable, continue to follow Subcutaneous Lovenox for DVT prophylaxis Pain control Hold lisinopril use Serial sets of cardiac enzymes to rule out cardiac etiology of left-sided pain although likely due to rib metastasis from lung cancer Advance directivefull code - Advance Directives Does patient have a Living Will: Yes Does patient have a Durable POA for Healthcare: No - Code Status/Comfort Care Code Status Assessed: Yes Physician Review: Patient Assessed, Agree with Above Assessment and Plan Time Spent Managing Pts Care (In Minutes): 65
[2024-01-05] MEDS ORDERED: HYDRALAZINE HCL 20 MG/ML VIAL IV PRN (01:30)
[2024-01-05] MEDS ORDERED: HYDROMORPHONE HCL 1 MG/ML INJ ONE (02:19)
[2024-01-05] MEDS: CEFTRIAXONE 1,000 MG in NA CHLORIDE 0.9% 50 ML IVPB SCH (03:33)
[2024-01-05] MEDS: Ringers Lactate 1,000 ML IV SCH (03:34)
[2024-01-05 03:45] VITALS: BMI 28.7
[2024-01-05] MEDS: Oxycodone HCl/Acetaminophen 5/325 MG TAB PO PRN ×2 (04:01→23:29)
[2024-01-05] MEDS: APIXABAN 5 MG TABLET PO SCH (08:23)
[2024-01-05] MEDS: FAMOTIDINE 20 MG TAB PO SCH (08:26)
[2024-01-05] MEDS: CLOPIDOGREL 75 MG TABLET PO SCH (08:26)
[2024-01-05] MEDS ORDERED: CEFTRIAXONE 1,000 MG in NA CHLORIDE 0.9% 50 ML IVPB SCH (09:00)
[2024-01-05] MEDS ORDERED: FAMOTIDINE 20 MG TAB PO SCH (09:00)
[2024-01-05] MEDS ORDERED: ENOXAPARIN 40 MG/0.4 ML SQ SCH (09:00)
--- NOTE | 2024-01-05 12:28 | P.PN ---
Date of Service: 01/05/24 Subjective: states had dizziness/near-syncope at home while trying to shower noted to be hypotensive 90s/50s at oncology visit and advised to come to ER reports dark BM yesterday after arrival, more normal color ~2 days ago. Again dark today; unusual for him and does not take iron states biggest concern at this time beside nearly passing out is pain he has been having from cancer - progressively worsening over last few months feels norco hasn't been helping ROS: 10 point ROS as noted above, otherwise negative Physical Exam: GEN: Alert, oriented, appears uncomfortable HEENT: Normal conjunctiva, sclera anicteric CV: Regular rate and rhythm, no edema Pulm: Nonlabored respirations on room air, diminished at bedside ABD: Soft, nontender, nondistended Neuro: Normal speech, normal affect vitals reviewed Problem List: Hypotension, improving Metastatic lung cancer, on chemo/radiation dark stool Anemia of chronic disease hx of A-fib s/p cardioversion, on eliquis hx of CAD s/p PCI Hypotension, improving Metastatic lung cancer, on chemo/radiation Reports low BP readings while at cancer center. Given 1L bolus with some improvement, further improved after 2nd bolus in ED. First chemo treatment was ~[address] Mi / Dr. Mooney as outpatient. CT chest/abd (01/03): LLL pulm mass (4.3x4.5cm) with probable mediastinal involvement along with metastatic lesion in posterior lateral left 11th rib and adjacent chest wall (7.6x5.1 cm). central line placed 01/03 evening due to difficulty finding peripheral veins. Now reports increased left-sided pain in left hilar region near cancer mass BP improved after IVF bolus x2 L confirm home meds, hold home antihypertensives for now continue IV fluids with LR 100/hr troponins negative so far. PRN analgesics dark stool Anemia of chronic disease reports new dark stool that started 01/03 on further questioning, started ibuprofen - ~2-3 pills q4-5hrs for past 5 days in addition to taking eliquis/plavix; increasing risk of bleed further possible UGI bleed denies history of stomach ulcers, no clinical symptoms / tenderness in epigastrium recent colonoscopy in last ~1 yr was ok per patient's own report advised to stop NSAIDs at home check CBC this evening, and in AM reached out to his oncologist to check for baseline hgb hx of A-fib s/p cardioversion, on eliquis continue home eliquis. Monitor on tele monitor bp/hr, restart beta levy once stable/acceptable hx of CAD s/p PCI continue home plavix VTE: home eliquis Code: Full Dispo: Home, ~1 day Pending BP improves, better pain control h/h results
[2024-01-05] MEDS: MORPHINE 2 MG/ML SYR IV PRN (14:13)
--- NOTE | 2024-01-05 16:16 | EKG ---
Test Date: 2024-01-04 Test Time: 18:26:50 Export Freight Clerk: KIRSTIE MEASUREMENT RESULTS: Intervals: Rate: 71 ID: [id number] QRSD: 72 QT: 434 QTc: 471 [place]: P: 73 ID: [id number] QRS: 5 T: 51 INTERPRETIVE STATEMENTS: Sinus rhythm Normal ECG No previous ECG available for comparison Electronically Signed On 01-05-24 16:14:36 CDT by Herrera Woods
--- NOTE | 2024-01-05 18:13 | RAD REPORT ---
EXAM DESCRIPTION: CT - Chest Abdomen Pelvis W Cont - 01/05/2024 7:05 am CLINICAL HISTORY: CHEST PAIN COMPARISON: None. TECHNIQUE: CT CHEST ABDOMEN PELVIS WITH IV CONTRAST on 01/04/2024 9:53 PM CDT. MIPS reconstructions we re generated. This exam was performed according to our departmental dose-optimization program, which includes autom ated exposure control, adjustment of the mA and/or kV according to patient size and/or use of iterati ve reconstruction technique. FINDINGS: Vascular: Thoracic aorta is normal in course and caliber without aneurysm or dissection. P ulmonary arteries are adequately opacified without acute or chronic filling defects. Abdominal aorta is normal in course and caliber without aneurysm. Pelvic arteries are patent without aneurysm or occl usion. Chest: The heart is normal in size following sternotomy. There is no pericardial effusion. Intrathora cic lymph nodes are not enlarged. There is a trace left pleural effusion. There is a small right pleural effusion. Central airways are patent. There is a lobulated mass within the medial aspect of the superior segment of the left lower lobe measuring 4.3 x 4.5 cm. There is likely invasion of the posterior mediastinum and partial encase ment of the descending thoracic aorta. Abdomen: The liver is normal in appearance. There is no biliary dilatation. Gallbladder is normal in appearance. The pancreas and spleen are normal in appearance. The adrenal glands and kidneys are unre markable. There is no free air. There is no retroperitoneal adenopathy.There is a tiny fat-containing umbilical hernia. Pelvis: There is no bowel obstruction. Urinary bladder is unremarkable. There is no free fluid. There is a small fat-containing left inguinal hernia. Appendix is normal. Skeleton: There is a large mass replacing the posterior lateral aspect of the left 11th rib, overall measuring 7.6 x 5.1 cm. IMPRESSION: Left lower lobe pulmonary mass with probable mediastinal involvement along with a metast atic lesion in the posterior lateral left 11th rib and adjacent chest wall. Recommend PET/CT and tiss ue sampling. Electronically signed by: Rafat Schroeder MD 01/04/2024 11:28 PM CDT Due to temporary technical issues with the PACS/Fluency reporting system, reports are being signed by the in house radiologists without review as a courtesy to insure prompt reporting. The interpreting radiologist is fully responsible for the content of the report.
[2024-01-05 18:59] LABS: MPV 7.7 fL (7.6-11.3); Platelets 258 thou/uL (152-406)
[2024-01-05 19:02] LABS: MCH 26.9 pg (27.0-35.0)
[2024-01-05 19:06] LABS: Hematocrit 24.1 % (39.6-49.0); Hemoglobin 7.9 g/dL (13.6-17.9); MCHC 32.6 g/dL (32.0-36.0); MCV 82.6 fL (80-100); RBC Red Blood Cell Count 2.92 M/uL (4.33-5.43); Red Cell Distribution Width 14.1 % (12.1-15.2)
[2024-01-05] MEDS: ENSURE ENLIVE 237 ML CAN PO SCH (19:58)
[2024-01-06 06:25] LABS: Albumin 1.9 g/dL (3.4-5.0); Albumin/Globulin Ratio 0.6 (1.1-1.8); Anion Gap 8.4 mEq/L (5.0-15.0); Bilirubin Total 0.6 mg/dL (0.2-1.0); Globulin 3.3 g/dL (2.3-3.5); Potassium 3.4 mEq/L (3.5-5.1); Protein, Total 5.2 g/dL (6.4-8.2)
[2024-01-06 06:27] LABS: Absolute Eosinophils 0.1 K/uL (0-0.5); Absolute Lymphocytes (CBC) 0.2 K/uL (0.7-4.9); Absolute Neutrophil 0.7 K/uL (1.8-8.0); Basophils % 0.4 % (0-1.3); Eosinophils % 5.8 % (0-4.4); Hematocrit 23.3 % (39.6-49.0); Hemoglobin 7.8 g/dL (13.6-17.9); Lymphocytes % 16.6 % (15.3-44.8); MCH 27.4 pg (27.0-35.0); MCHC 33.4 g/dL (32.0-36.0); MCV 82.2 fL (80-100); MPV 7.7 fL (7.6-11.3); Monocytes % 5.1 % (3.3-12.3); Neutrophils % 72.1 % (41.7-73.7); Nucleated Red Blood Cells % 0.1 % (0-0); Platelets 229 thou/uL (152-406); RBC Red Blood Cell Count 2.83 M/uL (4.33-5.43)
[2024-01-06 07:53] LABS: Blood Morphology Comment NOT SEEN (NOT SEEN); Platelet Estimate ADEQ; White Blood Cell Scan OK (OK)
[2024-01-06] MEDS: METOPROLOL TAR 25 MG TAB PO SCH (09:03)
--- NOTE | 2024-01-06 09:11 | P.PN ---
Date of Service: 01/06/24 Subjective: reports diffuse pains in back / left side / chest. Doesn't feel worse or better. small BM overnight. patient reports stool is still dark. Feels urine is clearing up initiate transfer to [facility] given need for GI / risk factors / dark stool continues. sinus tachycardic with HR in 100s. BP low-normal per patients mychart, hgb was 13.8 on 11/20/23 ROS: 10 point ROS as noted above, otherwise negative Physical Exam: GEN: Alert, oriented, appears uncomfortable HEENT: Normal conjunctiva, sclera anicteric CV: Sinus Tachycardia with HR in 100s, no edema Pulm: Nonlabored respirations on room air, diminished at bedside ABD: Soft, nontender, nondistended Neuro: Normal speech, normal affect vitals reviewed Problem List: Hypotension, improving Metastatic lung cancer, on chemo/radiation dark stool Anemia of chronic disease hx of A-fib s/p cardioversion, on eliquis hx of CAD s/p PCI Hypotension, improving Metastatic lung cancer, on chemo/radiation Reports low BP readings while at cancer center. Given 1L bolus with some improvement, further improved after 2nd bolus in ED. First chemo treatment was ~[address]. Mi / Dr. Mooney as outpatient. CT chest/abd (01/03): LLL pulm mass (4.3x4.5cm) with probable mediastinal involvement along with metastatic lesion in posterior lateral left 11th rib and adjacent chest wall (7.6x5.1 cm). central line placed 01/03 evening due to difficulty finding peripheral veins. Now reports increased left-sided pain in left hilar region near cancer mass BP improved after IVF bolus x2 L confirm home meds, hold home antihypertensives for now troponins negative so far. PRN analgesics - morphine switched to dilaudid given minimal relief on morphine IVF dc'd 01/05 dark stool Anemia of chronic disease reports new dark stool that started 01/03 on further questioning, started ibuprofen - ~2-3 pills q4-5hrs for past 5 days in addition to taking eliquis/plavix; increasing risk of bleed further possible UGI bleed denies history of stomach ulcers, no clinical symptoms / tenderness in epigastrium recent colonoscopy in last ~1 yr was ok per patient's own report hgb was 13.8 on 11/20/23 per patients mobile mychart advised to stop NSAIDs at home hgb 7.9 -> 7.8 (01/05) Initiated transfer to [facility] / tertiary level of care facility given the need for GI in the event of surgical intervention/procedure is needed given symptoms and higher risk for bleeding. 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
[2024-01-06 12:05] LABS: Hematocrit 23.7 % (39.6-49.0); Hemoglobin 7.8 g/dL (13.6-17.9); MCH 27.1 pg (27.0-35.0); MCHC 32.9 g/dL (32.0-36.0); MCV 82.3 fL (80-100); MPV 7.6 fL (7.6-11.3); Platelets 217 thou/uL (152-406); RBC Red Blood Cell Count 2.88 M/uL (4.33-5.43); Red Cell Distribution Width 14.1 % (12.1-15.2)
[2024-01-06 13:04] VITALS: O2SAT 9
[2024-01-06] MEDS ORDERED: SODIUM CHLORIDE 0.9% 10ML INJ IV PRN (13:05)
--- NOTE | 2024-01-06 15:24 | P.DS ---
Admission Date: 01/05/24 Discharge Date: 01/06/24 Primary Care Provider: Todd Disposition: [facility]SF[facility] TO [facility] Discharge Condition: FAIR Reason for Admission: Hypotension Brief History of Present Illness: 63-year-old male with past medical history of HTN/A-fib status post cardioversion/CAD status post PCI in the past/chronic anticoagulation with Eliquis/lung cancer with rib metastasis, presented to the ED after being sent from the cancer center for low blood pressure. Patient was the receiving his radiation treatment was noted with low blood pressure. He states he is takes his lisinopril at home. Received 1 L normal saline with no significant improvement was sent to the emergency room. On arrival in the emergency room however his blood pressure was 101/57 with a pulse of 76. He received another liter and his blood pressure is improving. He had a central line placed due to difficulty finding peripheral veins. Patient is stable now he is complaining of some chest pain around the area of the left hilar region. He states chest pain has been increasing in size and intensity since the last 1 months. Pain is worsening despite his increasing doses of [place] at home. He is significantly worried about pain now and complaining of uncontrolled pain with morphine earlier given. Chest x-ray shows no acute infiltrates or effusions. CT scan pending he has been admitted for further observation Hospital Course: Problem List: Hypotension, improved, secondary to dehydration and component of blood loss Metastatic lung cancer, on chemo/radiation acute anemia, suspect blood loss and bone marrow suppression hx of A-fib s/p cardioversion, on eliquis hx of CAD s/p PCI hx of hodkin's lymphoma Patient presented to ED following a hypotensive episode and near syncopal episode from outpatient cancer radiation treatment appointment. BP: 90s/50s. He reports having 1st round of chemo (unsure of agent) last week. Decreased oral intake over the week as well as increased back/rib pain. He started taking ibuprofen, ~2-3 pills every 4-5 hours for the 4-5 days prior to presentation here. He also continued his usual medication, including plavix, eliquis, metoprolol, and lisinopril. His blood pressure responded to IV hydration and holding his home antihypertensives. After admission, he reported having dark/black stools, which is new for him, and began after admission. His eliquis was held on 01/05, and started on protonix. His hemoglobin on admission was 9.2, downternded to 7.8 that evening, and was then 7.8 the following moring (01/05). Overnight from 01/04 - 01/05 he reported ongoing black tarry stools, with the most recent stool slightly less black. His blood pressure remained stable 105-115/50-60s, with mild tachycardia in 90s-100 at times. Due to the last h/h recheck being similar, blood transfusion was held off for a repeat recheck, and transfer was initiated. He has all of his care typically at [facility], so this was attempted first, however they were at capacity. Patient was then transferred to [facility] for GI evaluation / possible EGD. Reports colonoscopy ~1 year ago was okay. Had gastric ulcers / reflux ~20yrs ago when undergoing chemo for hodkin's lymphoma Unable to initially get patient's [facility] records, but was able to review on patient's phone via [employer]. hemoglobin was noted to be 13.8 on 11/20/23. Patient's WBCs were also noted to downtrend. 9.1 (01/03) -> 1.8 (01/04)-> 0.9 (01/05)-> 0.8(01/05). He remained afebrile and no evidence of infection. Briefly discussed with his oncologist, and timing would coincide with his recent chemo. To continue monitoring. CT abdomen findings: 1. Lobulated mass within the medial aspect of the superior segment of the left lower lobe measuring 4.3x4.5 cm. There is likely invasion of the posterior mediastinum and partial encasement of the descending thoracic aorta. 2. Large mass replacing the posterior lateral aspect of the left 11th rib, ov erall measuring 7.6x5.1 cm. 3. trace left pleural effusion, small right pleural effusion, tiny fat containing umbilical hernia. small fat containing left inguinal hernia One of patient's biggest concerns was his worsening rib/back pain over the last few months, with significant worsening in the last week. His norco was titrated up as outpatient to 10mg PRN. CT noted large mass replacing his 11th rib - which has been the target of his radiation, and although not commented on at [facility] CT report, his oncologist noted he has a known mass in that location and is larger than his lung mass, which would be consistent with our CT results. Oxycodone had mild improvement, morphine did not help, and dilaudid 1mg x1 did help quite a bit for the patient. Discussed pain control with his outpatient Oncologist, Dr. Mooney, who was in agreement with starting fentanyl patch 25mcg. 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 Physical Exam: GEN: Alert, oriented, uncomfortable HEENT: Normal conjunctiva, sclera anicteric CV: Sinus Tachycardia with HR in 100s, no edema Pulm: Nonlabored respirations on room air, diminished at bedside ABD: Soft, mild discomfort on deep palpation, nondistended Neuro: Normal speech, normal affect MSK: significant tenderness to palpation of left lower ribs/chest Vital Signs/Physical Exam: Temp Pulse Resp BP Pulse Ox 96.8 F 78 20 105/65 100 01/06/24 12:00 01/06/24 12:00 01/06/24 12:00 01/06/24 12:00 01/06/24 12:00 Laboratory Data at Discharge: WBC 0.80 thou/uL (4.3-10.9) L* 01/06/24 11:45 Hgb 7.8 g/dL (13.6-17.9) L 01/06/24 11:45 Hct 23.7 % (39.6-49.0) L 01/06/24 11:45 Plt Count 217 thou/uL (152-406) 01/06/24 11:45 PT 14.0 SECONDS (9.5-12.5) H 01/04/24 17:30 INR 1.28 01/04/24 17:30 APTT 27.2 SECONDS (24.3-36.9) 01/04/24 17:30 Sodium 135 mEq/L (136-145) L 01/06/24 05:55 Potassium 3.4 mEq/L (3.5-5.1) L 01/06/24 05:55 BUN 16 mg/dL (7-18) 01/06/24 05:55 Creatinine 0.59 mg/dL (0.70-1.30) L 01/06/24 05:55 Glucose 112 mg/dL (74-106) H 01/06/24 05:55 Total Bilirubin 0.6 mg/dL (0.2-1.0) 01/06/24 05:55 AST 11 U/L (15-37) L 01/06/24 05:55 ALT 20 U/L (16-61) 01/06/24 05:55 Alkaline Phosphatase 52 U/L (45-117) 01/06/24 05:55 Home Medications: Atorvastatin Calcium 40 mg PO DAILY 01/05/24 Cholecalciferol (Vitamin D3) [Vitamin D 5,000 IU Cap*] 5,000 units PO DAILY 01/05/24 Clopidogrel Bisulfate [Plavix] 75 mg PO DAILY 01/05/24 Evolocumab [Repatha Syringe] 140 mg SQ 1X 01/05/24 Gabapentin 300 mg PO TID 01/05/24 Hydrocodone Bit/Acetaminophen [Hydrocodon-Acetaminophen 5-325] 5 mg PO TID 01/05/24 Metoprolol Tartrate 50 mg PO BID 01/05/24 lisinopriL [Lisinopril] 10 mg PO DAILY 01/05/24 Followup: OCTAVIO CUNNINGHAM [Primary Care Provider] - Time spent managing pt's care (in minutes): 45
[2024-01-06] MEDS: HYDROMORPHONE HCL 1 MG/ML INJ IV PRN (15:34)
[2024-01-06 16:58] VITALS: BP 106/55; TEMP 98.7
[2024-01-06] MEDS ORDERED: PANTOPRAZOLE 40 MG INJ IVP SCH (21:00)
== END 2024-01-06 17:15 | disposition short-term general hospital (02) | DRG 641 ==
LOC: ER 16:54 → ERHOLD 01-05 01:31 → 4TH 01-05 02:43 → OBSVTOIN 01-06 16:03
PROVIDERS: ADMIT Internal Medicine; ATTEND Hospitalist
DX: E86.0 Dehydration (principal); C34.90 Malignant neoplasm of unspecified part of unspecified bronchus or lung; C79.51 Secondary malignant neoplasm of bone; N39.0 Urinary tract infection, site not specified; K92.1 Melena; G89.3 Neoplasm related pain (acute) (chronic); I10 Essential (primary) hypertension; I48.91 Unspecified atrial fibrillation; D63.8 Anemia in other chronic diseases classified elsewhere; D50.0 Iron deficiency anemia secondary to blood loss (chronic); I25.10 Atherosclerotic heart disease of native coronary artery without angina pectoris; Z79.01 Long term (current) use of anticoagulants; Z79.02 Long term (current) use of antithrombotics/antiplatelets; Z79.899 Other long term (current) drug therapy
CPT/HCPCS: 36415; 71045; 71260; 74177; 77336; 80053; 81001; 83605; 84484; 85025; 85027; 85610; 85730; 87040; 93005; 96360; 99285; G0378; J0696; J1170; J2001; J2270; J2405; J3010; J7030; J7120; Q9967

== ENCOUNTER 2024-01-18 07:24 | Day surgery (SDC) | payer OTHER ==
[2024-01-18] MEDS: Ringers Lactate 1,000 ML IV ONE (08:00)
[2024-01-18] MEDS ORDERED: HEPARIN 5000 UNIT/ML 1 ML VIAL ONE (08:26)
[2024-01-18] MEDS ORDERED: NS 0.9% VIAL 20 ML ONE (08:26)
[2024-01-18] MEDS ORDERED: FENTANYL CITR 100 MCG/2 ML ONE (08:52)
[2024-01-18] MEDS ORDERED: LIDOCAINE 1% MPF 5 ML VIAL ONE (08:52)
[2024-01-18] MEDS ORDERED: propofoL 200 MG/20 ML VIAL IV ONE (08:52)
[2024-01-18] MEDS ORDERED: MIDAZOLAM HCL 2 MG/2 ML INJ ONE (08:53)
[2024-01-18] MEDS: CEFAZOLIN SODIUM 2 GM/VIAL ONE (08:58)
[2024-01-18] MEDS ORDERED: ONDANSETRON 4 MG/2 ML VIAL ONE (09:12)
[2024-01-18] MEDS ORDERED: dexAMETHasone 4 MG/ML VIAL ONE (09:12)
[2024-01-18] MEDS ORDERED: KETOROLAC 30 MG/ML INJ ONE (09:12)
[2024-01-18] MEDS: LIDOCAINE 1% MPF 30 ML VIAL ONE (09:20)
--- NOTE | 2024-01-18 10:00 | P.OP ---
Date of Service: 01/18/24 Preop diagnosis: Lung cancer Postop diagnosis: Same Procedure performed: Placement of right IJ Port-A-Cath with ultrasound and fluoroscopy utilization Surgeon: Kyle Zambrano MD [employer] Supervisor: Sanaz NESBITT Estimated blood loss: Minimal Specimen: None Findings: Normal anatomy Anesthesia: General Complications: None Drains: None Fluids and blood products: Nonapplicable Disposition: Recovery room Operative note: Patient brought to the OR and placed in the supine position. General anesthesia began. Patient prepped and draped in the usual sterile fashion. Ultrasound device used to isolate the right internal jugular vein. Lidocaine 1% infiltrated locally. 18-gauge needle used to access the right internal jugular vein. Guidewire passed and position confirmed with fluoroscopy. 3 cm counterincision made on the right anterior chest and a pocket created. Bleeding controlled cautery. Tunneling device used to tunnel the catheter between the 2 wounds. Catheter tip placed in the SVC via Seldinger technique. Catheter cut to appropriate size and attached to the Port-A-Cath device. Port-A-Cath device attached to subcutaneous tissue with 3-0 Vicryl. Port flushed with heparin and packed with heparin with good blood flow. 3-0 chromic used to reapproximate subcutaneous tissue and close skin. Sterile dressing applied. Patient awakened and taken to recovery room in good general condition. A chest x-ray has been ordered. CC: Dr. Mooney's office
[2024-01-18] MEDS ORDERED: HYDROCODONE/APAP 7.5/325 MG TAB PO PRN (10:02)
[2024-01-18] MEDS: FENTANYL CITR 100 MCG/2 ML ONE (10:29)
--- NOTE | 2024-01-18 11:03 | RAD REPORT ---
EXAM DESCRIPTION: Prashantht Single View01/18/2024 10:43 am CLINICAL HISTORY: Status post Port-A-Cath placement COMPARISON: Chest Single View dated 01/04/2024; Chest Single View dated 01/04/2024 TECHNIQUE: Portable AP view of the chest. FINDINGS: Right chest wall medication port has been placed through the IJ with catheter tip projecti ng over the distal SVC. The lungs are clear. No pneumothorax or effusion. The cardiomediastinal cont ours are unchanged, with sequelae of median sternotomy. IMPRESSION: Satisfactory positioning of right chest wall medication port. No acute cardiopulmonary p rocess.
[2024-01-18 13:18] VITALS: BP 159/94; TEMP 97.8; O2SAT 98
--- NOTE | 2024-01-18 13:41 | RAD REPORT ---
EXAM DESCRIPTION: RAD - Fluoroscopy <1 Hour - 01/18/2024 12:51 pm CLINICAL HISTORY: Venous catheter insertion. PORT A CATH COMPARISON: No comparisons FINDINGS: Fluoroscopic imaging is submitted from placement of a venous catheter. Details of the pro cedure not available. Fluoroscopy time: 0.7 minutes
== END 2024-01-18 11:40 | disposition home or self-care (01) ==
LOC: OR 07:24
PROVIDERS: ATTEND Surgery
PROC: 0JH60WZ Insertion of Totally Implantable Vascular Access Device into Chest Subcutaneous Tissue and Fascia, Open Approach (ICD-10-PCS; principal; 2024-01-18 09:00)
DX: C34.90 Malignant neoplasm of unspecified part of unspecified bronchus or lung (principal); I10 Essential (primary) hypertension; I25.10 Atherosclerotic heart disease of native coronary artery without angina pectoris; I25.2 Old myocardial infarction; Z95.5 Presence of coronary angioplasty implant and graft
CPT/HCPCS: 71045; 36561; J1644 ×2; A4216; J2704; J1100; J2001 ×2; J2250; J3010 ×2; J2405; J7120; C1788; 76000

== ENCOUNTER 2024-02-15 07:46 | Inpatient (IN) | payer OTHER ==
[2024-02-15] MEDS ORDERED: ONDANSETRON 4 MG/2 ML VIAL ONE (08:14)
[2024-02-15] MEDS ORDERED: HYDROMORPHONE HCL 1 MG/ML INJ ONE ×3 (08:15→10:48)
[2024-02-15] MEDS ORDERED: NA CHLORIDE 0.9% 1,000 ML ONE ×2 (08:15→10:16)
[2024-02-15 08:26] LABS: Absolute Lymphocytes (CBC) 0.4 K/uL (0.7-4.9); Absolute Monocytes 0.1 K/uL (0.1-1.3); Absolute Neutrophil 7.8 K/uL (1.8-8.0); Basophils % 0.4 % (0-1.3); Eosinophils % 0.2 % (0-4.4); Hematocrit 26.4 % (39.6-49.0); Hemoglobin 8.9 g/dL (13.6-17.9); Lymphocytes % 4.7 % (15.3-44.8); MCH 28.6 pg (27.0-35.0); MCHC 33.6 g/dL (32.0-36.0); MCV 85.1 fL (80-100); MPV 7.4 fL (7.6-11.3); Monocytes % 1.5 % (3.3-12.3); Neutrophils % 93.2 % (41.7-73.7); Nucleated Red Blood Cells % 0.2 % (0-0); Platelets 369 thou/uL (152-406)
[2024-02-15 08:28] LABS: PT Prothrombin Time 13.8 SECONDS (9.5-12.5); Protime INR 1.26
[2024-02-15 08:38] LABS: Albumin 2.6 g/dL (3.4-5.0); Albumin/Globulin Ratio 0.7 (1.1-1.8); Anion Gap 7.7 mEq/L (5.0-15.0); Bilirubin Direct 0.2 mg/dL (0-0.2); Bilirubin Indirect, Calculated 0.5 mg/dL (0.2-0.8); Bilirubin Total 0.7 mg/dL (0.2-1.0); Globulin 3.6 g/dL (2.3-3.5); Magnesium 1.5 mg/dL (1.6-2.4); Potassium 3.7 mEq/L (3.5-5.1); Protein, Total 6.2 g/dL (6.4-8.2); Troponin High Sensitivity 31.7 pg/mL (<58.9)
--- NOTE | 2024-02-15 08:43 | RAD REPORT ---
EXAM DESCRIPTION: US - Extrem Venous W Compress Kenny - 02/15/2024 8:30 am CLINICAL HISTORY: SWELLING Bilateral leg edema and swelling. COMPARISON: No comparisons TECHNIQUE: Real-time sonographic interrogation of the left and right lower extremity deep venous sys tems was performed. FINDINGS: Normal compressibility, flow augmentation, phasic flow and spontaneous flow is identified in both the left and right lower extremity deep venous systems. IMPRESSION: No sonographic evidence of left or right lower extremity deep venous thrombosis.
--- NOTE | 2024-02-15 08:46 | RAD REPORT ---
EXAM DESCRIPTION: RAD - Chest Pa And Lat (2 Views) - 02/15/2024 8:31 am CLINICAL HISTORY: COUGH Chest pain. COMPARISON: Chest Single View dated 01/18/2024; Chest Single View dated 01/04/2024; Chest Single View d ated 01/04/2024; Chest Abdomen Pelvis W Cont dated 01/04/2024 FINDINGS: The lungs are clear. Left hilar fullness is noted compatible known mass in this region. Th e heart is normal in size. Sternotomy wires are present. Right-sided venous catheter tip in the SVC.
--- NOTE | 2024-02-15 09:36 | RAD REPORT ---
EXAM DESCRIPTION: CT - Chest Abdomen Pelvis W Cont - 02/15/2024 9:02 am CLINICAL HISTORY: Chest and abdomen pain. Chest pain;Abdominal distention COMPARISON: Chest Abdomen Pelvis W Cont dated 01/04/2024; Thoracic Spine W/Wo Contr dated 02/01/2024; Sp ine Lumbar W/Wo Cont dated 02/01/2024 TECHNIQUE: Approximately 100 mL nonionic IV contrast was administered to the patient. All CT scans are performed using dose optimization technique as appropriate and may include automated exposure control or mA/KV adjustment according to patient size. FINDINGS: Mild diffuse COPD.Medial left lung base soft tissue mass has mildly decreased in size. Thi s abuts the posterior pleura and posterior mediastinum, measuring 4.7 x 4.6 cm, previously 5.7 x 4.9 cm.No pleural or pericardial effusion.No intrathoracic adenopathy. The liver, spleen, pancreas, adrenal glands and kidneys are within normal limits. No bowel obstruction, free air, free fluid or abscess. Normal appendix. There is a moderate wall thic kening involving the descending colon beginning at the level of the hepatic flexure extending inferio rly to involve the sigmoid as well as the rectum, this likely represents a moderate colitis. Small fa t containing left inguinal hernia. Irregular left posterior flank soft tissue mass with underlying rib destruction has moderately decrea sed in size previously measuring 8 x 5 cm, currently measuring 6.7 x 3.4 cm. IMPRESSION: There is evidence of a a moderately severe colitis pattern from the level of the splenic flexure to the rectum.No pneumatosis coli, free air or abscess. Moderate diminishment in the left posterior flank soft tissue destructive mass as well as the mass in the left lower lobe medially.
[2024-02-15 09:50] LABS: Blood Morphology Comment NOT SEEN (NOT SEEN); Platelet Estimate ADEQ; White Blood Cell Scan OK (OK)
--- NOTE | 2024-02-15 10:15 | EDPHYS ---
Physician Documentation [facility] Name: Dwain Solorzano Age: 63 yrs Sex: Male : 1960 Arrival Date: 02/15/2024 Time: 07:46 Bed 6 Private MD: ANNETTA Physician Carlos Lowery HPI: 02/14 09:04 This 63 yrs old Male presents to ER via Wheelchair with complaints of Pain keon All Over, Feet Swelling. 09:04 The patient presents with decreased range of motion, pain, that is acute. The keon complaints affect the right leg and left leg. Context: resulted from an unknown cause, the patient can fully bear weight. Onset: The symptoms/episode began/occurred 2 day(s) ago. Modifying factors: The symptoms are alleviated by elevating leg, remaining still, the symptoms are aggravated by movement. Associated signs and symptoms: Pertinent positives: nausea. The patient presents with abdominal pain in the upper abdomen, abdominal distention in the upper abdomen, in the lower abdomen. The symptoms do not radiate. Associated signs and symptoms: Pertinent positives: nausea. Historical: - Allergies: 07:59 No Known Allergies; ll1 - PMHx: 07:59 Lung Cancer; ll1 - Immunization history:: Adult Immunizations up to date. - Infectious Disease History:: Denies. - Social history:: Smoking status: Patient denies any tobacco usage or history of. - Family history:: not pertinent. ROS: 09:04 Constitutional: Negative for fever, chills, and weight loss, Eyes: Negative for injury, keon pain, redness, and discharge, ENT: Negative for injury, pain, and discharge, Neck: Negative for injury, pain, and swelling, Cardiovascular: Negative for chest pain, palpitations, and edema, Respiratory: Negative for shortness of breath, cough, wheezing, and pleuritic chest pain, Back: Negative for injury and pain, : Negative for injury, bleeding, discharge, and swelling, Skin: Negative for injury, rash, and discoloration, Neuro: Negative for headache, weakness, numbness, tingling, and seizure, Psych: Negative for depression, anxiety, suicide ideation, homicidal ideation, and hallucinations, Allergy/Immunology: Negative for hives, rash, and allergies, Endocrine: Negative for neck swelling, polydipsia, polyuria, polyphagia, and marked weight changes, Hematologic/Lymphatic: Negative for swollen nodes, abnormal bleeding, and unusual bruising, 09:04 Abdomen/GI: Positive for abdominal pain, nausea, of the epigastric area, right upper quadrant and left upper quadrant, 09:04 MS/extremity: Positive for of the right leg and left leg, Exam: 09:06 Constitutional: This is a well developed, well nourished patient who is awake, alert, keon and in no acute distress. Head/Face: Normocephalic, atraumatic. Eyes: Pupils equal round and reactive to light, extra-ocular motions intact. Lids and lashes normal. Conjunctiva and sclera are non-icteric and not injected. Cornea within normal limits. Periorbital areas with no swelling, redness, or edema. ENT: Nares patent. No nasal discharge, no septal abnormalities noted. Tympanic membranes are normal and external auditory canals are clear. Oropharynx with no redness, swelling, or masses, exudates, or evidence of obstruction, uvula midline. Mucous membranes moist. Neck: Trachea midline, no thyromegaly or masses palpated, and no cervical lymphadenopathy. Supple, full range of motion without nuchal rigidity, or vertebral point tenderness. No Meningismus. Chest/axilla: Normal chest wall appearance and motion. Nontender with no deformity. No lesions are appreciated. Cardiovascular: Regular rate and rhythm with a normal S1 and S2. No gallops, murmurs, or rubs. Normal PMI, no JVD. No pulse deficits. Respiratory: Lungs have equal breath sounds bilaterally, clear to auscultation and percussion. No rales, rhonchi or wheezes noted. No increased work of breathing, no retractions or nasal flaring. Abdomen/GI: Soft, non-tender, with normal bowel sounds. No distension or tympany. No guarding or rebound. No evidence of tenderness throughout. Back: No spinal tenderness. No costovertebral tenderness. Full range of motion. Male : Normal genitalia with no discharge or lesions. Neuro: Awake and alert, GCS 15, oriented to person, place, time, and situation. Cranial nerves II-XII grossly intact. Motor strength 5/5 in all extremities. Sensory grossly intact. Cerebellar exam normal. Normal gait. Psych: Awake, alert, with orientation to person, place and time. Behavior, mood, and affect are within normal limits. 09:06 ECG was reviewed by the Attending Physician. 09:06 Musculoskeletal/extremity: ROM: no acute changes, intact in all extremities, full active range of motion, full passive range of motion, Circulation is intact in all extremities. Sensation intact. Compartment Syndrome exam of affected extremity: is normal. Weight bearing: able to fully bear weight, without difficulty, DVT Exam: negative Homans' sign noted on exam, no appreciated bluish discoloration, no erythema, no increased warmth, pain, swelling, tenderness, 09:06 Skin: Appearance: Color: pale, Vital Signs: 07:57 BP 146 / 89; Pulse 99; Resp 20; Temp 97.6; Pulse Ox 100% on R/A; Weight 90.72 kg; ll1 Height 5 ft. 10 in. ; Pain 10/10; 08:37 BP 160 / 88; Pulse 92; Resp 19; Pulse Ox 97% ; Pain 8/10; ll1 10:40 BP 136 / 88; Pulse 100; Resp 18; Temp 97.7; Pulse Ox 96% ; Pain 8/10; ll1 11:14 BP 156 / 90; Pulse 97; Resp 19; Pulse Ox 95% on R/A; Pain 8/10; ll1 11:48 BP 145 / 89; Pulse 103; Resp 18; Pulse Ox 97% on R/A; Pain 8/10; ll1 07:57 Body Mass Index 28.70 (90.72 kg, 177.8 cm) ll1 07:57 Pain Scale: Adult ll1 08:37 Pain Scale: Adult ll1 10:40 Pain Scale: Adult ll1 11:14 Pain Scale: Adult ll1 11:48 Pain Scale: Adult ll1 MDM: 07:55 Patient medically screened. [facility] 09:07 Differential diagnosis: dislocation, bowel obstruction, diverticulitis, gastritis. Data [facility] reviewed: vital signs, nurses notes, EMS record, lab test result(s), EKG, radiologic studies, CT scan, plain films. Consideration of Admission/Observation Escalation of care including admission/observation considered. I considered the following discharge prescriptions or medication management in the emergency department Medications were administered in the Emergency Department. See MAR. Test considered but Not performed: Ultrasound no abd usg. Historians other than the Patient: EMS: ems well informed. Care significantly affected by the following chronic conditions: Obesity, Cancer. Counseling: I had a detailed discussion with the patient and/or guardian regarding the historical points, exam findings, and any diagnostic results supporting the discharge/admit diagnosis, lab results, radiology results. 02/14 07:59 Order name: Basic Metabolic Panel; Complete Time: 08:47 [facility] 02/14 07:59 Order name: CBC with Diff; Complete Time: 10:00 [facility] 02/14 07:59 Order name: LFT's; Complete Time: 08:47 [facility] 02/14 07:59 Order name: Magnesium; Complete Time: 08:47 [facility] 02/14 07:59 Order name: NT PRO-BNP; Complete Time: 08:47 [facility] 02/14 07:59 Order name: PT-INR; Complete Time: 08:47 [facility] 02/14 07:59 Order name: Troponin HS; Complete Time: 08:47 [facility] 02/14 07:59 Order name: Lipase; Complete Time: 08:47 [facility] 02/14 07:59 Order name: Urinalysis w/ reflexes; Complete Time: 11:39 [facility] 02/14 08:43 Order name: CBC Smear Scan; Complete Time: 10:00 [facility] 02/14 10:03 Order name: Fecal Leukocyte Stain [facility] 02/14 10:03 Order name: Stool Culture [facility] 02/14 10:34 Order name: Urinalysis w/ reflexes [facility] 02/14 10:34 Order name: CBC with Automated Diff [facility] 02/14 10:34 Order name: CBC with Automated Diff [facility] 02/14 10:34 Order name: Comprehensive Metabolic Panel [facility] 02/14 10:34 Order name: Comprehensive Metabolic Panel [facility] 02/14 10:34 Order name: Lipid Profile [facility] 02/14 10:34 Order name: Lipid Profile [facility] 02/14 10:34 Order name: Magnesium [facility] 02/14 10:34 Order name: Magnesium [facility] 02/14 10:34 Order name: Phosphorus [facility] 02/14 10:34 Order name: Phosphorus [facility] 02/14 07:59 Order name: Chest Pa And Lat (2 Views) XRAY; Complete Time: 08:47 [facility] 02/14 07:59 Order name: US Extremity Venous W Compression Kenny; Complete Time: 08:47 [facility] 02/14 08:49 Order name: CT Chest, Abdomen, Pelvis - W/Contrast; Complete Time: 10:00 [facility] 02/14 07:59 Order name: EKG; Complete Time: 08:00 [facility] 02/14 07:59 Order name: Cardiac monitoring; Complete Time: 08:39 [facility] 02/14 07:59 Order name: EKG - Nurse/Tech; Complete Time: 08:39 [facility] 02/14 07:59 Order name: IV Saline Lock; Complete Time: 08:12 [facility] 02/14 07:59 Order name: Labs collected and sent; Complete Time: 08:12 [facility] 02/14 07:59 Order name: O2 Per Protocol; Complete Time: 08:01 [facility] 02/14 07:59 Order name: O2 Sat Monitoring; Complete Time: 08:01 [facility] EC:06 Rate is 90 beats/min. Rhythm is regular. QRS [place] is Normal. [place] interval is normal. QRS keon interval is normal. QT interval is normal. No Q waves. T waves are Normal. No ST changes noted. Clinical impression: Normal ECG and No evidence of ischemia. Interpreted by me. Reviewed by me. Administered Medications: 08:20 Drug: NS 0.9% IV 1000 ml IV at 75 ml/hr continuous Route: IV; Rate: 75 ml/hr; Site: ll left antecubital; 11:59 Follow up: Response: No adverse reaction; IV Status: Completed infusion; IV Intake: ll1 150ml 08:20 Drug: HYDROmorphone IVP 1 mg IVP once {Note: RASS 0, pain 10/10.} Route: IVP; Site: [facility] left antecubital; 08:37 Follow up: Response: No adverse reaction; Pain is decreased; RASS: Alert and Calm (0) [facility] 08:20 Drug: Ondansetron IVP 4 mg IVP once; over 2 minutes Route: IVP; Site: left antecubital; [facility] 08:37 Follow up: Response: No adverse reaction; Nausea is decreased [facility] 08:49 Drug: NS 0.9% IV 500 ml IV at bolus once Route: IV; Rate: bolus; Site: left antecubital;1 11:59 Follow up: Response: No adverse reaction; IV Status: Completed infusion; IV Intake: ll1 500ml 10:25 Drug: HYDROmorphone IVP 1 mg IVP once Route: IVP; Site: left antecubital; [facility] 11:59 Follow up: Response: No adverse reaction; Pain is decreased ll1 10:26 Drug: Magnesium Sulfate IVPB 2 grams IVPB once over 1 hrs Route: IVPB; Infused Over: 1 ll1 hrs; Site: left antecubital; 10:37 Follow up: Response: No adverse reaction; IV Status: Completed infusion; IV Intake: [id number] 10:37 Drug: metroNIDAZOLE IVPB 500 mg 100 ml IVPB at 200 ml/hr once over 30 mins Volume: 100 ll1 ml; Route: IVPB; Rate: 200 ml/hr; Infused Over: 30 mins; Site: left antecubital; 11:59 Follow up: Response: No adverse reaction; IV Status: Completed infusion; IV Intake: ll1 100ml 10:53 Drug: HYDROmorphone IVP 1 mg IVP once {Note: pain 10 RASS 0.} Route: IVP; Site: left ll1 antecubital; 11:58 Follow up: Response: No adverse reaction; Pain is decreased; RASS: Alert and Calm (0) ll1 10:53 Drug: Gabapentin PO 300 mg PO once Route: PO; ll1 11:58 Follow up: Response: No adverse reaction ll1 Disposition Summary: 02/15/24 10:14 Hospitalization Ordered Notes: Hospitalization Status: Inpatient Admission keon Provider: Martín Mary cha Location: Telemetry/MedSurg (Inpatient) keon Condition: Stable keon Problem: new keon Symptoms: have improved keon Bed/Room Type: Standard keon Room Assignment: 401(02/15/24 10:36) bd Diagnosis - Pain in left leg keon - Pain in right leg keon - Anemia, unspecified keon - Neoplasm of uncertain behavior of trachea, bronchus and lung - ON CHEMO keon - Left sided colitis keon - Hypomagnesemia keon Forms: - Medication Reconciliation Form keon - SBAR form keon - Leadership Thank You Letter keon Signatures: Dispatcher [employer] EDMS Annetta Richter Corey, MD MD cha Waters, Shelly, SPORTING GOODS SALESPERSON-C [employer]ING [employer] SALESPERSON-Csnw Tabitha Mortensen, RN Tara Durham RN RN ll1 Corrections: (The following items were deleted from the chart) 08:00 08:00 BASIC METABOLIC PANEL+C.LAB.BRZ ordered. EDMS EDMS 08:00 08:00 CBC+H.LAB.BRZ ordered. EDMS EDMS 08:00 08:00 HEPATIC FUNCTION+C.LAB.BRZ ordered. EDMS EDMS 08:00 08:00 MAGNESIUM+C.LAB.BRZ ordered. EDMS EDMS 08:00 08:00 PROBNP+C.LAB.BRZ ordered. EDMS EDMS 08:00 08:00 PROTIME (+INR)+COAG.LAB.BRZ ordered. EDMS EDMS 08:00 08:00 Troponin High Sensitivity+C.LAB.BRZ ordered. EDMS EDMS 08:00 08:00 LIPASE+C.LAB.BRZ ordered. EDMS EDMS 08:00 08:00 Urinalysis+U.LAB.BRZ ordered. EDMS EDMS 10:03 10:03 Fecal Leukocyte Stain+BA.LAB.BRZ ordered. EDMS EDMS 10:03 10:03 Stool Culture+BA.LAB.BRZ ordered. EDMS EDMS 10:36 10:14 keon bd
--- NOTE | 2024-02-15 10:15 | ER ---
Nurse's Notes [facility] Name: Dwain Solorzano Age: 63 yrs Sex: Male : 1960 Arrival Date: 02/15/2024 Time: 07:46 Bed 6 Private MD: Diagnosis: Pain in left leg;Pain in right leg;Anemia, unspecified;Neoplasm of uncertain behavior of trachea, bronchus and lung-ON CHEMO;Left sided colitis;Hypomagnesemia Presentation: 02/14 07:57 Chief complaint: Patient states: Severe body pain for 2 days. Swelling BLE for at least ll1 1 week. No fever. Coronavirus screen: Client denies travel out of the [place] in the last 14 days. difficulty breathing, fatigue, shortness of breath, Client presents with at least one sign or symptom that may indicate coronavirus-19. Standard/surgical mask placed on the client. Ebola Screen: Patient denies travel to an Ebola-affected area in the 21 days before illness onset. Initial Sepsis Screen: Does the patient meet any 2 criteria? No. Patient's initial sepsis screen is negative. Does the patient have a suspected source of infection? No. Patient's initial sepsis screen is negative. Risk Assessment: Do you want to hurt yourself or someone else? Patient reports no desire to harm self or others. Onset of symptoms was February 08, 2024. 07:57 Method Of Arrival: Wheelchair ll1 07:57 Acuity: LEYLA 3 ll1 Triage Assessment: 07:59 General: Appears distressed, uncomfortable, Behavior is calm, cooperative, appropriate ll1 for age. General: Reports fatigue for. Pain: Complains of pain in right leg and left leg Quality of pain is described as aching, Pain began 2-3 days ago. GI: Reports constipation. Musculoskeletal: Reports pain in BLE. Musculoskeletal: Reports BLE swelling. Historical: - Allergies: 07:59 No Known Allergies; ll1 - PMHx: 07:59 Lung Cancer; ll1 - Immunization history:: Adult Immunizations up to date. - Infectious Disease History:: Denies. - Social history:: Smoking status: Patient denies any tobacco usage or history of. - Family history:: not pertinent. Screenin:21 [facility] ED Fall Risk Assessment (Adult) History of falling in the last 3 months, ll1 including since admission No falls in past 3 months (0 pts) Confusion or Disorientation No (0 pts) Intoxicated or Sedated No (0 pts) Impaired Gait Yes (1 pt) Mobility Assist Device Used Yes (1 pt) Altered Elimination No (0 pt) Score/Fall Risk Level 0 - 2 = Low Risk Maintained a safe environment, Hourly rounding (assess needs \T\ fall precautionary measures) done, Used ambulatory aids as needed (educated on \T\ assisted with). Abuse screen: Denies threats or abuse. Nutritional screening: No deficits noted. Tuberculosis screening: No symptoms or risk factors identified. Assessment: 08:21 Reassessment: No changes from previously documented assessment. Patient and/or family ll1 updated on plan of care and expected duration. Pain level reassessed. Patient is alert, oriented x 3, equal unlabored respirations, skin warm/dry/pink. 08:37 Reassessment: No changes from previously documented assessment. Patient and/or family ll1 updated on plan of care and expected duration. Pain level reassessed. Patient is alert, oriented x 3, equal unlabored respirations, skin warm/dry/pink. Dr. Lowery informed he wants another Dilaudid dose. 10:26 Reassessment: No changes from previously documented assessment. Patient and/or family ll1 updated on plan of care and expected duration. Pain level reassessed. Patient is alert, oriented x 3, equal unlabored respirations, skin warm/dry/pink. 10:40 Reassessment: No changes from previously documented assessment. Patient and/or family ll1 updated on plan of care and expected duration. Pain level reassessed. Patient is alert, oriented x 3, equal unlabored respirations, skin warm/dry/pink. 11:09 Reassessment: Did not want to put on hospital gown. ll1 Vital Signs: 07:57 BP 146 / 89; Pulse 99; Resp 20; Temp 97.6; Pulse Ox 100% on R/A; Weight 90.72 kg; ll1 Height 5 ft. 10 in. ; Pain 10/10; 08:37 BP 160 / 88; Pulse 92; Resp 19; Pulse Ox 97% ; Pain 8/; ll1 10:40 BP 136 / 88; Pulse 100; Resp 18; Temp 97.7; Pulse Ox 96% ; Pain 8/; ll1 11:14 BP 156 / 90; Pulse 97; Resp 19; Pulse Ox 95% on R/A; Pain 8/10; ll1 11:48 BP 145 / 89; Pulse 103; Resp 18; Pulse Ox 97% on R/A; Pain 8/10; ll1 07:57 Body Mass Index 28.70 (90.72 kg, 177.8 cm) ll1 07:57 Pain Scale: Adult ll1 08:37 Pain Scale: Adult ll1 10:40 Pain Scale: Adult ll1 11:14 Pain Scale: Adult ll1 11:48 Pain Scale: Adult ll1 ED Course: 07:47 Patient arrived in ED. mg5 07:55 Carlos Lowery MD is Attending Physician. keon 07:55 Arm band placed on Patient placed in an exam room, on a stretcher. ll1 07:55 Patient has correct armband on for positive identification. Bed in low position. Call ll1 light in reach. Provided Education on: ER procedures and process. 07:59 Triage completed. ll1 08:00 Inserted saline lock: 22 gauge in left antecubital area, using aseptic technique. Blood ll1 collected. 08:00 Initial lab(s) drawn, by mt, sent to lab. ll1 08:01 Tara Carpenter, RN is Primary Nurse. ll1 08:31 Chest Pa And Lat (2 Views) XRAY In Process Unspecified. EDMS 08:32 US Extremity Venous W Compression Kenny In Process Unspecified. EDMS 08:38 EKG done, by precision optics technician. reviewed by Carlos Lowery MD. ll1 09:04 CT Chest, Abdomen, Pelvis - W/Contrast In Process Unspecified. EDMS 10:09 Martín Mary MD is Hospitalizing Provider. keon 10:26 Urinalysis w/ reflexes Sent. ll1 10:26 Urine collected: clean catch specimen, [place] colored, Amount Voided: 300mL. ll1 Administered Medications: 08:20 Drug: NS 0.9% IV 1000 ml IV at 75 ml/hr continuous Route: IV; Rate: 75 ml/hr; Site: ll1 left antecubital; 11:59 Follow up: Response: No adverse reaction; IV Status: Completed infusion; IV Intake: ll1 150ml 08:20 Drug: HYDROmorphone IVP 1 mg IVP once {Note: RASS 0, pain 10/10.} Route: IVP; Site: ll1 left antecubital; 08:37 Follow up: Response: No adverse reaction; Pain is decreased; RASS: Alert and Calm (0) 1 08:20 Drug: Ondansetron IVP 4 mg IVP once; over 2 minutes Route: IVP; Site: left antecubital; 1 08:37 Follow up: Response: No adverse reaction; Nausea is decreased ll1 08:49 Drug: NS 0.9% IV 500 ml IV at bolus once Route: IV; Rate: bolus; Site: left antecubital;ll1 11:59 Follow up: Response: No adverse reaction; IV Status: Completed infusion; IV Intake: ll1 500ml 10:25 Drug: HYDROmorphone IVP 1 mg IVP once Route: IVP; Site: left antecubital; ll1 11:59 Follow up: Response: No adverse reaction; Pain is decreased ll1 10:26 Drug: Magnesium Sulfate IVPB 2 grams IVPB once over 1 hrs Route: IVPB; Infused Over: 1 ll1 hrs; Site: left antecubital; 10:37 Follow up: Response: No adverse reaction; IV Status: Completed infusion; IV Intake: [id number] 10:37 Drug: metroNIDAZOLE IVPB 500 mg 100 ml IVPB at 200 ml/hr once over 30 mins Volume: 100 ll1 ml; Route: IVPB; Rate: 200 ml/hr; Infused Over: 30 mins; Site: left antecubital; 11:59 Follow up: Response: No adverse reaction; IV Status: Completed infusion; IV Intake: ll1 100ml 10:53 Drug: HYDROmorphone IVP 1 mg IVP once {Note: pain 10/10 RASS 0.} Route: IVP; Site: left ll1 antecubital; 11:58 Follow up: Response: No adverse reaction; Pain is decreased; RASS: Alert and Calm (0) ll1 10:53 Drug: Gabapentin PO 300 mg PO once Route: PO; ll1 11:58 Follow up: Response: No adverse reaction 1 Medication: 08:22 VIS not applicable for this client. ll1 Intake: 10:37 IV: 50ml; Total: 50ml. ll1 11:59 IV: 100ml; Total: 150ml. ll1 11:59 IV: 500ml; Total: 650ml. ll1 11:59 IV: 150ml; Total: 800ml. ll1 Outcome: 10:14 Decision to Hospitalize by Provider. keon 12:00 Patient left the ED. 1 Signatures: Dispatcher [employer] Carlos Johnson MD MD cha Lewis, Lynsay RN RN ll1 Daily [place] mg5 Corrections: (The following items were deleted from the chart) 08:38 08:00 Inserted saline lock: 22 gauge in left antecubital area, using aseptic technique. 1 Blood collected. [facility] 09:10 08:37 Reassessment: No changes from previously documented assessment. Patient and/or ll1 family updated on plan of care and expected duration. Pain level reassessed. Patient is alert, oriented x 3, equal unlabored respirations, skin warm/dry/pink. ll1
[2024-02-15] MEDS ORDERED: CIPROFLOXACIN 400mg IV 400 MG/200 ML BAG IV ONE (10:16)
[2024-02-15] MEDS ORDERED: Magnesium Sulfate 2gm IVPB 2 G/50 ML BAG IV ONE (10:16)
[2024-02-15] MEDS ORDERED: METRONIDAZOLE 500mg IVPB 500 MG/100 ML BAG IV ONE (10:16)
--- NOTE | 2024-02-15 10:24 | P.HP ---
Certification for Inpatient Patient admitted to: Inpatient With expected LOS: >2 Midnights Patient will require the following post-hospital care: None Practitioner: I am a practitioner with admitting privileges, knowledge of patient current condition, hospital course, and medical plan of care. Services: Services provided to patient in accordance with Admission requirements found in Title 42 Section 412.3 of the Code of Federal Regulations <Marcelle Zavala - Last Filed: 02/15/24 12:07> Patient History Date of Service: 02/15/24 Reason for admission: Metastatic lung cancer pain, colitis History of Present Illness: Mr. Larson is a 63-year-old patient with a past medical history of Hodgkin's lymphoma, coronary artery disease status post PCI, A-fib status post cardioversion, anemia, metastatic lung disease (on chemo/radiation). He was admitted last month with C. diff colitis. He states he is finished for the moment with radiation, last IV chemotherapy on February 09. Last p.m. he began having significant bilateral groin and leg pain and a tight sharp pain along the diaphragm. He presented to the emergency department with significant pain this a.m. on laboratory evaluation he has a white count of 8.4 with 93.2% neutrophils, H/H 8.9/26.4, platelets 369. liver enzymes unremarkable, albumin 2.6, chemistries unremarkable except magnesium of 1.5, proBNP 667, troponin 31.7. Imaging revealed, "findings: The lungs are clear. Left hilar fullness is notable patible with known mass in this region. The heart is normal in size sternotomy wires are present. Right-sided venous catheter tip in the SVC.." On ultrasound of the bilateral lower extremities there were no DVTs present. CT chest, abdomen, pelvis with contrast findings: "There is evidence of a moderately severe colitis pattern from the level of the splenic flexure to the rectum. No pneumatosis coli, free air, or abscess. Moderate diminishment in the left posterior soft tissue obstructive mass as well as the mass in the left upper lobe medially." Mr. Sotelo received 2 L normal saline bolus, 2 doses of 1 mg Dilaudid, Cipro 400 mg IV piggyback, Flagyl 500 mg IV piggyback, magnesium 2 g IV piggyback in the emergency department. On my assessment he still had significant pain in the diaphragmatic area and bilateral hip area. Dilaudid 1 mg IVP and Neurontin 300 mg p.o. given. He will be admitted for pain control and further assessment and treatment of his colitis Home medications list reviewed: Yes - Past Medical/Surgical History Diabetic: No -: Lung cancer with metastasis -: Atrial fibrillationstatus post cardioversion -: History of hypertension -: cardioversion -: placement of SVC portacath Psychosocial/ Personal History: Lives at home. Denies ill contacts. - Family History Family History: Reviewed- Non-Contributory - Social History Smoking Status: Unknown if ever smoked Alcohol use: Yes CD- Drugs: Yes Caffeine use: Yes Place of Residence: Home <Marcelle Zavala - Last Filed: 02/15/24 12:07> Date of Service: 02/15/24 - Family History Father -: Heart disease, Cancer, Other (see notes) Notes: skin CA Mother -: Heart disease, Diabetes <Martín Mary - Last Filed: 02/15/24 14:04> Allergies No Known Allergies Allergy (Verified 01/18/24 08:18) Home Medications: Atorvastatin Calcium 40 mg PO DAILY 01/05/24 Cholecalciferol (Vitamin D3) [Vitamin D 5,000 IU Cap*] 5,000 units PO DAILY 01/05/24 Clopidogrel Bisulfate [Plavix] 75 mg PO DAILY 01/05/24 Metoprolol Tartrate 50 mg PO BID 01/05/24 Apixaban [Eliquis] 5 mg PO BID 01/18/24 Oxycodone HCl 1 tab PO Q4H PRN 02/15/24 Review of Systems 10-point ROS is otherwise unremarkable General: Weakness, As per HPI Gastrointestinal: Abdominal Pain Musculoskeletal: As per HPI <Marcelle Zavala - Last Filed: 02/15/24 12:07> Physical Examination - Physical Exam General: Alert, Oriented x3, Cooperative, Mild distress (pain to diaphramatic area and groin) HEENT: Atraumatic, Normocephalic Neck: JVD not distended Respiratory: Normal air movement Cardiovascular: Normal pulses Capillary refill: <2 Seconds Gastrointestinal: Tenderness Musculoskeletal: No clubbing Integumentary: Other (pallor) Neurological: Normal speech, Normal tone Lymphatics: No axilla or inguinal lymphadenopathy External genitalia: Deferred Rectal: Deferred - Studies Laboratory Data (last 24 hrs) 02/15/24 02/15/24 02/15/24 08:05 08:05 08:05 WBC 8.40 Hgb 8.9 L Hct 26.4 L Plt Count 369 PT 13.8 H INR 1.26 Sodium 134 L Potassium 3.7 BUN 18 Creatinine 0.86 Glucose 95 Magnesium 1.5 L Total Bilirubin 0.7 AST 18 ALT 27 Alkaline Phosphatase 95 Lipase 64 <LucasMarcellejenna Delgado - Last Filed: 02/15/24 12:07> - Studies Laboratory Data (last 24 hrs) 02/15/24 02/15/24 02/15/24 08:05 08:05 08:05 WBC 8.40 Hgb 8.9 L Hct 26.4 L Plt Count 369 PT 13.8 H INR 1.26 Sodium 134 L Potassium 3.7 BUN 18 Creatinine 0.86 Glucose 95 Magnesium 1.5 L Total Bilirubin 0.7 AST 18 ALT 27 Alkaline Phosphatase 95 Lipase 64 <Martín Mary C - Last Filed: 02/15/24 14:04> Assessment and Plan - Plan Colitis with volume depletion Given Cipro and Flagyl in ED Vancomycin po (pt with Cdiff one month ago) Metastatic cancer pain Fentanyl 50mcg patch gabapentin 300mg po TID Nebs q 6-8h Hypertension Lisinopril 10mg po daily Metoprolol 50mg po BID Plavix 75mg po daily HLD Atorvastatin 40mg po q hs Fish oil for inpatient Hypomagnesemia Monitor and replete VRE prophylaxis: Pt on Eliquis Discharge Plan: Home Plan to discharge in: 48 Hours - Advance Directives Does patient have a Living Will: No Does patient have a Durable POA for Healthcare: No <LucasMarcellejenna Delgado - Last Filed: 02/15/24 12:07> - Plan Pt seen and examined. I agree with the note by the MANAGER MEDICAL Pt is a 63 yo male with past medical history of Hodgkin's lymphoma, coronary artery disease status post PCI, A-fib status post cardioversion, anemia, and metastatic lung disease (on chemo/radiation). who presents with abdominal pain. Of not pt was treated for C diff colitis last month and he recently finished iv chemotherapy on 02/10/24. The abdominal casas progressively worsened to be associated with leg and groin pain. On admission, lab studies show wbc 8.4. hgb 8.9, K 3.7, Cr 0.86, BNP 666 and troponin 31.7. At bedside, pt is in nAD. A/P Colitis: Will continue IVF, iv cipro, flagyl and po vanc. Hyponatremia: N ais 134. Will trend Na. Hx of metaststic cancer: Will continue prn pain med. Pt will f/u with his oncologist. Will continue home med for other chronic medical problems. <Martín Mary - Last Filed: 02/15/24 14:04>
[2024-02-15] MEDS ORDERED: ONDANSETRON 4 MG/2 ML VIAL IV PRN (10:28)
[2024-02-15 10:32] LABS: Specific Gravity 1.025 (1.005-1.030); Urine Bilirubin NEGATIVE (Negative); Urine Blood Negative (Negative); Urine Clarity Clear (Clear); Urine Color Light-Yellow (Yellow); Urine Glucose NEGATIVE (Negative); Urine Ketones NEGATIVE (Negative); Urine Microscopic Reflex YN NO UMIC; Urine Nitrite NEGATIVE (Negative); Urine Protein NEGATIVE (Negative); Urine Urobilinogen Normal (Normal); Urine pH 6.5 (5.0-7.0)
[2024-02-15] MEDS ORDERED: GABAPENTIN 300 MG CAP ONE (10:48)
[2024-02-15] MEDS: FENTANYL 50 MCG/PATCH TD ONE (12:07)
[2024-02-15] MEDS: HYDROMORPHONE HCL 1 MG/ML INJ IV PRN (12:53)
[2024-02-15] MEDS: NA CHLORIDE 0.9% 1,000 ML IV SCH (12:56)
[2024-02-15] MEDS: IPRATROPIUM BROM 0.5MG/2.5ML NEB SCH (13:26)
[2024-02-15] MEDS: ALBUTEROL 2.5 MG/3 ML NEB SOL NEB SCH (13:26)
[2024-02-15] MEDS: GABAPENTIN 300 MG CAP PO SCH (14:14)
[2024-02-15] MEDS: VANCOMYCIN HCL 125 MG CAPSULE PO SCH (16:20)
[2024-02-15] MEDS: ATORVASTATIN 40 MG TAB PO SCH (20:20)
[2024-02-15] MEDS: APIXABAN 2.5 MG TABLET PO SCH (20:20)
[2024-02-15] MEDS: METOPROLOL TAR 50 MG TAB PO SCH (20:20)
[2024-02-16] MEDS: TAMSULOSIN 0.4 MG SR CAP ONE (01:11)
[2024-02-16] MEDS: DOCOSAHEXANOIC AC/EPA 1000 MG PO SCH (08:14)
[2024-02-16] MEDS: CLOPIDOGREL 75 MG TABLET PO SCH (08:15)
[2024-02-16] MEDS ORDERED: ENOXAPARIN 40 MG/0.4 ML SQ SCH (09:00)
[2024-02-16 09:20] LABS: Albumin 2.5 g/dL (3.4-5.0); Albumin/Globulin Ratio 0.7 (1.1-1.8); Anion Gap 8.8 mEq/L (5.0-15.0); Bilirubin Total 0.6 mg/dL (0.2-1.0); Globulin 3.6 g/dL (2.3-3.5); Magnesium 1.8 mg/dL (1.6-2.4); Phosphorus 4.4 mg/dL (2.5-4.9); Potassium 3.8 mEq/L (3.5-5.1); Protein, Total 6.1 g/dL (6.4-8.2)
[2024-02-16 09:40] LABS: Absolute Lymphocytes (CBC) 0.3 K/uL (0.7-4.9); Absolute Monocytes 0.2 K/uL (0.1-1.3); Basophils % 0.2 % (0-1.3); Eosinophils % 0.3 % (0-4.4); Hematocrit 22.7 % (39.6-49.0); Hemoglobin 7.6 g/dL (13.6-17.9); Lymphocytes % 6.8 % (15.3-44.8); MCH 28.7 pg (27.0-35.0); MCHC 33.4 g/dL (32.0-36.0); MCV 85.9 fL (80-100); MPV 7.4 fL (7.6-11.3); Monocytes % 3.9 % (3.3-12.3); Neutrophils % 88.8 % (41.7-73.7); Nucleated Red Blood Cells % 0.1 % (0-0); Platelets 295 thou/uL (152-406); RBC Red Blood Cell Count 2.64 M/uL (4.33-5.43); Red Cell Distribution Width 20.4 % (12.1-15.2)
[2024-02-16] MEDS: lisinopriL 10 MG TAB PO SCH (09:42)
[2024-02-16] MEDS: POTASSIUM CL SA 10 MEQ TAB PO ONE (10:44)
[2024-02-16] MEDS: MAGNESIUM SULFATE 1 gm IVPB 1 GM/100 ML BAG IV ONE (10:44)
--- NOTE | 2024-02-16 11:03 | P.PN ---
Subjective Date of Service: 02/16/24 Chief Complaint: Metastatic lung cancer pain, colitis Subjective: No new changes (pt had 2-3 bm overnight, pain is not a lot better.) <Marcelle Zavala - Last Filed: 02/16/24 10:59> Date of Service: 02/16/24 <Martín Mayr - Last Filed: 02/16/24 15:16> Review of Systems 10-point ROS is otherwise unremarkable General: As per HPI Gastrointestinal: As per HPI Musculoskeletal: As per HPI <Marcelle Zavalalen - Last Filed: 02/16/24 10:59> Physical Examination - Vital Signs Temperature: 98.1 F Blood Pressure: 104/62 Pulse: 83 Respirations: 18 Pulse Ox (%): 96 - Physical Exam General: Alert, Oriented x3, Cooperative, Other (pale) HEENT: Atraumatic, Normocephalic Neck: Supple Respiratory: Normal air movement Cardiovascular: Normal pulses Capillary refill: <2 Seconds Gastrointestinal: Other (left lower quad, + bm, denies melena), Tenderness Musculoskeletal: No swelling Integumentary: No rashes, Other (pallor) Neurological: Normal speech, Normal tone Lymphatics: No axilla or inguinal lymphadenopathy External genitalia: Deferred Rectal: Deferred <Marcelle Zavala - Last Filed: 02/16/24 10:59> Assessment And Plan - Plan Colitis with volume depletion Given Cipro and Flagyl in ED Vancomycin po (pt with Cdiff one month ago) Metastatic cancer pain Fentanyl 50mcg patch and Dilaudid for break through 8-10 pain gabapentin 300mg po TID Nebs q 6-8h Hypertension Lisinopril 10mg po daily Metoprolol 50mg po BID Plavix 75mg po daily HLD Atorvastatin 40mg po q hs Fish oil for inpatient Hypomagnesemia Monitor and replete 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 I agree with the note by the SPRING CRATER. Will continue cipro, flagyl and po vanc 125mg po QID. Will also continue prn pain med. Continue home meds for other chronic medical problems. Monitor H/H. Hgb is 7.6.< likely due to anemia of chronic disease. <Martín Mary - Last Filed: 02/16/24 15:16>
[2024-02-16] MEDS: VANCOMYCIN HCL 125 MG CAPSULE PO SCH (13:16)
[2024-02-16] MEDS: FENTANYL 75 MCG/PATCH TD SCH (15:08)
--- NOTE | 2024-02-17 01:43 | P.PN ---
Subjective Date of Service: 02/17/24 Chief Complaint: Metastatic lung cancer pain, colitis Noted urinary retention overnight, bladder scan 740, Lilly placed, urology consulted, Flomax added Physical Examination - Vital Signs Temperature: 97.5 F Blood Pressure: 136/86 Pulse: 111 Respirations: 20 Pulse Ox (%): 96
[2024-02-17] MEDS: HYDROMORPHONE HCL 2 MG/ML inj IV ONE ×2 (08:07→18:29)
[2024-02-17 08:34] LABS: Anion Gap 6.4 mEq/L (5.0-15.0); Magnesium 1.7 mg/dL (1.6-2.4); Potassium 3.4 mEq/L (3.5-5.1)
--- NOTE | 2024-02-17 10:59 | P.PN ---
Subjective Date of Service: 02/17/24 Chief Complaint: Metastatic lung cancer pain, colitis Subjective: No new changes (Pt crying with severe bilateral leg pain on my arrival. Additional Diluadid given IV) <Kathi Zavalajenna Delgado - Last Filed: 02/17/24 10:55> Date of Service: 02/17/24 <Martín Mary Sherly - Last Filed: 02/17/24 12:31> Review of Systems 10-point ROS is otherwise unremarkable Genitourinary: As per HPI <Marcelle Zavala - Last Filed: 02/17/24 10:55> Physical Examination - Vital Signs Temperature: 97.4 F Blood Pressure: 172/103 Pulse: 113 Respirations: 20 Pulse Ox (%): 98 - Physical Exam General: Alert, Moderate distress, Severe distress (severe lower ext pain) HEENT: Atraumatic, Normocephalic Neck: Supple Respiratory: Normal air movement, Other (congested cough) Cardiovascular: Normal pulses Capillary refill: <2 Seconds Gastrointestinal: Soft and benign Musculoskeletal: Other (pain) Integumentary: Other (pallor) Neurological: Normal speech, Normal tone Lymphatics: No axilla or inguinal lymphadenopathy Urinary: Samuel catheter, Other (abd resolved with samuel placement) External genitalia: Deferred Rectal: Deferred <LucasMarcelle Delgado - Last Filed: 02/17/24 10:55> Assessment And Plan - Plan Colitis with volume depletion Given Cipro and Flagyl in ED Vancomycin po (pt with Cdiff one month ago) Metastatic cancer pain Fentanyl 50mcg patch and Dilaudid for break through 8-10 pain gabapentin 300mg po TID Nebs q 6-8h Hypertension Lisinopril 10mg po daily Metoprolol 50mg po BID Plavix 75mg po daily HLD Atorvastatin 40mg po q hs Fish oil for inpatient Hypomagnesemia Monitor and replete 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 I agree withe note by the IAP DISPLAYS ANALYST. Pt complains of constipation and urinary retention. A samuel catheter was placed last night. Consulted Urologist. Will give lactulose for constipation. Continue prn pain med. <Martín Mary - Last Filed: 02/17/24 12:31>
[2024-02-17] MEDS: GABAPENTIN 300 MG CAP PO ONE (12:20)
[2024-02-17] MEDS: DIAZEPAM 5 MG TABLET PO ONE (12:20)
[2024-02-17] MEDS: LACTULOSE 20 GM/30 ML UCUP PO ONE (13:40)
--- NOTE | 2024-02-17 20:23 | P.CNS ---
Date of Consult: 02/17/24 Reason for Consult: Urinary retention Chief Complaint: Metastatic lung cancer pain, colitis History of Present Illness: 63-year-old gentleman with Hodgkin's lymphoma, CAD post PCI, A-fib post cardioversion on Eliquis, metastatic lung cancer receiving chemoradiation who was admitted last month with C. difficile colitis. He has been receiving every 3 weeks cycles of chemotherapy and is on his fourth cycle. He explained that when he began the chemotherapy about 4-1/2 months ago, he began having increased difficulty voiding. He acknowledge having some degree of obstructive LUTS for years prior to that, but it got worse within the last several months. E ventually, he developed significant abdominal pain and presented to the emergency department where a Lilly catheter was placed. He said the bag quickly filled and his pain decreased by over 50%. Past surgical history: SVC Port-A-Cath No known drug allergies Denies any family history of urologic malignancy No history of smoking Examination: Patient well-appearing and in no acute distress Alert, awake, oriented x 3 No dyspnea or sign of respiratory distress No cervical/supraclavicular adenopathy Abdomen soft, nontender, nondistended Genitalia: Circumcised without lesion, orthotopic meatus patent with urethral Lilly catheter indwelling and clear yellow urine draining. Testes bilaterally descended without mass and nontender. Scrotum normal without tenderness or crepitus. 02/15/2024 creatinine 0.86, WBC 8.4, hemoglobin 8.9, platelets 369, LFTs/alk phos normal Assessment and recommendation: 63-year-old gentleman with Hodgkin's lymphoma, CAD post PCI, A-fib post cardioversion on Eliquis, metastatic lung cancer receiving chemoradiation admitted with C. difficile colitis, now with acute urinary retention in the setting of prior obstructive LUTS potentially due to BPH. -Flomax 0.4 mg daily -Continue urethral catheterization for at least 2 weeks -Voiding trial may be performed in office thereafter with a dose of Cipro/Levaquin provided if patient not actively on antimicrobial therapy -Follow-up thereafter for cystoscopy, and if voiding trial failed, repeat urine culture 1 to 2 weeks prior to cystoscopy -PSA prior to follow-up for cystoscopy Allergies No Known Allergies Allergy (Verified 01/18/24 08:18) Home medications list reviewed: Yes Home Medications: Atorvastatin Calcium 40 mg PO DAILY 01/05/24 Cholecalciferol (Vitamin D3) [Vitamin D 5,000 IU Cap*] 5,000 units PO DAILY 01/05/24 Clopidogrel Bisulfate [Plavix] 75 mg PO DAILY 01/05/24 Metoprolol Tartrate 50 mg PO BID 01/05/24 Apixaban [Eliquis] 5 mg PO BID 01/18/24 Oxycodone HCl 1 tab PO Q4H PRN 02/15/24 fentaNYL [Fentanyl] 75 mg TD SEECOM 02/16/24 - Past Medical/Surgical History Diabetic: No -: Lung cancer with metastasis -: Atrial fibrillationstatus post cardioversion -: History of hypertension -: cardioversion -: placement of SVC portacath Psychosocial/ Personal History: Lives at home. Denies ill contacts. - Family History Father Medical History: Heart disease, Cancer, Other (see notes) Notes: skin CA Mother Medical History: Heart disease, Diabetes - Social History Alcohol use: Yes CD- Drugs: Yes Caffeine use: Yes Place of Residence: Home Physical Examination Temp Pulse Resp BP Pulse Ox 98.5 F 107 H 16 115/74 98 02/17/24 16:00 02/17/24 16:00 02/17/24 18:29 02/17/24 16:00 02/17/24 18:29 - Problems (1) Urinary retention Current Visit: Yes Status: Acute (2) BPH loc w urin obs/LUTS Current Visit: Yes Status: Acute Conclusions/Impression: see A&P in HPI Critical Care: No Time Spent Managing Pts care (In Minutes): 30
[2024-02-18 07:55] LABS: Absolute Lymphocytes (CBC) 0.3 K/uL (0.7-4.9); Absolute Monocytes 0.6 K/uL (0.1-1.3); Absolute Neutrophil 3.5 K/uL (1.8-8.0); Basophils % 0.5 % (0-1.3); Eosinophils % 0.4 % (0-4.4); Hematocrit 22.4 % (39.6-49.0); Hemoglobin 7.5 g/dL (13.6-17.9); Lymphocytes % 7.7 % (15.3-44.8); MCH 28.7 pg (27.0-35.0); MCHC 33.3 g/dL (32.0-36.0); MCV 86.1 fL (80-100); MPV 7.1 fL (7.6-11.3); Monocytes % 13.3 % (3.3-12.3); Neutrophils % 78.1 % (41.7-73.7); Nucleated Red Blood Cells % 0.1 % (0-0); Platelets 298 thou/uL (152-406); RBC Red Blood Cell Count 2.61 M/uL (4.33-5.43); Red Cell Distribution Width 20.5 % (12.1-15.2)
[2024-02-18 08:11] LABS: Albumin 2.3 g/dL (3.4-5.0); Albumin/Globulin Ratio 0.6 (1.1-1.8); Anion Gap 9.4 mEq/L (5.0-15.0); Bilirubin Total 0.6 mg/dL (0.2-1.0); Globulin 3.6 g/dL (2.3-3.5); Potassium 3.4 mEq/L (3.5-5.1); Protein, Total 5.9 g/dL (6.4-8.2)
[2024-02-18 09:15] LABS: Anisocytosis 1+; Blood Morphology Comment NOTED (NOT SEEN); Platelet Estimate ADEQ; White Blood Cell Scan OK (OK)
[2024-02-18 09:16] LABS: Polychromasia SLIGHT
[2024-02-18] MEDS: Oxycodone HCl/Acetaminophen 5/325 MG TAB PO ONE (09:42)
[2024-02-18] MEDS: POTASSIUM CL SA 10 MEQ TAB PO ONE (09:44)
[2024-02-18 10:28] VITALS: BMI 28.8
--- NOTE | 2024-02-18 12:41 | P.PN ---
Subjective Date of Service: 02/18/24 Chief Complaint: Metastatic lung cancer pain, colitis Subjective: Other (pain is difficult to control) <Marcelle Zavala - Last Filed: 02/18/24 12:38> Date of Service: 02/18/24 <Martín Mary - Last Filed: 02/18/24 13:18> Review of Systems General: As per HPI Musculoskeletal: Leg Pain Neurological: As per HPI <Marcelle Zavala - Last Filed: 02/18/24 12:38> Physical Examination - Vital Signs Temperature: 97.9 F Blood Pressure: 118/69 Pulse: 98 Respirations: 18 Pulse Ox (%): 98 <Marcelle Zavala - Last Filed: 02/18/24 12:38> Assessment And Plan - Plan Colitis with volume depletion Given Cipro and Flagyl in ED Vancomycin po (pt with Cdiff one month ago) Metastatic cancer pain Fentanyl 50mcg patch and Dilaudid for break through 8-10 pain, added Oxycodone po, valium gabapentin 300mg po TID Nebs q 6-8h pain is prohibitive Hypertension Lisinopril 10mg po daily Metoprolol 50mg po BID Plavix 75mg po daily HLD Atorvastatin 40mg po q hs Fish oil for inpatient Hypomagnesemia Monitor and replete 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 I agree with note by the RETAIL SALESPERSON. Pt complains of constipation and urinary retention. Will leave the samuel catheter for 2 weeks anc continue flomax per Urology recommendation. Continue cipro, flagyl and po vanc. Will give prn lactulose for constipation. Continue prn pain med. <Martín Mary - Last Filed: 02/18/24 13:18>
[2024-02-18] MEDS: HYDROMORPHONE HCL 2 MG/ML inj IV ONE (13:27)
[2024-02-18 15:05] LABS: Anion Gap 10.1 mEq/L (5.0-15.0); Potassium 4.1 mEq/L (3.5-5.1)
--- NOTE | 2024-02-18 15:17 | EKG ---
Test Date: 2024-02-15 Test Time: 08:35:42 Water Sander: AMAURY MEASUREMENT RESULTS: Intervals: Rate: 90 FL: 152 QRSD: 70 QT: 376 QTc: 459 [place]: P: 77 FL: 152 QRS: 14 T: 59 INTERPRETIVE STATEMENTS: Normal sinus rhythm Normal ECG Compared to ECG 01/04/2024 18:26:50 No significant changes Electronically Signed On 02-18-24 15:03:13 CDT by Herrera Woods
[2024-02-18] MEDS: HYDROMORPHONE HCL 1 MG/ML INJ IV ONE ×2 (20:05→23:51)
[2024-02-19] MEDS: HYDROMORPHONE HCL 1 MG/ML INJ IV ONE (04:11)
[2024-02-19 06:34] LABS: Absolute Lymphocytes (CBC) 0.4 K/uL (0.7-4.9); Absolute Monocytes 0.7 K/uL (0.1-1.3); Absolute Neutrophil 2.5 K/uL (1.8-8.0); Basophils % 0.6 % (0-1.3); Eosinophils % 0.2 % (0-4.4); Hematocrit 24.1 % (39.6-49.0); Hemoglobin 7.8 g/dL (13.6-17.9); Lymphocytes % 11.5 % (15.3-44.8); MCH 28.1 pg (27.0-35.0); MCHC 32.2 g/dL (32.0-36.0); MCV 87.1 fL (80-100); MPV 7.4 fL (7.6-11.3); Neutrophils % 67.7 % (41.7-73.7); Nucleated Red Blood Cells % 0.1 % (0-0); Platelets 296 thou/uL (152-406); RBC Red Blood Cell Count 2.76 M/uL (4.33-5.43); Red Cell Distribution Width 20.7 % (12.1-15.2)
[2024-02-19 07:15] LABS: Anion Gap 8.6 mEq/L (5.0-15.0); Magnesium 1.4 mg/dL (1.6-2.4); Potassium 3.6 mEq/L (3.5-5.1)
[2024-02-19 07:34] LABS: Blood Morphology Comment NOT SEEN (NOT SEEN); Differential Total Cells Count 100; Lymphocytes 11 % (15-42); Monocytes 19 % (0-10); Platelet Estimate ADEQ; Segmented Neutrophils 70 % (40-80)
[2024-02-19] MEDS: HYDROMORPHONE HCL 1 MG/ML INJ IV PRN (07:48)
[2024-02-19] MEDS: Magnesium Sulfate 2gm IVPB 2 G/50 ML BAG IV ONE (09:12)
[2024-02-19 10:02] VITALS: O2SAT 98
[2024-02-19] MEDS ORDERED: POTASSIUM CL SA 10 MEQ TAB PO ONE (11:00)
[2024-02-19] MEDS: POTASSIUM CL SA 10 MEQ TAB PO ONE (11:20)
[2024-02-19 13:13] VITALS: BP 119/79; TEMP 97.5
--- NOTE | 2024-02-19 13:35 | P.DS ---
Admission Date: 02/15/24 Discharge Date: 02/19/24 Reason for Admission: Metastatic lung cancer pain, colitis Brief History of Present Illness: Mr. Larson is a 63-year-old patient with a past medical history of Hodgkin's lymphoma, coronary artery disease status post PCI, A-fib status post cardioversion, anemia, metastatic lung disease (on chemo/radiation). He was admitted last month with C. diff colitis. He states he is finished for the moment with radiation, last IV chemotherapy on February 09. Last p.m. he began having significant bilateral groin and leg pain and a tight sharp pain along the diaphragm. He presented to the emergency department with significant pain this a.m. on laboratory evaluation he has a white count of 8.4 with 93.2% neutrophils, H/H 8.9/26.4, platelets 369. liver enzymes unremarkable, albumin 2.6, chemistries unremarkable except magnesium of 1.5, proBNP 667, troponin 31.7. Imaging revealed, "findings: The lungs are clear. Left hilar fullness is notable patible with known mass in this region. The heart is normal in size sternotomy wires are present. Right-sided venous catheter tip in the SVC.." On ultrasound of the bilateral lower extremities there were no DVTs present. CT chest, abdomen, pelvis with contrast findings: "There is evidence of a moderately severe colitis pattern from the level of the splenic flexure to the rectum. No pneumatosis coli, free air, or abscess. Moderate diminishment in the left posterior soft tissue obstructive mass as well as the mass in the left upper lobe medially." Mr. Sotelo received 2 L normal saline bolus, 2 doses of 1 mg Dilaudid, Cipro 400 mg IV piggyback, Flagyl 500 mg IV piggyback, magnesium 2 g IV piggyback in the emergency department. On my assessment he still had significant pain in the diaphragmatic area and bilateral hip area. Dilaudid 1 mg IVP and Neurontin 300 mg p.o. given. He will be admitted for pain control and further assessment and treatment of his colitis Hospital Course: Mr. Solorzano has not had diarrhea since his admission to the hospital however his pain was uncontrolled. He was found to have some urinary retention and a Samuel was placed. He was seen by Dr. Mishra who recommends leaving the Samuel in place for now. Mr. Solorzano was a little more comfortable after the Samuel placement however his chemotherapy often gives him severe leg pain. He did get some pain control and he was able to sleep yesterday afternoon and on my arrival to his room today he was also sleeping soundly. We will discharge him to follow-up with his PCP, heme-onc, and pain management. As far as colitis, he still has some oral vancomycin for a C. difficile infection from several weeks ago. At this time he denies abdominal pain. Will discharge him with 5 more days of Flagyl and he can continue the vancomycin taper. <Marcelle Zavala - Last Filed: 02/19/24 13:29> Admission Date: 02/15/24 Discharge Date: 02/19/24 Hospital Course: Pt seen and examined. I agree with the note by the ELECT[employer]IC POWERLINE EXAMINER. Pt was advised to take prn pain meds, po vanc and flagyl at home. Pt will f/u up with Dr. Mooney in clinic. <Martín Mary - Last Filed: 02/19/24 14:53> Disposition: ROUTINE DISCHARGE Discharge Condition: FAIR Vital Signs/Physical Exam: Temp Pulse Resp BP Pulse Ox 97.5 F 92 H 17 119/79 90 L 02/19/24 12:00 02/19/24 12:00 02/19/24 12:00 02/19/24 12:00 02/19/24 12:00 General: In no apparent distress, Cooperative HEENT: Atraumatic, Normocephalic Neck: Supple Respiratory: Normal air movement Cardiovascular: Irregular heart rate/rhythm Capillary refill: <2 Seconds Gastrointestinal: Non-distended Musculoskeletal: No clubbing Integumentary: Other Neurological: Normal speech, Normal tone Lymphatics: No axilla or inguinal lymphadenopathy Urinary: Samuel catheter External genitalia: Deferred Rectal: Deferred Other Physical/Emotional Findings: Significant pain, tearful, fatigued Laboratory Data at Discharge: WBC 3.70 thou/uL (4.3-10.9) L 02/19/24 05:52 Hgb 7.8 g/dL (13.6-17.9) L 02/19/24 05:52 Hct 24.1 % (39.6-49.0) L 02/19/24 05:52 Plt Count 296 thou/uL (152-406) 02/19/24 05:52 PT 13.8 SECONDS (9.5-12.5) H 02/15/24 08:05 INR 1.26 02/15/24 08:05 Sodium 136 mEq/L (136-145) 02/19/24 05:52 Potassium 3.6 mEq/L (3.5-5.1) 02/19/24 05:52 BUN 5 mg/dL (7-18) L 02/19/24 05:52 Creatinine 0.67 mg/dL (0.70-1.30) L 02/19/24 05:52 Glucose 103 mg/dL (74-106) 02/19/24 05:52 Phosphorus 4.4 mg/dL (2.5-4.9) 02/16/24 08:22 Magnesium 1.4 mg/dL (1.6-2.4) L 02/19/24 05:52 Total Bilirubin 0.6 mg/dL (0.2-1.0) 02/18/24 07:43 AST 15 U/L (15-37) 02/18/24 07:43 ALT 23 U/L (16-61) 02/18/24 07:43 Alkaline Phosphatase 87 U/L (45-117) 02/18/24 07:43 Triglycerides 109 mg/dL (<150) 02/16/24 08:22 Cholesterol 123 mg/dL (<200) 02/16/24 08:22 HDL Cholesterol 80 mg/dL (40-60) H 02/16/24 08:22 Cholesterol/HDL Ratio 1.54 02/16/24 08:22 Lipase 64 U/L (13-75) 02/15/24 08:05 <Zavala,Marcelle Danny - Last Filed: 02/19/24 13:29> Vital Signs/Physical Exam: Temp Pulse Resp BP Pulse Ox 97.5 F 92 H 17 119/79 90 L 02/19/24 12:00 02/19/24 12:00 02/19/24 12:00 02/19/24 12:00 02/19/24 12:00 Laboratory Data at Discharge: WBC 3.70 thou/uL (4.3-10.9) L 02/19/24 05:52 Hgb 7.8 g/dL (13.6-17.9) L 02/19/24 05:52 Hct 24.1 % (39.6-49.0) L 02/19/24 05:52 Plt Count 296 thou/uL (152-406) 02/19/24 05:52 PT 13.8 SECONDS (9.5-12.5) H 02/15/24 08:05 INR 1.26 02/15/24 08:05 Sodium 136 mEq/L (136-145) 02/19/24 05:52 Potassium 3.6 mEq/L (3.5-5.1) 02/19/24 05:52 BUN 5 mg/dL (7-18) L 02/19/24 05:52 Creatinine 0.67 mg/dL (0.70-1.30) L 02/19/24 05:52 Glucose 103 mg/dL (74-106) 02/19/24 05:52 Phosphorus 4.4 mg/dL (2.5-4.9) 02/16/24 08:22 Magnesium 1.4 mg/dL (1.6-2.4) L 02/19/24 05:52 Total Bilirubin 0.6 mg/dL (0.2-1.0) 02/18/24 07:43 AST 15 U/L (15-37) 02/18/24 07:43 ALT 23 U/L (16-61) 02/18/24 07:43 Alkaline Phosphatase 87 U/L (45-117) 02/18/24 07:43 Triglycerides 109 mg/dL (<150) 02/16/24 08:22 Cholesterol 123 mg/dL (<200) 02/16/24 08:22 HDL Cholesterol 80 mg/dL (40-60) H 02/16/24 08:22 Cholesterol/HDL Ratio 1.54 02/16/24 08:22 Lipase 64 U/L (13-75) 02/15/24 08:05 <Martín Mary - Last Filed: 02/19/24 14:53> Diet: AHA Activity: Ad milad <Zavala,Marcelle Danny - Last Filed: 02/19/24 13:29> <Martín Mary - Last Filed: 02/19/24 14:53> Home Medications: Atorvastatin Calcium 40 mg PO DAILY 01/05/24 Cholecalciferol (Vitamin D3) [Vitamin D 5,000 IU Cap*] 5,000 units PO DAILY 01/05/24 Clopidogrel Bisulfate [Plavix*] 75 mg PO DAILY 01/05/24 Metoprolol Tartrate 50 mg PO BID 01/05/24 Apixaban [Eliquis] 5 mg PO BID 01/18/24 Oxycodone HCl 1 tab PO Q4H PRN 02/15/24 fentaNYL [Fentanyl] 75 mg TD SEECOM 02/16/24 Gabapentin 300 mg PO TID 30 Days #90 tab 02/19/24 Tamsulosin [Flomax*] 0.4 mg PO BEDTIME #30 cap 02/19/24 Vancomycin HCl 125 mg PO QID #0 cap 02/19/24 lisinopriL [Prinivil*] 10 mg PO DAILY 30 Days #30 tab 02/19/24 metroNIDAZOLE [Flagyl] 250 mg PO Q8H #15 tab 02/19/24 New Medications: metroNIDAZOLE [Flagyl] 250 mg PO Q8H #15 tab Tamsulosin [Flomax*] 0.4 mg PO BEDTIME #30 cap Gabapentin 300 mg PO TID 30 Days #90 tab lisinopriL [Prinivil*] 10 mg PO DAILY 30 Days #30 tab Physician Discharge Instructions: Mr. Solorzano has not had diarrhea since his admission to the hospital however his pain was uncontrolled. He was found to have some urinary retention and a Samuel was placed. He was seen by Dr. Mishra who recommends leaving the Samuel in place for now. Mr. Solorzano was a little more comfortable after the Samuel placement however his chemotherapy often gives him severe leg pain. He did get some pain control and he was able to sleep yesterday afternoon and on my arrival to his room today he was also sleeping soundly. We will discharge him to follow-up with his PCP, heme-onc, Dr. Mishra, and pain management. As far as colitis, he still has some oral vancomycin for a C. difficile infection from several weeks ago. At this time he denies abdominal pain. Will discharge him with 5 more days of Flagyl and he can continue the vancomycin taper. Continue ad milad activity. Take home meds as prescribed. Follow up with Dr. Mooney within 1 week. Follow up with PCP within 2 weeks. Follow up with Dr. Mishra regarding samuel removal. Followup: Rubi Mooney MD [ACTIVE - CAN ADMIT] - 1 Week (call to schedule an appointment) OCTAVIO CUNNINGHAM [Primary Care Provider] - 1 Week (call to schedule an appointment) Danilo Mishra [ACTIVE - CAN ADMIT] - 1-2 Weeks (follow up in 2 weeks)
[2024-02-23 01:47] LABS: PSA FREE 0.19 ng/mL; PSA TOTAL 1.2 ng/mL (<=4.0)
== END 2024-02-19 16:17 | disposition home or self-care (01) | DRG 386 ==
LOC: ER 07:46 → 4TH 10:28
PROVIDERS: ADMIT Hospitalist; ATTEND Hospitalist
PROC: 0T9B70Z Drainage of Bladder with Drainage Device, Via Natural or Artificial Opening (ICD-10-PCS; principal; 2024-02-16)
DX: K51.50 Left sided colitis without complications (principal); C78.00 Secondary malignant neoplasm of unspecified lung; E87.1 Hypo-osmolality and hyponatremia; G89.3 Neoplasm related pain (acute) (chronic); I48.91 Unspecified atrial fibrillation; M79.605 Pain in left leg; M79.604 Pain in right leg; E83.42 Hypomagnesemia; D38.1 Neoplasm of uncertain behavior of trachea, bronchus and lung; D63.0 Anemia in neoplastic disease; E86.9 Volume depletion, unspecified; I10 Essential (primary) hypertension; E78.5 Hyperlipidemia, unspecified; K59.00 Constipation, unspecified; I25.10 Atherosclerotic heart disease of native coronary artery without angina pectoris; N40.1 Benign prostatic hyperplasia with lower urinary tract symptoms; R33.8 Other retention of urine; Z95.1 Presence of aortocoronary bypass graft; Z85.71 Personal history of Hodgkin lymphoma; Z79.01 Long term (current) use of anticoagulants; Z79.02 Long term (current) use of antithrombotics/antiplatelets; Z79.899 Other long term (current) drug therapy
CPT/HCPCS: 36415; 71046; 71260; 74177; 80048; 80053; 80061; 80076; 81003; 83690; 83735; 83880; 84100; 84153; 84154; 84484; 85025; 85610; 86850; 86900; 86901; 87045; 87046; 93005; 93970; 94640; 96361; 96365; 96375; 99284; J0744; J1170; J1650; J2405; J3475; J7030; J7613; J7644; Q9967

== ENCOUNTER 2024-03-11 01:04 | Inpatient (IN) | payer OTHER ==
[2024-03-11] MEDS ORDERED: ONDANSETRON 4 MG/2 ML VIAL ONE (02:21)
[2024-03-11] MEDS ORDERED: HYDROMORPHONE HCL 1 MG/ML INJ ONE (02:22)
[2024-03-11] MEDS ORDERED: NA CHLORIDE 0.9% 1,000 ML ONE (02:22)
[2024-03-11] MEDS ORDERED: ALBUMIN HUMAN 25% 200 ML IV ONE (02:22)
[2024-03-11] MEDS ORDERED: FAMOTIDINE 20 MG/2 ML VIAL IV ONE (02:22)
[2024-03-11 02:35] LABS: Absolute Lymphocytes (CBC) 0.2 K/uL (0.7-4.9); Absolute Monocytes 0.2 K/uL (0.1-1.3); Absolute Neutrophil 8.3 K/uL (1.8-8.0); Basophils % 0.2 % (0-1.3); Eosinophils % 0.1 % (0-4.4); Hematocrit 24.2 % (39.6-49.0); Hemoglobin 8.1 g/dL (13.6-17.9); MCH 29.4 pg (27.0-35.0); MCHC 33.6 g/dL (32.0-36.0); MCV 87.7 fL (80-100); MPV 7.6 fL (7.6-11.3); Monocytes % 1.9 % (3.3-12.3); Neutrophils % 95.8 % (41.7-73.7); Platelets 283 thou/uL (152-406); RBC Red Blood Cell Count 2.76 M/uL (4.33-5.43); Red Cell Distribution Width 21.6 % (12.1-15.2)
[2024-03-11 02:53] LABS: Albumin 2.4 g/dL (3.4-5.0); Albumin/Globulin Ratio 0.7 (1.1-1.8); Anion Gap 7.1 mEq/L (5.0-15.0); Bilirubin Total 0.7 mg/dL (0.2-1.0); Globulin 3.5 g/dL (2.3-3.5); Potassium 3.1 mEq/L (3.5-5.1); Protein, Total 5.9 g/dL (6.4-8.2)
[2024-03-11 03:39] LABS: Band Neutrophils 17 % (0-1); Differential Total Cells Count 100; Lymphocytes 2 % (15-42); Metamyelocytes 6 % (0-0); Monocytes 2 % (0-10); Segmented Neutrophils 73 % (40-80)
[2024-03-11 03:40] LABS: Anisocytosis 1+; Blood Morphology Comment NOTED (NOT SEEN); Platelet Estimate ADEQ
[2024-03-11] MEDS ORDERED: HYDROMORPHONE HCL 2 MG/ML inj ONE (05:56)
[2024-03-11] MEDS ORDERED: METOCLOPRAMIDE 10 MG/2mL INJ ONE (05:56)
[2024-03-11 06:06] LABS: Renal Epithelial <5 /HPF (None Seen); Specific Gravity 1.017 (1.005-1.030); Sqamous Epithelial <5 /HPF (None Seen); Urine Bacteria <20 /HPF (<20); Urine Bilirubin NEGATIVE (Negative); Urine Blood 1+ (Negative); Urine Clarity Clear (Clear); Urine Color Light-Yellow (Yellow); Urine Culture Reflex Order REFLEXED; Urine Glucose NEGATIVE (Negative); Urine Ketones NEGATIVE (Negative); Urine Microscopic Reflex YN ORDER UMIC; Urine Mucus Slight /HPF (None Seen); Urine Nitrite 1+ (Negative); Urine Protein TRACE (Negative); Urine Urobilinogen Normal (Normal)
--- NOTE | 2024-03-11 06:51 | ER ---
Nurse's Notes [facility] Name: Dwain Solorzano Age: 63 yrs Sex: Male : 1960 Arrival Date: 03/11/2024 Time: 01:04 Bed 20 Private MD: Diagnosis: Noninfective gastroenteritis and colitis, unspecified;Acute colitis, cancer associated pain, Presentation: 03/11 01:14 Chief complaint: Patient states: I am having a really bad abdominal pain. I usually get ha1 it after chemotherapy. 01:14 Coronavirus screen: Vaccine status: Patient reports receiving the 2nd dose of the covid ha1 vaccine. Moderna. Ebola Screen: No symptoms or risks identified at this time. Initial Sepsis Screen: Does the patient meet any 2 criteria? No. Patient's initial sepsis screen is negative. Does the patient have a suspected source of infection? No. Patient's initial sepsis screen is negative. Risk Assessment: Do you want to hurt yourself or someone else? Patient reports no desire to harm self or others. Onset of symptoms was March 11, 2024. 01:14 Method Of Arrival: Wheelchair ha1 01:14 Acuity: LEYLA 3 ha1 Triage Assessment: :14 General: Appears uncomfortable, Behavior is cooperative, anxious. Pain: Complains of ha1 pain in abdomen Pain does not radiate. Pain currently is 10 out of 10 on a pain scale. Quality of pain is described as burning, aching, throbbing. Neuro: Level of Consciousness is awake, alert, obeys commands, Oriented to person, place, time, situation. Cardiovascular: Capillary refill < 3 seconds Patient's skin is warm and dry. Respiratory: Airway is patent Respiratory effort is even, unlabored, Respiratory pattern is regular, symmetrical. GI: Abdomen is round obese. GI: Reports lower abdominal pain, upper abdominal pain, cramping, nausea. : No signs and/or symptoms were reported regarding the genitourinary system. Derm: Skin is pink, warm \T\ dry. Musculoskeletal: Circulation, motion, and sensation intact. Historical: - Allergies: : No Known Allergies; ha1 - PMHx: Lung Cancer; ha1 - Immunization history:: Adult Immunizations up to date. - Infectious Disease History:: Denies. - Social history:: Smoking status: Patient denies any tobacco usage or history of. - Family history:: not pertinent. Screenin:14 [facility] ED Fall Risk Assessment (Adult) History of falling in the last 3 months, ha1 including since admission Yes- single mechanical fall (1 pt) Confusion or Disorientation No (0 pts) Intoxicated or Sedated No (0 pts) Impaired Gait Yes (1 pt) Mobility Assist Device Used Yes (1 pt) Altered Elimination No (0 pt) Score/Fall Risk Level 3 or more points = High Risk Oriented to surroundings, Maintained a safe environment, Educated pt \T\ family on fall prevention, incl call for assistance when getting out of bed, Hourly rounding (assess needs \T\ fall precautionary measures) done. Abuse screen: Denies threats or abuse. Denies injuries from another. Nutritional screening: No deficits noted. Tuberculosis screening: No symptoms or risk factors identified. Assessment: 01:14 Reassessment: see triage assessment. ha1 02:20 Reassessment: Patient and/or family updated on plan of care and expected duration. Pain ha1 level reassessed. Patient is alert, oriented x 3, equal unlabored respirations, skin warm/dry/pink. 03:20 Reassessment: Patient and/or family updated on plan of care and expected duration. Pain ha1 level reassessed. Patient is alert, oriented x 3, equal unlabored respirations, skin warm/dry/pink. 04:20 Reassessment: Patient and/or family updated on plan of care and expected duration. Pain ha1 level reassessed. back from CT. 04:50 GI: Bowel sounds present X 4 quads. Abd is non tender X 4 quads. pc2 04:50 General: Appears in no apparent distress. uncomfortable. Respiratory: Airway is patent pc2 Respiratory effort is even, unlabored, Respiratory pattern is regular, symmetrical. : Lilly in place. 05:40 Reassessment: Patient and/or family updated on plan of care and expected duration. Pain pc2 level reassessed. Patient states symptoms have not improved. Pain: Pain currently is 10 out of 10 on a pain scale. 07:00 Reassessment: 63YO WM P/W ABD PAIN POST CHEMO, ADMIT IN PROCESS. bp 08:11 Reassessment: REPORT FAXED FOR RM 411. bp 08:51 Reassessment: PT CELESTINO WITH PCT. bp Vital Signs: 01:14 BP 125 / 89; Pulse 110; Resp 18; Temp 97.9(O); Pulse Ox 100% on R/A; Weight 79.38 kg; ha1 Height 5 ft. 10 in. ; 02:00 BP 122 / 77; Pulse 99; Resp 16 S; Pulse Ox 95% on R/A; ha1 03:00 BP 110 / 68; Pulse 105; Resp 16 S; Pulse Ox 95% on R/A; ha1 04:00 BP 127 / 92; Pulse 109; Resp 16 S; Pulse Ox 94% on R/A; ha1 05:24 BP 152 / 84; Pulse 101; Resp 16; Pulse Ox 96% ; pc2 06:37 BP 135 / 74; Pulse 104; Resp 18; Pulse Ox 95% on R/A; pc2 07:46 BP 139 / 71; Pulse 102; Resp 16; Pulse Ox 96% ; bp 08:51 BP 148 / 80; Pulse 100; Resp 20; Pulse Ox 98% ; bp 01:14 Body Mass Index 25.11 (79.38 kg, 177.8 cm) 1 [place] Coma Score: 01:52 Eye Response: spontaneous(4). Motor Response: obeys commands(6). Verbal Response: sp4 oriented(5). Total: 15. ED Course: 01:07 Patient arrived in ED. ra3 01:14 Patient has correct armband on for positive identification. Placed in gown. Bed in low ha1 position. Call light in reach. Side rails up X 1. 01:14 Arm band placed on right wrist. ha1 01:27 Zak Dietrich MD is Attending Physician. sp4 01:28 Triage completed. ha1 01:35 Accessed Port-a-Cath. using accessed w/ # 20 Dan needle, ,sterile technique, per [facility] hospital protocol. Clean \T\ dry. Dressing intact. Good blood return. Flushes easily. 01:53 Love Medel, SAPNA is Primary Nurse. ha1 02:18 BNP Sent. ha1 02:18 Type And Screen Sent. ha1 02:19 CBC with Diff Sent. ha1 02:19 CMP Sent. ha1 04:00 Lilly cath removed intact, balloon deflated. ha1 04:14 Lilly cath inserted, using sterile technique, 16 Fr., by wy, balloon inflated, to ha1 gravity drainage, returned clear yellow urine. Patient tolerated well. 04:16 Provided Education on: medication administration . ha1 04:17 CT Chest Abdomen Pelvis W/O Contrast In Process Unspecified. EDMS 04:35 Report received from SAPNA Aleman. pc2 06:04 US Abdomen Limited In Process Unspecified. EDMS 06:19 Urine Culture Sent. pc2 06:49 Amber Chaves MD is Hospitalizing Provider. sp4 07:05 Report given to SAPNA Cobb. pc2 07:07 Primary Nurse role handed off by Love Medel RN bp 07:07 Reza Rico, SAPNA is Primary Nurse. bp 08:51 No provider procedures requiring assistance completed. Patient admitted, IV remains in bp place. Administered Medications: 02:30 Drug: Albumin IVPB 25 grams 100 ml IVPB once; (Note: Albumin 25% concentration) Volume: ha1 100 ml; Route: IVPB; Site: Port-a-cath; 03:20 Follow up: Response: No adverse reaction; IV Status: Completed infusion ha1 02:35 Drug: NS 0.9% IV 1000 ml IV at 125 ml/hr continuous Route: IV; Rate: 125 ml/hr; Site: ha Port-a-cath; 08:50 Follow up: IV Status: Infusion continued upon admission bp 02:37 Drug: Famotidine IVP 20 mg IVP once; dilute with 10 mL 0.9% NaCl; give over 2 minutes ha1 Route: IVP; Site: Port-a-cath; 03:00 Follow up: Response: No adverse reaction; Marked relief of symptoms ha1 02:39 Drug: Ondansetron IVP 4 mg IVP once; over 2 minutes Route: IVP; Site: Port-a-cath; ha1 03:00 Follow up: Response: No adverse reaction; Marked relief of symptoms ha1 02:41 Drug: HYDROmorphone IVP 2 mg IVP once Route: IVP; Site: Port-a-cath; ha1 03:00 Follow up: Response: No adverse reaction; Marked relief of symptoms; Pain is decreased; ha1 RASS: Alert and Calm (0) 02:56 Drug: Albumin IVPB 25 grams 100 ml IVPB once; (Note: Albumin 25% concentration) Volume: ha1 100 ml; Route: IVPB; Site: Port-a-cath; 03:20 Follow up: Response: No adverse reaction; IV Status: Completed infusion ha1 05:58 Drug: metoCLOPramide IVP 10 mg IVP once; over 1 to 2 minutes Route: IVP; Site: located within [facility] Port-a-cath; 06:25 Follow up: Response: No adverse reaction pc2 06:00 Drug: HYDROmorphone IVP 2 mg IVP once Route: IVP; Site: Port-a-cath; pc2 06:25 Follow up: Response: No adverse reaction; Marked relief of symptoms; Pain is decreased; pc2 RASS: Alert and Calm (0) 07:15 Drug: Rocephin - Rocephin (cefTRIAXone) IVPB 1 grams IVPB once over 30 mins; (mix in 50 bp mL NS) Route: IVPB; Infused Over: 30 mins; Site: Port-a-cath; 08:50 Follow up: IV Status: Completed infusion; IV Intake: 100ml bp 07:15 Drug: metroNIDAZOLE IVPB 500 mg 100 ml IVPB at 200 ml/hr once over 30 mins Volume: 100 bp ml; Route: IVPB; Rate: 200 ml/hr; Infused Over: 30 mins; Site: Port-a-cath; 08:50 Follow up: IV Status: Completed infusion; IV Intake: 100ml bp Medication: 01:31 VIS not applicable for this client. ha1 Intake: 08:50 IV: 100ml; Total: 100ml. bp 08:50 IV: 100ml; Total: 200ml. bp Outcome: 06:50 Decision to Hospitalize by Provider. sp4 08:50 Patient left the ED. bp 08:51 Admitted to Tele accompanied by tech, via stretcher, room 411, bp 08:51 Condition: stable 08:51 Instructed on the need for admit, Signatures: Dispatcher [employer] EDReza Leslie RN RN bp Love Medel RN RN ha1 Zak Dietrich MD MD sp4 Saranya Welch ra3 Marcos Lafleur RN RN lc8 Lesley pizarro, RN RN pc2 Corrections: (The following items were deleted from the chart) 01:28 01:24 Chief complaint: lc8 ha1 06:34 04:50 GI: Bowel sounds present X 4 quads. pc2 pc2
--- NOTE | 2024-03-11 06:51 | EDPHYS ---
Physician Documentation [facility] Name: Dwain Solorzano Age: 63 yrs Sex: Male : 1960 Arrival Date: 03/11/2024 Time: 01:04 Bed 20 Private MD: ED Physician Zak Dietrich HPI: 03/11 01:39 This 63 yrs old Male presents to ER via Wheelchair with complaints of sp4 Numbness Of Hand, Abdominal Pain - Post chemo. 01:52 7-year-old male history of lung cancer currently on chemotherapy with last chemo 2 days sp4 ago by Dr. Humphreys presents with acute onset left flank left abdominal pain associated with nausea and generalized edema. Patient has chemotherapy port tunneled right chest wall location. Patient takes OxyContin at home.. Historical: - Allergies: :28 No Known Allergies; ha1 - PMHx: :28 Lung Cancer; ha1 - Immunization history:: Adult Immunizations up to date. - Infectious Disease History:: Denies. - Social history:: Smoking status: Patient denies any tobacco usage or history of. - Family history:: not pertinent. ROS: 01:52 Constitutional: Negative for fever, chills, and weight loss, positive abdominal pain sp4 positive nausea. 01:52 All other systems are negative, Exam: 01:52 Constitutional: This is a well developed, well nourished patient who is awake, pale, sp4 ill-appearing male, bilateral lower extremity edema, indwelling Lilly catheter with a leg bag, right chest wall chemotherapy Port-A-Cath signs of physical deconditioning and alopecia. Head/Face: Normocephalic, atraumatic. Eyes: Pupils equal round and reactive to light, extra-ocular motions intact. Lids and lashes normal. Conjunctiva and sclera are not injected. Cornea within normal limits. Periorbital areas with no swelling, redness, or edema. ENT: Nares patent. No nasal discharge, no septal abnormalities noted. Tympanic membranes are normal and external auditory canals are clear. Oropharynx with no redness, swelling, or masses, exudates, or evidence of obstruction, uvula midline. Mucous membranes moist. Neck: Trachea midline, no thyromegaly or masses palpated, and no cervical lymphadenopathy. Supple, full range of motion without nuchal rigidity, or vertebral point tenderness. Chest/axilla: Normal chest wall appearance and motion. Nontender with no deformity. No lesions are appreciated. Cardiovascular: Regular rate and rhythm with a normal S1 and S2. No gallops, murmurs, or rubs. Normal PMI, no JVD. No pulse deficits. Respiratory: Lungs have equal breath sounds bilaterally, clear to auscultation and percussion. No rales, rhonchi or wheezes noted. No increased work of breathing, no retractions or nasal flaring. Abdomen/GI: Soft, with normal bowel sounds. No distension or tympany. No guarding or rebound. No evidence of tenderness throughout. Back: No spinal tenderness. No costovertebral tenderness. Male : Normal genitalia with no discharge or lesions. Positive indwelling Lilly catheter Skin: Warm, dry with normal turgor. Normal color with no rashes, no lesions, and no evidence of cellulitis. MS/ Extremity: Pulses equal, no cyanosis. Neurovascular intact. Full, normal range of motion. Neuro: Awake and alert, GCS 15, oriented to person, place, time, and situation. Cranial nerves II-XII grossly intact. Motor strength 5/5 in all extremities. Sensory grossly intact. Psych: Awake, alert, with orientation to person, place and time. Behavior, mood, and affect are within normal limits Vital Signs: 01:14 BP 125 / 89; Pulse 110; Resp 18; Temp 97.9(O); Pulse Ox 100% on R/A; Weight 79.38 kg; ha1 Height 5 ft. 10 in. ; 02:00 BP 122 / 77; Pulse 99; Resp 16 S; Pulse Ox 95% on R/A; ha1 03:00 BP 110 / 68; Pulse 105; Resp 16 S; Pulse Ox 95% on R/A; ha1 04:00 BP 127 / 92; Pulse 109; Resp 16 S; Pulse Ox 94% on R/A; ha1 05:24 BP 152 / 84; Pulse 101; Resp 16; Pulse Ox 96% ; pc2 06:37 BP 135 / 74; Pulse 104; Resp 18; Pulse Ox 95% on R/A; pc2 07:46 BP 139 / 71; Pulse 102; Resp 16; Pulse Ox 96% ; bp 08:51 BP 148 / 80; Pulse 100; Resp 20; Pulse Ox 98% ; bp 01:14 Body Mass Index 25.11 (79.38 kg, 177.8 cm) ha1 Miko Coma Score: 01:52 Eye Response: spontaneous(4). Motor Response: obeys commands(6). Verbal Response: sp4 oriented(5). Total: 15. MDM: 01:27 Patient medically screened. sp4 05:44 ED course: IMPRESSION: 1. Circumferential wall thickening with adjacent inflammatory sp4 change of the descending and sigmoid colon. There is also mild wall thickening of the ascending colon. Findings compatible with nonspecific colitis. This could be of infectious, inflammatory, or ischemic etiology. 2. Wall thickening of the urinary bladder. This could be seen with cystitis. 3. Hepatomegaly. 4. Distention of the gallbladder without gallstones identified. If there is concern for acute cholecystitis ultrasound could provide additional characterization. 5. Stable 4.6 cm fluid collection at the left garzon aspect of the proximal descending thoracic aorta. This may represent a chronic penetrating atherosclerotic ulcer. 6. Coronary artery atherosclerosis. Electronically signed by: Amor Lopez DO 03/11/2024 04:51 AM. 06:58 Differential diagnosis: open fracture, abrasion, tendonitis, Colitis , Enteritis , sp4 cholecystitis. Data reviewed: vital signs. Consideration of Admission/Observation Escalation of care including admission/observation considered. ED course: Patient here moderate for admission secondary to moderate to severe pain associated with acute colitis probably chemotherapy related. . 03/11 01:51 Order name: CBC with Diff; Complete Time: 05:43 sp4 03/11 01:51 Order name: CMP; Complete Time: 03:33 sp4 03/11 01:51 Order name: Lipase; Complete Time: 03:33 sp4 03/11 01:51 Order name: Urinalysis w/ reflexes; Complete Time: 06:50 sp4 03/11 01:52 Order name: Type And Screen; Complete Time: 03:33 sp4 03/11 01:52 Order name: BNP; Complete Time: 03:33 sp4 03/11 02:42 Order name: Manual Differential; Complete Time: 05:43 EDMS 03/11 06:13 Order name: Urine Culture EDMS 03/11 07:14 Order name: Urinalysis w/ reflexes EDMS 03/11 07:14 Order name: Basic Metabolic Panel EDMS 03/11 07:14 Order name: Basic Metabolic Panel EDMS 03/11 07:14 Order name: Basic Metabolic Panel EDMS 03/11 07:14 Order name: Basic Metabolic Panel EDMS 03/11 07:14 Order name: Basic Metabolic Panel EDMS 03/11 07:14 Order name: CBC with Automated Diff EDMS 03/11 07:14 Order name: CBC with Automated Diff EDMS 03/11 07:14 Order name: CBC with Automated Diff EDMS 03/11 07:14 Order name: CBC with Automated Diff EDMS 03/11 07:14 Order name: CBC with Automated Diff EDMS 03/11 07:14 Order name: Magnesium EDMS 03/11 07:14 Order name: Magnesium EDMS 03/11 07:14 Order name: Magnesium EDMS 03/11 07:14 Order name: Magnesium EDMS 03/11 07:14 Order name: Magnesium EDMS 03/11 03:47 Order name: CT Chest Abdomen Pelvis W/O Contrast sp4 03/11 05:45 Order name: US Abdomen Limited sp4 03/11 01:51 Order name: IV Saline Lock; Complete Time: 02:19 sp4 03/11 01:51 Order name: Labs collected and sent; Complete Time: 02:19 sp4 03/11 01:52 Order name: Lilly; Complete Time: 04:12 sp4 Administered Medications: 02:30 Drug: Albumin IVPB 25 grams 100 ml IVPB once; (Note: Albumin 25% concentration) Volume: ha1 100 ml; Route: IVPB; Site: Port-a-cath; 03:20 Follow up: Response: No adverse reaction; IV Status: Completed infusion ha1 02:35 Drug: NS 0.9% IV 1000 ml IV at 125 ml/hr continuous Route: IV; Rate: 125 ml/hr; Site: [facility] [place] Port-a-cath; 08:50 Follow up: IV Status: Infusion continued upon admission bp 02:37 Drug: Famotidine IVP 20 mg IVP once; dilute with 10 mL 0.9% NaCl; give over 2 minutes ha1 Route: IVP; Site: Port-a-cath; 03:00 Follow up: Response: No adverse reaction; Marked relief of symptoms ha1 02:39 Drug: Ondansetron IVP 4 mg IVP once; over 2 minutes Route: IVP; Site: Port-a-cath; ha1 03:00 Follow up: Response: No adverse reaction; Marked relief of symptoms ha1 02:41 Drug: HYDROmorphone IVP 2 mg IVP once Route: IVP; Site: Port-a-cath; ha1 03:00 Follow up: Response: No adverse reaction; Marked relief of symptoms; Pain is decreased; ha1 RASS: Alert and Calm (0) 02:56 Drug: Albumin IVPB 25 grams 100 ml IVPB once; (Note: Albumin 25% concentration) Volume: ha1 100 ml; Route: IVPB; Site: Port-a-cath; 03:20 Follow up: Response: No adverse reaction; IV Status: Completed infusion ha1 05:58 Drug: metoCLOPramide IVP 10 mg IVP once; over 1 to 2 minutes Route: IVP; Site: [facility] Port-a-[facility]; 06:25 Follow up: Response: No adverse reaction pc2 06:00 Drug: HYDROmorphone IVP 2 mg IVP once Route: IVP; Site: Port-a-[facility]; pc2 06:25 Follow up: Response: No adverse reaction; Marked relief of symptoms; Pain is decreased; pc2 RASS: Alert and Calm (0) 07:15 Drug: Rocephin - Rocephin (cefTRIAXone) IVPB 1 grams IVPB once over 30 mins; (mix in 50 bp mL NS) Route: IVPB; Infused Over: 30 mins; Site: Port-a-[facility]; 08:50 Follow up: IV Status: Completed infusion; IV Intake: 100ml bp 07:15 Drug: metroNIDAZOLE IVPB 500 mg 100 ml IVPB at 200 ml/hr once over 30 mins Volume: 100 bp ml; Route: IVPB; Rate: 200 ml/hr; Infused Over: 30 mins; Site: Port-a-[facility]; 08:50 Follow up: IV Status: Completed infusion; IV Intake: 100ml bp Disposition Summary: 03/11/24 06:50 Hospitalization Ordered Notes: Hospitalization Status: Inpatient Admission sp4 Provider: Amber Chaves Location: Telemetry/[facility] (Inpatient) sp4 Condition: Stable sp4 Problem: new sp4 Symptoms: have improved sp4 Bed/Room Type: Standard sp4 Room Assignment: 411(03/11/24 07:44) eb Diagnosis - Noninfective gastroenteritis and colitis, unspecified sp4 - Acute colitis, cancer associated pain, sp4 Forms: - Medication Reconciliation Form sp4 - SBAR form sp4 - Leadership Thank You Letter sp4 Signatures: Dispatcher [employer] EDReza Leslie, RN RN Nora Jerry Heidy, RN RN ha1 Zak Dietrich MD MD sp4 Lesley pizarro RN RN pc2 Corrections: (The following items were deleted from the chart) 01:52 01:52 CBC+H.LAB.BRZ ordered. EDMS EDMS 01:52 01:52 COMPREHENSIVE METABOLIC PANEL+C.LAB.BRZ ordered. EDMS EDMS 01:52 01:52 LIPASE+C.LAB.BRZ ordered. EDMS EDMS 01:52 01:52 Urinalysis+U.LAB.BRZ ordered. EDMS EDMS 04:17 01:52 Chest Abdomen Pelvis W Con+CT.RAD.BRZ ordered. EDMS EDMS 07:44 06:50 sp4 eb
[2024-03-11] MEDS ORDERED: ACETAMINOPHEN 500 MG TAB PO PRN (07:09)
[2024-03-11] MEDS ORDERED: ONDANSETRON 4 MG/2 ML VIAL IV PRN (07:09)
--- NOTE | 2024-03-11 07:09 | P.HP ---
Certification for Inpatient Patient admitted to: Inpatient With expected LOS: <2 Midnights Practitioner: I am a practitioner with admitting privileges, knowledge of patient current condition, hospital course, and medical plan of care. Services: Services provided to patient in accordance with Admission requirements found in Title 42 Section 412.3 of the Code of Federal Regulations Patient History Date of Service: 03/11/24 Reason for admission: colitits, abdominal pain History of Present Illness: 63 yrs old Male with past medical history of stage IV lung cancer on c hemo, CAD, with prior CAB presents to the ER with abdominal pain. He reports abdominal pain started 2 days ago after starting chemo. He reports associated loose stools, nausea, generalized weakness, generalized edema. No reported chest pain, shortness of breath. Plan to admit for intractable abdominal pain, colitis, complications of chemotherapy, stage IV lung cancer. Allergies No Known Allergies Allergy (Verified 01/18/24 08:18) Home Medications: Atorvastatin Calcium 40 mg PO DAILY 01/05/24 Cholecalciferol (Vitamin D3) [Vitamin D 5,000 IU Cap*] 5,000 units PO DAILY 01/05/24 Clopidogrel Bisulfate [Plavix*] 75 mg PO DAILY 01/05/24 Metoprolol Tartrate 50 mg PO BID 01/05/24 Apixaban [Eliquis] 5 mg PO BID 01/18/24 Oxycodone HCl 1 tab PO Q4H PRN 02/15/24 fentaNYL [Fentanyl] 75 mg TD SEECOM 02/16/24 Gabapentin 300 mg PO TID 30 Days #90 tab 02/19/24 Tamsulosin [Flomax*] 0.4 mg PO BEDTIME #30 cap 02/19/24 Vancomycin HCl 125 mg PO QID #0 cap 02/19/24 lisinopriL [Prinivil*] 10 mg PO DAILY 30 Days #30 tab 02/19/24 metroNIDAZOLE [Flagyl] 250 mg PO Q8H #15 tab 02/19/24 - Past Medical/Surgical History Diabetic: No -: Lung cancer with metastasis -: Atrial fibrillationstatus post cardioversion -: History of hypertension -: cardioversion -: placement of SVC portacath Psychosocial/ Personal History: Lives at home. Denies ill contacts. - Family History Father -: Heart disease, Cancer, Other (see notes) Notes: skin CA Mother -: Heart disease, Diabetes - Social History Alcohol use: Yes CD- Drugs: Yes Caffeine use: Yes Review of Systems per HPI Physical Examination - Physical Exam General: Alert, Oriented x3, Mild distress HEENT: Atraumatic, Normocephalic Neck: Supple Respiratory: Clear to auscultation bilaterally, Normal air movement Cardiovascular: Normal pulses, Regular rate/rhythm Capillary refill: <2 Seconds Gastrointestinal: Normal bowel sounds, Other (upper abdominal tenderness) Musculoskeletal: No swelling, No contractures Integumentary: Other (generalized edema) Neurological: Normal speech, Normal strength at 5/5 x4 extr - Studies Laboratory Data (last 24 hrs) 03/11/24 03/11/24 02:10 02:10 WBC 8.70 Hgb 8.1 L Hct 24.2 L Plt Count 283 Sodium 136 Potassium 3.1 L BUN 15 Creatinine 0.67 L Glucose 119 H Total Bilirubin 0.7 AST 17 ALT 17 Alkaline Phosphatase 116 Lipase 29 Assessment and Plan - Plan Assessment Colitis Abdominal pain intractable abdominal pain complications of chemotherapy, stage IV lung cancer. Generalized edema IV Fluids, prn analgesics, prn antiemetics US rule out DVT CAD history CAB resume approp home medications Diet, cardiac advance as tolerated Full Code DVT scd Discharge Plan: Home - Advance Directives Does patient have a Living Will: No Does patient have a Durable POA for Healthcare: No - Code Status/Comfort Care Code Status: Full Code Critical Care: No Time Spent Managing Pts Care (In Minutes): 35
[2024-03-11] MEDS ORDERED: CEFTRIAXONE 1000 MG/VIAL ONE (07:12)
[2024-03-11] MEDS: NA CHLORIDE 0.9% 1,000 ML IV SCH ×2 (08:00→11:32)
--- NOTE | 2024-03-11 08:30 | RAD REPORT ---
EXAM DESCRIPTION: US - Abdomen Exam Limited - 03/11/2024 6:02 am CLINICAL HISTORY: Distended gallbladder COMPARISON: None. TECHNIQUE: Real-time sonographic images of the gallbladder were obtained using a curved multihertz t ransducer. FINDINGS: Liver: The visualized liver has normal contour and echogenicity. The common bile duct me asures 0.5 cm. Gallbladder: No shadowing gallstones. Minimal layering sludge. Gallbladder wall thickness of 0.2 cm . Sonographic Senior's sign is negative. IMPRESSION: Minimal gallbladder sludge. No gallstones identified. Electronically signed by: Amor Lopez DO 03/11/2024 06:16 AM CDT RP [id number] Due to temporary technical issues with the PACS/Fluency reporting system, reports are being signed by the in house radiologists without review as a courtesy to insure prompt reporting. The interpreting radiologist is fully responsible for the content of the report.
--- NOTE | 2024-03-11 08:35 | P.HP ---
Certification for Inpatient Patient admitted to: Inpatient With expected LOS: >2 Midnights Patient will require the following post-hospital care: None Practitioner: I am a practitioner with admitting privileges, knowledge of patient current condition, hospital course, and medical plan of care. Services: Services provided to patient in accordance with Admission requirements found in Title 42 Section 412.3 of the Code of Federal Regulations Patient History Date of Service: 03/11/24 Reason for admission: Abdominal pain; stage IV squamous cell lung carcinoma History of Present Illness: Patient is a 63-year-old gentleman who has been getting treatment by local oncology for stage IV lung carcinoma-squamous cell-who presented to the emergency room with abdominal pain. Patient states he is has metastasis to the ribs on the left side. He feels like that is where most of his pain is coming from. His abdomen is not tender or distended. He has more tenderness towards the left flank region. He has been wearing a fentanyl patch for pain control. He is also scheduled for a PET scan later this week. Patient denies any hematuria or any dysuria. He is mainly had this pain since he was diagnosed with metastatic squamous cell lung carcinoma with mets to the ribs. 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 Patient was seen in the emergency room. 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 There is no signs of active bleeding. Patient will continue with treatment for atherosclerosis. Patient will also be given IV fluids with a clear liquid diet. LFTs are normal. Patient with mild anemia. Patient long-term prognosis is uncertain pending PET scan evaluation. It appears that most of the patient's issues are chronic and he has been dealing with his chronic flank tenderness for a while but it got to the point where he was unbearable. Otherwise, patient denies any new complaints. Patient will be admitted to the hospital for further evaluation. Allergies No Known Allergies Allergy (Verified 01/18/24 08:18) Home Medications: Atorvastatin Calcium 40 mg PO DAILY 01/05/24 Cholecalciferol (Vitamin D3) [Vitamin D 5,000 IU Cap*] 5,000 units PO DAILY 01/05/24 Clopidogrel Bisulfate [Plavix*] 75 mg PO DAILY 01/05/24 Metoprolol Tartrate 50 mg PO BID 01/05/24 Apixaban [Eliquis] 5 mg PO BID 01/18/24 Oxycodone HCl 1 tab PO Q4H PRN 02/15/24 fentaNYL [Fentanyl] 75 mg TD SEECOM 02/16/24 Gabapentin 300 mg PO TID 30 Days #90 tab 02/19/24 Tamsulosin [Flomax*] 0.4 mg PO BEDTIME #30 cap 02/19/24 Vancomycin HCl 125 mg PO QID #0 cap 02/19/24 lisinopriL [Prinivil*] 10 mg PO DAILY 30 Days #30 tab 02/19/24 metroNIDAZOLE [Flagyl] 250 mg PO Q8H #15 tab 02/19/24 - Past Medical/Surgical History Diabetic: No -: Lung cancer with metastasis -: Atrial fibrillationstatus post cardioversion -: History of hypertension -: cardioversion -: placement of SVC portacath Psychosocial/ Personal History: Lives at home. Denies ill contacts. - Family History Father Medical History: Heart disease, Cancer, Other (see notes) Notes: skin CA Mother Medical History: Heart disease, Diabetes - Social History Smoking Status: Former smoker Alcohol use: Yes CD- Drugs: Yes Caffeine use: Yes Review of Systems 10-point ROS is otherwise unremarkable Physical Examination - Vital Signs Temperature: 98 F Blood Pressure: 140/80 Pulse: 80 Respirations: 18 Pulse Ox (%): 95 - Physical Exam General: Alert, In no apparent distress, Oriented x3 HEENT: Atraumatic, PERRLA, Mucous membr. moist/pink, EOMI, Sclerae nonicteric Neck: Supple, 2+ carotid pulse no bruit, No LAD, Without JVD or thyroid abnormality Respiratory: Clear to auscultation bilaterally, Normal air movement Cardiovascular: Regular rate/rhythm, Normal S1 S2 Gastrointestinal: Normal bowel sounds, Soft and benign, Non-distended, Tenderness Musculoskeletal: No clubbing, No swelling, No tenderness Integumentary: No rashes Neurological: Normal gait, Normal speech, Normal tone, Cranial nerves 3-12 intact, Normal affect, Abnormal strength, Abnormal sensation Lymphatics: No axilla or inguinal lymphadenopathy - Studies Laboratory Data (last 24 hrs) 03/11/24 03/11/24 02:10 02:10 WBC 8.70 Hgb 8.1 L Hct 24.2 L Plt Count 283 Sodium 136 Potassium 3.1 L BUN 15 Creatinine 0.67 L Glucose 119 H Total Bilirubin 0.7 AST 17 ALT 17 Alkaline Phosphatase 116 Lipase 29 Assessment & Plan - Plan Plan: 1. Abdominal pain with flank tenderness; this has been chronic since patient was diagnosed with metastatic squamous cell lung cancer; patient is on fentanyl for pain control. Patient's pain is mainly in the left flank. His CT imaging does not indicate any acute findings although he does have some chronic findings of mild colitis and cystitis. Patient also has cholelithiasis but his pain is not on the right side nor does he have melina abdominal tenderness on palpation. Patient's pain is mainly on palpation of his left rib cage. This is concerning for progression of his metastatic lung carcinoma. PET scan is pending in a few days. If this is the case than his long-term prognosis is poor. 2. Colitis; will continue to monitor for stool studies. Patient's status post chemo which can also cause some enteritis and colitis. Will continue to monitor his clinical symptoms. 3. Cholelithiasis; this is in the setting of no right upper quadrant tenderness. Clinically patient does not have acute cholecystitis. Patient without a fever nor does he have a white count although he has been getting chemotherapy so a normal white count in the setting would really have no clinical significance. Will continue to monitor his clinical symptoms but at this time no surgical intervention is necessary 4. 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 He has been dealing with this pain chronically. Will continue to try to get pain control and continue to observe patient. He is scheduled for a PET scan and there is concern for progression of rib metastasis. Patient's PET scan showed a large neoplastic/metastatic bony destructive mass left posterior eleventh rib measuring 7.5 cm in November. 5. 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 Patient will be treated for atherosclerosis and will get further clinical decision by cardiology if patient continues to have decreased hemoglobin. Will try to get a ultrasound of his chest to further evaluate the descending thoracic aortic aneurysm. However, this seems like this is in the same region that patient had his malignancy. In the PET scan, done in November, patient had a hypermetabolic neoplastic mass medial to left lung base abutting the descending thoracic aorta measuring up to 4.8 cm. I believe the aneurysm has been over read as it is actually a mass. Will have our radiology group read the imaging once again to further corroborate. 6. GI DVT prophylaxis Discharge Plan: Home Plan to discharge in: Greater than 2 days - Advance Directives Does patient have a Living Will: No Does patient have a Durable POA for Healthcare: No - Code Status/Comfort Care Code Status Assessed: Yes Code Status: Full Code Critical Care: No Time Spent Managing PTS Care (In Minutes): 45
--- NOTE | 2024-03-11 08:35 | RAD REPORT ---
EXAM DESCRIPTION: CT - Chest Abd Pelvis Wo Con - 03/11/2024 6:34 am CLINICAL HISTORY: Chest and abdominal pain, cancer of the lung COMPARISON: 02/15/2024 TECHNIQUE: CT of the chest, abdomen and pelvis performed without IV contrast. Evaluation of the denita d organs and vasculature is suboptimal due to lack of IV contrast. This exam was performed according to our departmental dose-optimization program, which includes automated exposure control, adjustment of the mA and/or kV according to patient size and/or use of iterative reconstruction technique. FINDINGS: Chest: Thyroid: No abnormalities of the visualized thyroid. Great Vessels: Great vessels have normal anatomic configuration. Thoracic Aorta: Atherosclerotic calcification of thoracic aorta. Stable fluid collection at the leftw kevin aspect of the proximal descending thoracic aorta measuring 4.6 cm. Pulmonary arteries: The main pulmonary artery is not dilated. Heart: Coronary artery atherosclerosis. Prior median sternotomy. Lymph Nodes: No enlarged mediastinal lymph nodes identified. Esophagus: No abnormalities of the esophagus identified Other: No additional findings. Lungs: No airspace opacities identified. Pleura: No pleural effusion or pneumothorax. Trachea/Airways: No abnormalities of the visualized trachea or airways. Abdomen: Liver: Hepatomegaly. Gallbladder: Distention of the gallbladder without gallstones identified. Spleen, Pancreas, and Adrenal Glands: The spleen, pancreas, and adrenal glands are unremarkable. Kidneys: The kidneys have normal size and contour without evidence of solid mass or hydronephrosis. Vasculature: Aortoiliac atherosclerosis. IVC is unremarkable. Stomach: The stomach and duodenum have normal course. Other: No free intraperitoneal air. No free fluid or lymphadenopathy. Pelvis: Bladder: Wall thickening of the urinary bladder. Lilly catheter in place. Bowel: No dilated loops of large or small bowel. Circumferential wall thickening with adjacent infl ammatory change of the descending and sigmoid colon. There is also mild wall thickening of the ascend ing colon. Appendix: Normal appendix. Pelvis: Prostate is not enlarged. Bones: No acute osseous abnormality identified. IMPRESSION: 1. Circumferential wall thickening with adjacent inflammatory change of the descending and sigmoid colon. There is also mild wall thickening of the ascending colon. Findings compatible wi th nonspecific colitis. This could be of infectious, inflammatory, or ischemic etiology. 2. Wall thickening of the urinary bladder. This could be seen with cystitis. 3. Hepatomegaly. 4. Distention of the gallbladder without gallstones identified. If there is concern for acute caryl cystitis ultrasound could provide additional characterization. 5. Stable 4.6 cm fluid collection at the leftward aspect of the proximal descending thoracic aorta. This may represent a chronic penetrating atherosclerotic ulcer. 6. Coronary artery atherosclerosis. Electronically signed by: Amor Lopez DO 03/11/2024 04:51 AM CDT RP [id number] Due to temporary technical issues with the PACS/Fluency reporting system, reports are being signed by the in house radiologists without review as a courtesy to insure prompt reporting. The interpreting radiologist is fully responsible for the content of the report.
[2024-03-11] MEDS: CIPROFLOXACIN 400mg IV 400 MG/200 ML BAG IV SCH ×2 (09:00→11:32)
[2024-03-11] MEDS: METRONIDAZOLE 500mg IVPB 500 MG/100 ML BAG IV SCH (09:00)
[2024-03-11] MEDS: HYDROMORPHONE HCL 1 MG/ML INJ IV PRN (09:12)
[2024-03-11 09:57] VITALS: BMI 25.1
[2024-03-11] MEDS: FENTANYL 100 MCG/PATCH TD SCH (14:19)
[2024-03-11] MEDS: Oxycodone HCl/Acetaminophen 5/325 MG TAB PO PRN (14:22)
[2024-03-11 17:39] LABS: Specific Gravity 1.017 (1.005-1.030); Sqamous Epithelial None Seen /HPF (None Seen); Urine Bacteria None Seen /HPF (<20); Urine Bilirubin NEGATIVE (Negative); Urine Blood Trace (Negative); Urine Clarity Extremely Turbid (Clear); Urine Color Yellow (Yellow); Urine Culture Reflex Order REFLEXED; Urine Glucose NEGATIVE (Negative); Urine Ketones NEGATIVE (Negative); Urine Microscopic Reflex YN ORDER UMIC; Urine Mucus Slight /HPF (None Seen); Urine Nitrite NEGATIVE (Negative); Urine Protein 1+ (Negative); Urine Urobilinogen Normal (Normal); Urine WBC >50 /HPF (<5); Urine WBC Clump Rare /HPF (None Seen); Urine pH 7.5 (5.0-7.0)
[2024-03-11] MEDS: FUROSEMIDE 40 MG/4 ML VIAL IV ONE (18:26)
[2024-03-11] MEDS: dexAMETHasone 4 MG/ML VIAL IV ONE (18:27)
[2024-03-11] MEDS: FENTANYL CITR 100 MCG/2 ML IV PRN (20:00)
[2024-03-12] MEDS: NA CHLORIDE 0.9% 1,000 ML IV SCH (03:07)
[2024-03-12] MEDS: Oxycodone HCl/Acetaminophen 5/325 MG TAB PO PRN (03:09)
[2024-03-12 06:21] LABS: Absolute Lymphocytes (CBC) 0.2 K/uL (0.7-4.9); Absolute Monocytes 0.1 K/uL (0.1-1.3); Absolute Neutrophil 3.8 K/uL (1.8-8.0); Basophils % 0.2 % (0-1.3); Eosinophils % 0.2 % (0-4.4); Hematocrit 24.7 % (39.6-49.0); Hemoglobin 8.5 g/dL (13.6-17.9); Lymphocytes % 4.7 % (15.3-44.8); MCH 29.8 pg (27.0-35.0); MCHC 34.3 g/dL (32.0-36.0); MCV 86.8 fL (80-100); Monocytes % 2.1 % (3.3-12.3); Neutrophils % 92.8 % (41.7-73.7); Nucleated Red Blood Cells % 0.2 % (0-0); Platelets 261 thou/uL (152-406); RBC Red Blood Cell Count 2.85 M/uL (4.33-5.43); Red Cell Distribution Width 20.5 % (12.1-15.2)
[2024-03-12 06:37] LABS: Magnesium 1.6 mg/dL (1.6-2.4)
[2024-03-12] MEDS: KCL 20 MEQ/100 mL IVPB 20 MEQ/100 ML BAG IV SCH ×2 (09:40→17:52)
--- NOTE | 2024-03-12 09:44 | P.PN ---
Subjective Date of Service: 03/13/24 Chief Complaint: Abdominal pain; stage IV squamous cell lung carcinoma Admitted with colitis, secondary to complications of chemo, stool cultures ordered, IV fluids, as needed antiemetics ordered, <KyaraSanaz - Last Filed: 03/13/24 16:38> Date of Service: 03/12/24 <Amber Chaves - Last Filed: 03/14/24 00:45> Review of Systems Per HPI <KyaraSanaz - Last Filed: 03/13/24 16:38> Physical Examination - Vital Signs Temperature: 96.9 F Blood Pressure: 140/83 Pulse: 111 Respirations: 20 Pulse Ox (%): 98 - Physical Exam General: Alert, Mild distress HEENT: Atraumatic, Normocephalic Respiratory: Clear to auscultation bilaterally, Normal air movement Cardiovascular: Normal pulses, Regular rate/rhythm Capillary refill: <2 Seconds Gastrointestinal: Hyperactive, Tenderness Musculoskeletal: No clubbing, No swelling Integumentary: No breakdown, No significant lesion Neurological: Normal speech, Normal strength at 5/5 x4 extr <KyaraSanaz - Last Filed: 03/13/24 16:38> - Studies Microbiology Data (last 24 hrs): 03/11/24 05:40 Catheterized Urine [place] Count - Final >100,000 CFU/ML. 03/11/24 05:40 Catheterized Urine - Final Citrobacter Freundii Complex <ChavesAmber - Last Filed: 03/14/24 00:45> Assessment And Plan - Plan Plan: 1. Abdominal pain with flank tenderness; this has been chronic since patient was diagnosed with metastatic squamous cell lung cancer; patient is on fentanyl for pain control. Patient's pain is mainly in the left flank. His CT imaging does not indicate any acute findings although he does have some chronic findings of mild colitis and cystitis. Patient also has cholelithiasis but his pain is not on the right side nor does he have melina abdominal tenderness on palpation. Patient's pain is mainly on palpation of his left rib cage. This is concerning for progression of his metastatic lung carcinoma. PET scan is pending in a few days. If this is the case than his long-term prognosis is poor. 2. Colitis; will continue to monitor for stool studies. Patient's status post chemo which can also cause some enteritis and colitis. Will continue to monitor his clinical symptoms. 3. Cholelithiasis; this is in the setting of no right upper quadrant tenderness. Clinically patient does not have acute cholecystitis. Patient without a fever nor does he have a white count although he has been getting chemotherapy so a normal white count in the setting would really have no clinical significance. Will continue to monitor his clinical symptoms but at this time no surgical intervention is necessary 4. 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 He has been dealing with this pain chronically. Will continue to try to get pain control and continue to observe patient. He is scheduled for a PET scan and there is concern for progression of rib metastasis. Patient's PET scan showed a large neoplastic/metastatic bony destructive mass left posterior eleventh rib measuring 7.5 cm in November. 5. 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 Patient will be treated for atherosclerosis and will get further clinical decision by cardiology if patient continues to have decreased hemoglobin. Will try to get a ultrasound of his chest to further evaluate the descending thoracic aortic aneurysm. However, this seems like this is in the same region that patient had his malignancy. In the PET scan, done in November, patient had a hypermetabolic neoplastic mass medial to left lung base abutting the descending thoracic aorta measuring up to 4.8 cm. I believe the aneurysm has been over read as it is actually a mass. Will have our radiology group read the imaging once again to further corroborate. 6. GI DVT prophylaxis Discharge Plan: Home Critical Care: No Time Spent Managing PTS Care (In Minutes): 35 <Sanaz Sparrow - Last Filed: 03/13/24 16:38> Date of Service: 03/12/24 Subjective Patient's pain is poorly controlled. Adjusting IV pain medication. Working on discharge planning. Repeat PET scan scheduled on . Physical Examination - Vital Signs reviewed - Physical Exam General: Alert, In no apparent distress, Oriented x3 Respiratory: Clear to auscultation bilaterally, Normal air movement Cardiovascular: Regular rate/rhythm, Normal S1 S2 Gastrointestinal: Normal bowel sounds, Soft and benign, Non-distended, Tenderness Musculoskeletal: No clubbing, No swelling, tenderness in the left flank Neurological: Abnormal strength, Abnormal sensation Assessment & Plan - Assessment and Plan Assessment and Plan: 1. Abdominal pain with flank tenderness; this has been chronic since patient was diagnosed with metastatic squamous cell lung cancer; patient is on fentanyl for pain control. Patient's pain is mainly in the left flank. His CT imaging does not indicate any acute findings although he does have some chronic findings of mild colitis and cystitis. Patient also has cholelithiasis but his pain is not on the right side nor does he have melina abdominal tenderness on palpation. Patient's pain is mainly on palpation of his left rib cage. This is concerning for progression of his metastatic lung carcinoma. PET scan lung mass is causing destructive bony change of the 11th rib. 2. Colitis; will continue to monitor for stool studies. Patient's status post chemo which can also cause some enteritis and colitis. Will continue to monitor his clinical symptoms. 3. Cholelithiasis; this is in the setting of no right upper quadrant tenderness. Clinically patient does not have acute cholecystitis. Patient without a fever nor does he have a white count although he has been getting chemotherapy so a normal white count in the setting would really have no clinical significance. Will continue to monitor his clinical symptoms but at this time no surgical intervention is necessary 4. 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 He has been dealing with this pain chronically. Will continue to try to get pain control and continue to observe patient. He is scheduled for a PET scan and there is concern for progression of rib metastasis. Patient's PET scan showed a large neoplastic/metastatic bony destructive mass left posterior eleventh rib measuring 7.5 cm in November. 5. GI DVT prophylaxis Discharge Plan: Home Plan to discharge in: Greater than 2 days - Advance Directives Does patient have a Living Will: No Does patient have a Durable POA for Healthcare: No - Code Status/Comfort Care Code Status Assessed: Yes Code Status: Full Code Critical Care: No Time Spent Managing PTS Care (In Minutes): 35 <Amber Chaves - Last Filed: 03/14/24 00:45>
[2024-03-12] MEDS: OXYCODONE HCL 5 MG TAB PO PRN (10:58)
[2024-03-12] MEDS: MAGNESIUM SULFATE 1 gm IVPB 1 GM/100 ML BAG IV ONE ×2 (11:00→11:02)
[2024-03-12] MEDS: HYDROMORPHONE HCL 0.5 MG/0.5 ML INJ IV PRN (14:45)
[2024-03-12] MEDS: HYDROMORPHONE HCL 1 MG/ML INJ IV PRN (16:08)
[2024-03-12] MEDS: KCL 20 MEQ/100 mL IVPB 100 ML IV ONE (17:48)
[2024-03-12] MEDS: dexAMETHasone 4 MG/ML VIAL IV SCH (17:53)
[2024-03-12] MEDS: OXYCODONE HCL 5 MG TAB PO ONE (22:57)
[2024-03-13] MEDS: GABAPENTIN 300 MG CAP PO SCH (05:18)
[2024-03-13 05:51] LABS: Absolute Lymphocytes (CBC) 0.1 K/uL (0.7-4.9); Absolute Monocytes 0.1 K/uL (0.1-1.3); Absolute Neutrophil 2.1 K/uL (1.8-8.0); Basophils % 0.1 % (0-1.3); Eosinophils % 0.6 % (0-4.4); Hematocrit 24.5 % (39.6-49.0); Hemoglobin 8.3 g/dL (13.6-17.9); Lymphocytes % 3.9 % (15.3-44.8); MCH 29.7 pg (27.0-35.0); MCV 87.5 fL (80-100); MPV 7.8 fL (7.6-11.3); Monocytes % 2.4 % (3.3-12.3); Nucleated Red Blood Cells % 0.1 % (0-0); Platelets 241 thou/uL (152-406); Red Cell Distribution Width 20.5 % (12.1-15.2)
[2024-03-13 06:03] LABS: Anion Gap 7.1 mEq/L (5.0-15.0); Magnesium 1.5 mg/dL (1.6-2.4); Potassium 4.1 mEq/L (3.5-5.1)
[2024-03-13] MEDS: Magnesium Sulfate 2gm IVPB 2 G/50 ML BAG IV ONE (08:25)
[2024-03-13] MEDS: HYDROMORPHONE HCL 2 MG/ML inj IV ONE (12:40)
--- NOTE | 2024-03-13 16:38 | P.PN ---
Date of Service: 03/13/24 Subjective Reports chronic abdominal pain, diarrhea secondary to chemo Review of Systems Per HPI Physical Examination - Physical Exam General: Alert, oriented x 3 Respiratory: Equal unlabored Cardiovascular: S1-S2, regular rate and rhythm Capillary refill: <2 Seconds Gastrointestinal: Hyperactive, Tenderness Musculoskeletal: No clubbing, No swelling Integumentary: No breakdown, No significant lesion Neurological: Normal speech, Normal strength at 5/5 x4 extr Assessment And Plan - Plan Plan: 1. Abdominal pain with flank tenderness; this has been chronic since patient was diagnosed with metastatic squamous cell lung cancer; patient is on fentanyl for pain control. Patient's pain is mainly in the left flank. His CT imaging does not indicate any acute findings although he does have some chronic findings of mild colitis and cystitis. Patient also has cholelithiasis but his pain is not on the right side nor does he have melina abdominal tenderness on palpation. Patient's pain is mainly on palpation of his left rib cage. This is concerning for progression of his metastatic lung carcinoma. PET scan is pending in a few days. If this is the case than his long-term prognosis is poor. 2. Colitis; will continue to monitor for stool studies. Patient's status post chemo which can also cause some enteritis and colitis. Will continue to monitor his clinical symptoms. 3. Cholelithiasis; this is in the setting of no right upper quadrant tenderness. Clinically patient does not have acute cholecystitis. Patient without a fever nor does he have a white count although he has been getting chemotherapy so a normal white count in the setting would really have no clinical significance. Will continue to monitor his clinical symptoms but at this time no surgical intervention is necessary 4. 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 He has been dealing with this pain chronically. Will continue to try to get pain control and continue to observe patient. He is scheduled for a PET scan and there is concern for progression of rib metastasis. Patient's PET scan showed a large neoplastic/metastatic bony destructive mass left posterior eleventh rib measuring 7.5 cm in November. 5. 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 Patient will be treated for atherosclerosis and will get further clinical decision by cardiology if patient continues to have decreased hemoglobin. Will try to get a ultrasound of his chest to further evaluate the descending thoracic aortic aneurysm. However, this seems like this is in the same region that patient had his malignancy. In the PET scan, done in November, patient had a hypermetabolic neoplastic mass medial to left lung base abutting the descending thoracic aorta measuring up to 4.8 cm. I believe the aneurysm has been over read as it is actually a mass. Will have our radiology group read the imaging once again to further corroborate. 6. GI DVT prophylaxis Discharge Plan: Home Critical Care: No Time Spent Managing PTS Care (In Minutes): 35 <Sanaz Sparrow - Last Filed: 03/13/24 16:36> Patient was seen and examined. Events of the last 24 hours have been noted. Spoke with with [facility] regarding patient's clinical picture after evaluating and examining the patient independently. I performed a substantial part of the MDM during this patient's care today. I personally made or approved the documented management plan and acknowledge its risk of complications. I agree with the findings and documentation provided in the [facility]'s notes. patient with metastatic cancer to the left rib cage. Patient's pain is poorly controlled. Trying oral oxycodone with IV Dilaudid. Continue with fentanyl patches. [facility] pharmacy called me and stated the patient picked up oxycodone. I did try to call in some strong pain medication but the pharmacy will not fill this at this time. Continue with fentanyl patch and oxycodone at discharge. Anticipate discharge for PET scan on . <Amber Chaves - Last Filed: 03/14/24 00:47>
[2024-03-13] MEDS: MELATONIN 3 MG TABLET PO PRN (21:10)
[2024-03-14 06:48] LABS: Absolute Lymphocytes (CBC) 0.2 K/uL (0.7-4.9); Absolute Monocytes 0.1 K/uL (0.1-1.3); Absolute Neutrophil 4.3 K/uL (1.8-8.0); Basophils % 0.1 % (0-1.3); Hematocrit 24.7 % (39.6-49.0); Hemoglobin 8.1 g/dL (13.6-17.9); Lymphocytes % 4.2 % (15.3-44.8); MCH 28.9 pg (27.0-35.0); MCHC 32.9 g/dL (32.0-36.0); MCV 87.9 fL (80-100); MPV 7.5 fL (7.6-11.3); Monocytes % 1.6 % (3.3-12.3); Neutrophils % 94.1 % (41.7-73.7); Nucleated Red Blood Cells % 0.1 % (0-0); Platelets 240 thou/uL (152-406); RBC Red Blood Cell Count 2.81 M/uL (4.33-5.43); Red Cell Distribution Width 20.5 % (12.1-15.2)
[2024-03-14 07:09] LABS: Anion Gap 8.1 mEq/L (5.0-15.0); Magnesium 1.7 mg/dL (1.6-2.4); Potassium 4.1 mEq/L (3.5-5.1)
[2024-03-14] MEDS: MAGNESIUM SULFATE 1 gm IVPB 1 GM/100 ML BAG IV ONE (07:32)
[2024-03-14 08:15] LABS: Anisocytosis 1+; Blood Morphology Comment NOTED (NOT SEEN); Hypochromasia 1+; Platelet Estimate ADEQ; White Blood Cell Scan OK (OK)
--- NOTE | 2024-03-14 10:33 | P.DS ---
Disposition: ROUTINE DISCHARGE Discharge Condition: GOOD Reason for Admission: Abdominal pain; stage IV squamous cell lung carcinoma Brief History of Present Illness: Patient is a 63-year-old gentleman who has been getting treatment by local oncology for stage IV lung carcinoma-squamous cell-who presented to the emergency room with abdominal pain. Patient states he is has metastasis to the ribs on the left side. He feels like that is where most of his pain is coming from. His abdomen is not tender or distended. He has more tenderness towards the left flank region. He has been wearing a fentanyl patch for pain control. He is also scheduled for a PET scan later this week. Patient denies any hematuria or any dysuria. He is mainly had this pain since he was diagnosed with metastatic squamous cell lung carcinoma with mets to the ribs. 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 Patient was seen in the emergency room. 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 There is no signs of active bleeding. Patient will continue with treatment for atherosclerosis. Patient will also be given IV fluids with a clear liquid diet. LFTs are normal. Patient with mild anemia. Patient long-term prognosis is uncertain pending PET scan evaluation. It appears that most of the patient's issues are chronic and he has been dealing with his chronic flank tenderness for a while but it got to the point where he was unbearable. Otherwise, patient denies any new complaints. Patient will be admitted to the hospital for further evaluation. Vital Signs/Physical Exam: Temp Pulse Resp BP Pulse Ox 97.0 F 92 H 18 114/61 97 03/14/24 00:00 03/14/24 00:00 03/14/24 10:22 03/14/24 00:00 03/14/24 10:22 Laboratory Data at Discharge: WBC 4.50 thou/uL (4.3-10.9) 03/14/24 06:30 Hgb 8.1 g/dL (13.6-17.9) L 03/14/24 06:30 Hct 24.7 % (39.6-49.0) L 03/14/24 06:30 Plt Count 240 thou/uL (152-406) 03/14/24 06:30 Sodium 136 mEq/L (136-145) 03/14/24 06:30 Potassium 4.1 mEq/L (3.5-5.1) 03/14/24 06:30 BUN 19 mg/dL (7-18) H 03/14/24 06:30 Creatinine 0.59 mg/dL (0.70-1.30) L 03/14/24 06:30 Glucose 157 mg/dL (74-106) H 03/14/24 06:30 Magnesium 1.7 mg/dL (1.6-2.4) 03/14/24 06:30 Total Bilirubin 0.7 mg/dL (0.2-1.0) 03/11/24 02:10 AST 17 U/L (15-37) 03/11/24 02:10 ALT 17 U/L (16-61) 03/11/24 02:10 Alkaline Phosphatase 116 U/L (45-117) 03/11/24 02:10 Lipase 29 U/L (13-75) 03/11/24 02:10 Home Medications: Atorvastatin Calcium 80 mg PO DAILY 01/05/24 Cholecalciferol (Vitamin D3) [Vitamin D 5,000 IU Cap*] 5,000 units PO DAILY 01/05/24 Clopidogrel Bisulfate [Plavix*] 75 mg PO DAILY 01/05/24 Metoprolol Tartrate 50 mg PO BID 01/05/24 fentaNYL [Fentanyl] 75 mg TD SEECOM 02/16/24 Gabapentin 300 mg PO TID 30 Days #90 tab 02/19/24 Tamsulosin [Flomax*] 0.4 mg PO BEDTIME #30 cap 02/19/24 lisinopriL [Prinivil*] 10 mg PO DAILY 30 Days #30 tab 02/19/24 Hydromorphone [Dilaudid] 4 mg PO Q6HP PRN #60 tab 03/12/24 dexAMETHasone [Decadron] 4 mg PO BID #18 tab 03/13/24 Hydromorphone [Dilaudid] 2 mg PO Q6HP PRN #60 tab 03/14/24 Lidocaine 4% Patch [Lidoderm 5% Patch*] 1 patch TD DAILY #30 patch 03/14/24 dexAMETHasone [Decadron*] 4 mg PO BID #18 tab 03/14/24 New Medications: dexAMETHasone [Decadron] 4 mg PO BID #18 tab dexAMETHasone [Decadron*] 4 mg PO BID #18 tab Hydromorphone [Dilaudid] 2 mg PO Q6HP PRN #60 tab PRN Reason: Pain Scale 8-10 (Severe) Hydromorphone [Dilaudid] 4 mg PO Q6HP PRN #60 tab PRN Reason: Pain Lidocaine 4% Patch [Lidoderm 5% Patch*] 1 patch TD DAILY #30 patch Physician Discharge Instructions: -OK to DC IV AND DC HOME -Follow-up with PCP in 1 to 2 weeks -Follow-up as scheduled for PET scan this week -Follow-up with Oncology in 1-2 weeks -Please call Dr. Chaves at [phone] if any questions regarding hospital stay -Please call nursing station at [phone] if any nursing or medication questions -Return to the emergency room if symptoms worsen Diet: AHA Activity: Fall precautions Followup: Andre Brooks MD [Primary Care Provider] -
[2024-03-14] MEDS ORDERED: HYDROMORPHONE HCL 2 MG/ML inj IM ONE (10:45)
[2024-03-14] MEDS: HYDROMORPHONE HCL 2 MG/ML inj IV ONE (11:14)
[2024-03-14 12:19] VITALS: O2SAT 97
[2024-03-14] MEDS: HEPARIN 500 UNIT/5 ML SYR IV ONE (12:32)
[2024-03-14 14:37] VITALS: BP 109/75; TEMP 97.3
[2024-03-14] MEDS ORDERED: HYDROMORPHONE HCL 1 MG/ML INJ IV PRN (15:01)
== END 2024-03-14 15:24 | disposition home or self-care (01) | DRG 948 ==
LOC: ER 01:04 → ERHOLD 07:08 → 4TH 07:55
PROVIDERS: ADMIT Hospitalist; ATTEND Hospitalist
PROC: 0T9B70Z Drainage of Bladder with Drainage Device, Via Natural or Artificial Opening (ICD-10-PCS; principal; 2024-03-11)
DX: G89.3 Neoplasm related pain (acute) (chronic) (principal); T83.518A Infection and inflammatory reaction due to other urinary catheter, initial encounter; C34.90 Malignant neoplasm of unspecified part of unspecified bronchus or lung; C79.51 Secondary malignant neoplasm of bone; K52.1 Toxic gastroenteritis and colitis; G62.9 Polyneuropathy, unspecified; N30.20 Other chronic cystitis without hematuria; I71.23 Aneurysm of the descending thoracic aorta, without rupture; D64.9 Anemia, unspecified; K80.20 Calculus of gallbladder without cholecystitis without obstruction; T45.1X5A Adverse effect of antineoplastic and immunosuppressive drugs, initial encounter; Z79.01 Long term (current) use of anticoagulants; Z79.02 Long term (current) use of antithrombotics/antiplatelets; Z79.899 Other long term (current) drug therapy; Z87.891 Personal history of nicotine dependence; Y84.8 Other medical procedures as the cause of abnormal reaction of the patient, or of later complication, without mention of misadventure at the time of the procedure
CPT/HCPCS: 36415; 51702; 71250; 74176; 76705; 80048; 80053; 81001; 83690; 83735; 83880; 84132; 85025; 86850; 86900; 86901; 87045; 87046; 87077; 87086; 87088; 87177; 87186; 87209; 96361; 96365; 96367; 96368; 96375; 96413; 96415; 96417; 99285; A4216; J0696; J0744; J1100; J1170; J1200; J1453; J1642; J1940; J2405; J2469; J2765; J3010; J3475; J3480; J7030; J7040; J7060; J9267; J9271; P9047

== ENCOUNTER 2024-04-06 15:24 | Emergency (ER) | payer OTHER ==
[2024-04-06 16:51] LABS: Absolute Eosinophils 0.1 K/uL (0-0.5); Absolute Lymphocytes (CBC) 0.6 K/uL (0.7-4.9); Absolute Monocytes 0.8 K/uL (0.1-1.3); Absolute Neutrophil 4.5 K/uL (1.8-8.0); Basophils % 0.6 % (0-1.3); Eosinophils % 1.7 % (0-4.4); Hematocrit 21.6 % (39.6-49.0); Hemoglobin 7.3 g/dL (13.6-17.9); Lymphocytes % 9.7 % (15.3-44.8); MCH 30.3 pg (27.0-35.0); MCHC 33.9 g/dL (32.0-36.0); MCV 89.4 fL (80-100); MPV 6.9 fL (7.6-11.3); Monocytes % 12.6 % (3.3-12.3); Neutrophils % 75.4 % (41.7-73.7); Platelets 229 thou/uL (152-406); RBC Red Blood Cell Count 2.42 M/uL (4.33-5.43); Red Cell Distribution Width 19.1 % (12.1-15.2)
[2024-04-06] MEDS ORDERED: ONDANSETRON 4 MG/2 ML VIAL ONE (16:51)
[2024-04-06] MEDS ORDERED: HYDROMORPHONE HCL 2 MG/ML inj ONE ×2 (16:51→18:06)
[2024-04-06] MEDS ORDERED: NA CHLORIDE 0.9% 1,000 ML ONE (16:52)
[2024-04-06 17:06] LABS: ALT/SGPT < 14 U/L (16-61); AST/SGOT < 10 U/L (15-37); Albumin 2.3 g/dL (3.4-5.0); Albumin/Globulin Ratio 0.6 (1.1-1.8); Alkaline Phosphatase 90 U/L (45-117); BUN Blood Urea Nitrogen 11 mg/dL (7-18); Bicarbonate 32 mEq/L (21-32); Bilirubin Total 0.4 mg/dL (0.2-1.0); Globulin 3.7 g/dL (2.3-3.5); Glomerular Filtration Rate 106 ml/min (=/>90); Glucose Level 108 mg/dL (74-106); Sodium Level 139 mEq/L (136-145)
--- NOTE | 2024-04-06 17:16 | EDPHYS ---
Physician Documentation [facility] Name: Dwain Solorzano Age: 63 yrs Sex: Male : 1960 Arrival Date: 04/06/2024 Time: 15:24 Bed 6 Private MD: ED Physician Carlos Lowery HPI: 04/06 17:09 This 63 yrs old Male presents to ER via Wheelchair with complaints of Problem keon With Urinary Catheter. 17:09 The patient presents with urinary symptoms, samuel pain. Onset: The symptoms/episode keon began/occurred 3 day(s) ago. Modifying factors: The symptoms are alleviated by nothing, the symptoms are aggravated by nothing. Severity of symptoms: At their worst the symptoms were mild, in the emergency department the symptoms are unchanged. The patient has experienced similar episodes in the past. Historical: - Allergies: 15:41 No Known Allergies; tl4 - PMHx: 15:41 Lung Cancer; Bone Cancer; tl4 - PSHx: 15:41 Coronary artery bypass graft; leg surgery; lymph node removal in neck; tl4 - Immunization history:: Adult Immunizations unknown. - Infectious Disease History:: Denies. - Social history:: Smoking status: Patient denies any tobacco usage or history of. ROS: 17:11 Constitutional: Negative for fever, chills, and weight loss, Eyes: Negative for injury, keon pain, redness, and discharge, ENT: Negative for injury, pain, and discharge, Neck: Negative for injury, pain, and swelling, Cardiovascular: Negative for chest pain, palpitations, and edema, Respiratory: Negative for shortness of breath, cough, wheezing, and pleuritic chest pain, Abdomen/GI: Negative for abdominal pain, nausea, vomiting, diarrhea, and constipation, Back: Negative for injury and pain, MS/Extremity: Negative for injury and deformity, Skin: Negative for injury, rash, and discoloration, Neuro: Negative for headache, weakness, numbness, tingling, and seizure, 17:11 : Positive for samuel pain, Exam: 17:11 Constitutional: This is a well developed, well nourished patient who is awake, alert, keon and in no acute distress. Head/Face: Normocephalic, atraumatic. Eyes: Pupils equal round and reactive to light, extra-ocular motions intact. Lids and lashes normal. Conjunctiva and sclera are non-icteric and not injected. Cornea within normal limits. Periorbital areas with no swelling, redness, or edema. ENT: Nares patent. No nasal discharge, no septal abnormalities noted. Tympanic membranes are normal and external auditory canals are clear. Oropharynx with no redness, swelling, or masses, exudates, or evidence of obstruction, uvula midline. Mucous membranes moist. Neck: Trachea midline, no thyromegaly or masses palpated, and no cervical lymphadenopathy. Supple, full range of motion without nuchal rigidity, or vertebral point tenderness. No Meningismus. Chest/axilla: Normal chest wall appearance and motion. Nontender with no deformity. No lesions are appreciated. Cardiovascular: Regular rate and rhythm with a normal S1 and S2. No gallops, murmurs, or rubs. Normal PMI, no JVD. No pulse deficits. Respiratory: Lungs have equal breath sounds bilaterally, clear to auscultation and percussion. No rales, rhonchi or wheezes noted. No increased work of breathing, no retractions or nasal flaring. Abdomen/GI: Soft, non-tender, with normal bowel sounds. No distension or tympany. No guarding or rebound. No evidence of tenderness throughout. Back: No spinal tenderness. No costovertebral tenderness. Full range of motion. Male : Normal genitalia with no discharge or lesions. Skin: Warm, dry with normal turgor. Normal color with no rashes, no lesions, and no evidence of cellulitis. MS/ Extremity: Pulses equal, no cyanosis. Neurovascular intact. Full, normal range of motion. Neuro: Awake and alert, GCS 15, oriented to person, place, time, and situation. Cranial nerves II-XII grossly intact. Motor strength 5/5 in all extremities. Sensory grossly intact. Cerebellar exam normal. Normal gait. Psych: Awake, alert, with orientation to person, place and time. Behavior, mood, and affect are within normal limits. Vital Signs: 15:37 BP 116 / 80; Pulse 106; Resp 16; Temp 97.9(O); Pulse Ox 98% ; Weight 72.57 kg; Height 5 tl4 ft. 10 in. ; Pain 10/10; 17:00 BP 143 / 81; Pulse 100; Resp 18; Pulse Ox 100% on R/A; iw 15:37 Body Mass Index 22.96 (72.57 kg, 177.8 cm) tl4 15:37 Pain Scale: Adult tl4 MDM: 15:46 Patient medically screened. keon 17:12 Differential diagnosis: urinary retention, Samuel catheter problem. Data reviewed: vital keon signs, nurses notes, lab test result(s), urinalysis. Consideration of Admission/Observation Escalation of care including admission/observation considered. I considered the following discharge prescriptions or medication management in the emergency department Medications were administered in the Emergency Department. See MAR. Historians other than the Patient: pt well informed. 04/06 15:47 Order name: CBC with Diff; Complete Time: 17:19 [facility] 04/06 15:47 Order name: Comprehensive Metabolic Panel [facility] 04/06 15:47 Order name: Urinalysis w/ reflexes [facility] 04/06 17:19 Order name: Urine Culture [facility] 04/06 17:03 Order name: Samuel; Complete Time: 17:42 [facility] 04/06 17:03 Order name: Leg Bag; Complete Time: 17:42 keon Administered Medications: 17:00 Drug: HYDROmorphone IVP 2 mg IVP once Route: IVP; Site: Port-a-cath; iw 17:00 Drug: Ondansetron IVP 4 mg IVP once; over 2 minutes Route: IVP; Site: Port-a-cath; iw 17:01 Drug: NS 0.9% IV 1000 ml IV at 1 bolus Per protocol; 1000 mL bolus Route: IV; Rate: 1 iw bolus; Site: Port-a-cath; 17:42 Drug: Lactulose PO 30 grams 45 ml PO once Volume: 45 ml; Route: PO; ld1 17:42 Drug: Ciprofloxacin PO 500 mg PO once Route: PO; ld1 17:42 Drug: Potassium PO Effervescent Tablet 50 mEq PO once; dissolve in 4 ounces of water or ld1 juice Route: PO; 18:15 Drug: HYDROmorphone IVP 2 mg IVP once Route: IVP; Site: Port-a-cath; iw Disposition Summary: 04/06/24 17:16 Discharge Ordered Notes: Location: Home keon Problem: new keon Symptoms: have improved keon Condition: Stable keon Diagnosis - Other mechanical complication of urinary (indwelling) catheter keon - Constipation keon - Anemia in neoplastic disease keon - Anemia, unspecified keon - Hypokalemia keon Followup: keon - With: Private Physician - When: 2 - 3 days - Reason: Recheck today's complaints, Continuance of care, Re-evaluation by your physician Followup: keon - With: Danilo Mishra MD - When: 2 - 3 days - Reason: Recheck today's complaints, Re-evaluation by your physician Discharge Instructions: - Discharge Summary Sheet keon - Anemia keon - Constipation, Adult keon - Potassium Content of Foods keon - Constipation, Adult, Vobw-ab-[id number] keon - Hypokalemia keon - Indwelling Urinary Catheter Insertion, Care After keon - Indwelling Urinary Catheter Insertion at Home, Male [facility] Forms: - Medication Reconciliation Form keon - Antibiotic Education keon - Prescription Opioid Use keon - Patient Portal Instructions [facility] - Leadership Thank You Letter [facility] Prescriptions: - Cipro 250 mg Oral tablet - take 1 tablet ORAL route every 12 hours; 14 tablet; Refills: 0, Product keon Selection Permitted - Lactulose 10 gram/15 mL Oral Solution - take 30 milliliters ORAL route once daily; 300 milliliter; Refills: 0, Product keon Selection Permitted Signatures: Dispatcher [employer] Carlos Johnson MD MD cha Williams, Irene RN Peyton Garcia RN RN ld1 Reese Randhawa RN RN tl4 Corrections: (The following items were deleted from the chart) 15:42 15:41 PMHx: Bone Cancer (Lung Cancer); tl4 tl4
--- NOTE | 2024-04-06 17:16 | ER ---
Nurse's Notes [facility] Name: Dwain Solorzano Age: 63 yrs Sex: Male : 1960 Arrival Date: 04/06/2024 Time: 15:24 Bed 6 Private MD: Diagnosis: Other mechanical complication of urinary (indwelling) catheter;Constipation;Anemia in neoplastic disease;Anemia, unspecified;Hypokalemia Presentation: 04/06 15:37 Chief complaint: Patient states: Pt states his urinary catheter appears to be tl4 dislodged. Pt states area appears infected stating he has had mucous in his urine. Pt states catheter has become uncomfortable and he has pain with urination. Pt c/o pain all over his body that has been consistent for the past 6 months of cancer treatment. Coronavirus screen: At this time, the client does not indicate any symptoms associated with coronavirus-19. Ebola Screen: No symptoms or risks identified at this time. Initial Sepsis Screen: Does the patient meet any 2 criteria? No. Patient's initial sepsis screen is negative. Does the patient have a suspected source of infection? No. Patient's initial sepsis screen is negative. Risk Assessment: Do you want to hurt yourself or someone else? Patient reports no desire to harm self or others. Onset of symptoms was April 04, 2024. 15:37 Method Of Arrival: Wheelchair tl4 15:37 Acuity: LEYLA 2 tl4 Triage Assessment: 15:42 General: Appears uncomfortable, Behavior is cooperative. Pain: Complains of pain in tl4 back, chest, abdomen, right foot, left foot, right arm, left arm, right leg and left leg. EENT: No signs and/or symptoms were reported regarding the EENT system. Neuro: Level of Consciousness is awake, alert, obeys commands, Oriented to person, place, time, situation, Moves all extremities. Cardiovascular: Capillary refill < 3 seconds Patient's skin is warm and dry. Respiratory: Airway is patent Respiratory effort is even, unlabored, Respiratory pattern is regular, symmetrical. GI: No signs and/or symptoms were reported involving the gastrointestinal system. : Reports pain with urination, catheter appears dislodged. Derm: No signs and/or symptoms reported regarding the dermatologic system. Musculoskeletal: No signs and/or symptoms reported regarding the musculoskeletal system. Historical: - Allergies: 15:41 No Known Allergies; tl4 - PMHx: 15:41 Lung Cancer; Bone Cancer; tl4 - PSHx: 15:41 Coronary artery bypass graft; leg surgery; lymph node removal in neck; tl4 - Immunization history:: Adult Immunizations unknown. - Infectious Disease History:: Denies. - Social history:: Smoking status: Patient denies any tobacco usage or history of. Assessment: 18:11 Reassessment: Patient appears in no apparent distress at this time. Patient and/or iw family updated on plan of care and expected duration. Pain level reassessed. Patient is alert, oriented x 3, equal unlabored respirations, skin warm/dry/pink. Vital Signs: 15:37 BP 116 / 80; Pulse 106; Resp 16; Temp 97.9(O); Pulse Ox 98% ; Weight 72.57 kg; Height 5 tl4 ft. 10 in. ; Pain 10/10; 17:00 BP 143 / 81; Pulse 100; Resp 18; Pulse Ox 100% on R/A; iw 15:37 Body Mass Index 22.96 (72.57 kg, 177.8 cm) tl4 15:37 Pain Scale: Adult tl4 ED Course: 15:37 Patient arrived in ED. tl4 15:41 Triage completed. tl4 15:44 Arm band placed on right wrist. tl4 15:46 Carlos Lowery MD is Attending Physician. [facility] 16:30 Accessed Port-a-Cath. using accessed w/ # 20 Dan needle, ,sterile technique, per hospital protocol. Clean \T\ dry. Dressing intact. Good blood return. Flushes easily. 16:41 Tabitha Mortensen, SAPNA is Primary Nurse. iw 17:15 Danilo Mishra MD is Referral Physician. keon Administered Medications: 17:00 Drug: HYDROmorphone IVP 2 mg IVP once Route: IVP; Site: Port-a-cath; iw 17:00 Drug: Ondansetron IVP 4 mg IVP once; over 2 minutes Route: IVP; Site: Port-a-cath; iw 17:01 Drug: NS 0.9% IV 1000 ml IV at 1 bolus Per protocol; 1000 mL bolus Route: IV; Rate: 1 iw bolus; Site: Port-a-cath; 17:42 Drug: Lactulose PO 30 grams 45 ml PO once Volume: 45 ml; Route: PO; ld1 17:42 Drug: Ciprofloxacin PO 500 mg PO once Route: PO; ld1 17:42 Drug: Potassium PO Effervescent Tablet 50 mEq PO once; dissolve in 4 ounces of water or ld1 juice Route: PO; 18:15 Drug: HYDROmorphone IVP 2 mg IVP once Route: IVP; Site: Port-a-cath; iw Outcome: 17:16 Discharge ordered by MD. herbert 18:35 Patient left the ED. iw Signatures: Carlos Lowery MD MD cha Williams, Irene, RN RN iw Peyton Dugan RN RN ld1 Reese Randhawa RN RN tl4 Corrections: (The following items were deleted from the chart) 15:42 15:41 PMHx: Bone Cancer (Lung Cancer); tl4 tl4
[2024-04-06] MEDS ORDERED: CIPROFLOXACIN HCL 500 MG TAB ONE (17:36)
[2024-04-06] MEDS ORDERED: POTASSIUM 25 MEQ EFFERV TAB ONE (17:37)
[2024-04-06] MEDS ORDERED: LACTULOSE 20 GM/30 ML UCUP ONE (17:48)
[2024-04-06 18:15] LABS: Specific Gravity 1.017 (1.005-1.030); Sqamous Epithelial <5 /HPF (None Seen); Urine Bacteria <20 /HPF (<20); Urine Bilirubin NEGATIVE (Negative); Urine Blood 2+ (Negative); Urine Clarity Extremely Turbid (Clear); Urine Color Yellow (Yellow); Urine Culture Reflex Order REFLEXED; Urine Glucose NEGATIVE (Negative); Urine Ketones NEGATIVE (Negative); Urine Microscopic Reflex YN ORDER UMIC; Urine Nitrite 2+ (Negative); Urine Protein 1+ (Negative); Urine RBC >50 /HPF (None Seen); Urine Urobilinogen Normal (Normal); Urine WBC >50 /HPF (<5); Urine pH 6.5 (5.0-7.0)
[2024-04-06 23:40] VITALS: BP 143/81; TEMP 97.9; O2SAT 100
== END 2024-04-06 18:35 | disposition home or self-care (01) ==
LOC: ER 15:24
DX: T83.091A Other mechanical complication of indwelling urethral catheter, initial encounter (principal); K59.00 Constipation, unspecified; C34.31 Malignant neoplasm of lower lobe, right bronchus or lung; C41.9 Malignant neoplasm of bone and articular cartilage, unspecified; D63.0 Anemia in neoplastic disease; E87.6 Hypokalemia; Z95.1 Presence of aortocoronary bypass graft
CPT/HCPCS: 87088; 85025; 81001; 87086; 36415; 87077 ×2; 87186 ×2; 80053; 96375; 96374; 99284; J1170 ×2; J2405; J7030

== ENCOUNTER 2024-05-14 02:57 | Emergency (ER) | payer OTHER ==
[2024-05-14] MEDS ORDERED: DIPHENHYDRAMINE 50 MG/ML VIAL ONE (03:57)
[2024-05-14] MEDS ORDERED: NA CHLORIDE 0.9% 1,000 ML ONE (03:57)
[2024-05-14 04:35] LABS: Absolute Eosinophils 0.1 K/uL (0-0.5); Absolute Lymphocytes (CBC) 0.4 K/uL (0.7-4.9); Absolute Monocytes 0.9 K/uL (0.1-1.3); Absolute Neutrophil 11.4 K/uL (1.8-8.0); Basophils % 0.2 % (0-1.3); Eosinophils % 0.4 % (0-4.4); Hematocrit 26.8 % (39.6-49.0); Hemoglobin 8.8 g/dL (13.6-17.9); Lymphocytes % 3.3 % (15.3-44.8); MPV 6.6 fL (7.6-11.3); Monocytes % 7.4 % (3.3-12.3); Neutrophils % 88.7 % (41.7-73.7); Platelets 377 thou/uL (152-406); RBC Red Blood Cell Count 3.04 M/uL (4.33-5.43); Red Cell Distribution Width 16.4 % (12.1-15.2)
[2024-05-14 04:40] LABS: Anion Gap 8.2 mEq/L (5.0-15.0); Potassium 3.2 mEq/L (3.5-5.1)
[2024-05-14 05:11] LABS: Band Neutrophils 1 % (0-1); Differential Total Cells Count 100; Lymphocytes 5 % (15-42); Monocytes 2 % (0-10); Segmented Neutrophils 92 % (40-80)
[2024-05-14 05:12] LABS: Blood Morphology Comment NOT SEEN (NOT SEEN); Platelet Estimate ADEQ
[2024-05-14] MEDS ORDERED: HYDROMORPHONE HCL 1 MG/ML INJ ONE (05:16)
--- NOTE | 2024-05-14 05:31 | ER ---
Nurse's Notes [facility] Name: Dwain Solorzano Age: 64 yrs Sex: Male : 1960 Arrival Date: 05/14/2024 Time: 02:57 Bed 4 Private MD: Diagnosis: Headache;Postconcussional syndrome;Hypokalemia;Anemia, unspecified Presentation: 05/14 03:10 Chief complaint: Patient states: fell night of 05/12/24. Patient stated he stood up, tm6 briefly lost consciousness, and fell and hit his head and his bottom. Patient called his cancer doctor and the doctor recommended he get checked out. Patient complaining of chronic pain caused by cancer, located on the left side of his ribs, and both hands and feet. Coronavirus screen: Vaccine status: Patient reports receiving the 2nd dose of the covid vaccine. Ebola Screen: Patient negative for fever greater than or equal to 101.5 degrees Fahrenheit, and additional compatible Ebola Virus Disease symptoms Patient denies exposure to infectious person. Patient denies travel to an Ebola-affected area in the 21 days before illness onset. No symptoms or risks identified at this time. Initial Sepsis Screen: Does the patient meet any 2 criteria? HR > 90 bpm. Does the patient have a suspected source of infection? No. Patient's initial sepsis screen is negative. Risk Assessment: Do you want to hurt yourself or someone else? Patient reports no desire to harm self or others. Onset of symptoms was May 12, 2024. 03:10 Method Of Arrival: Wheelchair tm6 03:10 Acuity: LEYLA 3 tm6 Triage Assessment: 03:14 General: Appears uncomfortable, Behavior is cooperative. Pain: Complains of pain in tm6 anterior aspect of left lateral abdomen, right hand, left hand, right foot and left foot Pain currently is 10 out of 10 on a pain scale. EENT: No signs and/or symptoms were reported regarding the EENT system. Neuro: Level of Consciousness is awake, alert, obeys commands, Oriented to person, place, time, situation. Cardiovascular: Reports syncope, Patient's skin is warm and dry. Respiratory: Airway is patent Respiratory effort is even, unlabored, Respiratory pattern is regular, symmetrical. GI: No signs and/or symptoms were reported involving the gastrointestinal system. Abdomen is round non-distended. : No signs and/or symptoms were reported regarding the genitourinary system. Lilly in place. Derm: No signs and/or symptoms reported regarding the dermatologic system. Musculoskeletal: Reports pain in anterior aspect of left lateral abdomen, right hand, left hand, right foot and left foot. Historical: - Allergies: 03:14 No Known Allergies; tm6 - PMHx: 03:14 bone cancer; Lung Cancer; Coronary atherosclerosis; Atrial fibrillation; tm6 - PSHx: 03:14 Coronary artery bypass graft; Leg surgery; lymph node removal in neck; Coronary tm6 Angioplasty; ablation; - Immunization history:: Client reports receiving the 2nd dose of the Covid vaccine. - Infectious Disease History:: Denies. - Social history:: Smoking status: Patient denies any tobacco usage or history of. Patient/guardian denies using alcohol. Screenin:17 [facility] ED Fall Risk Assessment (Adult) History of falling in the last 3 months, tm6 including since admission Yes- physiologic fall (2 pts) Confusion or Disorientation No (0 pts) Intoxicated or Sedated No (0 pts) Impaired Gait Yes (1 pt) Mobility Assist Device Used Yes (1 pt) Altered Elimination Yes (1 pt) Score/Fall Risk Level 3 or more points = High Risk Oriented to surroundings, Maintained a safe environment, Educated pt \T\ family on fall prevention, incl call for assistance when getting out of bed. Abuse screen: Denies threats or abuse. Denies injuries from another. Nutritional screening: No deficits noted. Tuberculosis screening: No symptoms or risk factors identified. Assessment: 03:17 Reassessment: see triage assessment. tm6 04:21 Reassessment: Patient appears in no apparent distress at this time. Patient and/or tm6 family updated on plan of care and expected duration. Pain level reassessed. Patient is alert, oriented x 3, equal unlabored respirations, skin warm/dry/pink. 05:19 Reassessment: Patient appears in no apparent distress at this time. Patient and/or tm6 family updated on plan of care and expected duration. Pain level reassessed. Patient is alert, oriented x 3, equal unlabored respirations, skin warm/dry/pink. 05:44 Reassessment: port a cath hep locked prior to d/c. tm6 Vital Signs: 03:10 BP 164 / 95; Pulse 102; Resp 19; Temp 96.8(TE); Pulse Ox 95% on R/A; Weight 71.21 kg; tm6 Height 5 ft. 10 in. ; Pain 10/10; 04:21 BP 156 / 101; Pulse 95; Resp 12; Pulse Ox 100% on R/A; Pain 10/10; tm6 05:17 BP 161 / 97; Pulse 89; Resp 12; Temp 97.3; Pulse Ox 96% on R/A; Pain 10/10; tm6 05:43 Pain 8/10; tm6 03:10 Body Mass Index 22.53 (71.21 kg, 177.8 cm) tm6 03:10 Pain Scale: Adult tm6 04:21 Pain Scale: Adult tm6 05:17 Pain Scale: Adult tm6 05:43 Pain Scale: Adult tm6 ED Course: 02:59 Patient arrived in ED. ec2 02:59 Javier Isaac MD is Attending Physician. ec2 03:10 Gray Segovia, SAPNA is Primary Nurse. tm6 03:13 Triage completed. tm6 03:14 Arm band placed on right wrist. tm6 03:17 Patient has correct armband on for positive identification. Bed in low position. Call tm6 light in reach. Side rails up X2. Provided Education on: use of call de leon. Client placed on continuous cardiac and pulse oximetry monitoring. NIBP monitoring applied. welcome wagon hostess on. Pulse ox on. NIBP on. Door closed. Noise minimized. Lights dimmed. Warm blanket given. Pillow given. 03:32 CT Head Brain wo Cont In Process Unspecified. EDMS 03:44 CXR XRAY In Process Unspecified. EDMS 04:15 Accessed Port-a-Cath. using accessed w/ # 20 Dan needle, ,sterile technique, per [address] protocol. Clean \T\ dry. Dressing intact. Good blood return. Flushes easily. 05:20 No provider procedures requiring assistance completed. tm6 05:43 IV discontinued, intact, bleeding controlled, No redness/swelling at site. Pressure tm6 dressing applied. Administered Medications: 04:21 Drug: NS 0.9% IV 1000 ml IV at 1 bolus Per protocol; 1000 mL bolus Route: IV; Rate: 1 tm6 bolus; Site: Port-a-cath; 04:55 Follow up: Response: No adverse reaction; IV Status: Completed infusion; IV Intake: tm6 1000ml 04:21 Drug: Droperidol IVP 2.5 mg IVP once Route: IVP; Site: Port-a-cath; tm6 04:55 Follow up: Response: No adverse reaction; Pain is unchanged, physician notified tm6 04:21 Drug: diphenhydrAMINE IVP 25 mg IVP once Route: IVP; Site: Port-a-cath; tm6 04:55 Follow up: Response: No adverse reaction; Pain is unchanged, physician notified tm6 05:20 Drug: HYDROmorphone IVP 1 mg IVP once Route: IVP; Site: Port-a-cath; tm6 05:43 Follow up: Pain 8/10 Adult; Response: No adverse reaction; Pain is decreased tm6 Medication: 03:17 VIS not applicable for this client. tm6 Intake: 04:55 IV: 1000ml; Total: 1000ml. tm6 Outcome: 05:30 Discharge ordered by . ec2 05:43 Discharged to home via wheelchair, with family, tm6 05:43 Condition: stable 05:43 Discharge instructions given to patient, Instructed on discharge instructions, follow up and referral plans. Demonstrated understanding of instructions, follow-up care, 05:44 Patient left the ED. tm6 Signatures: Dispatcher [employer] Mariana Ortiz RN RN vc1 Javier Isaac MD MD ec2 Gray Segovia RN RN tm6
--- NOTE | 2024-05-14 05:31 | EDPHYS ---
Physician Documentation [facility] Name: Dwain Solorzano Age: 64 yrs Sex: Male : 1960 Arrival Date: 05/14/2024 Time: 02:57 Bed 4 Private MD: ED Physician Javier Isaac HPI: 05/14 03:16 This 64 yrs old Male presents to ER via Wheelchair with complaints of ec2 headache. 03:16 Patient arrives today for evaluation of a head injury. States that he had fallen 2 days ec2 ago, had loss of consciousness. Patient states that he is having some headache and some residual nausea. No vomiting, no diarrhea. Patient reports he is on Eliquis.. Historical: - Allergies: 03:14 No Known Allergies; tm6 - PMHx: 03:14 bone cancer; Lung Cancer; Coronary atherosclerosis; Atrial fibrillation; tm6 - PSHx: 03:14 Coronary artery bypass graft; Leg surgery; lymph node removal in neck; Coronary tm6 Angioplasty; ablation; - Immunization history:: Client reports receiving the 2nd dose of the Covid vaccine. - Infectious Disease History:: Denies. - Social history:: Smoking status: Patient denies any tobacco usage or history of. Patient/guardian denies using alcohol. ROS: 03:16 Constitutional: as per hpi ec2 Exam: 03:16 Constitutional: GEN: NAD Head: atraumatic Eyes: EOMI Ears: External ears are ec2 normal. CV: regular rate LUNGS: no respiratory distress ABD: non-distended SKIN: no evidence of rashes MSK: no evidence of trauma Vital Signs: 03:10 BP 164 / 95; Pulse 102; Resp 19; Temp 96.8(TE); Pulse Ox 95% on R/A; Weight 71.21 kg; tm6 Height 5 ft. 10 in. ; Pain 10/10; 04:21 BP 156 / 101; Pulse 95; Resp 12; Pulse Ox 100% on R/A; Pain 10/10; tm6 05:17 BP 161 / 97; Pulse 89; Resp 12; Temp 97.3; Pulse Ox 96% on R/A; Pain 10/10; tm6 05:43 Pain 8/10; tm6 03:10 Body Mass Index 22.53 (71.21 kg, 177.8 cm) tm6 03:10 Pain Scale: Adult tm6 04:21 Pain Scale: Adult tm6 05:17 Pain Scale: Adult tm6 05:43 Pain Scale: Adult tm6 MDM: 03:00 Patient medically screened. ec2 03:16 Data reviewed: vital signs. ED course: Patient arrives today for evaluation of ec2 headache. Examination remarkable for well-appearing nontoxic individual is otherwise in no acute distress with a reassuring examination. Will obtain lab work, CT scan of the head. Differential includes concussion symptoms, intracranial mass, doubt intracranial brain bleed. Patient asking specifically for Dilaudid for pain, I subsequently instructed him that opiate pain medication would not be appropriate for headache syndromes. . 04:43 ED course: CBC shows slight anemia, will compared to external records, this appears ec2 similar.. 05:09 ED course: Chest x-ray independently reviewed and interpreted by me, shows no acute ec2 intrathoracic process, no acute traumatic process, known left hilar mass noted, when compared to external records, this appears similar. . 05:10 ED course: CT scan of the head shows no acute intracranial process. Will discharge home ec2 have the patient follow-up expectantly. Patient with chronic pain hx of metastatic dz, will give the patient opiate pain medication.. 05/14 03:16 Order name: CBC with Diff; Complete Time: 05:13 ec2 05/14 03:16 Order name: BMP; Complete Time: 04:42 ec2 05/14 04:45 Order name: Manual Differential; Complete Time: 05:13 EDMS 05/14 03:16 Order name: CXR XRAY ec2 05/14 03:16 Order name: CT Head Brain wo Cont ec2 05/14 03:16 Order name: IV; Complete Time: 04:20 ec2 Administered Medications: 04:21 Drug: NS 0.9% IV 1000 ml IV at 1 bolus Per protocol; 1000 mL bolus Route: IV; Rate: 1 tm6 bolus; Site: Port-a-cath; 04:55 Follow up: Response: No adverse reaction; IV Status: Completed infusion; IV Intake: tm6 1000ml 04:21 Drug: Droperidol IVP 2.5 mg IVP once Route: IVP; Site: Port-a-cath; tm6 04:55 Follow up: Response: No adverse reaction; Pain is unchanged, physician notified tm6 04:21 Drug: diphenhydrAMINE IVP 25 mg IVP once Route: IVP; Site: Port-a-cath; tm6 04:55 Follow up: Response: No adverse reaction; Pain is unchanged, physician notified tm6 05:20 Drug: HYDROmorphone IVP 1 mg IVP once Route: IVP; Site: Port-a-cath; tm6 05:43 Follow up: Pain 8/10 Adult; Response: No adverse reaction; Pain is decreased tm6 Disposition Summary: 05/14/24 05:30 Discharge Ordered Notes: Location: Home ec2 Condition: Stable ec2 Diagnosis - Headache ec2 - Postconcussional syndrome ec2 - Hypokalemia ec2 - Anemia, unspecified ec2 Followup: ec2 - With: Private Physician - When: - Reason: Re-evaluation by your physician Discharge Instructions: - Discharge Summary Sheet ec2 - Concussion, Adult, [id number] ec2 Forms: - Medication Reconciliation Form ec2 - Antibiotic Education ec2 - Prescription Opioid Use ec2 - Patient Portal Instructions ec2 - Leadership Thank You Letter ec2 Signatures: Dispatcher [employer] Javier Cerrato MD MD ec2 Gray Segovia RN RN tm6
[2024-05-14] MEDS ORDERED: HEPARIN 500 UNIT/5 ML SYR IV ONE (05:38)
[2024-05-14 05:52] VITALS: BP 161/97; TEMP 97.3; O2SAT 96
--- NOTE | 2024-05-14 16:23 | RAD REPORT ---
EXAM DESCRIPTION: RAD - Chest Single View - 05/14/2024 3:42 am CLINICAL HISTORY: Fall COMPARISON: None. FINDINGS: 1 view(s) of the chest. Tubes and lines: Leads overlie the chest. Right IJ Mediport with tip in the SVC. Cardiomediastinal silhouette: Atherosclerotic calcification of thoracic aorta. Heart is not enlarged. Prior median sternotomy. Lungs: No consolidation, pneumothorax, or pleural effusion. Bones: No acute osseous abnormality. Degenerative change of the spine and shoulders. Upper abdomen: No abnormality identified. IMPRESSION: 1. No acute pulmonary process identified. Electronically signed by: Amor Lopez DO 05/14/2024 05:26 AM CDT RP [id number] Due to temporary technical issues with the PACS/Fluency reporting system, reports are being signed by the in house radiologists without review as a courtesy to insure prompt reporting. The interpreting radiologist is fully responsible for the content of the report.
--- NOTE | 2024-05-14 16:25 | RAD REPORT ---
EXAM DESCRIPTION: CT - Head Brain Wo Cont - 05/14/2024 3:30 am CLINICAL HISTORY: The patient is 64 years old and is Male; Head injury. TECHNIQUE: Axial computed tomography images of the head/brain without intravenous contrast. Sagitt al and coronal reformatted images were created and reviewed. This CT exam was performed using one o r more of the following dose reduction techniques: automated exposure control, adjustment of the mA and/or kV according to patient size, and/or use of iterative reconstruction technique. COMPARISON: None. 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 Mild bilateral periventricular and deep white matter microangiopathy changes. Bilateral basal ganglia calcifications, nonspecific but most commonly suggestive of poorly co ntrolled hypertension. No extra-axial fluid collection. No intracranial hemorrhage. No transtentorial herniation. No acute focal brooks-white matter differentiation abnormality. MIDLINE SHIFT: No midline shift. VENTRICLES: Unremarkable No ventriculomegaly. BONES/JOINTS: No fracture of the calvarium or visualized facial bones. SOFT TISSUES: Unremarkable SINUSES: No masses, bony erosion or evidence of acute sinusitis. MASTOID AIR CELLS: Unremarkable as visualized. No mastoid effusion. NASAL CAVITY/SEPTUM: Leftward nasal septal deviation. IMPRESSION: 1. Chronic and senescent changes with no acute intracranial abnormality. 2. 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 Electronically signed by: Chet Acosta MD 05/14/2024 05:08 AM CDT RP Due to temporary technical issues with the PACS/Fluency reporting system, reports are being signed by the in house radiologists without review as a courtesy to insure prompt reporting. The interpreting radiologist is fully responsible for the content of the report.
== END 2024-05-14 05:44 | disposition home or self-care (01) ==
LOC: ER 02:57
DX: R51.9 Headache, unspecified (principal); F07.81 Postconcussional syndrome; E87.6 Hypokalemia; D64.9 Anemia, unspecified; Z79.01 Long term (current) use of anticoagulants; Z95.1 Presence of aortocoronary bypass graft; Z98.61 Coronary angioplasty status
CPT/HCPCS: 96361; 85025; 80048; 36415; 70450; 71045; 96375; 96374; 99285; J1200; J1170; J1642; J7030

== ENCOUNTER 2024-05-31 13:38 | Emergency (ER) | payer OTHER ==
[2024-05-31] MEDS ORDERED: HYDROCODONE/APAP 10/325 TAB ONE (16:15)
[2024-05-31] MEDS ORDERED: LIDOCAINE HCL JELLY 2% 6 ML SYRINGE TOP ONE (16:15)
[2024-05-31 18:27] LABS: Specific Gravity 1.027 (1.005-1.030); Sqamous Epithelial <5 /HPF (None Seen); Urine Bacteria <20 /HPF (<20); Urine Bilirubin NEGATIVE (Negative); Urine Blood 3+ (Negative); Urine Clarity Extremely Turbid (Clear); Urine Color Light-Orange (Yellow); Urine Crystals Unidentified Few /HPF (None Seen); Urine Culture Reflex Order REFLEXED; Urine Glucose 1+ (Negative); Urine Ketones 1+ (Negative); Urine Microscopic Reflex YN ORDER UMIC; Urine Mucus 4+ /HPF (None Seen); Urine Nitrite NEGATIVE (Negative); Urine Protein 3+ (Negative); Urine RBC >50 /HPF (None Seen); Urine Urobilinogen Normal (Normal); Urine WBC >50 /HPF (<5); Urine WBC Clump Occasional /HPF (None Seen); Urine pH 7.5 (5.0-7.0)
--- NOTE | 2024-05-31 18:35 | EDPHYS ---
Physician Documentation [facility] Name: Dwain Solorzano Age: 64 yrs Sex: Male : 1960 Arrival Date: 05/31/2024 Time: 13:38 Bed 15 Private MD: ED Physician Tre Snyder HPI: 05/31 14:20 This 64 yrs old Male presents to ER via Wheelchair with complaints of Problem With kb Urinary Catheter. 14:20 Pt is a 64 year old male who has a chronic samuel catheter that presents to have samuel kb changed. States he had current samuel placed on 04/06/24 and it is now not drainage properly. Has appt with urology for follow up on 07/02/24. Denies fever, abd pain. . Historical: - Allergies: 13:46 No Known Allergies; db - PMHx: 13:46 Atrial fibrillation; bone cancer; coronary atherosclerosis; Lung Cancer; db - PSHx: 13:46 Coronary Angioplasty; Coronary artery bypass graft; ablation; lymph node removal in db neck; Leg surgery; - Immunization history:: Adult Immunizations unknown. - Infectious Disease History:: Denies. - Social history:: Smoking status: Patient denies any tobacco usage or history of. ROS: 14:20 Constitutional: As per HPI kb Exam: 14:20 Constitutional: This is a well developed, well nourished patient who is awake, alert, kb and in no acute distress. Head/Face: Normocephalic, atraumatic. ENT: Moist Mucous membranes Cardiovascular: Regular rate Respiratory: Respirations even and unlabored. No increased work of breathing. Talking in full sentences Abdomen/GI: Soft, non-tender. No distention Skin: Warm, dry with normal turgor. Normal color. MS/ Extremity: Pulses equal, no cyanosis. Neurovascular intact. Full, normal range of motion. Neuro: Awake and alert, GCS 15, oriented to person, place, time, and situation. Moves all extremities. Normal gait. Vital Signs: 13:43 BP 111 / 69; Pulse 104; Resp 18; Temp 98.5; Pulse Ox 97% ; Weight 68.04 kg; Pain 10/10; db 16:00 BP 142 / 81; Pulse 104; Resp 16; Pulse Ox 99% on R/A; me1 17:05 BP 156 / 74; Pulse 104; Resp 18; Pulse Ox 100% ; me1 18:00 BP 149 / 78; Pulse 105; Resp 17; Temp 98.4; Pulse Ox 96% ; me1 13:43 Pain Scale: Adult db MDM: 13:45 Patient medically screened. kb 18:34 Differential diagnosis: UTI, samuel malfunction. Data reviewed: vital signs, nurses kb notes. Counseling: I had a detailed discussion with the patient and/or guardian regarding the historical points, exam findings, and any diagnostic results supporting the discharge/admit diagnosis, lab results, the need for outpatient follow up, a family practitioner, a urologist, to return to the emergency department if symptoms worsen or persist or if there are any questions or concerns that arise at home. 05/31 14:22 Order name: Urinalysis w/ reflexes; Complete Time: 18:34 kb 05/31 18:30 Order name: Urine Culture EDMS 05/31 13:54 Order name: Samuel: place new samuel; Complete Time: 16:45 kb Administered Medications: 16:22 Drug: [place] PO 10 mg-325 mg 1 tabs PO once Route: PO; me1 16:45 Follow up: Response: No adverse reaction; Pain is decreased me1 Disposition: 20:02 Co-signature as Attending Physician, Tre Snyder MD I reviewed the patient's care rt provided by the Advanced Practice Provider and agree with the diagnosis and treatment plan. Disposition Summary: 05/31/24 18:35 Discharge Ordered Notes: Location: Home kb Condition: Stable kb Diagnosis - UTI/ Urinary tract infection, site not specified kb - Mechanical complication of urinary (indwelling) catheter kb Followup: kb - With: Emergency Department - When: As needed - Reason: Worsening of condition Followup: kb - With: Private Physician - When: 2 - 3 days - Reason: Recheck today's complaints, Continuance of care, Re-evaluation by your physician Discharge Instructions: - Discharge Summary Sheet kb - Urinary Tract Infection, Adult, [id number] kb - Indwelling Urinary Catheter Care, Adult, [id number] kb Forms: - Medication Reconciliation Form kb - Antibiotic Education kb - Prescription Opioid Use kb - Patient Portal Instructions kb - Leadership Thank You Letter kb Prescriptions: - Augmentin 875-125 mg Oral Tablet - take 1 tablet ORAL route every 12 hours for 10 days; 20 tablet; Refills: 0, kb Product Selection Permitted Signatures: Dispatcher [employer] Coretta Isaacs, ELECTRICAL INSTRUMENT MAKER-C ELECTRICAL INSTRUMENT MAKER-Emeli Braun, RN RN db Tre Snyder MD MD rt Tamiko Nguyen, RN RN me1
--- NOTE | 2024-05-31 18:35 | ER ---
Nurse's Notes [facility] Name: Dwain Solorzano Age: 64 yrs Sex: Male : 1960 Arrival Date: 05/31/2024 Time: 13:38 Bed 15 Private MD: Diagnosis: UTI/ Urinary tract infection, site not specified;Mechanical complication of urinary (indwelling) catheter Presentation: 05/31 13:43 Chief complaint: Patient states: URINARY CATHETER NOT DRAINING NORMAL STARTED LAST db NIGHT. STATES NEEDS CATHETER REPLACEMENT. LAST PLACED 04/06. Coronavirus screen: Client denies travel out of the [place] in the last 14 days. At this time, the client does not indicate any symptoms associated with coronavirus-19. Ebola Screen: Patient negative for fever greater than or equal to 101.5 degrees Fahrenheit, and additional compatible Ebola Virus Disease symptoms Patient denies exposure to infectious person. Patient denies travel to an Ebola-affected area in the 21 days before illness onset. No symptoms or risks identified at this time. Initial Sepsis Screen: Does the patient meet any 2 criteria? HR > 90 bpm. No. Patient's initial sepsis screen is negative. Does the patient have a suspected source of infection? No. Patient's initial sepsis screen is negative. Risk Assessment: Do you want to hurt yourself or someone else? Patient reports no desire to harm self or others. Onset of symptoms was May 30, 2024. 13:43 Method Of Arrival: Wheelchair db 13:43 Acuity: LEYLA 3 db Triage Assessment: 13:46 General: Appears in no apparent distress. comfortable, Behavior is calm, cooperative. db Pain: Complains of pain in pelvis. Neuro: Level of Consciousness is awake, alert, obeys commands, Oriented to person, place, time. Cardiovascular: No deficits noted. : Samuel in place Reports inability to void, pain. Historical: - Allergies: 13:46 No Known Allergies; db - PMHx: 13:46 Atrial fibrillation; bone cancer; coronary atherosclerosis; Lung Cancer; db - PSHx: 13:46 Coronary Angioplasty; Coronary artery bypass graft; ablation; lymph node removal in db neck; Leg surgery; - Immunization history:: Adult Immunizations unknown. - Infectious Disease History:: Denies. - Social history:: Smoking status: Patient denies any tobacco usage or history of. Screenin:00 [facility] ED Fall Risk Assessment (Adult) History of falling in the last 3 months, me1 including since admission No falls in past 3 months (0 pts) Confusion or Disorientation No (0 pts) Intoxicated or Sedated No (0 pts) Impaired Gait Yes (1 pt) Mobility Assist Device Used Yes (1 pt) Altered Elimination Yes (1 pt) Score/Fall Risk Level 3 or more points = High Risk Maintained a safe environment, Hourly rounding (assess needs \T\ fall precautionary measures) done, Used ambulatory aids as needed (educated on \T\ assisted with). Abuse screen: Denies threats or abuse. Nutritional screening: No deficits noted. Tuberculosis screening: No symptoms or risk factors identified. Assessment: 15:00 General: Appears uncomfortable, well developed, well nourished, Behavior is calm, me1 cooperative, appropriate for age, Reports samuel catheter isnt draining well since last night. Pain: Complains of pain in pelvis Pain does not radiate. Pain currently is 8 out of 10 on a pain scale. Quality of pain is described as aching, Pain began Is continuous. Neuro: Level of Consciousness is awake, alert, obeys commands, Oriented to person, place, time, situation, Appropriate for age. Cardiovascular: Patient's skin is warm and dry. Respiratory: Airway is patent Respiratory effort is even, unlabored, Respiratory pattern is regular, symmetrical. GI: No signs and/or symptoms were reported involving the gastrointestinal system. : Samuel in place to gravity drainage. EENT: No signs and/or symptoms were reported regarding the EENT system. Derm: Skin is intact, is healthy with good turgor, Skin is pink, warm \T\ dry. Musculoskeletal: Reports pain in left lateral anterior chest pain from bone mets. 18:50 General: Discharge delayed as patient is unable to get in touch with his ride at this me1 time and is unable to sit in chair in the lobby comfortably or safely. . 19:28 Reassessment: Patient appears in no apparent distress at this time. Patient and/or jb4 family updated on plan of care and expected duration. Pain level reassessed. Patient is alert, oriented x 3, equal unlabored respirations, skin warm/dry/pink. Pt assisted to lobby to wait for ride home. Vital Signs: 13:43 BP 111 / 69; Pulse 104; Resp 18; Temp 98.5; Pulse Ox 97% ; Weight 68.04 kg; Pain 10/10; db 16:00 BP 142 / 81; Pulse 104; Resp 16; Pulse Ox 99% on R/A; me1 17:05 BP 156 / 74; Pulse 104; Resp 18; Pulse Ox 100% ; me1 18:00 BP 149 / 78; Pulse 105; Resp 17; Temp 98.4; Pulse Ox 96% ; me1 13:43 Pain Scale: Adult db ED Course: 13:43 Patient arrived in ED. db 13:45 Coretta Adan FNP-C is PHCP. kb 13:45 Tre Snyder MD is Attending Physician. kb 13:46 Triage completed. db 13:46 Arm band placed on right wrist. Patient placed in waiting room. db 15:00 Patient has correct armband on for positive identification. Bed in low position. Call me1 light in reach. Side rails up X2. Provided Education on: POC. Verbalized understanding.. Client placed on continuous cardiac and pulse oximetry monitoring. NIBP monitoring applied. Pulse ox on. NIBP on. 15:00 No provider procedures requiring assistance completed. Patient did not have IV access me1 during this emergency room visit. 15:16 Tamiko Nguyen, RN is Primary Nurse. me1 16:45 Samuel cath removed intact, balloon deflated. me1 16:45 Samuel cath inserted, using sterile technique, 16 Fr., by wa, balloon inflated, to me1 gravity drainage, urine specimen collected. other coude. 17:56 Urinalysis w/ reflexes Sent. me1 17:56 Urine collected: Samuel catheter specimen, tea colored, blood tinged. me1 18:35 Urine Culture Sent. me1 Administered Medications: 16:22 Drug: [place] PO 10 mg-325 mg 1 tabs PO once Route: PO; me1 16:45 Follow up: Response: No adverse reaction; Pain is decreased me1 Medication: 15:00 VIS not applicable for this client. me1 Outcome: 18:35 Discharge ordered by . kb 19:28 Discharged to to lobby to wait for ride home. jb4 19:28 Condition: stable 19:28 Discharge instructions given to patient, Instructed on discharge instructions, follow up and referral plans. medication usage, Demonstrated understanding of instructions, follow-up care, medications, Prescriptions given X 1, 19:29 Patient left the ED. jb4 Signatures: Coretta Adan, ALLEN-C MATH AND PHYSICS INSTRUCTOR-Andre Amaya RN RN jb4 Emeli Gaston, RN RN db Tamiko Nguyen RN RN me1 Corrections: (The following items were deleted from the chart) 19:28 Reassessment: Pt assisted to lobby to wait for ride home. jb4 jb4 19:28 Discharge instructions given to patient, Instructed on discharge instructions, jb4 follow up and referral plans. Demonstrated understanding of instructions, follow-up care, jb4
[2024-05-31 19:39] VITALS: BP 149/78; TEMP 98.4; O2SAT 96
== END 2024-05-31 19:29 | disposition home or self-care (01) ==
LOC: ER 13:38
DX: N39.0 Urinary tract infection, site not specified (principal); T83.098A Other mechanical complication of other urinary catheter, initial encounter
CPT/HCPCS: 51702; 81001; 87086; 87088; 99284

== ENCOUNTER 2024-06-09 15:42 | Inpatient (IN) | payer OTHER ==
--- NOTE | 2024-06-09 16:35 | RAD REPORT ---
EXAMINATION: ONE VIEW CHEST XR CLINICAL INDICATION: Male, 64 years old. Chest pain. TECHNIQUE: 1 View, AP supine, X-ray of the chest was performed. [id number]. COMPARISON: 05/14/2024 FINDINGS: Moderate bibasilar lung opacities are present with small pleural effusions. The heart is moderately e nlarged stranding is present. Right-sided venous catheters tip in SVC. IMPRESSION: Bibasilar lung opacities with small pleural effusions may be related to CHF or infection.
[2024-06-09] MEDS ORDERED: ALBUTEROL 2.5 MG/3 ML NEB SOL ONE (16:44)
[2024-06-09] MEDS ORDERED: IPRATROPIUM BROM 0.5MG/2.5ML ONE (16:44)
[2024-06-09] MEDS ORDERED: HYDROMORPHONE HCL 1 MG/ML INJ ONE ×2 (16:45→21:04)
[2024-06-09 16:54] LABS: Absolute Eosinophils 0.2 K/uL (0-0.5); Absolute Lymphocytes (CBC) 0.5 K/uL (0.7-4.9); Absolute Monocytes 0.7 K/uL (0.1-1.3); Absolute Neutrophil 4.9 K/uL (1.8-8.0); Basophils % 0.7 % (0-1.3); Eosinophils % 3.6 % (0-4.4); Hematocrit 28.8 % (39.6-49.0); Hemoglobin 9.7 g/dL (13.6-17.9); Lymphocytes % 7.8 % (15.3-44.8); MCH 28.6 pg (27.0-35.0); MCHC 33.5 g/dL (32.0-36.0); MCV 85.4 fL (80-100); MPV 6.7 fL (7.6-11.3); Monocytes % 11.7 % (3.3-12.3); Neutrophils % 76.2 % (41.7-73.7); Nucleated Red Blood Cells % 0.1 % (0-0); Platelets 242 thou/uL (152-406); RBC Red Blood Cell Count 3.38 M/uL (4.33-5.43); Red Cell Distribution Width 17.7 % (12.1-15.2)
[2024-06-09 16:56] LABS: PT Prothrombin Time 13.3 SECONDS (9.4-12.5); Protime INR 1.19
[2024-06-09 17:23] LABS: Albumin/Globulin Ratio 0.5 (1.1-1.8); Anion Gap 6.3 mEq/L (5.0-15.0); Bilirubin Direct 0.2 mg/dL (0-0.2); Bilirubin Indirect, Calculated 0.4 mg/dL (0.2-0.8); Bilirubin Total 0.6 mg/dL (0.2-1.0); Magnesium 1.4 mg/dL (1.6-2.4); Troponin High Sensitivity 48.1 pg/mL (<58.9)
[2024-06-09 17:27] LABS: Potassium 2.3 mEq/L (3.5-5.1)
--- NOTE | 2024-06-09 19:03 | ER ---
Nurse's Notes [facility] Name: Dwain Solorzano Age: 64 yrs Sex: Male : 1960 Arrival Date: 06/09/2024 Time: 15:42 Bed 14 Private MD: Diagnosis: Hypokalemia;Hypomagnesemia;Hypoxemia Presentation: 06/09 15:54 Chief complaint: Patient states: Cancer center called him and told him his potassium ll1 was low, go to ED. Coronavirus screen: Client denies travel out of the [place] in the last 14 days. At this time, the client does not indicate any symptoms associated with coronavirus-19. Ebola Screen: Patient denies travel to an Ebola-affected area in the 21 days before illness onset. Initial Sepsis Screen: Does the patient meet any 2 criteria? No. Patient's initial sepsis screen is negative. Does the patient have a suspected source of infection? No. Patient's initial sepsis screen is negative. Risk Assessment: Do you want to hurt yourself or someone else? Patient reports no desire to harm self or others. Onset of symptoms was June 09, 2024. 15:54 Method Of Arrival: Wheelchair ll1 15:54 Acuity: LEYLA 3 ll1 Triage Assessment: 15:54 General: Appears in no apparent distress. Behavior is calm, cooperative, appropriate ll1 for age. General: Reports potassium level low. Pain: Complains of pain in L ribs Pain currently is 9 out of 10 on a pain scale. Quality of pain is described as aching. Neuro: No deficits noted. Musculoskeletal: Reports pain in L ribs. Historical: - Allergies: 15:54 No Known Allergies; ll1 - PMHx: 15:54 Atrial fibrillation; bone cancer; coronary atherosclerosis; Lung Cancer; ll1 - PSHx: 15:54 ablation; Coronary Angioplasty; Coronary artery bypass graft; Leg surgery; lymph node ll1 removal in neck; - Immunization history:: Adult Immunizations up to date. - Infectious Disease History:: Denies. - Social history:: Smoking status: Patient denies any tobacco usage or history of. Screenin:02 [facility] ED Fall Risk Assessment (Adult) History of falling in the last 3 months, tm6 including since admission No falls in past 3 months (0 pts) Confusion or Disorientation No (0 pts) Intoxicated or Sedated No (0 pts) Impaired Gait Yes (1 pt) Mobility Assist Device Used No (0 pt) Altered Elimination Yes (1 pt) Score/Fall Risk Level 0 - 2 = Low Risk Oriented to surroundings, Maintained a safe environment, Educated pt \T\ family on fall prevention, incl call for assistance when getting out of bed. Abuse screen: Denies threats or abuse. Denies injuries from another. Nutritional screening: No deficits noted. Tuberculosis screening: No symptoms or risk factors identified. Assessment: 16:02 General: Appears in no apparent distress. Behavior is calm, cooperative. Pain: tm6 Complains of pain in abdomen, right hand, left hand, right leg and left leg Pain does not radiate. Pain currently is 10 out of 10 on a pain scale. Neuro: Level of Consciousness is awake, alert, obeys commands, Oriented to person, place, time, situation. Cardiovascular: Patient's skin is warm and dry. Respiratory: Airway is patent Respiratory effort is even, unlabored, Respiratory pattern is regular, symmetrical. GI: No signs and/or symptoms were reported involving the gastrointestinal system. Abdomen is flat, non-distended. : No signs and/or symptoms were reported regarding the genitourinary system. Chavez in place. EENT: No signs and/or symptoms were reported regarding the EENT system. Derm: No signs and/or symptoms reported regarding the dermatologic system. Musculoskeletal: No signs and/or symptoms reported regarding the musculoskeletal system. 18:01 Reassessment: Patient and/or family updated on plan of care and expected duration. Pain tm6 level reassessed. Patient is alert, oriented x 3, equal unlabored respirations, skin warm/dry/pink. 19:15 Reassessment: ASSUMED CARE OF PT. PT LYING IN BED TALKING ON PHONE. NO DISTRESS NOTED. jj7 PT SPOKE WITH HOSPITALIZED AND INFORMED OF PENDING ADMISSION. VS STABLE. CT AT BEDSIDE TO TAKE PT FOR CT. General: Appears in no apparent distress. comfortable, Behavior is calm, cooperative, appropriate for age. Pain: Complains of pain in chest. Vital Signs: 15:54 BP 143 / 77; Pulse 97; Resp 18; Temp 98.1; Pulse Ox 96% ; Weight 68.04 kg; Height 5 ft. ll1 10 in. ; Pain 9/10; 16:58 BP 126 / 75; Pulse 101; Resp 14; Pulse Ox 88% on R/A; Pain 10/10; tm6 17:00 Pulse Ox 100% on Nebulizer Mask; tm6 17:15 Pulse Ox 84% on R/A; tm6 17:15 Pulse Ox 93% on 2 lpm NC; tm6 18:01 BP 117 / 72; Pulse 102; Resp 12; Pulse Ox 95% on 2 lpm NC; tm6 19:15 BP 120 / 60; Pulse 106; Resp 17; Pulse Ox 97% ; jj7 20:16 BP 141 / 80; Pulse 95; Resp 16; Pulse Ox 97% on 2 lpm NC; jj7 21:09 BP 130 / 77; Pulse 104; Resp 16; Temp 98.1; Pulse Ox 99% on 2 lpm NC; jj7 15:54 Body Mass Index 21.52 (68.04 kg, 177.8 cm) ll1 15:54 Pain Scale: Adult ll1 16:58 Pain Scale: Adult tm6 ED Course: 15:44 Patient arrived in ED. ra3 15:46 Carlos Graham PA is PHCP. cp 15:46 Tre Snyder MD is Attending Physician. cp 15:54 Arm band placed on Patient placed in an exam room, on a stretcher. ll1 15:55 Triage completed. ll1 16:02 Gray Segovia, RN is Primary Nurse. tm6 16:02 Patient has correct armband on for positive identification. Bed in low position. Call tm6 light in reach. Side rails up X 1. Provided Education on: use of call de leon. Client placed on continuous cardiac and pulse oximetry monitoring. NIBP monitoring applied. Pulse ox on. NIBP on. Door closed. Noise minimized. Warm blanket given. Pillow given. 16:29 XRAY Chest (1 view) In Process Unspecified. EDMS 16:55 Basic Metabolic Panel Sent. tm6 16:55 CBC with Diff Sent. tm6 16:55 LFT's Sent. tm6 16:55 Magnesium Sent. tm6 16:55 NT PRO-BNP Sent. tm6 16:55 PT-INR Sent. tm6 16:55 Troponin HS Sent. tm6 16:56 Accessed Port-a-Cath. using 20G Nexia IV catheter ,sterile technique, per hospital tm6 protocol. Clean \T\ dry. Dressing intact. Good blood return. Flushes easily. 16:57 EKG done, by ED staff, reviewed by Carlos GOTTI. tm6 19:01 Prince Stewart MD is Hospitalizing Provider. cp 20:[address] jj7 20:21 Inserted saline lock: 20 gauge in right antecubital area, using aseptic technique. jj7 Accessed peripheral vein via ultrasound, utilizing dynamic ultrasound technique. 20:30 Patient admitted, IV remains in place. jj7 20:30 No provider procedures requiring assistance completed. jj7 Administered Medications: 16:55 Drug: DuoNeb Nebulize (2.5 mg - 0.5 mg) 3 ml Nebulizer once Route: Nebulizer; tm6 17:15 Follow up: Response: No adverse reaction; Pain is decreased tm6 16:56 Drug: HYDROmorphone IVP 1 mg IVP once Route: IVP; Site: Port-a-cath; tm6 17:15 Follow up: Response: No adverse reaction; Pain is decreased tm6 20:02 Drug: Magnesium Sulfate IVPB 1 grams IVPB once over 1 hrs Route: IVPB; Infused Over: 1 jj7 hrs; Site: PICC; 21:01 Follow up: IV Status: Completed infusion jj7 20:23 Drug: Potassium Chloride IV 20 mEq IV at calculated rate once; administer over 1-2 jj7 hours Route: IV; Rate: calculated rate; Site: right antecubital; 21:07 Follow up: IV Status: Infusion continued upon admission jj7 20:24 Not Given (Duplicate Order): potassium [id number] meq IV at calculated rate once; jj7 administer over 1-2 hours 21:08 Drug: HYDROmorphone IVP 1 mg IVP once Route: IVP; Site: Port-a-cath; jj7 21:11 Follow up: Response: Pain is decreased jj7 Medication: 16:02 VIS not applicable for this client. tm6 Outcome: 19:02 Decision to Hospitalize by Provider. cp 20:30 Admitted to Med/surg accompanied by naga, via stretcher, room 213, Report called to j SBAR FAXED TO 2ND FLOOR RECEIVED BY KRISTAN 21:09 Condition: improved jj7 21:12 Patient left the ED. jj7 Signatures: [facility] Carlos Nicolas PA PA cp Lewis, Lynsay, RN RN ll1 Zeeshan Lopez RN RN jj7 Gray Segovia RN RN tm6 Saranya Welch ra3
--- NOTE | 2024-06-09 19:03 | EDPHYS ---
Physician Documentation [facility] Name: Dwain Solorzano Age: 64 yrs Sex: Male : 1960 Arrival Date: 06/09/2024 Time: 15:42 Bed 14 Private MD: ED Physician Tre Snyder HPI: 06/09 16:10 This 64 yrs old Male presents to ER via Wheelchair with complaints of Abnormal Lab cp Results. 16:10 Patient is a 64-year-old male with a past medical history significant for stage IV cp metastatic lung cancer. Patient is currently receiving oral chemo and radiation and reports he had some blood drawn at the cancer center today that returned a low serum potassium level. Patient does complain of some shortness of breath and is not on any current oxygen treatment at home. No chest pain, no vomiting and/or diarrhea, and no fevers reported by patient. Historical: - Allergies: 15:54 No Known Allergies; ll1 - PMHx: 15:54 Atrial fibrillation; bone cancer; coronary atherosclerosis; Lung Cancer; ll1 - PSHx: 15:54 ablation; Coronary Angioplasty; Coronary artery bypass graft; Leg surgery; lymph node ll1 removal in neck; - Immunization history:: Adult Immunizations up to date. - Infectious Disease History:: Denies. - Social history:: Smoking status: Patient denies any tobacco usage or history of. ROS: 16:15 Constitutional: Negative for body aches, chills, fever, poor PO intake, cp 16:15 Eyes: Negative for injury, pain, redness, and discharge, cp 16:15 ENT: Negative for drainage from ear(s), ear pain, sore throat, difficulty swallowing, difficulty handling secretions, 16:15 Cardiovascular: Positive for edema, Negative for chest pain, palpitations, 16:15 Respiratory: Positive for shortness of breath, at rest. Negative for wheezing, 16:15 Abdomen/GI: Negative for abdominal pain, vomiting, diarrhea, constipation, black/tarry stool, rectal bleeding, 16:15 Neuro: Positive for weakness, Negative for altered mental status, syncope, 16:15 All other systems are negative, Exam: 16:20 Constitutional: The patient appears in no acute distress, alert, awake, cp non-diaphoretic, non-toxic, well developed, well nourished, 16:20 Head/Face: Normocephalic, atraumatic. cp 16:20 Eyes: Periorbital structures: appear normal, Conjunctiva: normal, no exudate, no injection, Sclera: no appreciated abnormality, Lids and lashes: appear normal, bilaterally, 16:20 ENT: External ear(s): are unremarkable, Nose: is normal, Mouth: Lips: moist, Oral mucosa: moist, Posterior pharynx: Airway: no evidence of obstruction, patent, 16:20 Neck: ROM/movement: is normal, is supple, without pain, no range of motions limitations, no meningismus, no nuchal rigidity, 16:20 Chest/axilla: Inspection: normal, 16:20 Cardiovascular: Rate: tachycardic, Rhythm: regular, Edema: ankle edema, that is mild, JVD: is not appreciated, 16:20 Respiratory: the patient does not display signs of respiratory distress, Respirations: labored breathing, that is mild, shallow respirations, that is mild, Breath sounds: decreased breath sounds, that are moderate, throughout, stridor, is not appreciated, wheezing: is not appreciated, 16:20 Abdomen/GI: Inspection: abdomen appears normal, Bowel sounds: active, all quadrants, Palpation: abdomen is soft and non-tender, in all quadrants, 16:20 Back: pain, is absent, ROM is normal, 16:20 Neuro: Orientation: to person, place \T\ time. Mentation: is normal, Motor: moves all fours, no focal deficits, Sensation: no obvious gross deficits, 16:55 ECG was reviewed by the Attending Physician. cp Vital Signs: 15:54 BP 143 / 77; Pulse 97; Resp 18; Temp 98.1; Pulse Ox 96% ; Weight 68.04 kg; Height 5 ft. ll1 10 in. ; Pain 9/10; 16:58 BP 126 / 75; Pulse 101; Resp 14; Pulse Ox 88% on R/A; Pain 10/10; tm6 17:00 Pulse Ox 100% on Nebulizer Mask; tm6 17:15 Pulse Ox 84% on R/A; tm6 17:15 Pulse Ox 93% on 2 lpm NC; tm6 18:01 BP 117 / 72; Pulse 102; Resp 12; Pulse Ox 95% on 2 lpm NC; tm6 19:15 BP 120 / 60; Pulse 106; Resp 17; Pulse Ox 97% ; jj7 20:16 BP 141 / 80; Pulse 95; Resp 16; Pulse Ox 97% on 2 lpm NC; jj7 21:09 BP 130 / 77; Pulse 104; Resp 16; Temp 98.1; Pulse Ox 99% on 2 lpm NC; jj7 15:54 Body Mass Index 21.52 (68.04 kg, 177.8 cm) ll1 15:54 Pain Scale: Adult ll1 16:58 Pain Scale: Adult tm6 MDM: 15:51 Patient medically screened. cp 17:00 Differential diagnosis: chf exacerbation, pulmonary edema, electrolyte abnormality, cp cardiac arrythmia. 19:05 Data reviewed: vital signs, nurses notes, lab test result(s), EKG, radiologic studies, cp plain films, and as a result, I will admit patient. 19:05 Management of patient was discussed with the following: Hospitalist: DR Stewart will cp admit after discussion. I considered the following discharge prescriptions or medication management in the emergency department Medications were administered in the Emergency Department. See MAR. Independent interpretation of the following test(s) in the Emergency Department EKG: See my EKG interpretation above. Care significantly affected by the following chronic conditions: Congestive Heart Failure, Cancer. Counseling: I had a detailed discussion with the patient and/or guardian regarding the historical points, exam findings, and any diagnostic results supporting the discharge/admit diagnosis, lab results, radiology results, the need for further work-up and treatment in the hospital. Response to treatment: the patient's symptoms have mildly improved after treatment. 06/09 16:08 Order name: Basic Metabolic Panel; Complete Time: 18:37 cp 06/09 18:38 Interpretation: Normal except: K 2.3; CL 94; CO2 38; GLUC 152; CRE 0.63. cp 06/09 16:08 Order name: CBC with Diff; Complete Time: 17:16 cp 12 17:17 Interpretation: Normal except: RBC 3.38; HGB 9.7; HCT 28.8; PLT 242; RDW 17.7; MPV 6.7; cp JACK% 76.2; LYM% 7.8; LYMA 0.5. 06/09 16:08 Order name: LFT's; Complete Time: 18:37 cp 09/12 18:38 Interpretation: Normal except: ALT 15; TP 6.0; ALB 2.0; GLOB 4.0; A/G 0.5. / 16:08 Order name: Magnesium; Complete Time: 18:37 06/09 18:38 Interpretation: Abnormal: MG 1.4. / 16:08 Order name: NT PRO-BNP; Complete Time: 18:37 06/09 16:08 Order name: PT-INR; Complete Time: 17:16 06/09 16:08 Order name: Troponin HS; Complete Time: 18:37 06/09 17:17 Order name: SARS RAPID 06/09 17:17 Order name: Influenza Screen (a \T\ B) 06/09 16:08 Order name: XRAY Chest (1 view); Complete Time: 17:16 06/09 18:45 Order name: CT Chest For PE Angio 06/09 19:32 Order name: Echo with Doppler EDOR 06/09 16:08 Order name: EKG; Complete Time: 16:08 06/09 16:08 Order name: Cardiac monitoring; Complete Time: 16:55 06/09 16:08 Order name: EKG - Nurse/Tech; Complete Time: 16:55 06/09 16:08 Order name: IV Saline Lock; Complete Time: 16:55 06/09 16:08 Order name: Labs collected and sent; Complete Time: 16:55 06/09 16:08 Order name: O2 Per Protocol; Complete Time: 16:55 06/09 16:08 Order name: O2 Sat Monitoring; Complete Time: 16:55 cp EC:55 Rate is 102 beats/min. Rhythm is regular. SD interval is normal. QRS interval is cp normal. QT interval is normal. Interpreted by me. Reviewed by me. Administered Medications: 16:55 Drug: DuoNeb Nebulize (2.5 mg - 0.5 mg) 3 ml Nebulizer once Route: Nebulizer; tm6 17:15 Follow up: Response: No adverse reaction; Pain is decreased tm6 16:56 Drug: HYDROmorphone IVP 1 mg IVP once Route: IVP; Site: Port-a-cath; tm6 17:15 Follow up: Response: No adverse reaction; Pain is decreased tm6 20:02 Drug: Magnesium Sulfate IVPB 1 grams IVPB once over 1 hrs Route: IVPB; Infused Over: 1 jj7 hrs; Site: PICC; 21:01 Follow up: IV Status: Completed infusion 20:23 Drug: Potassium Chloride IV 20 mEq IV at calculated rate once; administer over 1-2 jj7 hours Route: IV; Rate: calculated rate; Site: right antecubital; 21:07 Follow up: IV Status: Infusion continued upon admission 20:24 Not Given (Duplicate Order): potassium [id number] meq IV at calculated rate once; administer over 1-2 hours 21:08 Drug: HYDROmorphone IVP 1 mg IVP once Route: IVP; Site: Port-a-cath; 21:11 Follow up: Response: Pain is decreased Disposition: 19:47 Co-signature as Attending Physician, Tre Snyder MD I reviewed the patient's care rt provided by the Advanced Practice Provider and agree with the diagnosis and treatment plan. Disposition Summary: 06/09/24 19:02 Hospitalization Ordered Notes: Hospitalization Status: Inpatient Admission cp Provider: Prince armida Stewart Location: Telemetry/MedSurg (Inpatient) cp Condition: Stable cp Problem: new cp Symptoms: have improved cp Bed/Room Type: Standard cp Room Assignment: 213(06/09/24 19:26) rv1 Diagnosis - Hypokalemia cp - Hypomagnesemia cp - Hypoxemia cp Forms: - Medication Reconciliation Form cp - SBAR form cp - Leadership Thank You Letter cp Signatures: Dispatcher [employer] EDCarlos Salinas PA PA cp Tara Carpenter RN RN ll1 Zeeshan Lopez RN RN jj7 Tre Snyder MD MD rt Katerina Arnold rv1 Gray Segovia RN RN tm6 Corrections: (The following items were deleted from the chart) 19: 19:02 cp rv1
[2024-06-09] MEDS ORDERED: NS KCL 20MEQ 1,000 ML IV ONE (19:09)
[2024-06-09] MEDS ORDERED: MAGNESIUM SULFATE 1 gm IVPB 1 GM/100 ML BAG IV ONE (19:09)
[2024-06-09] MEDS: ACETAZOLAMIDE 500 MG IV IV ONE ×2 (19:25→23:00)
[2024-06-09] MEDS: Magnesium Sulfate 2gm IVPB 2 G/50 ML BAG IV ONE (19:30)
[2024-06-09] MEDS: POTASSIUM CL SA 10 MEQ TAB PO ONE ×2 (19:30→23:00)
--- NOTE | 2024-06-09 19:31 | P.HP ---
Certification for Inpatient Patient admitted to: Inpatient With expected LOS: >2 Midnights Practitioner: I am a practitioner with admitting privileges, knowledge of patient current condition, hospital course, and medical plan of care. Services: Services provided to patient in accordance with Admission requirements found in Title 42 Section 412.3 of the Code of Federal Regulations Patient History Date of Service: 06/09/24 Reason for admission: chf exacerbation History of Present Illness: Patient is a 64-year-old male with a past medical history of stage IV cancer, coronary disease status post PCI, and atrial fibrillation on Eliquis. He presented to the ER after he was called by the cancer center regarding low potassium. He arrived with a potassium of 2.3, and a magnesium of 1.6. Workup in the ER included a chest x-ray which revealed evidence of pulmonary edema. Patient has been having intermittent lower extremity edema and shortness of breath. Allergies No Known Allergies Allergy (Verified 01/18/24 08:18) Home Medications: Atorvastatin Calcium 80 mg PO DAILY 01/05/24 Cholecalciferol (Vitamin D3) [Vitamin D 5,000 IU Cap*] 5,000 units PO DAILY 01/05/24 Clopidogrel Bisulfate [Plavix*] 75 mg PO DAILY 01/05/24 Metoprolol Tartrate 50 mg PO BID 01/05/24 fentaNYL [Fentanyl] 75 mg TD SEECOM 02/16/24 Gabapentin 300 mg PO TID 30 Days #90 tab 02/19/24 Tamsulosin [Flomax*] 0.4 mg PO BEDTIME #30 cap 02/19/24 lisinopriL [Prinivil*] 10 mg PO DAILY 30 Days #30 tab 02/19/24 Hydromorphone [Dilaudid] 4 mg PO Q6HP PRN #30 tab 03/14/24 Lidocaine 4% Patch [Lidoderm 5% Patch*] 1 patch TD DAILY #30 patch 03/14/24 dexAMETHasone [Decadron*] 4 mg PO BID #18 tab 03/14/24 - Past Medical/Surgical History Diabetic: No -: Lung cancer with metastasis -: Atrial fibrillationstatus post cardioversion -: History of hypertension -: cardioversion -: placement of SVC portacath Psychosocial/ Personal History: Lives at home. Denies ill contacts. - Family History Father -: Heart disease, Cancer, Other (see notes) Notes: skin CA Mother -: Heart disease, Diabetes - Social History Alcohol use: Yes CD- Drugs: No Caffeine use: No Physical Examination - Physical Exam General: Other (Ill-appearing) HEENT: Atraumatic, Normocephalic Respiratory: Diminished Cardiovascular: Edema (Lower extremity edema. Chemo-Port in place) Neurological: Normal speech - Studies Laboratory Data (last 24 hrs) 06/09/24 06/09/24 06/09/24 16:37 16:37 16:37 WBC 6.40 Hgb 9.7 L D Hct 28.8 L Plt Count 242 D PT 13.3 H INR 1.19 Sodium 136 Potassium 2.3 L* BUN 8 Creatinine 0.63 L Glucose 152 H Magnesium 1.4 L Total Bilirubin 0.6 AST 17 ALT 15 L Alkaline Phosphatase 65 Assessment and Plan - Problems (Diagnosis) (1) Acute hypoxemic respiratory failure Current Visit: Yes Status: Acute (2) CHF exacerbation Current Visit: Yes Status: Acute (3) CAD (coronary artery disease) Current Visit: Yes Status: Acute (4) Atrial fibrillation Current Visit: Yes Status: Acute (5) Metastatic lung cancer (metastasis from lung to other site) Current Visit: No Status: Acute - Plan Assessment Patient is a 64-year-old male with past medical history of stage IV lung cancer which is followed up at [facility], coronary disease status post PCI off Plavix after a year of therapy, and atrial fibrillation currently on Eliquis. He presented to the ER upon recommendation from the cancer center due to low potassium. Upon arrival, patient was found to have potassium of 2.3 and a magnesium of 1.6. His BNP is also elevated at 2666. Chest x-ray shows pulmonary edema. Patient was reportedly hypoxic on room air. Acute hypoxemic respiratory failure Suspected CHF exacerbation Hypokalemia Hypomagnesemia Metabolic alkalosis Stage IV lung cancer Coronary disease Atrial fibrillation Plan: Admit inpatient with telemetry Start patient on Diamox to avoid contraction alkalosis 2D echo Monitor ins and out Repeat electrolytes including potassium and magnesium. Recheck electrolytes in the Resume rest of home medication upon discharge Consider cardiology consult Patient is full code - Advance Directives Does patient have a Living Will: No Does patient have a Durable POA for Healthcare: No
[2024-06-09 21:14] LABS: SARS-CoV-2 Antigen CONTROL BLUE LINE VIS/BG OK; SARS-CoV-2 Antigen Rapid Res Negative (Negative)
[2024-06-09] MEDS: HYDROMORPHONE HCL 1 MG/ML INJ IV ONE (23:17)
[2024-06-10] MEDS: HYDROMORPHONE HCL 1 MG/ML INJ IV ONE (05:19)
[2024-06-10 05:52] LABS: Absolute Eosinophils 0.3 K/uL (0-0.5); Absolute Lymphocytes (CBC) 0.3 K/uL (0.7-4.9); Absolute Monocytes 0.7 K/uL (0.1-1.3); Absolute Neutrophil 4.4 K/uL (1.8-8.0); Basophils % 0.6 % (0-1.3); Eosinophils % 4.7 % (0-4.4); Hematocrit 28.4 % (39.6-49.0); Hemoglobin 9.1 g/dL (13.6-17.9); Lymphocytes % 5.9 % (15.3-44.8); MCH 27.9 pg (27.0-35.0); MCHC 32.1 g/dL (32.0-36.0); MCV 86.9 fL (80-100); MPV 6.8 fL (7.6-11.3); Neutrophils % 76.8 % (41.7-73.7); Platelets 217 thou/uL (152-406); RBC Red Blood Cell Count 3.27 M/uL (4.33-5.43); Red Cell Distribution Width 17.4 % (12.1-15.2)
[2024-06-10 06:03] LABS: Anion Gap 6.4 mEq/L (5.0-15.0); Magnesium 1.7 mg/dL (1.6-2.4)
[2024-06-10 06:25] LABS: Potassium 2.4 mEq/L (3.5-5.1)
[2024-06-10] MEDS: POTASSIUM CL SA 10 MEQ TAB PO SCH (10:22)
[2024-06-10] MEDS: MAGNESIUM SULFATE 1 gm IVPB 1 GM/100 ML BAG IV ONE (10:22)
[2024-06-10] MEDS: HYDROMORPHONE HCL 1 MG/ML INJ IV PRN (11:55)
--- NOTE | 2024-06-10 12:59 | P.PN ---
Subjective Date of Service: 06/10/24 Chief Complaint: chf exacerbation Pt is resting comfortably in bed. He complains of pain in his legs. He wants dialudid. Potassium is 2.4. BNP is 2666 and Troponin is 48.1. HE was sent to the ER due to hypokalemia. No other complaints. Review of Systems General: Unremarkable Eyes: Unremarkable ENT: Unremarkable Respiratory: Unremarkable Cardiovascular: Unremarkable Gastrointestinal: Unremarkable Genitourinary: Unremarkable Musculoskeletal: Leg Pain, Pedal edema Integumentary: Unremarkable Neurological: Unremarkable Lymphatics: Unremarkable Physical Examination - Vital Signs Temperature: 97.3 F Blood Pressure: 127/79 Pulse: 103 Respirations: 16 Pulse Ox (%): 95 - Physical Exam General: Alert, In no apparent distress, Oriented x3 HEENT: Atraumatic, Normocephalic, PERRLA Neck: Supple, 2+ carotid pulse no bruit, JVD not distended Respiratory: Clear to auscultation bilaterally, Normal air movement Cardiovascular: No edema, Normal pulses, Regular rate/rhythm Capillary refill: <2 Seconds Gastrointestinal: Normal bowel sounds, Soft and benign, Non-distended Musculoskeletal: No clubbing, No contractures, Swelling Integumentary: No rashes, No breakdown, No significant lesion Neurological: Normal gait, Normal speech, Normal strength at 5/5 x4 extr Lymphatics: No axilla or inguinal lymphadenopathy - Studies Laboratory Data (last 24 hrs) 06/09/24 06/09/24 06/09/24 16:37 16:37 16:37 WBC 6.40 Hgb 9.7 L D Hct 28.8 L Plt Count 242 D PT 13.3 H INR 1.19 Sodium 136 Potassium 2.3 L* BUN 8 Creatinine 0.63 L Glucose 152 H Magnesium 1.4 L Total Bilirubin 0.6 AST 17 ALT 15 L Alkaline Phosphatase 65 Assessment And Plan - Plan Possible CHF exacerbation: BNP is 2666 and pt has leg edema. Will f/u Echo to r/o CHF. Continue lasix, strict I/O and daily weight. Consulted Cardiology Acute hypoxemic respiratory failure: Due to CHF exacerbation. Will continue lasix Hypokalemia: K is 2.4. Will replete and monitor. Hypomagnesemia: mag is 1.7 <- 1.4. Will replete andmonitor. Contraction alkalosis: Continue diamox Stage IV lung cancer: Continue f/u with oncologist in clinic. Coronary disease: Continue home med Atrial fibrillation: Will continue telemetry, BB and AC DVT ppx: SCD Code: full
[2024-06-10] MEDS: FUROSEMIDE 20 MG TABLET PO SCH (14:40)
--- NOTE | 2024-06-10 16:36 | RAD REPORT ---
EXAMINATION: CTA CHEST PE CLINICAL INDICATION: Male, 64 years old. Shortness of breath TECHNIQUE: This examination was performed according to an angiographic protocol with 3D post-processi ng. This involves 3D reconstructions, MIPs, volume rendered images and/or shaded surface rendering. One or more of the following dose reduction techniques were used: Automated exposure control, adjustm ent of the mA and/or kV according to patient size, and/or iterative reconstruction. Unless otherwise specified, incidental findings do not require dedicated imaging follow-up. [id number]. COMPARISON: CT 03/11/2024, PET/CT 03/17/2024 FINDINGS: LOWER NECK: Visualized thyroid gland and soft tissues are normal. LUNGS AND AIRWAYS: Patchy bilateral groundglass opacities within the visualized upper lobes, right mi ddle lobe, lingula. This is new from prior. PLEURA: Moderate bilateral pleural effusions. MEDIASTINUM AND LYMPH NODES: No mediastinal or hilar lymphadenopathy. The thoracic aorta below. THORACIC AORTA: Low-density soft tissue mass along the descending thoracic aorta just posterior to th e left mainstem bronchus measuring approximately 6. By 5.3 cm is not significantly change. This does have some mass effect on the left mainstem bronchus which is mildly narrowed and displaced anter iorly. PULMONARY ARTERIES: Good quality examination. Normal caliber. No evidence of pulmonary emboli to the subsegmental level. HEART: Normal heart size. No pericardial effusion. No coronary calcifications. OSSEOUS STRUCTURES AND CHEST WALL: Sternotomy. Right upper chest wall Port-A-Cath. UPPER ABDOMEN: No significant abnormalities. IMPRESSION: No evidence of pulmonary emboli to the subsegmental level. Moderate bilateral pleural effusions with likely underlying atelectasis. Patchy groundglass opacities predominately in the upper lungs could be secondary to pulmonary edema a nd/or post radiation pneumonitis. The low density known mass along the descending thoracic aorta is unchanged.
--- NOTE | 2024-06-10 17:26 | P.CNS ---
Date of Consult: 06/10/24 Chief Complaint: chf exacerbation History of Present Illness: Patient with PMH of HTN, Lung cancer s/p chemotherapy and suppose to be getting radiation therapy presented with abnormal blood work, low K level and report lower extremities edema and SOB, patient has not been feeling well and not eating good. denies any other cardiac symptoms. Allergies No Known Allergies Allergy (Verified 01/18/24 08:18) Home medications list reviewed: Yes Home Medications: Atorvastatin Calcium 40 mg PO BEDTIME 01/05/24 Cholecalciferol (Vitamin D3) [Vitamin D 5,000 IU Cap*] 5,000 units PO DAILY 01/05/24 Metoprolol Tartrate 50 mg PO BID 01/05/24 fentaNYL [Fentanyl] 75 mg TD SEECOM 02/16/24 Tamsulosin [Flomax*] 0.4 mg PO BEDTIME #30 cap 02/19/24 dexAMETHasone [Decadron*] 4 mg PO BID #18 tab 03/14/24 Alpelisib [Piqray] 300 mg PO DAILY 06/09/24 Hydromorphone [Dilaudid] 4 mg PO Q4H PRN 06/09/24 lisinopriL [Prinivil*] 5 mg PO DAILY 06/09/24 - Past Medical/Surgical History Diabetic: No -: Lung cancer with metastasis -: Atrial fibrillationstatus post cardioversion -: History of hypertension -: cardioversion -: placement of SVC portacath Psychosocial/ Personal History: Lives at home. Denies ill contacts. - Family History Father Medical History: Heart disease, Cancer, Other (see notes) Notes: skin CA Mother Medical History: Heart disease, Diabetes - Social History Alcohol use: No CD- Drugs: No Caffeine use: No Place of Residence: Home Review of Systems 10-point ROS is otherwise unremarkable Physical Examination Temp Pulse Resp BP Pulse Ox 97.3 F 100 H 12 145/85 H 100 06/10/24 16:00 06/10/24 16:00 06/10/24 16:00 06/10/24 16:06/10/24 16:00 General: Alert, In no apparent distress HEENT: Atraumatic, PERRLA, Mucous membr. moist/pink, EOMI, Sclerae nonicteric Neck: Supple, 2+ carotid pulse no bruit, No LAD, Without JVD or thyroid abnormality Respiratory: Clear to auscultation bilaterally, Normal air movement Cardiovascular: Regular rate/rhythm, Normal S1 S2 Gastrointestinal: Normal bowel sounds, No tenderness Musculoskeletal: No tenderness Integumentary: No rashes Neurological: Normal gait, Normal speech, Normal tone, Normal affect Lymphatics: No axilla or inguinal lymphadenopathy Laboratory Data (last 24 hrs) 06/09/24 16:37 Sodium 136 Potassium 2.3 L* BUN 8 Creatinine 0.63 L Glucose 152 H Magnesium 1.4 L Total Bilirubin 0.6 AST 17 ALT 15 L Alkaline Phosphatase 65 - Problems (1) Chronic diastolic heart failure Current Visit: Yes Status: Acute Plan: Patient looks euvolemic on exam, echo shows normal filling pressures, patient mild lower extremities swelling most likely secondary to low albumin, recommend giving patient albumin with lasix 20 mg daily (2) HTN (hypertension) Current Visit: Yes Status: Acute Plan: resume patient home medications. correct potassium aggressively. (3) Atrial fibrillation Current Visit: Yes Status: Acute Plan: continue lopressor 50 mg po BID Continue Eliquis 5 mg po BID
[2024-06-10 21:32] VITALS: BMI 22.3
[2024-06-11] MEDS: HYDROMORPHONE HCL 1 MG/ML INJ IV ONE (01:21)
[2024-06-11 06:40] LABS: Absolute Eosinophils 0.2 K/uL (0-0.5); Absolute Lymphocytes (CBC) 0.3 K/uL (0.7-4.9); Absolute Monocytes 0.7 K/uL (0.1-1.3); Absolute Neutrophil 4.4 K/uL (1.8-8.0); Basophils % 0.5 % (0-1.3); Eosinophils % 4.2 % (0-4.4); Hematocrit 25.5 % (39.6-49.0); Hemoglobin 8.5 g/dL (13.6-17.9); Lymphocytes % 4.9 % (15.3-44.8); MCH 28.9 pg (27.0-35.0); MCHC 33.5 g/dL (32.0-36.0); MCV 86.2 fL (80-100); MPV 6.6 fL (7.6-11.3); Monocytes % 11.8 % (3.3-12.3); Neutrophils % 78.6 % (41.7-73.7); Nucleated Red Blood Cells % 0.1 % (0-0); Platelets 206 thou/uL (152-406); RBC Red Blood Cell Count 2.95 M/uL (4.33-5.43); Red Cell Distribution Width 17.8 % (12.1-15.2)
[2024-06-11 06:50] LABS: Anion Gap 9.1 mEq/L (5.0-15.0); Magnesium 1.9 mg/dL (1.6-2.4); Potassium 3.1 mEq/L (3.5-5.1)
[2024-06-11] MEDS: POTASSIUM CL SA 10 MEQ TAB PO ONE ×2 (09:12→12:00)
[2024-06-11] MEDS: ALBUMIN HUMAN 25% 50 ML IV ONE (09:46)
--- NOTE | 2024-06-11 10:41 | P.PN ---
Subjective Date of Service: 06/11/24 Chief Complaint: chf exacerbation Pt is resting comfortably in bed. He complains of pain in his legs. He wants dialudid 2mg iv. Potassium is 3.1<- 2.4. Albumin is 2.0. Will give iv albumin. BNP is 2666 and Troponin is 48.1. No other complaints. Review of Systems General: Unremarkable Eyes: Unremarkable ENT: Unremarkable Respiratory: Unremarkable Cardiovascular: Unremarkable Gastrointestinal: Unremarkable Genitourinary: Unremarkable Musculoskeletal: Unremarkable Integumentary: Unremarkable Neurological: Unremarkable Lymphatics: Unremarkable Physical Examination - Vital Signs Temperature: 97.5 F Blood Pressure: 134/83 Pulse: 105 Respirations: 12 Pulse Ox (%): 95 - Physical Exam General: Alert, In no apparent distress, Oriented x3 HEENT: Atraumatic, Normocephalic, PERRLA Neck: Supple, 2+ carotid pulse no bruit, JVD not distended Respiratory: Clear to auscultation bilaterally, Normal air movement Cardiovascular: No edema, Normal pulses, Regular rate/rhythm, Normal S1 S2 Capillary refill: <2 Seconds Gastrointestinal: Normal bowel sounds, Soft and benign, Non-distended Musculoskeletal: No clubbing, No swelling, No contractures, No erythema Integumentary: No rashes, No breakdown, No significant lesion, No tenderness/swelling Neurological: Normal gait, Normal speech, Normal strength at 5/5 x4 extr Lymphatics: No axilla or inguinal lymphadenopathy Assessment And Plan - Plan Possible CHF exacerbation: BNP is 2666 and pt has leg edema. Will f/u Echo to r/o CHF. Continue lasix 20mg po daily, strict I/O and daily weight. Consulted Cardiology Hypoalbuminemia: Likely source of the pedal edema. Albumin is 2. Will give iv albumin. Acute hypoxemic respiratory failure: Due to CHF exacerbation. Will continue lasix Hypokalemia: K is 3.1<- 2.4. Will replete and monitor. Hypomagnesemia: mag is 1.7 <- 1.4. Repleted Will monitor. Contraction alkalosis: Continue diamox Anemia: Hgb iss 8.5. Will monitor H/H. Stage IV lung cancer: Continue f/u with oncologist in clinic. Will continue prn dilaudid 2mg iv Q6h prn. Coronary disease: Continue home med Atrial fibrillation: Will continue telemetry, metoprolol and eliquis. DVT ppx: SCD Code: full DIspo: Pending hospital course.
[2024-06-11] MEDS: HYDROMORPHONE HCL 1 MG/ML INJ IV PRN (13:50)
[2024-06-11] MEDS: FENTANYL 75 MCG/PATCH TD SCH (15:03)
[2024-06-11] MEDS ORDERED: HYDROMORPHONE HCL 1 MG/ML INJ IV PRN (18:28)
[2024-06-11] MEDS: HYDROMORPHONE HCL 2 MG/ML inj IV PRN (18:39)
[2024-06-11 19:35] VITALS: O2SAT 98
[2024-06-12 06:17] LABS: Absolute Eosinophils 0.2 K/uL (0-0.5); Absolute Lymphocytes (CBC) 0.3 K/uL (0.7-4.9); Absolute Monocytes 0.8 K/uL (0.1-1.3); Absolute Neutrophil 5.2 K/uL (1.8-8.0); Basophils % 0.4 % (0-1.3); Eosinophils % 3.6 % (0-4.4); Hemoglobin 8.7 g/dL (13.6-17.9); Lymphocytes % 4.6 % (15.3-44.8); MCH 28.5 pg (27.0-35.0); MCHC 32.4 g/dL (32.0-36.0); MCV 88.1 fL (80-100); MPV 7.3 fL (7.6-11.3); Monocytes % 12.3 % (3.3-12.3); Neutrophils % 79.1 % (41.7-73.7); Nucleated Red Blood Cells % 0.3 % (0-0); Platelets 135 thou/uL (152-406); RBC Red Blood Cell Count 3.06 M/uL (4.33-5.43); Red Cell Distribution Width 17.3 % (12.1-15.2)
[2024-06-12 06:28] LABS: Anion Gap 11.6 mEq/L (5.0-15.0)
[2024-06-12 06:41] LABS: Magnesium 1.6 mg/dL (1.6-2.4); Potassium 4.6 mEq/L (3.5-5.1)
--- NOTE | 2024-06-12 08:15 | P.PN ---
Subjective Date of Service: 06/12/24 Chief Complaint: chf exacerbation Pt is resting comfortably in bed. He complains of pain in his legs. We increased dialudid to 2mg iv q4h prn. Potassium is 4.6<- 3.1<- 2.4. Albumin is 2.0. Will give iv albumin. BNP is 2666 and Troponin is 48.1. No other complaints. Review of Systems General: Unremarkable Eyes: Unremarkable ENT: Unremarkable Respiratory: Unremarkable Cardiovascular: Unremarkable Gastrointestinal: Unremarkable Genitourinary: Unremarkable Musculoskeletal: Pedal edema Integumentary: Unremarkable Neurological: Unremarkable Lymphatics: Unremarkable Physical Examination - Vital Signs Temperature: 98.2 F Blood Pressure: 140/76 Pulse: 107 Respirations: 18 Pulse Ox (%): 95 - Physical Exam General: Alert, In no apparent distress, Oriented x3 HEENT: Atraumatic, Normocephalic, PERRLA Neck: Supple, 2+ carotid pulse no bruit, JVD not distended Respiratory: Clear to auscultation bilaterally, Normal air movement, Diminished Cardiovascular: No edema, Normal pulses, Regular rate/rhythm, Normal S1 S2 Capillary refill: <2 Seconds Gastrointestinal: Normal bowel sounds, Soft and benign, Non-distended Musculoskeletal: No clubbing, No swelling, No contractures, No erythema Integumentary: No rashes, No breakdown, No significant lesion, No tenderness/swelling Neurological: Normal gait, Normal speech, Normal strength at 5/5 x4 extr Lymphatics: No axilla or inguinal lymphadenopathy Assessment And Plan - Plan Possible CHF exacerbation: BNP is 2666. Pedal edema has resolved. Will f/u Echo to r/o CHF. Continue lasix 20mg po daily, strict I/O and daily weight. Consulted Cardiology. Hypoalbuminemia: Likely source of the pedal edema. Albumin is 2. Will give iv albumin. Acute hypoxemic respiratory failure: Due to CHF exacerbation. Will continue lasix Hypokalemia: K is 4.6<- 3.1<- 2.4. Will replete and monitor. Hypomagnesemia: mag is 1.7 <- 1.4. Repleted Will monitor. Contraction alkalosis: Continue diamox Anemia: Hgb is 8.7<- 8.5. Will monitor H/H. Stage IV lung cancer: Continue f/u with oncologist in clinic. Will continue prn dilaudid 2mg iv Q4h prn. Coronary disease: Continue home med Atrial fibrillation: Will continue telemetry, metoprolol and eliquis. DVT ppx: SCD Code: full DIspo: Pending hospital course.
[2024-06-12 12:14] VITALS: BP 117/71; TEMP 97.4
--- NOTE | 2024-06-12 12:40 | P.DS ---
Admission Date: 06/09/24 Discharge Date: 06/12/24 Disposition: ROUTINE DISCHARGE Discharge Condition: GOOD Reason for Admission: chf exacerbation Brief History of Present Illness: Patient is a 64-year-old male with a past medical history of stage IV cancer, coronary disease status post PCI, and atrial fibrillation on Eliquis. He presented to the ER after he was called by the cancer center regarding low potassium. He arrived with a potassium of 2.3, and a magnesium of 1.6. Workup in the ER included a chest x-ray which revealed evidence of pulmonary edema. Patient has been having intermittent lower extremity edema and shortness of breath. Hospital Course: Patient is a 64yo male with past medical history of stage IV lung cancer, coronary disease status post PCI, and atrial fibrillation on Eliquis who presented with hypokalemia. On admission, lab studies showed BNP 2666, albumin 2, Potassium of 2.3 and magnesium of 1.6. Chest x-ray revealed evidence of pulmonary edema. We admitted pt for intermittent lower extremity edema and shortness of breath. We continued lasix and consulted cardiology. Cardiology attributed the leg edema to low albumin. We repleted albumin and electrolytes. We also optimized pain medicine. We continued home med for other chronic medical problems. Pt was in NAD prior to discharge. Vital Signs/Physical Exam: Temp Pulse Resp BP Pulse Ox 97.4 F 109 H 16 117/71 94 06/12/24 12:00 06/12/24 12:00 06/12/24 12:00 06/12/24 12:00 06/12/24 12:00 Laboratory Data at Discharge: WBC 6.60 thou/uL (4.3-10.9) 06/12/24 06:00 Hgb 8.7 g/dL (13.6-17.9) L 06/12/24 06:00 Hct 27.0 % (39.6-49.0) L 06/12/24 06:00 Plt Count 135 thou/uL (152-406) L D 06/12/24 06:00 PT 13.3 SECONDS (9.4-12.5) H 06/09/24 16:37 INR 1.19 06/09/24 16:37 Sodium 134 mEq/L (136-145) L 06/12/24 06:00 Potassium 4.6 mEq/L (3.5-5.1) D 06/12/24 06:00 BUN 6 mg/dL (7-18) L 06/12/24 06:00 Creatinine 0.30 mg/dL (0.70-1.30) L 06/12/24 06:00 Glucose 96 mg/dL (74-106) 06/12/24 06:00 Magnesium 1.6 mg/dL (1.6-2.4) 06/12/24 06:00 Total Bilirubin 0.6 mg/dL (0.2-1.0) 06/09/24 16:37 AST 17 U/L (15-37) 06/09/24 16:37 ALT 15 U/L (16-61) L 06/09/24 16:37 Alkaline Phosphatase 65 U/L (45-117) 06/09/24 16:37 Home Medications: Atorvastatin Calcium 40 mg PO BEDTIME 01/05/24 Cholecalciferol (Vitamin D3) [Vitamin D 5,000 IU Cap*] 5,000 units PO DAILY 01/05/24 Metoprolol Tartrate 50 mg PO BID 01/05/24 fentaNYL [Fentanyl] 75 mg TD SEECOM 02/16/24 Tamsulosin [Flomax*] 0.4 mg PO BEDTIME #30 cap 02/19/24 Alpelisib [Piqray] 300 mg PO DAILY 06/09/24 Hydromorphone [Dilaudid*] 4 mg PO Q4H PRN 06/09/24 lisinopriL [Prinivil*] 5 mg PO DAILY 06/09/24 Duloxetine HCl 30 mg PO DAILY 06/10/24 Pantoprazole [Protonix Tab*] 40 mg PO DAILY 06/10/24 Furosemide [Lasix*] 20 mg PO DAILY 30 Days #30 tab 06/12/24 New Medications: Furosemide [Lasix*] 20 mg PO DAILY 30 Days #30 tab Physician Discharge Instructions: Continue ad milad activity as tolerated. Take lasix 20mg po daily and other home meds. Follow up with PCP and Oncology within 1 - 2 weeks. Diet: AHA Activity: Ad milad Followup: Andre Brooks MD [Primary Care Provider] -
[2024-06-12] MEDS: HEPARIN 500 UNIT/5 ML SYR IV PRN (13:43)
--- NOTE | 2024-06-13 07:01 | ECHO ---
HEIGHT: 5 ft 10 in WEIGHT: 155 lb 12 oz DATE OF STUDY: 06/10/[address]: Prince Henrietta Stewart MD 2-DIMENSIONAL: YES M.MODE: YES DOPPLER: YES COLOR FLOW: YES TDS: PORTABLE: YES DEFINITY: BUBBLE STUDY: DIAGNOSIS: CONGESTIVE HEART FAILURE CARDIAC HISTORY: CATHERIZATION: YES SURGERY: YES PROSTHETIC VALVE: PACEMAKER: MEASUREMENTS (cm) DIASTOLIC (NORMALS) SYSTOLIC (NORMALS) IVSd (0.6-1.2) LA Diam (1.9-4.0) LVEF 60-65% LVIDd (3.5-5.7) LVIDs (2.0-3.5) %FS LVPWd (0.6-1.2) Ao Diam 3.2 (2.0-3.7) 2 DIMENSIONAL ASSESSMENT: RIGHT ATRIUM: NORMAL LEFT ATRIUM: NORMAL RIGHT VENTRICLE: NORMAL LEFT VENTRICLE: NORMAL TRICUSPID VALVE: TRACE TRICUSPID REGURGITATION MITRAL VALVE: SEVERE MITRAL ANNULAR CALCIFICATION, MILD MITRAL STENOSIS, MILD MITRAL REGURGITATION PULMONIC VALVE: NORMAL AORTIC VALVE: CALCIFIED PERICARDIAL EFFUSION: PERICARDIAL FAT PAD AORTIC ROOT: NORMAL LEFT VENTRICULAR WALL MOTION: NORMAL DOPPLER/COLOR FLOW: DIASTOLIC DYSFUNCTION COMMENTS: 1. NORMAL LEFT VENTRICULAR SYSTOLIC FUNCTION, EJECTION FRACTION 60-65%, NORMAL WALL MOTION 2. DIASTOLIC DYSFUNCTION 3. SEVERE MITRAL ANNULAR CALCIFICATION, MILD MITRAL STENOSIS, MILD MITRAL REGURGITATION 4. NORMAL FILLING PRESSURE (RIGHT ATRIAL PRESSURE 0-5 mmHg) TECHNOLOGIST: SERA WILSON
--- NOTE | 2024-06-13 13:02 | EKG ---
Test Date: 2024-06-09 Test Time: 16:48:51 Group Reservations Coordinator: CHRISTIANO MEASUREMENT RESULTS: Intervals: Rate: 102 UT: 164 QRSD: 72 QT: 384 QTc: 500 Armstrong: P: 77 UT: 164 QRS: -18 T: 37 INTERPRETIVE STATEMENTS: Sinus tachycardia with premature ventricular complexes or fusion complexes ST & T wave abnormality, consider anterior ischemia Abnormal ECG Compared to ECG 03/27/2024 16:41:52 Fusion complex(es) now present Ventricular premature complex(es) now present Possible ischemia now present ST (T wave) deviation still present Electronically Signed On 06-13-24 12:51:24 CDT by Herrera Woods
== END 2024-06-12 14:21 | disposition home or self-care (01) | DRG 291 ==
LOC: ER 15:42 → ERHOLD 19:32 → 2ND 20:57
PROVIDERS: ADMIT Internal Medicine; ATTEND Hospitalist
DX: I11.0 Hypertensive heart disease with heart failure (principal); I50.33 Acute on chronic diastolic (congestive) heart failure; J96.01 Acute respiratory failure with hypoxia; C78.00 Secondary malignant neoplasm of unspecified lung; C34.90 Malignant neoplasm of unspecified part of unspecified bronchus or lung; E87.3 Alkalosis; E87.6 Hypokalemia; D64.9 Anemia, unspecified; E83.42 Hypomagnesemia; I48.91 Unspecified atrial fibrillation; E88.09 Other disorders of plasma-protein metabolism, not elsewhere classified; I25.10 Atherosclerotic heart disease of native coronary artery without angina pectoris; Z95.1 Presence of aortocoronary bypass graft; Z11.52 Encounter for screening for COVID-19; Z79.02 Long term (current) use of antithrombotics/antiplatelets; Z79.899 Other long term (current) drug therapy
CPT/HCPCS: 36415; 71045; 71275; 80048; 80076; 82040; 82947; 83735; 83880; 84484; 85025; 85610; 87804; 87811; 93005; 93306; 99285; J1120; J1170; J1642; J3475; J3480; J7613; J7644; P9047; Q9967

== ENCOUNTER 2024-07-07 07:38 | Inpatient (IN) | payer OTHER ==
[2024-07-07] MEDS ORDERED: ONDANSETRON 4 MG/2 ML VIAL ONE (08:14)
[2024-07-07] MEDS ORDERED: BISACODYL 10 MG RECTAL SUPP ONE (08:14)
[2024-07-07] MEDS ORDERED: LACTULOSE 20 GM/30 ML UCUP ONE (08:15)
[2024-07-07] MEDS ORDERED: FAMOTIDINE 20 MG/2 ML VIAL IV ONE (08:15)
[2024-07-07 08:59] LABS: Calcium Oxalate Crystals- Ur Few /HPF (None Seen); Specific Gravity 1.016 (1.005-1.030); Sqamous Epithelial None Seen /HPF (None Seen); Urine Bacteria Loaded /HPF (<20); Urine Bilirubin NEGATIVE (Negative); Urine Blood Trace (Negative); Urine Clarity Extremely Turbid (Clear); Urine Color Light-Orange (Yellow); Urine Culture Reflex Order REFLEXED; Urine Glucose NEGATIVE (Negative); Urine Ketones NEGATIVE (Negative); Urine Microscopic Reflex YN ORDER UMIC; Urine Mucus 1+ /HPF (None Seen); Urine Nitrite NEGATIVE (Negative); Urine Protein 1+ (Negative); Urine RBC 21-50 /HPF (None Seen); Urine Urobilinogen Normal (Normal); Urine WBC >50 /HPF (<5); Urine Yeast (Budding) Many /HPF (None Seen); Urine pH 6.5 (5.0-7.0)
[2024-07-07 09:10] LABS: Absolute Lymphocytes (CBC) 0.7 K/uL (0.7-4.9); Absolute Monocytes 1.1 K/uL (0.1-1.3); Absolute Neutrophil 7.5 K/uL (1.8-8.0); Basophils % 0.5 % (0-1.3); Eosinophils % 9.2 % (0-4.4); Hematocrit 30.1 % (39.6-49.0); Lymphocytes % 6.8 % (15.3-44.8); MCH 28.6 pg (27.0-35.0); MCHC 33.3 g/dL (32.0-36.0); MCV 85.9 fL (80-100); MPV 6.5 fL (7.6-11.3); Monocytes % 10.8 % (3.3-12.3); Neutrophils % 72.7 % (41.7-73.7); Platelets 396 thou/uL (152-406); Red Cell Distribution Width 18.2 % (12.1-15.2)
[2024-07-07 09:25] LABS: AST/SGOT 13 U/L (15-37); Albumin 2.3 g/dL (3.4-5.0); Albumin/Globulin Ratio 0.5 (1.1-1.8); Alkaline Phosphatase 73 U/L (45-117); Anion Gap 11.3 mEq/L (5.0-15.0); BUN Blood Urea Nitrogen 11 mg/dL (7-18); Bicarbonate 30 mEq/L (21-32); Bilirubin Total 0.6 mg/dL (0.2-1.0); Globulin 4.5 g/dL (2.3-3.5); Glomerular Filtration Rate 105 ml/min (=/>90); Glucose Level 139 mg/dL (74-106); Lipase 24 U/L (13-75); Potassium 3.3 mEq/L (3.5-5.1); Protein, Total 6.8 g/dL (6.4-8.2); Sodium Level 135 mEq/L (136-145)
[2024-07-07 09:26] LABS: ALT/SGPT < 14 U/L (16-61)
--- NOTE | 2024-07-07 10:06 | RAD REPORT ---
EXAMINATION: CT ABDOMEN AND PELVIS WITH CONTRAST CLINICAL INDICATION: Male, 64 years old.Abd pain;Constipation TECHNIQUE: CT abdomen and pelvis was performed, after the administration of IV contrast, as per [facility] protocol. Axial, sagittal and coronal reconstructions were obtained. One or more of the following dose reduction techniques were used: Automated exposure control, adjustment of the mA and/o r kV according to patient size, and/or iterative reconstruction. Unless otherwise specified, incidental findings do not require dedicated imaging follow-up. [id number]. COMPARISON: Chest CT 06/09/2024, 03/17/2024 FINDINGS: LOWER CHEST: Small bilateral pleural effusions. Atelectasis in the left lung base. LIVER: Normal in size and contour. No focal lesion. GALLBLADDER/BILE DUCT: No biliary ductal dilatation.? PANCREAS: Cystic lesion in the pancreatic tail measures up to 2.3 cm. This has increased in size from prior, previously 1.[address] from 02/15/2024. SPLEEN: Normal size. No focal lesion. ADRENALS: Normal; no mass. KIDNEYS AND URETERS: No hydronephrosis. Renal scarring. Bilateral renal lesions which are either jennifer gn in appearance or too small to accurately characterize but statistically benign. GASTROINTESTINAL TRACT: Stomach is non-dilated. Small bowel has normal course and caliber. No colonic wall thickening or pericolonic inflammatory changes. Moderate colonic stool. PERITONEUM: No ascites. LYMPH NODES: No lymphadenopathy. ABDOMINAL AORTA AND OTHER VESSELS: Normal caliber aorta and IVC. URINARY BLADDER: Llily catheter in the bladder. REPRODUCTIVE ORGANS: No pathologic process MUSCULOSKELETAL: No acute or suspicious osseous abnormality. The left flank heterogeneous mass measur es 6.3 x 2.5 cm and is similar to prior. ADDITIONAL FINDINGS: None. IMPRESSION: 1. No acute or significant abnormalities seen in the abdomen or pelvis. Question constipation. 2. Lilly catheter in the bladder. Wall thickening could be from infection or inflammation. 3. Enlarging cystic lesion in the pancreatic tail measuring 2.3 cm. This could represent metastatic d isease versus enlarging pancreatic primary lesion. This was not hypermetabolic on the prior PET. Suggest continued short term follow-up. If it continues to increase in size, the patient may need EUS for further evaluation.
[2024-07-07] MEDS ORDERED: CEFTRIAXONE 1000 MG/VIAL ONE (10:18)
[2024-07-07] MEDS ORDERED: levoFLOXacin 250 MG TAB ONE (10:18)
--- NOTE | 2024-07-07 10:29 | EDPHYS ---
Physician Documentation [facility] Name: Dwain Solorzano Age: 64 yrs Sex: Male : 1960 Arrival Date: 07/07/2024 Time: 07:38 Bed 16 Private MD: ED Physician Carlos Lowery HPI: 07/07 10:16 This 64 yrs old Male presents to ER via EMS with complaints of Constipation. keon 10:16 The patient presents with abdominal pain in the upper abdomen. Onset: The keon symptoms/episode began/occurred 1 week(s) ago. The patient presents to the emergency department with nausea, that is moderate. Possible causes: unknown. The symptoms are aggravated by nothing. The symptoms are alleviated by food . The patient presents with urinary symptoms, samuel leak. Modifying factors: The symptoms are alleviated by nothing, the symptoms are aggravated by movement, pressure. weak, nearly bedridden pt. Associated signs and symptoms: Pertinent positives: abdominal pain, constipation, nausea. The symptoms are described as achy, crampy. Modifying factors: The symptoms are alleviated by nothing, the symptoms are aggravated by food. Severity of pain: At its worst the pain was mild moderate in the emergency department the pain is unchanged. Severity of symptoms: At their worst the symptoms were moderate in the emergency department the symptoms are unchanged. Historical: - Allergies: 07:45 No Known Allergies; ko1 - Home Meds: 07:45 Unable to obtain [Active]; ko1 - PMHx: 07:45 Atrial fibrillation; bone cancer; coronary atherosclerosis; Lung Cancer; lymphoma; ko1 - PSHx: 07:45 ablation; Coronary Angioplasty; Coronary artery bypass graft; Leg surgery; lymph node ko1 removal in neck; - Immunization history:: Adult Immunizations unknown. - Infectious Disease History:: Denies. - Social history:: Smoking status: Patient denies any tobacco usage or history of. - Family history:: not pertinent. ROS: 10:16 Constitutional: Negative for fever, chills, and weight loss, Eyes: Negative for injury, keon pain, redness, and discharge, ENT: Negative for injury, pain, and discharge, Neck: Negative for injury, pain, and swelling, Respiratory: Negative for shortness of breath, cough, wheezing, and pleuritic chest pain, Back: Negative for injury and pain, : Negative for injury, bleeding, discharge, and swelling, MS/Extremity: Negative for injury and deformity, Skin: Negative for injury, rash, and discoloration, Psych: Negative for depression, anxiety, suicide ideation, homicidal ideation, and hallucinations, Allergy/Immunology: Negative for hives, rash, and allergies, Endocrine: Negative for neck swelling, polydipsia, polyuria, polyphagia, and marked weight changes, Hematologic/Lymphatic: Negative for swollen nodes, abnormal bleeding, and unusual bruising, 10:16 Cardiovascular: Positive for palpitations, 10:16 Abdomen/GI: Positive for abdominal pain, nausea, vomiting, and diarrhea, constipation, abdominal cramps, 10:16 : Positive for samuel pain, 10:16 Neuro: Positive for dizziness, gait disturbance, weakness, Exam: 10:16 Constitutional: This is a well developed, well nourished patient who is awake, alert, keon and in no acute distress. Head/Face: Normocephalic, atraumatic. Eyes: Pupils equal round and reactive to light, extra-ocular motions intact. Lids and lashes normal. Conjunctiva and sclera are non-icteric and not injected. Cornea within normal limits. Periorbital areas with no swelling, redness, or edema. Neck: Trachea midline, no thyromegaly or masses palpated, and no cervical lymphadenopathy. Supple, full range of motion without nuchal rigidity, or vertebral point tenderness. No Meningismus. Chest/axilla: Normal chest wall appearance and motion. Nontender with no deformity. No lesions are appreciated. Respiratory: Lungs have equal breath sounds bilaterally, clear to auscultation and percussion. No rales, rhonchi or wheezes noted. No increased work of breathing, no retractions or nasal flaring. Back: No spinal tenderness. No costovertebral tenderness. Full range of motion. Male : Normal genitalia with no discharge or lesions. Skin: Warm, dry with normal turgor. Normal color with no rashes, no lesions, and no evidence of cellulitis. MS/ Extremity: Pulses equal, no cyanosis. Neurovascular intact. Full, normal range of motion. Neuro: Awake and alert, GCS 15, oriented to person, place, time, and situation. Cranial nerves II-XII grossly intact. Motor strength 5/5 in all extremities. Sensory grossly intact. Cerebellar exam normal. Normal gait. Psych: Awake, alert, with orientation to person, place and time. Behavior, mood, and affect are within normal limits. 10:16 ENT: Mouth: Oral mucosa: dry, Gums: normal with healthy appearance, Tongue: is normal, Posterior pharynx: no acute changes, Airway: normal, no evidence of obstruction, 10:16 Cardiovascular: Rate: tachycardic, actual rate is 109 bpm, Rhythm: regular, Pulses: Pulses are 4+ in bilateral radial, brachial, femoral, popliteal, posterior tibial and and dorsalis pedis arteries.. Heart sounds: normal, Edema: is not appreciated, JVD: is not appreciated, 10:16 ECG was reviewed by the Attending Physician. 10:16 Abdomen/GI: Inspection: distension, that is mild, Bowel sounds: active, Palpation: mild abdominal tenderness, in the epigastric area, right upper quadrant and left upper quadrant, Liver: no appreciated palpable abnormalities, Hernia: not appreciated, Vital Signs: 07:40 BP 98 / 68; Pulse 106; Resp 14; Temp 98; Pulse Ox 99% ; ko1 08:00 BP 118 / 79; Pulse 108; Resp 16; Pulse Ox 100% ; ko1 09:00 BP 111 / 65; Pulse 105; Resp 17; Pulse Ox 99% ; me1 10:00 BP 120 / 72; Pulse 106; Resp 14; Pulse Ox 98% ; me1 11:00 BP 117 / 78; Pulse 105; Resp 12; Pulse Ox 100% ; me1 12:00 BP 102 / 62; Pulse 102; Resp 14; Pulse Ox 98% ; me1 12:40 BP 120 / 73; Pulse 105; Resp 13; Pulse Ox 97% ; me1 MDM: 08:00 Patient medically screened. keon 10:20 Differential Diagnosis altered mental status, sepsis, flu. Differential diagnosis: keon diverticulitis, viral gastroenteritis, gastroenteritis, nonspecific abdominal pain, appendicitis, UTI, urinary retention, Samuel catheter problem, prostatitis, urethritis, bowel obstruction, Cholelithiasis, diverticulitis, gastritis, gastroesophageal reflux disease, non-specific abd pain, pancreatitis, Peptic Ulcer Disease. Data reviewed: vital signs, nurses notes, EMS record, lab test result(s), EKG, radiologic studies, CT scan, plain films. Consideration of Admission/Observation Patient was admitted/placed on observation. Escalation of care including admission/observation considered. I considered the following discharge prescriptions or medication management in the emergency department Medications were administered in the Emergency Department. See MAR. Independent interpretation of the following test(s) in the Emergency Department EKG: See my EKG interpretation above. Test considered but Not performed: Ultrasound no abd usg. Historians other than the Patient: EMS: ems well informed. Care significantly affected by the following chronic conditions: Cancer, a fib, bone cancer, lung cancer. 07/07 08:03 Order name: CBC with Diff; Complete Time: 10:06 [facility] 07/07 08:03 Order name: CMP; Complete Time: 10: [facility] 07/07 08:03 Order name: Lipase; Complete Time: 10: [facility] 07/07 08:03 Order name: Urinalysis w/ reflexes; Complete Time: 10: [facility] 07/07 09:06 Order name: Urine Culture [facility] 07/07 08:03 Order name: CT Abd/Pelvis - PO and IV Contrast; Complete Time: 10:07 [facility] 07/07 10:14 Order name: EKG; Complete Time: 10:14 [facility] 07/07 08:03 Order name: IV Saline Lock; Complete Time: 08:19 [facility] 07/07 08:03 Order name: Labs collected and sent; Complete Time: 09:02 [facility] 07/07 10:14 Order name: EKG - Nurse/Tech; Complete Time: 10:29 [facility] 07/07 11:41 Order name: Samuel: exchange samuel; Complete Time: 12:39 la1 Administered Medications: 08:19 Drug: NS 0.9% IV 1000 ml IV at 1 bolus Per protocol; 1000 mL bolus Route: IV; Rate: 1 ko1 bolus; Site: Other; 10:21 Follow up: Response: No adverse reaction; IV Status: Completed infusion; IV Intake: ko1 1000ml 08:25 Drug: Famotidine IVP 20 mg IVP once; dilute with 10 mL 0.9% NaCl; give over 2 minutes ko1 Route: IVP; Site: Other; 08:40 Follow up: Response: No adverse reaction ko1 08:25 Drug: Ondansetron IVP 4 mg IVP once; over 2 minutes Route: IVP; Site: Other; ko1 08:40 Follow up: Response: No adverse reaction ko1 08:25 Drug: Lactulose PO 30 grams 45 ml PO once Volume: 45 ml; Route: PO; ko1 08:55 Follow up: Response: No adverse reaction ko1 08:25 Drug: Dulcolax MI Suppository 10 mg MI once Route: MI; ko1 08:55 Follow up: Response: No adverse reaction ko1 10:25 Drug: Rocephin IV 1 grams IV at per protocol once; Given slow IV push per pharmacy ko1 instructions Route: IV; Rate: per protocol; Site: Port-a-cath; 10:40 Follow up: Response: No adverse reaction; IV Status: Completed infusion; IV Intake: [id number] 10:25 Drug: LevOfloxacin PO 500 mg PO once Route: PO; ko1 10:55 Follow up: Response: No adverse reaction ko1 12:38 Drug: HYDROmorphone IVP 2 mg IVP once Route: IVP; Site: Port-a-cath; me1 12:45 Follow up: Response: No adverse reaction; Pain is decreased me1 12:45 Not Given (order faxed to pharmacy, to be sent to 2nd floor when ready as patient is me1 going up to a room. ): d5-1/2 ns with kcl20 meq/l 1000 ml IV at 125 ml/hr continuous Disposition Summary: 07/07/24 10:28 Hospitalization Ordered Notes: Hospitalization Status: Inpatient Admission keon Provider: Robe Velázquez cha Location: Telemetry/MedSurg (Inpatient) keon Condition: Fair keon Problem: new keon Symptoms: have improved keon Bed/Room Type: Standard keon Room Assignment: 216(07/07/24 12:01) bc6 Diagnosis - Abdominal pain, Generalized keon - Dehydration keon - Acute cystitis keon - Hypokalemia keon - Abnormal findings on diagnostic imaging of liver and biliary tract - pancreatic keon tail mass, enlargeing - Other mechanical complication of urinary (indwelling) catheter keon Forms: - Medication Reconciliation Form keon - SBAR form keon - Leadership Thank You Letter keon Signatures: Dispatcher [employer] Carlos Johnson MD MD cha Attema, Lee, [employer]C [employer]-Cla1 Brittany Sweeney, RN RN ko1 Gricel Hunt bc6 Tamiko Nguyen RN RN me1 Corrections: (The following items were deleted from the chart) 08:03 08:03 CBC+H.LAB.BRZ ordered. EDMS EDMS 08:03 08:03 COMPREHENSIVE METABOLIC PANEL+C.LAB.BRZ ordered. EDMS EDMS 08:03 08:03 LIPASE+C.LAB.BRZ ordered. EDMS EDMS 08:03 08:03 Urinalysis+U.LAB.BRZ ordered. EDMS EDMS 08:03 08:03 Abdomen Pelvis W Con+CT.RAD.BRZ ordered. EDMS EDMS 12:01 10:28 keon bc6
--- NOTE | 2024-07-07 10:29 | ER ---
Nurse's Notes [facility] Name: Dwain Solorzano Age: 64 yrs Sex: Male : 1960 Arrival Date: 07/07/2024 Time: 07:38 Bed 16 Private MD: Diagnosis: Abdominal pain, Generalized;Dehydration;Acute cystitis;Hypokalemia;Abnormal findings on diagnostic imaging of liver and biliary tract-pancreatic tail mass, enlargeing;Other mechanical complication of urinary (indwelling) catheter Presentation: 07/07 07:40 Chief complaint: EMS states: patient called for left sided abdominal pain and ko1 constipation. Has not had a bowel movement in 2 weeks. Coronavirus screen: At this time, the client does not indicate any symptoms associated with coronavirus-19. Ebola Screen: No symptoms or risks identified at this time. Initial Sepsis Screen: Does the patient meet any 2 criteria? No. Patient's initial sepsis screen is negative. Does the patient have a suspected source of infection? No. Patient's initial sepsis screen is negative. Risk Assessment: Do you want to hurt yourself or someone else? Patient reports no desire to harm self or others. Onset of symptoms is unknown. Care prior to arrival: Medication(s) given: Normal saline infusion, zofran 4 mg, fentanyl 50 mcg IV. 07:40 Method Of Arrival: EMS: [facility] ko1 07:40 Acuity: LEYLA 3 ko1 Triage Assessment: 07:45 General: Appears in no apparent distress. ill, slender, unkempt, Behavior is calm, ko1 cooperative, appropriate for age. Pain: Complains of pain in left upper quadrant. GI: Reports constipation. Historical: - Allergies: 07:45 No Known Allergies; ko1 - Home Meds: 07:45 Unable to obtain [Active]; ko1 - PMHx: 07:45 Atrial fibrillation; bone cancer; coronary atherosclerosis; Lung Cancer; lymphoma; ko1 - PSHx: 07:45 ablation; Coronary Angioplasty; Coronary artery bypass graft; Leg surgery; lymph node ko1 removal in neck; - Immunization history:: Adult Immunizations unknown. - Infectious Disease History:: Denies. - Social history:: Smoking status: Patient denies any tobacco usage or history of. - Family history:: not pertinent. Screenin:00 [facility] ED Fall Risk Assessment (Adult) History of falling in the last 3 months, ko1 including since admission No falls in past 3 months (0 pts) Confusion or Disorientation No (0 pts) Intoxicated or Sedated No (0 pts) Impaired Gait Yes (1 pt) Mobility Assist Device Used Yes (1 pt) Altered Elimination Yes (1 pt) Score/Fall Risk Level 3 or more points = High Risk Oriented to surroundings, Maintained a safe environment, Educated pt \\T\\ family on fall prevention, incl call for assistance when getting out of bed, Assessed \\T\\ reinforced patient's understanding of fall precautions, Provided non-skid footwear, Hourly rounding (assess needs \\T\\ fall precautionary measures) done, Used ambulatory aids as needed (educated on \\T\\ assisted with), Offered frequent toileting (1:1 observation), Remained with patient while ambulating. Abuse screen: Denies threats or abuse. Denies injuries from another. Nutritional screening: No deficits noted. Tuberculosis screening: No symptoms or risk factors identified. Assessment: 08:00 General: Appears ill, slender, unkempt, Behavior is calm, cooperative, appropriate for ko1 age. Pain: Complains of pain in right upper quadrant and epigastric area and abdomen and left upper quadrant. Neuro: No deficits noted. Cardiovascular: No deficits noted. Respiratory: No deficits noted. GI: Bowel sounds present X 4 quads. Abd is non tender Reports constipation. : Samuel in place to gravity drainage Urine is cloudy. EENT: No deficits noted. Derm: Decubitus located on gluteal cleft bilaterally. Dark red on right side, broken skin on left side of cleft. Red area where it appears samuel catheter tube has been laying on right leg. Musculoskeletal: Range of motion: limited in all extremities. Vital Signs: 07:40 BP 98 / 68; Pulse 106; Resp 14; Temp 98; Pulse Ox 99% ; ko1 08:00 BP 118 / 79; Pulse 108; Resp 16; Pulse Ox 100% ; ko1 09:00 BP 111 / 65; Pulse 105; Resp 17; Pulse Ox 99% ; me1 10:00 BP 120 / 72; Pulse 106; Resp 14; Pulse Ox 98% ; me1 11:00 BP 117 / 78; Pulse 105; Resp 12; Pulse Ox 100% ; me1 12:00 BP 102 / 62; Pulse 102; Resp 14; Pulse Ox 98% ; me1 12:40 BP 120 / 73; Pulse 105; Resp 13; Pulse Ox 97% ; me1 ED Course: 07:39 Patient arrived in ED. ko1 07:40 Brittany Sweeney, RN is Primary Nurse. ko1 07:45 Triage completed. ko1 07:45 Arm band placed on right wrist. Patient placed in an exam room, on a stretcher, on ko1 process designer, on pulse oximetry, Patient notified of wait time. 08:00 Carlos Lowery MD is Attending Physician. keon 08:00 Patient has correct armband on for positive identification. Bed in low position. Call ko1 light in reach. Side rails up X 1. Provided Education on: meds. Pulse ox on. NIBP on. Door closed. Noise minimized. Lights dimmed. Warm blanket given. Pillow given. 08:00 No provider procedures requiring assistance completed. Maintain EMS IV. Dressing ko1 intact. Site clean \\T\\ dry. Gauge \\T\\ site: 22g right thumb. Flushed with 10 mL NS. 08:00 Accessed Port-a-Cath. using accessed w/ # 20 Dan needle, ,sterile technique, per [address] protocol. Clean \\T\\ dry. Dressing intact. Good blood return. Flushes easily. 08:25 Urinalysis w/ reflexes Sent. ko1 09:02 CBC with Diff Sent. ko1 09:02 CMP Sent. ko1 09:02 Lipase Sent. ko1 09:02 Initial lab(s) drawn, by de, sent to lab. Urine collected: Samuel catheter specimen, ko1 cloudy, EKG done, by ED staff, reviewed by Carlos Lowery MD. 09:47 CT Abd/Pelvis - PO and IV Contrast In Process Unspecified. EDMS 10:16 Urine Culture Sent. ko1 10:24 Robe Velázquez MD is Hospitalizing Provider. keon 11:49 1149 CM met with at the bedside in the ED exam room. Patient identified by ane name and . Demographic sheet confirmed and changes sent to appropriate personnel. Patient states he lives alone most of his time, and his friend Joshua Trinh will stay the night occasionally and bring him food, or prepares food at least once a day. states he lives in a 2nd floor apartment and is having difficulty navigating the stairs without assistance from his friend. DME in the home includes a walker, wheelchair and shower chair. Patient wishes to get stronger to he can return home. Patient reports "the chemo really took a lot out of me." Patient states he received chemotherapy through the [facility]. He explains that he wants to change apartments when his lease ends in about 1-2 months. He was just discharged from through [facility] within the last few days, he was told the days the insurance paid for were completed. His preferred plan is to ultimately return home after regaining strength and is amenable to going to a facility temporarily. Patient states he is unsure about transportation home as he is concerned about being severely weak .His PCP is Dr. Flores and patient reports Dr. Mishra, in [place], [place], is the urologist that placed his Samuel catheter. CM team will continue to follow and coordinate care during this hospital stay. 12:13 Report given to Tamiko Farr RN. ko1 12:40 Samuel cath removed intact, balloon deflated. me1 12:40 Coud inserted, using sterile technique, 16 Fr. Returned clear yellow urine. Returned me1 bloody urine. To gravity drainage. Patient tolerated well. 13:25 Patient admitted, IV remains in place. iw Administered Medications: 08:19 Drug: NS 0.9% IV 1000 ml IV at 1 bolus Per protocol; 1000 mL bolus Route: IV; Rate: 1 ko1 bolus; Site: Other; 10:21 Follow up: Response: No adverse reaction; IV Status: Completed infusion; IV Intake: ko1 1000ml 08:25 Drug: Famotidine IVP 20 mg IVP once; dilute with 10 mL 0.9% NaCl; give over 2 minutes ko1 Route: IVP; Site: Other; 08:40 Follow up: Response: No adverse reaction ko1 08:25 Drug: Ondansetron IVP 4 mg IVP once; over 2 minutes Route: IVP; Site: Other; ko1 08:40 Follow up: Response: No adverse reaction ko1 08:25 Drug: Lactulose PO 30 grams 45 ml PO once Volume: 45 ml; Route: PO; ko1 08:55 Follow up: Response: No adverse reaction ko1 08:25 Drug: Dulcolax IN Suppository 10 mg IN once Route: IN; ko1 08:55 Follow up: Response: No adverse reaction ko1 10:25 Drug: Rocephin IV 1 grams IV at per protocol once; Given slow IV push per pharmacy ko1 instructions Route: IV; Rate: per protocol; Site: Port-a-cath; 10:40 Follow up: Response: No adverse reaction; IV Status: Completed infusion; IV Intake: [id number] 10:25 Drug: LevOfloxacin PO 500 mg PO once Route: PO; ko1 10:55 Follow up: Response: No adverse reaction ko1 12:38 Drug: HYDROmorphone IVP 2 mg IVP once Route: IVP; Site: Port-a-cath; me1 12:45 Follow up: Response: No adverse reaction; Pain is decreased me1 12:45 Not Given (order faxed to pharmacy, to be sent to 2nd floor when ready as patient is me1 going up to a room. ): d5-1/2 ns with kcl20 meq/l 1000 ml IV at 125 ml/hr continuous Medication: 13:25 VIS not applicable for this client. iw Intake: 10:21 IV: 1000ml; Total: 1000ml. ko1 10:40 IV: 20ml; Total: 1020ml. ko1 Outcome: 10:28 Decision to Hospitalize by Provider. keon 13:24 Admitted to Med/surg accompanied by nurse, via stretcher, room 216, iw 13:24 Condition: good 13:24 Discharge instructions given to patient, Instructed on the need for admit, Demonstrated understanding of instructions, 13:25 Patient left the ED. iw Signatures: Dispatcher [employer] Carlos Robert MD MD cha Williams, Irene RN RN iw Brittany Sweeney RN RN ko1 Tamiko Nguyen RN RN me1 Lexy José, RN RN ane Corrections: (The following items were deleted from the chart) 12:48 08:00 BP 111 / 65; Pulse 105bpm; Resp 17bpm; Pulse Ox 99%; ko1 me1
[2024-07-07] MEDS ORDERED: LIDOCAINE VISCOUS 2% 10ML ORAL SOLN ONE (12:14)
[2024-07-07] MEDS ORDERED: HYDROMORPHONE HCL 2 MG/ML inj ONE (12:14)
[2024-07-07 13:58] VITALS: BMI 21.5
[2024-07-07] MEDS: NA CHLORIDE 0.9% 1,000 ML IV SCH (14:37)
--- NOTE | 2024-07-07 15:03 | P.HP ---
Certification for Inpatient Patient admitted to: Inpatient With expected LOS: >2 Midnights Patient will require the following post-hospital care: None Practitioner: I am a practitioner with admitting privileges, knowledge of patient current condition, hospital course, and medical plan of care. Services: Services provided to patient in accordance with Admission requirements found in Title 42 Section 412.3 of the Code of Federal Regulations Patient History Date of Service: 07/07/24 History of Present Illness: 64-year-old male with history of stage IV lung cancer with known to flank area, chronic diastolic congestive heart failure, atrial fibrillation on Eliquis, CAD with previous PCI presents to the emergency department with chief complaint of abdominal pain, catheter malfunction, progressive weakness. Patient reports that for the past 2 days has been having severe abdominal pain as well as having difficulties with this catheter which has been in place for about 4 months now, last changed 1 month ago. He reports that has been coming disconnected at the connection of the end of the Lilly and the bag multiple times. Reports significant weakness over the course of last 1 week, he typically gets around at home difficulty, does have a friend that comes by to help him 1 hour/day but now he is unable to ambulate, using wheelchair and having difficulty with transfers Patient was evaluated in the emergency department for significant for hemoglobin of 10 hematocrit 30.1 site, white blood cell, red blood cell, loaded bacteria, yeast. CT abdomen pelvis with IV contrast showed wall thickening of the bladder which could be from infection or inflammation, enlarging cystic lesion of the pancreatic tail measuring 2.3 cm which could represent metastatic disease versus enlarging pancreatic primary lesion. Patient will be admitted for complicated UTI, abdominal pain, weakness Allergies No Known Allergies Allergy (Verified 01/18/24 08:18) Home Medications: Atorvastatin Calcium 40 mg PO BEDTIME 01/05/24 Cholecalciferol (Vitamin D3) [Vitamin D 5,000 IU Cap*] 5,000 units PO DAILY 01/05/24 Metoprolol Tartrate 50 mg PO BID 01/05/24 fentaNYL [Fentanyl] 75 mg TD SEECOM 02/16/24 Tamsulosin [Flomax*] 0.4 mg PO BEDTIME #30 cap 02/19/24 Alpelisib [Piqray] 300 mg PO DAILY 06/09/24 Hydromorphone [Dilaudid*] 4 mg PO Q4H PRN 06/09/24 lisinopriL [Prinivil*] 5 mg PO DAILY 06/09/24 Duloxetine HCl 30 mg PO DAILY 06/10/24 Pantoprazole [Protonix Tab*] 40 mg PO DAILY 06/10/24 Furosemide [Lasix*] 20 mg PO DAILY 30 Days #30 tab 06/12/24 - Past Medical/Surgical History Has patient received pneumonia vaccine in the past: No Diabetic: No -: Lung cancer with metastasis -: Atrial fibrillationstatus post cardioversion -: History of hypertension -: Coronary atherosclerosis -: lymphoma 20 years ago -: cardioversion -: placement of SVC portacath -: Coronary artery bypass graft, 3 heart stents -: lymph node removal in neck Psychosocial/ Personal History: Lives at home. Denies ill contacts. - Family History Father -: Heart disease, Cancer, Other (see notes) Notes: skin CA Mother -: Heart disease, Diabetes - Social History Smoking Status: Never smoker Alcohol use: No CD- Drugs: No Caffeine use: No Place of Residence: Home Review of Systems 10-point ROS is otherwise unremarkable General: Weakness, Malaise Gastrointestinal: Nausea, Abdominal Pain Physical Examination - Vital Signs Temperature: 98 F Blood Pressure: 120/73 Pulse: 105 Respirations: 13 - Physical Exam General: Alert, In no apparent distress, Oriented x3 HEENT: Atraumatic, PERRLA, Mucous membr. moist/pink Neck: Supple, 2+ carotid pulse no bruit, No LAD Respiratory: Clear to auscultation bilaterally, Normal air movement Cardiovascular: Regular rate/rhythm, Normal S1 S2 Gastrointestinal: Normal bowel sounds, No tenderness Musculoskeletal: No tenderness Integumentary: No rashes Neurological: Normal speech, Normal strength at 5/5 x4 extr, Normal affect Urinary: Illly catheter (In place, replaced in ED) - Studies Laboratory Data (last 24 hrs) 07/07/24 07/07/24 09:00 09:00 WBC 10.40 Hgb 10.0 L Hct 30.1 L Plt Count 396 Sodium 135 L Potassium 3.3 L BUN 11 Creatinine 0.67 L Glucose 139 H Total Bilirubin 0.6 AST 13 L ALT < 14 L Alkaline Phosphatase 73 Lipase 24 Assessment and Plan - Plan Assessment: Complicated UTI Debility/deconditioning, weakness Stage IV lung cancer-left flank mass/pancreatic mass Atrial fibrillation on chronic anticoagulation Chronic diastolic congestive heart failure History of CAD with previous PCI Plan: Complicated UTI Lilly catheter was replaced in ED Started on antibiotic/Rocephin Follow urine culture Monitor CBC daily Debility/deconditioning, weakness PT consultation Lives at home, alone has a friend that comes 1 hour/day to help out Was getting around okay until a week ago, has been needing to use a wheelchair Having difficulties even with transferring now Stage IV lung cancer-left flank mass/pancreatic mass Taking an oral daily chemo pill Will need to follow-up outpatient with oncology Pancreas mass enlarged from previous Discussed with patient Atrial fibrillation on chronic anticoagulation Chronic diastolic congestive heart failure History of CAD with previous PCI Does not appear grossly overloaded Continue home medications DVT PPX: Lovenox Code status: Full Discharge Plan: Home Plan to discharge in: 72 Hours - Advance Directives Does patient have a Living Will: No Does patient have a Durable POA for Healthcare: No - Code Status/Comfort Care Code Status Assessed: Yes (Full code) Critical Care: No Time Spent Managing Pts Care (In Minutes): 65
[2024-07-07] MEDS: HYDROMORPHONE HCL 2 MG/ML inj IV PRN (16:32)
[2024-07-07] MEDS: ENOXAPARIN 40 MG/0.4 ML SQ SCH (16:33)
[2024-07-08 05:47] LABS: Absolute Basophils 0.1 K/uL (0-0.5); Absolute Eosinophils 0.7 K/uL (0-0.5); Absolute Lymphocytes (CBC) 0.5 K/uL (0.7-4.9); Absolute Monocytes 0.8 K/uL (0.1-1.3); Absolute Neutrophil 6.6 K/uL (1.8-8.0); Basophils % 0.8 % (0-1.3); Eosinophils % 8.3 % (0-4.4); Hematocrit 27.9 % (39.6-49.0); Lymphocytes % 5.6 % (15.3-44.8); MCH 27.8 pg (27.0-35.0); MCHC 32.1 g/dL (32.0-36.0); MCV 86.6 fL (80-100); MPV 6.5 fL (7.6-11.3); Monocytes % 9.4 % (3.3-12.3); Neutrophils % 75.9 % (41.7-73.7); Platelets 358 thou/uL (152-406); RBC Red Blood Cell Count 3.23 M/uL (4.33-5.43); Red Cell Distribution Width 18.7 % (12.1-15.2)
[2024-07-08 06:05] LABS: Albumin/Globulin Ratio 0.5 (1.1-1.8); Alkaline Phosphatase 69 U/L (45-117); Anion Gap 9.5 mEq/L (5.0-15.0); BUN Blood Urea Nitrogen 9 mg/dL (7-18); Bicarbonate 31 mEq/L (21-32); Bilirubin Total 0.5 mg/dL (0.2-1.0); Globulin 4.1 g/dL (2.3-3.5); Glomerular Filtration Rate 107 ml/min (=/>90); Glucose Level 119 mg/dL (74-106); Magnesium 1.7 mg/dL (1.6-2.4); Phosphorus 3.2 mg/dL (2.5-4.9); Potassium 3.5 mEq/L (3.5-5.1); Protein, Total 6.1 g/dL (6.4-8.2); Sodium Level 138 mEq/L (136-145)
[2024-07-08 06:10] LABS: ALT/SGPT < 14 U/L (16-61); AST/SGOT < 10 U/L (15-37)
[2024-07-08] MEDS ORDERED: HOME MED 1 EA UNK (Fentanyl [Fentanyl] Patch.Td72) TD SCH (06:15)
[2024-07-08] MEDS: HYDROMORPHONE HCL 2 MG/ML inj IV PRN (08:28)
[2024-07-08] MEDS: VITAMIN D 5,000 UNIT CAP PO SCH (08:35)
[2024-07-08] MEDS: DULOXETINE 30 MG CAP PO SCH (08:36)
[2024-07-08] MEDS: CLOPIDOGREL 75 MG TABLET PO SCH (08:36)
[2024-07-08] MEDS: METOPROLOL TAR 50 MG TAB PO SCH (08:36)
[2024-07-08] MEDS: ASPIRIN EC 81 MG TAB PO SCH (08:38)
[2024-07-08] MEDS: PANTOPRAZOLE 40MG TABLET PO SCH (08:39)
[2024-07-08] MEDS: FUROSEMIDE 20 MG TABLET PO SCH (08:40)
[2024-07-08] MEDS ORDERED: ALPELISIB PO SCH (09:00)
[2024-07-08] MEDS: lisinopriL 5 MG TAB PO SCH (09:00)
[2024-07-08] MEDS: APIXABAN 5 MG TABLET PO SCH (09:41)
[2024-07-08] MEDS: ALPELISIB PO SCH (09:41)
--- NOTE | 2024-07-08 13:23 | P.PN ---
Date of Service: 07/08/24 Subjective: No acute events overnight Still having severe pain to his left thorax, arms and legs Awaiting urine culture, PT consultation ROS: 10 point ROS as noted above, otherwise negative Physical exam GEN: Alert, oriented, NAD HEENT: Normal conjunctiva, sclera anicteric CV: Regular rate and rhythm, no edema Pulm: Nonlabored respirations on room air ABD: Soft, nontender, nondistended, Lilly catheter in place MSK: No joint tenderness Integumentary: No rashes Neuro: Normal speech, normal affect Vitals reviewed Assessment: Complicated UTI Debility/deconditioning, weakness Stage IV lung cancer-left flank mass/pancreatic mass Atrial fibrillation on chronic anticoagulation Chronic diastolic congestive heart failure History of CAD with previous PCI Plan: Complicated UTI Chronic Lilly catheter was replaced in ED Started on antibiotic/Rocephin Follow urine culture Monitor CBC daily Debility/deconditioning, weakness PT consultation Lives at home, alone has a friend that comes 1 hour/day to help out Was getting around okay until a week ago, has been needing to use a wheelchair Having difficulties even with transferring now Stage IV lung cancer-left flank mass/pancreatic mass Taking an oral daily chemo pill Will need to follow-up outpatient with oncology Pancreas mass enlarged from previous Discussed with patient Atrial fibrillation on chronic anticoagulation Chronic diastolic congestive heart failure History of CAD with previous PCI Does not appear grossly overloaded Continue home medications DVT PPX: Eliquis Code status: Full Discharge Plan: Home Plan to discharge in: 72 Hours Time Spent Managing Pts Care (In Minutes): 35
--- NOTE | 2024-07-08 14:09 | EKG ---
Test Date: 2024-07-07 Test Time: 10:32:34 Perl Programmer: NETO MEASUREMENT RESULTS: Intervals: Rate: 102 MS: 172 QRSD: 76 QT: 374 QTc: 487 Cookson: P: 69 MS: 172 QRS: -18 T: 67 INTERPRETIVE STATEMENTS: Sinus tachycardia Otherwise normal ECG Compared to ECG 06/09/2024 16:48:51 Fusion complex(es) no longer present Ventricular premature complex(es) no longer present ST (T wave) deviation no longer present Possible ischemia no longer present Electronically Signed On 07-08-24 14:07:22 CDT by Bladimir Aguilar
[2024-07-08] MEDS: ONDANSETRON 4 MG/2 ML VIAL IV PRN (14:35)
[2024-07-08] MEDS: TAMSULOSIN 0.4 MG SR CAP PO SCH (21:13)
[2024-07-08] MEDS: ATORVASTATIN 40 MG TAB PO SCH (21:14)
[2024-07-09 07:00] LABS: Absolute Basophils 0.1 K/uL (0-0.5); Absolute Eosinophils 0.7 K/uL (0-0.5); Absolute Lymphocytes (CBC) 0.5 K/uL (0.7-4.9); Absolute Monocytes 0.6 K/uL (0.1-1.3); Basophils % 1.2 % (0-1.3); Eosinophils % 9.3 % (0-4.4); Hematocrit 28.5 % (39.6-49.0); Hemoglobin 9.6 g/dL (13.6-17.9); Lymphocytes % 6.7 % (15.3-44.8); MCH 28.8 pg (27.0-35.0); MCHC 33.5 g/dL (32.0-36.0); MPV 6.7 fL (7.6-11.3); Neutrophils % 74.8 % (41.7-73.7); Nucleated Red Blood Cells % 0.1 % (0-0); Platelets 427 thou/uL (152-406); RBC Red Blood Cell Count 3.32 M/uL (4.33-5.43); Red Cell Distribution Width 18.6 % (12.1-15.2)
[2024-07-09 07:13] LABS: AST/SGOT 13 U/L (15-37); Albumin 2.2 g/dL (3.4-5.0); Albumin/Globulin Ratio 0.6 (1.1-1.8); Alkaline Phosphatase 67 U/L (45-117); Anion Gap 8.3 mEq/L (5.0-15.0); BUN Blood Urea Nitrogen 12 mg/dL (7-18); Bicarbonate 31 mEq/L (21-32); Bilirubin Total 0.4 mg/dL (0.2-1.0); Glomerular Filtration Rate 110 ml/min (=/>90); Glucose Level 146 mg/dL (74-106); Magnesium 1.8 mg/dL (1.6-2.4); Potassium 3.3 mEq/L (3.5-5.1); Protein, Total 6.2 g/dL (6.4-8.2); Sodium Level 137 mEq/L (136-145)
[2024-07-09 07:17] LABS: ALT/SGPT < 14 U/L (16-61)
[2024-07-09] MEDS: POTASSIUM CL SA 10 MEQ TAB PO ONE (08:31)
[2024-07-09] MEDS ORDERED: CIPROFLOXACIN 400mg IV 400 MG/200 ML BAG IV SCH (09:00)
[2024-07-09] MEDS: Ciprofloxacin 200mg IV 400 MG/200 ML IV.SOLN. IV SCH (09:20)
--- NOTE | 2024-07-09 13:15 | P.PN ---
Date of Service: 07/09/24 Subjective: No acute events overnight Still having severe pain to his left thorax, arms and legs Awaiting PT consultation ROS: 10 point ROS as noted above, otherwise negative Physical exam GEN: Alert, oriented, NAD HEENT: Normal conjunctiva, sclera anicteric CV: Regular rate and rhythm, no edema Pulm: Nonlabored respirations on room air ABD: Soft, nontender, nondistended, Lilly catheter in place MSK: No joint tenderness Integumentary: No rashes Neuro: Normal speech, normal affect Vitals reviewed Assessment: Complicated UTI Debility/deconditioning, weakness Stage IV lung cancer-left flank mass/pancreatic mass Atrial fibrillation on chronic anticoagulation Chronic diastolic congestive heart failure History of CAD with previous PCI Plan: Complicated UTI Chronic Lilly catheter was replaced in ED Urine culture shows Enterobacter positive to Cipro Switched to IV Cipro 07/09 Monitor CBC daily Debility/deconditioning, weakness PT consultation Lives at home, alone has a friend that comes 1 hour/day to help out Was getting around okay until a week ago, has been needing to use a wheelchair Having difficulties even with transferring now Stage IV lung cancer-left flank mass/pancreatic mass Taking an oral daily chemo pill Will need to follow-up outpatient with oncology Pancreas mass enlarged from previous Discussed with patient Atrial fibrillation on chronic anticoagulation Chronic diastolic congestive heart failure History of CAD with previous PCI Does not appear grossly overloaded Continue home medications DVT PPX: Eliquis Code status: Full Discharge Plan: SNF Plan to discharge in: 72 Hours Time Spent Managing Pts Care (In Minutes): 35
[2024-07-10 04:55] LABS: Absolute Basophils 0.1 K/uL (0-0.5); Absolute Eosinophils 0.8 K/uL (0-0.5); Absolute Lymphocytes (CBC) 0.5 K/uL (0.7-4.9); Absolute Monocytes 0.6 K/uL (0.1-1.3); Absolute Neutrophil 5.2 K/uL (1.8-8.0); Eosinophils % 11.1 % (0-4.4); Hematocrit 26.3 % (39.6-49.0); Lymphocytes % 6.4 % (15.3-44.8); MCH 29.3 pg (27.0-35.0); MCHC 34.3 g/dL (32.0-36.0); MCV 85.5 fL (80-100); MPV 6.2 fL (7.6-11.3); Monocytes % 8.9 % (3.3-12.3); Neutrophils % 72.6 % (41.7-73.7); Nucleated Red Blood Cells % 0.1 % (0-0); Platelets 415 thou/uL (152-406); RBC Red Blood Cell Count 3.07 M/uL (4.33-5.43); Red Cell Distribution Width 17.8 % (12.1-15.2)
[2024-07-10 05:19] LABS: AST/SGOT 12 U/L (15-37); Albumin 2.2 g/dL (3.4-5.0); Albumin/Globulin Ratio 0.6 (1.1-1.8); Alkaline Phosphatase 64 U/L (45-117); Anion Gap 8.5 mEq/L (5.0-15.0); BUN Blood Urea Nitrogen 11 mg/dL (7-18); Bicarbonate 30 mEq/L (21-32); Bilirubin Total 0.4 mg/dL (0.2-1.0); Globulin 3.8 g/dL (2.3-3.5); Glomerular Filtration Rate 108 ml/min (=/>90); Glucose Level 143 mg/dL (74-106); Magnesium 1.8 mg/dL (1.6-2.4); Phosphorus 2.3 mg/dL (2.5-4.9); Potassium 3.5 mEq/L (3.5-5.1); Sodium Level 137 mEq/L (136-145)
[2024-07-10 05:42] LABS: ALT/SGPT < 14 U/L (16-61)
[2024-07-10] MEDS: MAGNESIUM SULFATE 1 gm IVPB 1 GM/100 ML BAG IV ONE (06:37)
[2024-07-10] MEDS: POTASS/SODIUM PHOSPHATE 1 PKT POWD.PACK PO SCH (06:38)
[2024-07-10] MEDS: POTASSIUM CL SA 10 MEQ TAB PO ONE (06:38)
--- NOTE | 2024-07-10 13:05 | P.PN ---
Date of Service: 07/10/24 Subjective: No acute events overnight Still having severe pain to his left thorax, arms and legs ROS: 10 point ROS as noted above, otherwise negative Physical exam GEN: Alert, oriented, NAD HEENT: Normal conjunctiva, sclera anicteric CV: Regular rate and rhythm, no edema Pulm: Nonlabored respirations on room air ABD: Soft, nontender, nondistended, Lilly catheter in place MSK: No joint tenderness Integumentary: No rashes Neuro: Normal speech, normal affect Vitals reviewed Assessment: Complicated UTI Debility/deconditioning, weakness Stage IV lung cancer-left flank mass/pancreatic mass Atrial fibrillation on chronic anticoagulation Chronic diastolic congestive heart failure History of CAD with previous PCI Plan: Complicated UTI Chronic Lilly catheter was replaced in ED Urine culture shows Enterobacter positive to Cipro Switched to IV Cipro 07/09 Monitor CBC daily Debility/deconditioning, weakness PT consultation Lives at home, alone has a friend that comes 1 hour/day to help out Was getting around okay until a week ago, has been needing to use a wheelchair Having difficulties even with transferring now Also lives on the second floor up 16 steps Worked with PT with walker yesterday but did not try stairs Plan for PT to eval with stairs tomorrow to determine needs Stage IV lung cancer-left flank mass/pancreatic mass Taking an oral daily chemo pill Will need to follow-up outpatient with oncology Pancreas mass enlarged from previous Discussed with patient Atrial fibrillation on chronic anticoagulation Chronic diastolic congestive heart failure History of CAD with previous PCI Does not appear grossly overloaded Continue home medications DVT PPX: Eliquis Code status: Full Discharge Plan: SNF Plan to discharge in: 24 to 48 hours Time Spent Managing Pts Care (In Minutes): 35
[2024-07-11 06:57] LABS: Absolute Basophils 0.1 K/uL (0-0.5); Absolute Eosinophils 0.8 K/uL (0-0.5); Absolute Lymphocytes (CBC) 0.4 K/uL (0.7-4.9); Absolute Monocytes 0.7 K/uL (0.1-1.3); Eosinophils % 11.1 % (0-4.4); Hematocrit 26.3 % (39.6-49.0); Hemoglobin 8.9 g/dL (13.6-17.9); Lymphocytes % 5.9 % (15.3-44.8); MCH 29.1 pg (27.0-35.0); MCHC 33.9 g/dL (32.0-36.0); MCV 85.9 fL (80-100); MPV 6.1 fL (7.6-11.3); Monocytes % 10.6 % (3.3-12.3); Neutrophils % 71.4 % (41.7-73.7); Nucleated Red Blood Cells % 0.1 % (0-0); Platelets 417 thou/uL (152-406); RBC Red Blood Cell Count 3.07 M/uL (4.33-5.43); Red Cell Distribution Width 18.2 % (12.1-15.2)
[2024-07-11 07:18] LABS: AST/SGOT 15 U/L (15-37); Albumin 2.3 g/dL (3.4-5.0); Albumin/Globulin Ratio 0.6 (1.1-1.8); Alkaline Phosphatase 65 U/L (45-117); Anion Gap 7.5 mEq/L (5.0-15.0); BUN Blood Urea Nitrogen 7 mg/dL (7-18); Bicarbonate 32 mEq/L (21-32); Bilirubin Total 0.4 mg/dL (0.2-1.0); Globulin 3.7 g/dL (2.3-3.5); Glomerular Filtration Rate 105 ml/min (=/>90); Glucose Level 113 mg/dL (74-106); Magnesium 1.8 mg/dL (1.6-2.4); Phosphorus 2.6 mg/dL (2.5-4.9); Potassium 3.5 mEq/L (3.5-5.1); Sodium Level 137 mEq/L (136-145)
[2024-07-11 07:22] LABS: ALT/SGPT < 14 U/L (16-61)
[2024-07-11] MEDS: FENTANYL 75 MCG/PATCH TD SCH (09:37)
--- NOTE | 2024-07-11 09:53 | P.PN ---
Date of Service: 07/11/24 Subjective: No acute events overnight Still having severe pain to his left thorax, arms and legs ROS: 10 point ROS as noted above, otherwise negative Physical exam GEN: Alert, oriented, NAD HEENT: Normal conjunctiva, sclera anicteric CV: Regular rate and rhythm, no edema Pulm: Nonlabored respirations on room air ABD: Soft, nontender, nondistended, Lilly catheter in place MSK: No joint tenderness Integumentary: No rashes Neuro: Normal speech, normal affect Vitals reviewed Assessment: Complicated UTI Debility/deconditioning, weakness Stage IV lung cancer-left flank mass/pancreatic mass Atrial fibrillation on chronic anticoagulation Chronic diastolic congestive heart failure History of CAD with previous PCI Plan: Complicated UTI Chronic Lilly catheter was replaced in ED Urine culture shows Enterobacter positive to Cipro Switched to IV Cipro 07/09 Monitor CBC daily Debility/deconditioning, weakness PT consultation Lives at home, alone has a friend that comes 1 hour/day to help out Was getting around okay until a week ago, has been needing to use a wheelchair Having difficulties even with transferring now Also lives on the second floor up 16 steps Worked with PT with walker yesterday but did not try stairs Plan for PT to eval with stairs today to determine needs Will either dc with HH/PT/SN vs initiate SNF referral process Stage IV lung cancer-left flank mass/pancreatic mass Taking an oral daily chemo pill Will need to follow-up outpatient with oncology Pancreas mass enlarged from previous Discussed with patient Atrial fibrillation on chronic anticoagulation Chronic diastolic congestive heart failure History of CAD with previous PCI Does not appear grossly overloaded Continue home medications DVT PPX: Eliquis Code status: Full Discharge Plan: SNF Plan to discharge in: 24 to 48 hours Time Spent Managing Pts Care (In Minutes): 35
[2024-07-11] MEDS: ALPELISIB PO SCH (20:44)
[2024-07-11] MEDS: ENSURE ENLIVE 237 ML CAN PO SCH (20:57)
[2024-07-12 06:36] LABS: Anion Gap 8.4 mEq/L (5.0-15.0); Magnesium 1.8 mg/dL (1.6-2.4); Potassium 3.4 mEq/L (3.5-5.1)
[2024-07-12] MEDS: POTASSIUM CL SA 10 MEQ TAB PO ONE (10:01)
[2024-07-12] MEDS: MAGNESIUM SULFATE 1 gm IVPB 1 GM/100 ML BAG IV ONE (10:01)
[2024-07-12] MEDS: NA CHLORIDE 0.9% 1,000 ML IV ONE (11:54)
[2024-07-12] MEDS: CIPROFLOXACIN HCL 500 MG TAB PO SCH (17:10)
--- NOTE | 2024-07-12 18:26 | P.PN ---
Date of Service: 07/12/24 Subjective: Awake, no new complaints Working physical therapy ROS: 10 point ROS as noted above, otherwise negative Physical exam GEN: AAO x3, NAD, conversing well HEENT: Normal conjunctiva, sclera anicteric CV: Mild tachycardia, no edema Pulm: Nonlabored respirations, on room air, clear BBS ABD: Soft and benign on palpation, ND/NT, Lilly catheter in place MSK: No joint tenderness Integumentary: No rashes Neuro: Normal speech, normal affect Vitals reviewed Assessment: Complicated UTI Debility/deconditioning, weakness Stage IV lung cancer-left flank mass/pancreatic mass Atrial fibrillation on chronic anticoagulation Chronic diastolic congestive heart failure History of CAD with previous PCI Plan: Complicated UTI Chronic Lilly catheter was replaced in ED Urine culture shows Enterobacter positive to Cipro Switched to PO Cipro 07/09 Monitor CBC daily Debility/deconditioning, weakness PT consultation Lives at home, alone has a friend that comes 1 hour/day to help out Was getting around okay until a week ago, has been needing to use a wheelchair Having difficulties even with transferring now Also lives on the second floor up 16 steps Worked with PT with walker yesterday but did not try stairs Plan for PT to eval with stairs today to determine needs Will either dc with HH/PT/SN vs initiate SNF referral process Stage IV lung cancer-left flank mass/pancreatic mass Taking an oral daily chemo pill Will need to follow-up outpatient with oncology Pancreas mass enlarged from previous Discussed with patient Atrial fibrillation on chronic anticoagulation Chronic diastolic congestive heart failure History of CAD with previous PCI Does not appear grossly overloaded Continue home medications DVT PPX: Eliquis Code status: Full Discharge Plan: [facility] pending auth Plan to discharge in: 24 to 48 hours
[2024-07-13 09:16] LABS: Anion Gap 8.6 mEq/L (5.0-15.0); Potassium 3.6 mEq/L (3.5-5.1)
[2024-07-13] MEDS: HYDROMORPHONE ORAL 4 MG TAB PO PRN (09:38)
--- NOTE | 2024-07-13 14:40 | P.PN ---
Subjective Date of Service: 07/13/24 Patient states his pain is much better today. No issues overnight, blood pressure has improved. Physical Examination - Vital Signs Temperature: 97.3 F Blood Pressure: 85/61 Pulse: 113 Respirations: 16 Pulse Ox (%): 95 Assessment And Plan - Plan Physical exam GEN: AAO x3, NAD. CV: Irregular rhythm, no edema Pulm: Nonlabored respirations, clear to auscultation bilaterally ABD: Soft, nondistended, nontender, Lilly catheter in place MSK: No joint tenderness Integumentary: No rashes Neuro: Normal speech, normal affect Vitals reviewed Assessment: Complicated UTI Debility/deconditioning, weakness Stage IV lung cancer-left flank mass/pancreatic mass Atrial fibrillation on chronic anticoagulation Chronic diastolic congestive heart failure History of CAD with previous PCI Plan: Complicated UTI Chronic Lilly catheter was replaced in ED Urine culture shows Enterobacter positive to Cipro Switched to PO Cipro 07/09 Patient to complete at least 14 days of antibiotics Monitor CBC daily Debility/deconditioning, weakness Lives at home, alone has a friend that comes 1 hour/day to help out Was getting around okay until a week ago, has been needing to use a wheelchair Also lives on the second floor up 16 steps. Patient needing minimum to moderate assistance with standing, he is ambulating only 75 feet with a walker with rest stops. Continue PT. Social service assisting with arrangement for SNF. Stage IV lung cancer-left flank mass/pancreatic mass Cancer related pain Taking an oral daily chemo pill Pancreas mass enlarged from previous Outpatient follow-up with oncology. Continue home pain medications(including oral Dilaudid and fentanyl patch) Atrial fibrillation on chronic anticoagulation Chronic diastolic congestive heart failure History of CAD with previous PCI Patient appears euvolemic and compensated for CHF. Continue home medications Continue Eliquis. Continue metoprolol as patient's blood pressure will tolerate. Hypotension Probably drug-induced Discontinue lisinopril Metoprolol with holding parameters. DVT PPX: Eliquis Code status: Full Discharge Plan: [facility] pending auth
[2024-07-13] MEDS: POTASSIUM 25 MEQ EFFERV TAB PO ONE (17:56)
[2024-07-14 06:17] LABS: Anion Gap 9.6 mEq/L (5.0-15.0); Potassium 3.6 mEq/L (3.5-5.1)
[2024-07-14] MEDS: POTASSIUM 25 MEQ EFFERV TAB PO ONE (09:06)
[2024-07-15] MEDS: NA CHLORIDE 0.9% 1,000 ML IV SCH (06:20)
[2024-07-15 06:46] LABS: Anion Gap 9.6 mEq/L (5.0-15.0); Potassium 3.6 mEq/L (3.5-5.1)
[2024-07-15 08:59] LABS: Absolute Basophils 0.1 K/uL (0-0.5); Absolute Eosinophils 0.8 K/uL (0-0.5); Absolute Lymphocytes (CBC) 0.4 K/uL (0.7-4.9); Absolute Monocytes 1.1 K/uL (0.1-1.3); Absolute Neutrophil 8.1 K/uL (1.8-8.0); Basophils % 0.6 % (0-1.3); Eosinophils % 7.6 % (0-4.4); Hematocrit 27.8 % (39.6-49.0); Lymphocytes % 4.2 % (15.3-44.8); MCH 28.3 pg (27.0-35.0); MCHC 32.4 g/dL (32.0-36.0); MCV 87.2 fL (80-100); MPV 6.4 fL (7.6-11.3); Monocytes % 10.8 % (3.3-12.3); Neutrophils % 76.8 % (41.7-73.7); Platelets 402 thou/uL (152-406); RBC Red Blood Cell Count 3.18 M/uL (4.33-5.43); Red Cell Distribution Width 18.8 % (12.1-15.2)
[2024-07-15] MEDS: POTASSIUM 25 MEQ EFFERV TAB PO ONE (12:24)
[2024-07-15] MEDS ORDERED: HYDROMORPHONE HCL 1 MG/ML INJ IV PRN (15:58)
--- NOTE | 2024-07-15 16:02 | P.PN ---
Subjective Date of Service: 07/14/24 Patient reports generalized body pains He reports improvement in his oral intake. Physical Examination - Vital Signs Temperature: 97.3 F Blood Pressure: 88/59 Pulse: 107 Respirations: 15 Pulse Ox (%): 93 Assessment And Plan - Plan Physical exam GEN: AAO x3, NAD. CV: Irregular rhythm, no edema Pulm: Nonlabored respirations, clear to auscultation bilaterally ABD: Soft, nondistended, nontender, Lilly catheter in place MSK: No joint tenderness Integumentary: No rashes Neuro: Normal speech, normal affect Vitals reviewed Assessment: Complicated UTI Debility/deconditioning, weakness Stage IV lung cancer-left flank mass/pancreatic mass Atrial fibrillation on chronic anticoagulation Chronic diastolic congestive heart failure History of CAD with previous PCI Plan: Complicated UTI-Enterobacter Chronic Lilly catheter was replaced in ED Continue oral Cipro Patient to complete at least 14 days of antibiotics Monitor CBC daily Debility/deconditioning, weakness Lives at home, alone has a friend that comes 1 hour/day to help out Patient reports significant decrease in mobility due to weakness. He also lives on the second floor up 16 steps. Patient needing minimum to moderate assistance with standing, he is ambulating only 75 feet with a walker with rest stops. Continue PT. Social service assisting with arrangement for SNF. Stage IV lung cancer-left flank mass/pancreatic mass Cancer related pain Taking an oral daily chemo pill Pancreas mass enlarged from previous Outpatient follow-up with oncology. Continue home pain medications(including oral Dilaudid and fentanyl patch) Hydromorphone IV as needed for breakthrough pain added. Atrial fibrillation on chronic anticoagulation Chronic diastolic congestive heart failure History of CAD with previous PCI Patient appears euvolemic and compensated for CHF. Continue home medications Continue Eliquis. Continue metoprolol as patient's blood pressure will tolerate. Hypotension Probably drug-induced Lisinopril discontinued Metoprolol to be given with holding parameters. DVT PPX: Eliquis Code status: Full Discharge Plan: [facility] pending auth
--- NOTE | 2024-07-15 16:07 | P.PN ---
Subjective Date of Service: 07/15/24 Patient reports frequent breakthrough pains not entirely controlled by his current dose hydromorphone. He reports the oral hydromorphone lasts only about 3 hours. He is eating more. Physical Examination - Vital Signs Temperature: 97.3 F Blood Pressure: 88/59 Pulse: 107 Respirations: 15 Pulse Ox (%): 93 Assessment And Plan - Plan Physical exam GEN: AAO x3, NAD. CV: Irregular rhythm, no edema Pulm: Nonlabored respirations, clear to auscultation bilaterally ABD: Soft, nondistended, nontender, Lilly catheter in place MSK: No joint tenderness Integumentary: No rashes Neuro: Normal speech, normal affect Vitals reviewed Assessment: Complicated UTI Debility/deconditioning, weakness Stage IV lung cancer-left flank mass/pancreatic mass Atrial fibrillation on chronic anticoagulation Chronic diastolic congestive heart failure History of CAD with previous PCI Plan: Complicated UTI-Enterobacter Chronic Lilly catheter was replaced in ED Continue oral Cipro Patient to complete at least 14 days of antibiotics Debility/deconditioning, weakness Lives at home, alone has a friend that comes 1 hour/day to help out Patient reports significant decrease in mobility due to weakness. Continue PT. Social service assisting with arrangement for SNF. Stage IV lung cancer-left flank mass/pancreatic mass Cancer related pain Taking an oral daily chemo pill Pancreas mass enlarged from previous Outpatient follow-up with oncology. Continue home pain medications(including oral Dilaudid and fentanyl patch). Low blood pressure limiting use of IV opioids. Start gabapentin for neuropathic pain. Atrial fibrillation on chronic anticoagulation Chronic diastolic congestive heart failure History of CAD with previous PCI Patient appears euvolemic and compensated for CHF. Continue home medications Pain control. Continue Eliquis. Continue metoprolol as patient's blood pressure will tolerate. Hypotension Probably drug-induced Lisinopril discontinued Metoprolol to be given with holding parameters. DVT PPX: Eliquis Code status: Full Discharge Plan: [facility] pending auth
[2024-07-15] MEDS: GABAPENTIN 100 MG CAP PO SCH (21:39)
[2024-07-15] MEDS: LOPERAMIDE HCL 2 MG CAPSULE PO PRN (22:37)
[2024-07-16] MEDS: HYDROMORPHONE HCL 2 MG/ML inj IM ONE (02:33)
--- NOTE | 2024-07-16 14:10 | P.PN ---
Subjective Date of Service: 07/16/24 No new complaint except uncontrolled pain. No issues overnight. Physical Examination - Vital Signs Temperature: 96.9 F Blood Pressure: 112/61 Pulse: 114 Respirations: 16 Pulse Ox (%): 93 Assessment And Plan - Plan Physical exam GEN: AAO x3, NAD. CV: Irregular rhythm, no edema Pulm: Nonlabored respirations, clear to auscultation bilaterally ABD: Soft, nondistended, nontender, Lilly catheter in place MSK: No joint tenderness Integumentary: No rashes Neuro: Normal speech, normal affect Vitals reviewed Assessment: Complicated UTI Debility/deconditioning, weakness Stage IV lung cancer-left flank mass/pancreatic mass Atrial fibrillation on chronic anticoagulation Chronic diastolic congestive heart failure History of CAD with previous PCI Plan: Complicated UTI-Enterobacter Chronic Lilly catheter was replaced in ED Continue oral Cipro Patient to complete at least 14 days of antibiotics Debility/deconditioning, weakness Lives at home, alone has a friend that comes 1 hour/day to help out Patient reports significant decrease in mobility due to weakness. Continue PT. Disposition to SNF pending insurance authorization. Stage IV lung cancer-left flank mass/pancreatic mass Cancer related pain Taking an oral daily chemo pill Pancreas mass enlarged from previous Outpatient follow-up with oncology. Continue home pain medications(including oral Dilaudid and fentanyl patch). Patient is complaining of uncontrolled pain. Oral Dilaudid dose increased. Start gabapentin for neuropathic pain. Atrial fibrillation on chronic anticoagulation Chronic diastolic congestive heart failure History of CAD with previous PCI Patient appears euvolemic and compensated for CHF. Continue home medications Pain control. Continue Eliquis. Continue metoprolol as patient's blood pressure will tolerate. Hypotension Probably drug-induced Lisinopril discontinued Metoprolol to be given with holding parameters. DVT PPX: Eliquis Code status: Full Discharge Plan: [facility] pending auth
[2024-07-16] MEDS: HYDROMORPHONE ORAL 4 MG TAB PO PRN (14:56)
[2024-07-17] MEDS: HYDROMORPHONE HCL 1 MG/ML INJ IV ONE (01:02)
[2024-07-17] MEDS: FENTANYL 75 MCG/PATCH TD SCH (10:43)
--- NOTE | 2024-07-17 13:11 | P.PN ---
Subjective Date of Service: 07/17/24 Patient states her pain is better. No issues overnight. Physical Examination - Vital Signs Temperature: 97.5 F Blood Pressure: 99/55 Pulse: 76 Respirations: 16 Pulse Ox (%): 94 Assessment And Plan - Plan Physical exam GEN: AAO x3, NAD. CV: Irregular rhythm, no edema Pulm: Nonlabored respirations, clear to auscultation bilaterally ABD: Soft, nondistended, nontender, Lilly catheter in place MSK: No joint tenderness Integumentary: No rashes Neuro: Normal speech, normal affect Vitals reviewed Assessment: Complicated UTI Debility/deconditioning, weakness Stage IV lung cancer-left flank mass/pancreatic mass Atrial fibrillation on chronic anticoagulation Chronic diastolic congestive heart failure History of CAD with previous PCI Plan: Complicated UTI-Enterobacter Chronic Lilly catheter was replaced in ED Continue oral Cipro Patient to complete at least 14 days of antibiotics Debility/deconditioning, weakness Lives at home, alone has a friend that comes 1 hour/day to help out Patient reports significant decrease in mobility due to weakness. Continue PT. Disposition to SNF pending insurance authorization. Stage IV lung cancer-left flank mass/pancreatic mass Cancer related pain Taking an oral daily chemo pill Pancreas mass enlarged from previous Outpatient follow-up with oncology. Continue home pain medications(including oral Dilaudid and fentanyl patch). Patient is complaining of uncontrolled pain. Oral Dilaudid frequency increased. Titrate gabapentin for neuropathic pain. Atrial fibrillation on chronic anticoagulation Chronic diastolic congestive heart failure History of CAD with previous PCI Patient appears euvolemic and compensated for CHF. Continue home medications Pain control. Continue Eliquis. Continue metoprolol as patient's blood pressure will tolerate. Hypotension Probably drug-induced Lisinopril discontinued Metoprolol being given with holding parameters. DVT PPX: Eliquis Code status: Full Discharge Plan: [facility] pending auth
[2024-07-17 21:48] VITALS: O2SAT 91
[2024-07-18 05:52] LABS: Absolute Basophils 0.1 K/uL (0-0.5); Absolute Eosinophils 1.1 K/uL (0-0.5); Absolute Lymphocytes (CBC) 0.8 K/uL (0.7-4.9); Absolute Neutrophil 4.9 K/uL (1.8-8.0); Hematocrit 26.2 % (39.6-49.0); Hemoglobin 8.7 g/dL (13.6-17.9); Lymphocytes % 9.8 % (15.3-44.8); MCH 28.8 pg (27.0-35.0); MCHC 33.3 g/dL (32.0-36.0); MCV 86.5 fL (80-100); MPV 6.3 fL (7.6-11.3); Monocytes % 12.6 % (3.3-12.3); Neutrophils % 62.6 % (41.7-73.7); Nucleated Red Blood Cells % 0.2 % (0-0); Platelets 392 thou/uL (152-406); RBC Red Blood Cell Count 3.03 M/uL (4.33-5.43); Red Cell Distribution Width 19.2 % (12.1-15.2)
[2024-07-18 06:03] LABS: Anion Gap 8.1 mEq/L (5.0-15.0); Potassium 3.1 mEq/L (3.5-5.1)
[2024-07-18] MEDS: POTASSIUM 25 MEQ EFFERV TAB PO ONE (09:01)
[2024-07-18 14:36] LABS: SARS-CoV-2 Antigen CONTROL BLUE LINE VIS/BG OK; SARS-CoV-2 Antigen Rapid Res Negative (Negative)
--- NOTE | 2024-07-18 15:28 | P.DS ---
Admission Date: 07/07/24 Discharge Date: 07/18/24 Disposition: TRANSFER TO SNF - REHAB Discharge Condition: FAIR Brief History of Present Illness: 64-year-old male with history of stage IV lung cancer on oral chemotherapy, chronic diastolic congestive heart failure, atrial fibrillation on Eliquis, CAD with previous PCI presented to the emergency department with chief complaint of abdominal pain, catheter malfunction, progressive weakness. Patient reported severe abdominal pain of 2 days duration as well as having difficulties with his urinary catheter which was place about 4 months ago, last changed 1 month ago. He also reported significant weakness over the course of 1 week. At baseline he typically gets around at home with some difficulty, does have a friend that comes by to help him 1 hour/day. He reported he was unable to transfer without assistance and became wheelchair dependent. Patient was evaluated in the emergency department. Labs significant for hemoglobin of 10, hematocrit 30.1, UA suggested the presence of UTI. CT abdomen pelvis with IV contrast showed wall thickening of the bladder which could be from infection or inflammation, enlarging cystic lesion of the pancreatic tail measuring 2.3 cm which could represent metastatic disease versus enlarging pancreatic primary lesion. Patient was admitted for complicated UTI, abdominal pain, and weakness. Hospital Course: Patient was admitted to the medical floor and the following medical problems addressed: Diagnosis Complicated UTI Debility/deconditioning, weakness Stage IV lung cancer-left flank mass/pancreatic mass Atrial fibrillation on chronic anticoagulation Chronic diastolic congestive heart failure History of CAD with previous PCI Plan: Complicated Enterobacter UTI secondary to indwelling Lilly catheter. Chronic Lilly catheter was replaced in ED Patient treated with IV cefepime and transition to ciprofloxacin. Patient to complete at least 14 days of antibiotics Debility/deconditioning, weakness Patient lives at home alone and has a friend that comes to help 1 hour/day. Patient reports significant decrease in mobility due to weakness. Patient evaluated by PT, he ambulated with assistance. Skilled rehab recommended. Patient has been accepted to [facility] for skilled rehab. He is clinically stable for discharge.. Stage IV lung cancer-left flank mass/pancreatic mass Cancer related pain Taking an oral daily chemo pill Pancreas mass enlarged compared to previous images. Outpatient follow-up with oncology recommended. Continued home pain medications(including oral Dilaudid and fentanyl patch). Gabapentin was added for neuropathic pain. Atrial fibrillation on chronic anticoagulation Chronic diastolic congestive heart failure History of CAD with previous PCI Patient appears euvolemic and compensated for CHF. Continued home medications Continued Eliquis. Patient had intermittent hypotension with limited administration of metoprolol. Hypotension Probably drug-induced Lisinopril discontinued Metoprolol was barely given due to the hypotension. Vital Signs/Physical Exam: Temp Pulse Resp BP Pulse Ox 98.7 F 95 H 16 112/59 L 94 07/18/24 12:00 07/18/24 12:00 07/18/24 12:00 07/18/24 12:00 07/18/24 12:00 General: Alert, In no apparent distress, Oriented x3 HEENT: Mucous membr. moist/pink Neck: Supple, JVD not distended Respiratory: Clear to auscultation bilaterally, Normal air movement Cardiovascular: Normal pulses, Regular rate/rhythm Gastrointestinal: Normal bowel sounds, Soft and benign, Non-distended Musculoskeletal: No swelling Integumentary: No cyanosis Neurological: Normal strength at 5/5 x4 extr Laboratory Data at Discharge: WBC 7.90 thou/uL (4.3-10.9) 07/18/24 05:35 Hgb 8.7 g/dL (13.6-17.9) L 07/18/24 05:35 Hct 26.2 % (39.6-49.0) L 07/18/24 05:35 Plt Count 392 thou/uL (152-406) 07/18/24 05:35 Sodium 140 mEq/L (136-145) 07/18/24 05:35 Potassium 3.6 mEq/L (3.5-5.1) D 07/18/24 14:58 BUN 6 mg/dL (7-18) L 07/18/24 05:35 Creatinine 0.57 mg/dL (0.70-1.30) L 07/18/24 05:35 Glucose 163 mg/dL (74-106) H 07/18/24 05:35 Phosphorus 2.6 mg/dL (2.5-4.9) 07/11/24 06:40 Magnesium 2.0 mg/dL (1.6-2.4) 07/13/24 08:50 Total Bilirubin 0.4 mg/dL (0.2-1.0) 07/11/24 06:40 AST 15 U/L (15-37) 07/11/24 06:40 ALT < 14 U/L (16-61) L 07/11/24 06:40 Alkaline Phosphatase 65 U/L (45-117) 07/11/24 06:40 Lipase 24 U/L (13-75) 07/07/24 09:00 Home Medications: Atorvastatin Calcium 40 mg PO BEDTIME 01/05/24 Cholecalciferol (Vitamin D3) [Vitamin D 5,000 IU Cap*] 5,000 units PO DAILY 01/05/24 Metoprolol Tartrate 50 mg PO BID 01/05/24 fentaNYL [Fentanyl] 75 mg TD SEECOM 02/16/24 Tamsulosin [Flomax*] 0.4 mg PO BEDTIME #30 cap 02/19/24 Alpelisib [Piqray] 300 mg PO BEDTIME 06/09/24 Hydromorphone [Dilaudid*] 4 mg PO Q4H PRN 06/09/24 Duloxetine HCl 30 mg PO DAILY 06/10/24 Pantoprazole [Protonix Tab*] 40 mg PO DAILY 06/10/24 Furosemide [Lasix*] 20 mg PO DAILY 30 Days #30 tab 06/12/24 Apixaban [Eliquis] 1 tab PO BID 07/07/24 Aspirin [Aspirin EC 81 MG] 1 tab PO DAILY 07/07/24 Clopidogrel Bisulfate [Plavix*] 1 tab PO DAILY 07/07/24 Evolocumab [Repatha Sureclick] 1 dose SQ DIRECTED 07/07/24 Ondansetron [Ondansetron Odt] 8 mg PO Q8HR PRN 07/07/24 Ensure Enlive 237 ml PO BID can 07/18/24 Gabapentin [Neurontin*] 100 mg PO BID cap 07/18/24 Loperamide [Imodium*] 2 mg PO Q4H PRN cap 07/18/24 Diet: AHA Activity: Fall precautions Followup: Rosanna Flores MD [Primary Care Provider] - Time spent managing pt's care (in minutes): 39
[2024-07-18] MEDS: POTASSIUM CL SA 10 MEQ TAB PO ONE (15:48)
[2024-07-18 16:50] VITALS: BP 106/50; TEMP 98.6
== END 2024-07-18 19:38 | DRG 699 ==
LOC: ER 07:38 → ERHOLD 11:41 → 2ND 12:45
PROVIDERS: ADMIT Hospitalist; ATTEND Internal Medicine
PROC: 0T9B70Z Drainage of Bladder with Drainage Device, Via Natural or Artificial Opening (ICD-10-PCS; principal; 2024-07-07)
DX: T83.518A Infection and inflammatory reaction due to other urinary catheter, initial encounter (principal); C34.90 Malignant neoplasm of unspecified part of unspecified bronchus or lung; E44.0 Moderate protein-calorie malnutrition; N30.00 Acute cystitis without hematuria; I50.32 Chronic diastolic (congestive) heart failure; E86.0 Dehydration; E87.6 Hypokalemia; K86.9 Disease of pancreas, unspecified; I48.91 Unspecified atrial fibrillation; G89.3 Neoplasm related pain (acute) (chronic); K59.00 Constipation, unspecified; L89.159 Pressure ulcer of sacral region, unspecified stage; I25.10 Atherosclerotic heart disease of native coronary artery without angina pectoris; I95.2 Hypotension due to drugs; T46.4X5A Adverse effect of angiotensin-converting-enzyme inhibitors, initial encounter; B96.89 Other specified bacterial agents as the cause of diseases classified elsewhere; Z60.2 Problems related to living alone; Z95.1 Presence of aortocoronary bypass graft; Z68.21 Body mass index [BMI] 21.0-21.9, adult; Z11.52 Encounter for screening for COVID-19; Z79.01 Long term (current) use of anticoagulants; Z79.899 Other long term (current) drug therapy; Z85.830 Personal history of malignant neoplasm of bone; Y84.8 Other medical procedures as the cause of abnormal reaction of the patient, or of later complication, without mention of misadventure at the time of the procedure
CPT/HCPCS: 36415; 74177; 80048; 80053; 81001; 82947; 83690; 83735; 84100; 84132; 85025; 87077; 87086; 87088; 87186; 87811; 93005; 97116; 97161; 97530; 99285; J0696; J0744; J1170; J1650; J2405; J3475; J7030; Q9967